=== PATIENT | female | born 1945 | race Caucasian/White ===

== ENCOUNTER 2024-07-01 09:01 | Inpatient (IN) ==
--- NOTE | 2024-07-01 09:25 | Emergency Department Note ---
Impression & Plan Bright red rectal bleeding ED Provider Note Provider: Scout Herring MD DATE OF SERVICE: 07/01/2024 CHIEF COMPLAINT: Rectal bleeding HISTORY OF PRESENT ILLNESS: Patient is a 78-year-old female presenting via ambulance from home for report of maybe a little stomach burning last night and woke up this morning had 4-5 episodes of bloody diarrhea and stools. Denies significant abdominal pain at this time. No chest pain or shortness of breath. No syncope or lightheadedness reported. Denies a history of GI bleeding issues in the past. Is on Protonix at home but no blood thinners or aspirin reported. Is on some NSAID cream. Denies significant lower abdominal pain or cramping otherwise a bit crampy earlier. Given multiple bloody stools with some clots came here for evaluation. Denies suspect food intake or fever. No recent significant travel. PAST MEDICAL HISTORY: As noted above MEDICATIONS: Reviewed, no blood thinners reported SOCIAL HISTORY: Lives at home with PHYSICAL EXAM: GENERAL: alert and oriented in no acute distress on stretcher Head: normocephalic and atraumatic EYES: No injection, discharge or icterus. EOMI. NECK: Trachea midline. ENT: Mucous membranes pink and moist. LUNGS: Airway patent. No retractions. Breath sounds clear with good air entry bilaterally. HEART: Regular rate and rhythm. No chest wall tenderness ABDOMEN: Soft and non-tender, without guarding or rebound. SKIN: Acyanotic, warm, dry, without rashes EXTREMITIES: Without swelling, tenderness or deformity NEUROLOGICAL: No focal deficits. No aphasia. No facial droop or slurred speech. Ambulatory. EK beats per minute. Normal sinus rhythm. No PVC or PAC. No acute ST segment elevation or depression with QTc of 415. CONTINUOUS CARDIAC MONITORING: was ordered and showed a heart rate of 70s to 80s bpm in normal sinus rhythm Patient's laboratory studies and imaging reviewed. Differential includes Diverticulosis, AVM, coagulopathy, colitis, inflammatory bowel disease, malignancy, Sharmaine-Valentino tear, esophagitis, peptic ulcer disease, variceal bleed, gastritis, epistaxis, fissure, hemorrhoids, as well as other pathologies. IMPRESSION/MEDICAL DECISION MAKING: Patient with rectal bleeding starting today. No history of ulcers or GI bleed by her report. Not significantly tender on exam. Not on antiplatelets or anticoagulants. Blood work obtained including type and screen. Will complete a CT abdomen pelvis to look for possible etiology of bleed or other inflammatory changes. Will give a IV dose of Protonix here although unsure that this truly represents an upper GI bleed. Stool here is red with blood and Hemoccult positive. Denies significant symptoms of anemia and not hypotensive or tachycardic here. Blood work without anemia leukocytosis. Normal platelet count. No significant lecture abnormalities or renal dysfunction. BUN normal and lower suspicion for upper GI bleed with this. No transaminitis notable. CT angiogram of the abdomen pelvis to look for any active bleeding was negative. Extensive colonic diverticulosis without diverticulitis noted on imaging report from radiology. Discussed with patient the findings. He that she has had ongoing bloody bowel movements although she is not significantly symptomatic or hypotensive given her age discussed with her options at this time of close outpatient monitoring and management versus observation. She wished to be observed with her believe is reasonable given her age and the multiple bloody stools she has had today. She is at risk for decompensation. Hospitalist was contacted. DIAGNOSIS: Rectal bleeding DISPOSITION: Hospitalist will evaluate Patient was agreeable with this plan. Past Med/Surg History Problem List (Updated 07/01/24 @ 13:03 by Scout Herring M.D.) Bright red rectal bleeding (Acute) Depression GERD (gastroesophageal reflux disease) Vitamin B12 deficiency Lower GI bleed HTN (hypertension) Rosacea Hypothyroidism Allergies Allergies Allergy/AdvReac Type Severity Reaction Status Date / Time atorvastatin Allergy Unknown Unknown - Unverified 07/01/24 10:34 On file w/ [facility] diclofenac Allergy Unknown Unknown - Unverified 07/01/24 10:34 On file w/ [facility] diflunisal Allergy Unknown Unknown - Unverified 07/01/24 10:34 On file w/ [facility] naproxen Allergy Unknown Unknown - Unverified 07/01/24 10:34 On file w/ [facility] Home Meds Home Medications Medication Instructions Recorded Confirmed albuterol sulfate 90 mcg/actuation 2 puff inhalation Q4H PRN Wheezing 07/01/24 07/01/24 aerosol inhaler amlodipine 5 mg tablet 5 mg PO QAM 07/01/24 07/01/24 cholecalciferol (vitamin D3) 25 25 mcg PO QAM 07/01/24 07/01/24 mcg (1,000 unit) tablet (Vitamin D3) cyanocobalamin (vitamin B-12) 1,000 mcg PO QAM 07/01/24 07/01/24 1,000 mcg tablet (Vitamin B-12) doxycycline hyclate 20 mg tablet 20 mg PO BID 07/01/24 07/01/24 duloxetine 30 mg capsule,delayed 30 mg PO QAM 07/01/24 07/01/24 release ezetimibe 10 mg tablet 10 mg PO DAILY 07/01/24 07/01/24 fluticasone furoate 200 1 inh inhalation QAM 07/01/24 07/01/24 mcg-vilanterol 25 mcg/dose inhalation powder (Breo Ellipta) fluticasone propionate 50 2 spray intranasal DAILY 07/01/24 07/01/24 mcg/actuation nasal spray,suspension furosemide 20 mg tablet 20 mg PO DAILY PRN Lower Extremity 07/01/24 07/01/24 Swelling levothyroxine 50 mcg tablet 50 mcg PO DAILYBB 07/01/24 07/01/24 loratadine 10 mg tablet 10 mg PO QAM 07/01/24 07/01/24 meloxicam 15 mg tablet 15 mg PO DAILY PRN Pain 07/01/24 07/01/24 omega-3 fatty acids 500 mg capsule 500 mg PO QAM 07/01/24 07/01/24 omeprazole 40 mg capsule,delayed 40 mg PO QAM 07/01/24 07/01/24 release potassium chloride 20 mEq 20 meq PO DAILY PRN If you take 07/01/24 07/01/24 tablet,extended Lasix/Furosemide release(part/cryst) (Klor-Con M) sulfacetamide sodium 10 % topical 1 applic topical BID 07/01/24 07/01/24 cream zinc 10 mg tablet 20 mg PO DAILY 07/01/24 07/01/24 Results & Data (ED) Vital Signs Vital Signs - 24 hr 07/01/24 09:05 07/01/24 09:08 07/01/24 09:08 Temperature 37.2 C Temperature Source Oral Pulse Rate 87 Pulse Rate [Apical] 87 Pulse Rate from SpO2 Sensor Pulse Rhythm Regular Pulse Rhythm [Apical] Regular Pulse Strength Normal Pulse Strength [Apical] Normal Respiratory Rate 15 15 Respiratory Effort / Characteristics Non-Labored Non-Labored Respiratory Depth Normal Normal Respiratory Pattern Regular Regular Blood Pressure 170/96 H 170/96 H Blood Pressure [Right Arm] 170/96 H Blood Pressure Mean 121 120 Blood Pressure Mean [Right Arm] 120 Blood Pressure Position [Right Arm] Lying Pulse Oximetry 98 98 Oxygen Delivery Method Room Air Room Air Oxygen Flow Rate Sepsis Recent Fever Within 48 Hours No Sepsis New/Unexplained Change in Mental Status No Sepsis Action Taken by Nursing No Action Required 07/01/24 09:09 07/01/24 09:10 07/01/24 09:10 Temperature Temperature Source Pulse Rate 90 91 H 80 Pulse Rate [Apical] Pulse Rate from SpO2 Sensor 88 Pulse Rhythm Regular Pulse Rhythm [Apical] Pulse Strength Pulse Strength [Apical] Respiratory Rate 20 18 Respiratory Effort / Characteristics Respiratory Depth Respiratory Pattern Blood Pressure Blood Pressure [Right Arm] Blood Pressure Mean Blood Pressure Mean [Right Arm] Blood Pressure Position [Right Arm] Pulse Oximetry 98 96 Oxygen Delivery Method Room Air Oxygen Flow Rate Sepsis Recent Fever Within 48 Hours Sepsis New/Unexplained Change in Mental Status Sepsis Action Taken by Nursing 07/01/24 09:35 07/01/24 10:00 07/01/24 10:00 Temperature Temperature Source Pulse Rate 84 Pulse Rate [Apical] 84 Pulse Rate from SpO2 Sensor 83 Pulse Rhythm Pulse Rhythm [Apical] Regular Pulse Strength Pulse Strength [Apical] Normal Respiratory Rate 20 22 Respiratory Effort / Characteristics Non-Labored Spontaneous Respiratory Depth Normal Respiratory Pattern Regular Blood Pressure 162/94 H Blood Pressure [Right Arm] 161/96 H Blood Pressure Mean 116 Blood Pressure Mean [Right Arm] 117 Blood Pressure Position [Right Arm] Sitting Pulse Oximetry 95 99 Oxygen Delivery Method Nasal Cannula Oxygen Flow Rate 2 Sepsis Recent Fever Within 48 Hours Sepsis New/Unexplained Change in Mental Status Sepsis Action Taken by Nursing 07/01/24 10:42 07/01/24 11:00 07/01/24 11:00 Temperature Temperature Source Pulse Rate 76 78 Pulse Rate [Apical] Pulse Rate from SpO2 Sensor 76 77 Pulse Rhythm Pulse Rhythm [Apical] Pulse Strength Pulse Strength [Apical] Respiratory Rate 22 18 Respiratory Effort / Characteristics Respiratory Depth Respiratory Pattern Blood Pressure 164/101 H Blood Pressure [Right Arm] Blood Pressure Mean 149 Blood Pressure Mean [Right Arm] Blood Pressure Position [Right Arm] Pulse Oximetry 99 99 99 Oxygen Delivery Method Nasal Cannula Nasal Cannula Oxygen Flow Rate 2 2 Sepsis Recent Fever Within 48 Hours Sepsis New/Unexplained Change in Mental Status Sepsis Action Taken by Nursing 07/01/24 11:00 Temperature Temperature Source Pulse Rate 84 Pulse Rate [Apical] Pulse Rate from SpO2 Sensor 83 Pulse Rhythm Pulse Rhythm [Apical] Pulse Strength Pulse Strength [Apical] Respiratory Rate 18 Respiratory Effort / Characteristics Respiratory Depth Respiratory Pattern Blood Pressure 164/101 H Blood Pressure [Right Arm] Blood Pressure Mean 149 Blood Pressure Mean [Right Arm] Blood Pressure Position [Right Arm] Pulse Oximetry Oxygen Delivery Method Oxygen Flow Rate Sepsis Recent Fever Within 48 Hours Sepsis New/Unexplained Change in Mental Status Sepsis Action Taken by Nursing Laboratory Data 07/01/24 09:14 07/01/24 09:14 Lab Results 07/01/24 07/01/24 Range/Units 09:10 09:14 WBC 9.09 (4.8-10.8) K/ul RBC 4.03 L (4.20-5.40) M/uL Hgb 12.6 (12.0-16.0) g/dl Hct 37.9 (37.0-47.0) % MCV 94.0 (80.0-100.0) fL MCH 31.3 (25.0-34.0) pg MCHC 33.2 (32.0-36.0) g/dL RDW Std Deviation 49.3 H (36.4-46.3) fL RDW Coeff of Imani 14.1 (11.5-14.5) % Plt Count 330 (130-400) K/uL MPV 9.3 L (9.4-12.4) fL Immature Gran % (Auto) 0.3 % Neut % (Auto) 65.3 % Lymph % (Auto) 20.7 % [place] % (Auto) 7.7 % Eos % (Auto) 5.1 % Baso % (Auto) 0.9 % Neut # (Auto) 5.94 (1.40-6.50) K/uL Lymph # (Auto) 1.88 (1.20-3.40) K/uL [place] # (Auto) 0.70 H (0.11-0.59) K/uL Eos # (Auto) 0.46 (0.00-0.50) K/uL Baso # (Auto) 0.08 (0.00-0.20) K/uL Immature Gran # (Auto) 0.03 (0.01-0.20) K/uL PT 10.0 (9.0-12.0) Seconds INR 0.9 (0.9-1.1) APTT 25 (21-31) Seconds PTT Ratio 0.9 Sodium 139 (136-145) mmol/L Potassium 4.4 (3.5-5.1) mmol/L Chloride 106 (98-107) mmol/L Carbon Dioxide 28 (21-32) mmol/L Anion Gap 5 (3-11) BUN 22 (6-23) mg/dl Creatinine 0.82 (0.6-1.2) mg/dl Est Cr Clr Drug Dosing 47.2 ml/min Est GFR ( Amer) 78.9 ml/min Est GFR (Non-Af Amer) 68.1 ml/min BUN/Creatinine Ratio 26.8 H (10-20) Glucose 94 (70-99(Fasting)) mg/dl Calcium 9.3 (8.6-10.3) mg/dl Total Bilirubin 0.7 (0.2-1.0) mg/dl AST 16 (13-39) U/L ALT 13 (7-52) U/L Alkaline Phosphatase 73 (34-104) U/L Total Protein 6.5 (6.0-8.3) gm/dl Albumin 3.9 (3.4-5.0) gm/dl Globulin 2.6 (2.5-4.0) gm/dl Albumin/Globulin Ratio 1.5 (0.9-2) POC Stool Occult Blood Positive A (Negative) Blood Type AB Positive Antibody Screen NEGATIVE Administered Medications Discontinued Medications Pantoprazole Sodium 80 mg/ (Dextrose) 120 mls @ 480 mls/hr IV ONE STA Stop: 07/01/24 09:22 Last Infusion: 07/01/24 10:12 Dose: Infused Documented By: Admin: 07/01/24 09:37 Dose: 480 mls/hr Documented By: AMANDA Ioversol (Optiray 320 125ml) 119 ml IV ONCE ONE Stop: 07/01/24 10:21 Last Admin: 07/01/24 10:20 Dose: 119 ml Documented By: SEFERINO Imaging Data Radiologist's Impression: Abdomen/Pelvis CTA 07/01/24 09:08 CT ANGIOGRAPHY OF THE ABDOMEN AND PELVIS CLINICAL HISTORY: Bloody stool. COMPARISON STUDY: No previous studies for comparison. TECHNIQUE: Helical axial images of the abdomen and pelvis were obtained during arterial phase following intravenous injection 119 cc of Optiray 320 IV. Sagittal and coronal reconstructions were viewed as well as maximal intensity projections on an independent 3-D workstation. Automated exposure control was utilized for the study. A dose lowering technique was utilized adhering to the principles of ALARA. FINDINGS: There is elevation of the left hemidiaphragm. The heart is moderately enlarged. No pneumatosis, free air or portal venous gas is present. Arterial phase images of the liver are unremarkable with exception of a 2.1 cm lateral segment hepatic cyst. Spleen, adrenal glands are unremarkable. There is pancreatic glandular atrophy. No biliary or pancreatic ductal dilatation is present status post cholecystectomy. There is moderate bilateral renal cortical thinning. Multiple left renal cysts are present. There is no hydronephrosis. Extensive colonic diverticulosis is present. No evidence for acute diverticulitis. No evidence for a bowel obstruction. No intraluminal contrast is identified on this examination to suggest active GI bleed by CT. The caliber of the abdominal aorta is normal. There is moderate aortoiliac atherosclerotic plaque. There is mild dilatation of the right common iliac artery, measuring 1.4 cm. There is no aneurysm or dissection within the abdomen or the pelvis. Branch vessels are patent. There are no fluid collections or enlarged lymph nodes within the abdomen or pelvis. Exam is mildly compromised by motion artifact. IMPRESSION: 1. Extensive colonic diverticulosis. No evidence for acute diverticulitis. No intraluminal contrast within the bowel to suggest active GI bleed by CT. 2. No bowel obstruction. 3. Moderate aortoiliac atherosclerotic plaque. Patent vessels. ACT 112: Negative or not required by law. Electronically signed by: Otilio Griggs M.D. 07/01/2024 10:45 AM Discharge Plan Visit Data Chief Complaint: Rectal Bleed Stated Complaint: RECTAL BLEED ED Provider: Scout Herring Discharge Problem: Bright red rectal bleeding Patient Disposition: Being Evaluated by Hospitalist Forms Stand Alone Forms: My [facility] [employer] Prescriptions Prescriptions: No Action meloxicam 15 mg tablet 15 mg PO DAILY PRN (Reason: Pain) cyanocobalamin (vitamin B-12) [Vitamin B-12] 1,000 mcg Tablet 1,000 mcg PO QAM amlodipine 5 mg tablet 5 mg PO QAM omeprazole 40 mg capsule,delayed release(DR/EC) 40 mg PO QAM potassium chloride [Klor-Con M20] 20 mEq tablet,ER particles/crystals 20 meq PO DAILY PRN (Reason: If you take Lasix/Furosemide) levothyroxine 50 mcg tablet 50 mcg PO DAILYBB furosemide 20 mg tablet 20 mg PO DAILY PRN (Reason: Lower Extremity Swelling) albuterol sulfate 90 mcg/actuation HFA aerosol inhaler 2 puff INHALATION Q4H PRN (Reason: Wheezing) fluticasone propionate 50 mcg/actuation spray,suspension 2 spray INTRANASAL DAILY loratadine 10 mg tablet 10 mg PO QAM zinc 10 mg Tablet 20 mg PO DAILY ezetimibe 10 mg tablet 10 mg PO DAILY sulfacetamide sodium 10 % Cream 1 applic TOPICAL BID duloxetine 30 mg capsule,delayed release(DR/EC) 30 mg PO QAM cholecalciferol (vitamin D3) [Vitamin D3] 25 mcg (1,000 unit) Tablet 25 mcg PO QAM Fish Oil 500 mg Capsule 500 mg PO QAM fluticasone furoate-vilanterol [Breo Ellipta] 200-25 mcg/dose blister with device 1 inh INHALATION QAM doxycycline hyclate 20 mg Tablet 20 mg PO BID Rx Instructions: On patient's med list, pharmacy not showing this on file. Referrals Referrals: PCP,NO [Physician] -
[2024-07-01] MEDS: PANTOprazole 80 MG in DEXTROSE 5% 100 ML IV STA (09:37)
[2024-07-01 09:51] LABS: Basophils # (auto) 0.08 K/uL (0.00-0.20); Basophils % (auto) 0.9 %; Eosinophils # (auto) 0.46 K/uL (0.00-0.50); Eosinophils % (auto) 5.1 %; Hematocrit (blood only) 37.9 % (37.0-47.0); Hemoglobin 12.6 g/dl (12.0-16.0); Immature Granulocytes # (auto) 0.03 K/uL (0.01-0.20); Immature Granulocytes % (auto) 0.3 %; Lymphocytes # (auto) 1.88 K/uL (1.20-3.40); Lymphocytes % (auto) 20.7 %; Mean Corpuscular Hemoglobin 31.3 pg (25.0-34.0); Mean Corpuscular Hgb Conc 33.2 g/dL (32.0-36.0); Mean Platelet Volume 9.3 fL (9.4-12.4); Monocytes % (auto) 7.7 %; Neutrophils # (auto) 5.94 K/uL (1.40-6.50); Neutrophils % (auto) 65.3 %; Platelet Count 330 K/uL (130-400); RDW Coefficient of Variation 14.1 % (11.5-14.5); RDW Standard Deviation 49.3 fL (36.4-46.3); Red Blood Count 4.03 M/uL (4.20-5.40); White Blood Count 9.09 K/ul (4.8-10.8)
[2024-07-01 10:00] LABS: Albumin Globulin Ratio 1.5 (0.9-2); Albumin Level 3.9 gm/dl (3.4-5.0); BUN Creatinine Ratio 26.8 (10-20); Bilirubin,Total 0.7 mg/dl (0.2-1.0); Calcium 9.3 mg/dl (8.6-10.3); Creatinine Clr Calc Pharmacy 47.2 ml/min; Est GFR (African American) 78.9 ml/min; Est GFR (Non-African American) 68.1 ml/min; Globulin 2.6 gm/dl (2.5-4.0); Potassium 4.4 mmol/L (3.5-5.1); Total Protein 6.5 gm/dl (6.0-8.3)
[2024-07-01 10:12] LABS: INR 0.9 (0.9-1.1); Partial Thromboplastin Ratio 0.9; Partial Thromboplastin Time 25 Seconds (21-31)
[2024-07-01] MEDS: OPTIRAY 320 125ml IV ONE (10:20)
--- NOTE | 2024-07-01 10:46 | CT Scan Report ---
CT ANGIOGRAPHY OF THE ABDOMEN AND PELVIS CLINICAL HISTORY: Bloody stool. COMPARISON STUDY: No previous studies for comparison. TECHNIQUE: Helical axial images of the abdomen and pelvis were obtained during arterial phase followi ng intravenous injection 119 cc of Optiray 320 IV. Sagittal and coronal reconstructions were viewed a s well as maximal intensity projections on an independent 3-D workstation. Automated exposure control was utilized for the study. A dose lowering technique was utilized adhering to the principles of [place]. FINDINGS: There is elevation of the left hemidiaphragm. The heart is moderately enlarged. No pneumato sis, free air or portal venous gas is present. Arterial phase images of the liver are unremarkable wi th exception of a 2.1 cm lateral segment hepatic cyst. Spleen, adrenal glands are unremarkable. There is pancreatic glandular atrophy. No biliary or pancreatic ductal dilatation is present status post c holecystectomy. There is moderate bilateral renal cortical thinning. Multiple left renal cysts are pr esent. There is no hydronephrosis. Extensive colonic diverticulosis is present. No evidence for acute diverticulitis. No evidence for a bowel obstruction. No intraluminal contrast is identified on this examination to suggest active GI bleed by CT. The caliber of the abdominal aorta is normal. There is moderate aortoiliac atherosclerotic plaque. There is mild dilatation of the right common iliac artery , measuring 1.4 cm. There is no aneurysm or dissection within the abdomen or the pelvis. Branch vesse ls are patent. There are no fluid collections or enlarged lymph nodes within the abdomen or pelvis. E xam is mildly compromised by motion artifact. IMPRESSION: 1. Extensive colonic diverticulosis. No evidence for acute diverticulitis. No intraluminal contrast w ithin the bowel to suggest active GI bleed by CT. 2. No bowel obstruction. 3. Moderate aortoiliac atherosclerotic plaque. Patent vessels. ACT 112: Negative or not required by law. Electronically signed by: Otilio Grigsg M.D. 07/01/2024 10:45 AM
--- NOTE | 2024-07-01 12:12 | History & Physical Report ---
Date of Service July 01, 2024 Assessment & Plan (1) Depression: (2) GERD (gastroesophageal reflux disease): (3) Vitamin B12 deficiency: (4) Lower GI bleed: (5) HTN (hypertension): (6) Rosacea: (7) Hypothyroidism: Plan Assessment and plan: Lower GI bleed: S/p 5 episodes of hematochezia with blood clots A/P CTA with diverticulosis, no active diverticulitis No signs of active GI bleeding on imaging Continue IV protonix drip, suspect diverticular bleed Recently on meloxicam and steroids, has never taken AC/antiplatelets Serial H/H, gentle hydration, n.p.o., GI consult Hx HTN: Hold Norvasc for now Hx hypothyroidism: Continue levothyroxine Hx COPD: Continue Breo, avoid nebulizers with GI bleed Hx rosacea: Takes Doxy as needed, no active flares recently Hx chronic back pain/depression: Stop meloxicam indefinitely, continue Cymbalta, Tylenol for breakthrough pain A total of 60 minutes was spent reviewing labs/discussing with specialists/reviewing imaging/Medical history Full code DVT prophylaxis: SCDs, contraindicated with GI bleed History of Present Illness Chief Complaint: Bright red blood per rectum x 5 Primary Care Provider: Linda Lopez DO The patient is a 78-year-old female with a past medical history of COPD, HTN, vitamin D deficiency, vitamin B12 deficiency, depression, rosacea, hypothyr oidism, chronic back pain who presents to the ED 110/2/24 with concerns of bright red blood per rectum since this morning. Reports 5 episodes with blood clots. Denies any abdominal pain. Denies any recent sickness denies any fever/chills. Denies any nausea/vomiting. Denies any diarrhea aside from the bloody diarrhea this a.m. Patient had a colonoscopy in 2011 and reports this was negative. Patient does report being on meloxicam for lower back pain for least a year at this point. Reports being prescribed furosemide for lower extremity swelling but not taking this because it does not work. Reports being placed on prednisone for knee pain about a month ago. She was taking meloxicam and prednisone together at this time. She denies any recent travel.. Denies any GI issues in the past. She has only seen GI in the past for routine scopes. She otherwise denies taking NSAIDs aside from meloxicam on a routine basis. She takes Tylenol as needed for breakthrough pain. On exam, patient is awake alert and oriented x 3 pleasant. No apparent distress. She is hemodynamically stable. A/P CTA showed no active bleeding Report below: 1. Extensive colonic diverticulosis. No evidence for acute diverticulitis. No intraluminal contrast within the bowel to suggest active GI bleed by CT. 2. No bowel obstruction. 3. Moderate aortoiliac atherosclerotic plaque. Patent vessels. On arrival to the ED, labs are fairly unremarkable, vital signs are stable. Apparently, patient was hypoxic in the 80s on arrival. She is now on room air with an oxygen saturation of 98% with no shortness of breath on exam. Her hemoglobin is stable at 12.6, her heme stool was positive The patient will be admitted to telemetry for further monitoring Allergies Allergy/AdvReac Type Severity Reaction Status Date / Time atorvastatin Allergy Unknown Unknown - Unverified 07/01/24 10:34 On file w/ [facility] diclofenac Allergy Unknown Unknown - Unverified 07/01/24 10:34 On file w/ [facility] diflunisal Allergy Unknown Unknown - Unverified 07/01/24 10:34 On file w/ [facility] naproxen Allergy Unknown Unknown - Unverified 07/01/24 10:34 On file w/ [facility] Home Medications Medication Instructions Recorded Confirmed Type albuterol sulfate 90 mcg/actuation 2 puff inhalation Q4H PRN Wheezing 07/01/24 07/01/24 History aerosol inhaler amlodipine 5 mg tablet 5 mg PO QAM 07/01/24 07/01/24 History cholecalciferol (vitamin D3) 25 25 mcg PO QAM 07/01/24 07/01/24 History mcg (1,000 unit) tablet (Vitamin D3) cyanocobalamin (vitamin B-12) 1,000 mcg PO QAM 07/01/24 07/01/24 History 1,000 mcg tablet (Vitamin B-12) doxycycline hyclate 20 mg tablet 20 mg PO BID 07/01/24 07/01/24 History duloxetine 30 mg capsule,delayed 30 mg PO QAM 07/01/24 07/01/24 History release ezetimibe 10 mg tablet 10 mg PO DAILY 07/01/24 07/01/24 History fluticasone furoate 200 1 inh inhalation QAM 07/01/24 07/01/24 History mcg-vilanterol 25 mcg/dose inhalation powder (Breo Ellipta) fluticasone propionate 50 2 spray intranasal DAILY 07/01/24 07/01/24 History mcg/actuation nasal spray,suspension furosemide 20 mg tablet 20 mg PO DAILY PRN Lower Extremity 07/01/24 07/01/24 History Swelling levothyroxine 50 mcg tablet 50 mcg PO DAILYBB 07/01/24 07/01/24 History loratadine 10 mg tablet 10 mg PO QAM 07/01/24 07/01/24 History meloxicam 15 mg tablet 15 mg PO DAILY PRN Pain 07/01/24 07/01/24 History omega-3 fatty acids 500 mg capsule 500 mg PO QAM 07/01/24 07/01/24 History omeprazole 40 mg capsule,delayed 40 mg PO QAM 07/01/24 07/01/24 History release potassium chloride 20 mEq 20 meq PO DAILY PRN If you take 07/01/24 07/01/24 History tablet,extended Lasix/Furosemide release(part/cryst) (Klor-Con M) sulfacetamide sodium 10 % topical 1 applic topical BID 07/01/24 07/01/24 History cream zinc 10 mg tablet 20 mg PO DAILY 07/01/24 07/01/24 History Past Med/Surg History Problem List (Updated 07/01/24 @ 13:03 by Scout Herring M.D.) Bright red rectal bleeding (Acute) Depression GERD (gastroesophageal reflux disease) Vitamin B12 deficiency Lower GI bleed HTN (hypertension) Rosacea Hypothyroidism Social History (System 07/01/24 @ 09:11 by Chelsy Beck) Smoking Status: Never smoker Hx Alcohol Use: No Hx Substance Use: No Preferred Language: Malawian Communication Ability: Effective Mattress Stuffer Required: No Beliefs That Will Affect Care: None Current Living Situation: Spouse Feels Safe at Home: Yes Assistive Devices: Glasses Review of Systems Review of Systems: All systems reviewed & are unremarkable except as noted in HPI & below Physical Exam Constitutional: WD/WN, vitals as above Eyes: PERRL, conjunctivae normal, anicteric sclerae ENMT: external ear and nose normal, oropharynx normal Neck: trachea midline, no thyromegaly Respiratory: normal respiratory effort, lungs clear to auscultation Cardiovascular: RRR, no murmur, no edema Extremities: + edema (Trace bilateral lower extremity edema) Chest (Breasts): normal inspection/palpation of breasts Gastrointestinal (Abdomen): normal bowel sounds, soft, nontender, no hepatosplenomegaly Musculoskeletal: no cyanosis or clubbing, extremities motor strength 5/5 Neurologic: patellar DTR's 2+ bilat, sensation intact Psychiatric: A+Ox3, euthymic affect Lymphatic: no cervical or axillary lymphadenopathy Results & Data Results & Data Vital Signs (Past 12 Hours) Vital Signs Temp Pulse Pulse Resp BP BP Pulse Ox 07/01/24 11:00 84 18 164/101 H 07/01/24 11:00 164/101 H 99 07/01/24 11:00 78 18 99 07/01/24 10:42 76 22 99 07/01/24 10:00 84 22 99 07/01/24 10:00 162/94 H 07/01/24 09:35 84 20 161/96 H 95 07/01/24 09:10 80 18 96 07/01/24 09:10 91 H 07/01/24 09:09 90 20 98 07/01/24 09:08 87 15 170/96 H 98 07/01/24 09:08 37.2 C 87 15 170/96 H 98 07/01/24 09:05 170/96 H O2 Del Method O2 Flow Rate 07/01/24 11:00 07/01/24 11:00 Nasal Cannula 2 07/01/24 11:00 Nasal Cannula 2 07/01/24 10:42 07/01/24 10:00 07/01/24 10:00 07/01/24 09:35 Nasal Cannula 2 07/01/24 09:10 Room Air 07/01/24 09:10 07/01/24 09:09 07/01/24 09:08 Room Air 07/01/24 09:08 Room Air 07/01/24 09:05 Laboratory Results Laboratory Results WBC 9.09 K/ul (4.8-10.8) 07/01/24 09:14 RBC 4.03 M/uL (4.20-5.40) L 07/01/24 09:14 Hgb 12.6 g/dl (12.0-16.0) 07/01/24 09:14 Hct 37.9 % (37.0-47.0) 07/01/24 09:14 MCV 94.0 fL (80.0-100.0) 07/01/24 09:14 MCH 31.3 pg (25.0-34.0) 07/01/24 09:14 MCHC 33.2 g/dL (32.0-36.0) 07/01/24 09:14 RDW Std Deviation 49.3 fL (36.4-46.3) H 07/01/24 09:14 RDW Coeff of Imani 14.1 % (11.5-14.5) 07/01/24 09:14 Plt Count 330 K/uL (130-400) 07/01/24 09:14 MPV 9.3 fL (9.4-12.4) L 07/01/24 09:14 Immature Gran % (Auto) 0.3 % 07/01/24 09:14 Neut % (Auto) 65.3 % 07/01/24 09:14 Lymph % (Auto) 20.7 % 07/01/24 09:14 [place] % (Auto) 7.7 % 07/01/24 09:14 Eos % (Auto) 5.1 % 07/01/24 09:14 Baso % (Auto) 0.9 % 07/01/24 09:14 Neut # (Auto) 5.94 K/uL (1.40-6.50) 07/01/24 09:14 Lymph # (Auto) 1.88 K/uL (1.20-3.40) 07/01/24 09:14 [place] # (Auto) 0.70 K/uL (0.11-0.59) H 07/01/24 09:14 Eos # (Auto) 0.46 K/uL (0.00-0.50) 07/01/24 09:14 Baso # (Auto) 0.08 K/uL (0.00-0.20) 07/01/24 09:14 Immature Gran # (Auto) 0.03 K/uL (0.01-0.20) 07/01/24 09:14 PT 10.0 Seconds (9.0-12.0) 07/01/24 09:14 INR 0.9 (0.9-1.1) 07/01/24 09:14 APTT 25 Seconds (21-31) 07/01/24 09:14 PTT Ratio 0.9 07/01/24 09:14 Sodium 139 mmol/L (136-145) 07/01/24 09:14 Potassium 4.4 mmol/L (3.5-5.1) 07/01/24 09:14 Chloride 106 mmol/L (98-107) 07/01/24 09:14 Carbon Dioxide 28 mmol/L (21-32) 07/01/24 09:14 Anion Gap 5 (3-11) 07/01/24 09:14 BUN 22 mg/dl (6-23) 07/01/24 09:14 Creatinine 0.82 mg/dl (0.6-1.2) 07/01/24 09:14 Est Cr Clr Drug Dosing 47.2 ml/min 07/01/24 09:14 Est GFR ( Amer) 78.9 ml/min 07/01/24 09:14 Est GFR (Non-Af Amer) 68.1 ml/min 07/01/24 09:14 BUN/Creatinine Ratio 26.8 (10-20) H 07/01/24 09:14 Glucose 94 mg/dl (70-99(Fasting)) 07/01/24 09:14 Calcium 9.3 mg/dl (8.6-10.3) 07/01/24 09:14 Total Bilirubin 0.7 mg/dl (0.2-1.0) 07/01/24 09:14 AST 16 U/L (13-39) 07/01/24 09:14 ALT 13 U/L (7-52) 07/01/24 09:14 Alkaline Phosphatase 73 U/L (34-104) 07/01/24 09:14 Total Protein 6.5 gm/dl (6.0-8.3) 07/01/24 09:14 Albumin 3.9 gm/dl (3.4-5.0) 07/01/24 09:14 Globulin 2.6 gm/dl (2.5-4.0) 07/01/24 09:14 Albumin/Globulin Ratio 1.5 (0.9-2) 07/01/24 09:14 POC Stool Occult Blood Positive (Negative) A 07/01/24 09:10 Blood Type AB Positive 07/01/24 09:14 Antibody Screen NEGATIVE 07/01/24 09:14 Impressions Abdomen/Pelvis CTA 07/01/24 09:08 CT ANGIOGRAPHY OF THE ABDOMEN AND PELVIS CLINICAL HISTORY: Bloody stool. COMPARISON STUDY: No previous studies for comparison. TECHNIQUE: Helical axial images of the abdomen and pelvis were obtained during arterial phase following intravenous injection 119 cc of Optiray 320 IV. Sagittal and coronal reconstructions were viewed as well as maximal intensity projections on an independent 3-D workstation. Automated exposure control was utilized for the study. A dose lowering technique was utilized adhering to the principles of ALARA. FINDINGS: There is elevation of the left hemidiaphragm. The heart is moderately enlarged. No pneumatosis, free air or portal venous gas is present. Arterial phase images of the liver are unremarkable with exception of a 2.1 cm lateral segment hepatic cyst. Spleen, adrenal glands are unremarkable. There is pancreatic glandular atrophy. No biliary or pancreatic ductal dilatation is present status post cholecystectomy. There is moderate bilateral renal cortical thinning. Multiple left renal cysts are present. There is no hydronephrosis. Extensive colonic diverticulosis is present. No evidence for acute diverticulitis. No evidence for a bowel obstruction. No intraluminal contrast is identified on this examination to suggest active GI bleed by CT. The caliber of the abdominal aorta is normal. There is moderate aortoiliac atherosclerotic plaque. There is mild dilatation of the right common iliac artery, measuring 1.4 cm. There is no aneurysm or dissection within the abdomen or the pelvis. Branch vessels are patent. There are no fluid collections or enlarged lymph nodes within the abdomen or pelvis. Exam is mildly compromised by motion artifact. IMPRESSION: 1. Extensive colonic diverticulosis. No evidence for acute diverticulitis. No intraluminal contrast within the bowel to suggest active GI bleed by CT. 2. No bowel obstruction. 3. Moderate aortoiliac atherosclerotic plaque. Patent vessels. ACT 112: Negative or not required by law. Electronically signed by: Otilio Griggs M.D. 07/01/2024 10:45 AM Code Status & VTE Plan VTE Prophylaxis Plan VTE Prophylaxis will be ordered: Yes Reason for no VTE drug order: Contraindicated Supervising Physician Co-Signing Physician Notes Attending Addendum: Case reviewed with the advanced practitioner. I have personally performed a history and physical examination on the patient. I have reviewed the advanced practitioner's documentation on the date of service referenced in note, and I agree with, and take responsibility for the plan of care. please refer to her notes for full details patient seen and examined, records reviewed by myself as well on exam, patient Seen resting in bed, comfortable, not in distress Had 1 episode of hematochezia while in the ER Denies abdominal pain, nausea vomiting, fevers or chills No shortness of breath, chest pain, dizziness no other symptoms VS noted and reviewed oriented , not in distress, speaks in sentences with no effort nor accessory muscle use normal rate, regular rhythm, no murmurs clear breath sounds bilaterally non distended, soft, Very mild tenderness on the left lower quadrant no bipedal edema, erythema, warmth no neuro deficits all labs, imaging noted and reviewed ASSESSMENT AND PLAN Episodes of hematochezia, possible diverticular bleed rule out PUD, chronic NSAID use Hemoglobin 12, check every 6 hours Protonix drip N.p.o. after midnight GI consulted other diagnoses and plan of care as per advanced practitioner's notes Vince Romero MD
--- NOTE | 2024-07-01 13:23 | Gastrointestinal Consultation ---
Date of Consultation July 01, 2024 Assessment & Plan (1) Bright red rectal bleeding: Plan 78 year old female with history of COPD, HTN, vitamin D deficiency, vitamin B12 deficiency, depression, rosacea, hypothyroidism, chronic back pain admitted through the ED with report of painless rectal bleeding - onset 07/01/24. She endorses about 5-6 episodes of hematochezia since this AM. She has remained hemodynamically stable w/ BP 164/101, HGB 12.6 w/o BUN elevation. She denies p revious episodes of nausea/vomiting/diarrhea or black stools. Suspect a diverticular hemorrhage vs other LGI bleeding. Check stool studies to rule out any infectious etiology Start Golytely prep today May have clear liquids today NPO after midnight Trend H&H Monitor and document GI output Transfuse PRN per primary team May convert to oral PPI therapy Agree w/ holding NSAIDs if using If bleeding persists despite golytely prep and stool studies negative for infectious etiology, she would be agreeable to colonoscopy evaluation at that time. We appreciate assistance in the management of any serological abnormality and corrections to include: hemoglobin >7, INR <2, platelets >50,000, potassium levels >3.5 but <5.3, and sodium levels within 5 points of the reference range prior to endoscopic evaluation. Thank you for allowing us to participate in the care of this patient. Please call with any acute changes, questions or concerns. Please see addendum below with additional recommendation from my supervising physician. I spent a total of 60 minutes on the date of service in review of patient's record, and previously obtained information in person and appropriate medical visit, discussion and education of plan, with patient and/or caregiver, placing orders for tests/referral/procedures as medically necessary and documentation of pertinent clinical information in patient's medical records for their visit today. Supervising Physician Co-Signing Physician Notes I examined the patient and reviewed patient's chart , laboratory data and imaging studies. I agree with with assessment and plan of care as suggested by advanced practice provider. Clinical presentation is very suggestive of diverticular bleeding. The patient will be prepped for colonoscopy for tomorrow. History of Present Illness Reason for Consultation: rectal bleeding History of Present Illness 78 year old female with history of COPD, HTN, vitamin D deficiency, vitamin B12 deficiency, depression, rosacea, hypothyroidism, chronic back pain admitted through the ED with report of painless rectal bleeding - onset 07/01/24. Pt was seen and evaluated, chart reviewed.Notes was in her typical state of health - had urge this AM to kendrick her bowels and found a large amount of BRB w/ clots. Suggests she had 3-4 additional bloody BMs at home before seeking ED evaluation. Since ED admission, she has had one bloody stool. She denies abd pain. No nausea, vomiting. Occasional GERD but denies dysphagia. Good appetite. No weight loss. No fever, chills, CP, SOB. Denies AC use No tobacco No ETOH She denies NSAIDs use to me but H&P noted some meloxicam use recently with prednisone. H&H 12.6/37.9 BUN 22 CTA ABD 2023: Extensive colonic diverticulosis. No evidence for acute diverticulitis. No intraluminal contrast within the bowel to suggest active GI bleed by CT. No bowel obstruction. Moderate aortoiliac atherosclerotic plaque. Patent vessels. Colonoscopy 2012: at [place] and [facility] per patient Family history of GI malignances: none Allergies Allergy/AdvReac Type Severity Reaction Status Date / Time atorvastatin Allergy Unknown Unknown - Unverified 07/01/24 10:34 On file w/ [facility] diclofenac Allergy Unknown Unknown - Unverified 07/01/24 10:34 On file w/ [facility] diflunisal Allergy Unknown Unknown - Unverified 07/01/24 10:34 On file w/ [facility] naproxen Allergy Unknown Unknown - Unverified 07/01/24 10:34 On file w/ [facility] Home Medications Medication Instructions Recorded Confirmed Type albuterol sulfate 90 mcg/actuation 2 puff inhalation Q4H PRN Wheezing 07/01/24 07/01/24 History aerosol inhaler amlodipine 5 mg tablet 5 mg PO QAM 07/01/24 07/01/24 History cholecalciferol (vitamin D3) 25 25 mcg PO QAM 07/01/24 07/01/24 History mcg (1,000 unit) tablet (Vitamin D3) cyanocobalamin (vitamin B-12) 1,000 mcg PO QAM 07/01/24 07/01/24 History 1,000 mcg tablet (Vitamin B-12) doxycycline hyclate 20 mg tablet 20 mg PO BID 07/01/24 07/01/24 History duloxetine 30 mg capsule,delayed 30 mg PO QAM 07/01/24 07/01/24 History release ezetimibe 10 mg tablet 10 mg PO DAILY 07/01/24 07/01/24 History fluticasone furoate 200 1 inh inhalation QAM 07/01/24 07/01/24 History mcg-vilanterol 25 mcg/dose inhalation powder (Breo Ellipta) fluticasone propionate 50 2 spray intranasal DAILY 07/01/24 07/01/24 History mcg/actuation nasal spray,suspension furosemide 20 mg tablet 20 mg PO DAILY PRN Lower Extremity 07/01/24 07/01/24 History Swelling levothyroxine 50 mcg tablet 50 mcg PO DAILYBB 07/01/24 07/01/24 History loratadine 10 mg tablet 10 mg PO QAM 07/01/24 07/01/24 History meloxicam 15 mg tablet 15 mg PO DAILY PRN Pain 07/01/24 07/01/24 History omega-3 fatty acids 500 mg capsule 500 mg PO QAM 07/01/24 07/01/24 History omeprazole 40 mg capsule,delayed 40 mg PO QAM 07/01/24 07/01/24 History release potassium chloride 20 mEq 20 meq PO DAILY PRN If you take 07/01/24 07/01/24 History tablet,extended Lasix/Furosemide release(part/cryst) (Longor-Con M) sulfacetamide sodium 10 % topical 1 applic topical BID 07/01/24 07/01/24 History cream zinc 10 mg tablet 20 mg PO DAILY 07/01/24 07/01/24 History Review of Systems Review of Systems: All other findings negative except as noted in HPI. Physical Exam Constitutional: WD/WN, vitals as above Respiratory: normal respiratory effort; no respiratory distress and no labored breathing Cardiovascular: Rate/Rhythm: regular rate and regular rhythm Gastrointestinal (Abdomen): Inspection/Auscultation: normal bowel sounds Percussion/Palpation: + abdomen tender (mild discomfort w/ palpation of LLQ) and abdomen soft; no guarding and abdomen not rigid Skin: no rashes, warm and dry Results & Data Vital Signs (Past 12 Hours) Vital Signs Temp Pulse Pulse Resp BP BP Pulse Ox 07/01/24 11:00 84 18 164/101 H 07/01/24 11:00 164/101 H 99 07/01/24 11:00 78 18 99 07/01/24 10:42 76 22 99 07/01/24 10:00 84 22 99 07/01/24 10:00 162/94 H 07/01/24 09:35 84 20 161/96 H 95 07/01/24 09:10 80 18 96 07/01/24 09:10 91 H 07/01/24 09:09 90 20 98 07/01/24 09:08 87 15 170/96 H 98 07/01/24 09:08 37.2 C 87 15 170/96 H 98 07/01/24 09:05 170/96 H O2 Del Method O2 Flow Rate 07/01/24 11:00 07/01/24 11:00 Nasal Cannula 2 07/01/24 11:00 Nasal Cannula 2 07/01/24 10:42 07/01/24 10:00 07/01/24 10:00 07/01/24 09:35 Nasal Cannula 2 07/01/24 09:10 Room Air 07/01/24 09:10 07/01/24 09:09 07/01/24 09:08 Room Air 07/01/24 09:08 Room Air 07/01/24 09:05 Laboratory Results 07/01/24 07/01/24 Range/Units 09:14 09:10 WBC 9.09 (4.8-10.8) K/ul RBC 4.03 L (4.20-5.40) M/uL Hgb 12.6 (12.0-16.0) g/dl Hct 37.9 (37.0-47.0) % MCV 94.0 (80.0-100.0) fL MCH 31.3 (25.0-34.0) pg MCHC 33.2 (32.0-36.0) g/dL RDW Std Deviation 49.3 H (36.4-46.3) fL RDW Coeff of Imani 14.1 (11.5-14.5) % Plt Count 330 (130-400) K/uL MPV 9.3 L (9.4-12.4) fL Immature Gran % (Auto) 0.3 % Neut % (Auto) 65.3 % Lymph % (Auto) 20.7 % [place] % (Auto) 7.7 % Eos % (Auto) 5.1 % Baso % (Auto) 0.9 % Neut # (Auto) 5.94 (1.40-6.50) K/uL Lymph # (Auto) 1.88 (1.20-3.40) K/uL [place] # (Auto) 0.70 H (0.11-0.59) K/uL Eos # (Auto) 0.46 (0.00-0.50) K/uL Baso # (Auto) 0.08 (0.00-0.20) K/uL Immature Gran # (Auto) 0.03 (0.01-0.20) K/uL PT 10.0 (9.0-12.0) Seconds INR 0.9 (0.9-1.1) APTT 25 (21-31) Seconds PTT Ratio 0.9 Sodium 139 (136-145) mmol/L Potassium 4.4 (3.5-5.1) mmol/L Chloride 106 (98-107) mmol/L Carbon Dioxide 28 (21-32) mmol/L Anion Gap 5 (3-11) BUN 22 (6-23) mg/dl Creatinine 0.82 (0.6-1.2) mg/dl Est Cr Clr Drug Dosing 47.2 ml/min Est GFR ( Amer) 78.9 ml/min Est GFR (Non-Af Amer) 68.1 ml/min BUN/Creatinine Ratio 26.8 H (10-20) Glucose 94 (70-99(Fasting)) mg/dl Calcium 9.3 (8.6-10.3) mg/dl Total Bilirubin 0.7 (0.2-1.0) mg/dl AST 16 (13-39) U/L ALT 13 (7-52) U/L Alkaline Phosphatase 73 (34-104) U/L Total Protein 6.5 (6.0-8.3) gm/dl Albumin 3.9 (3.4-5.0) gm/dl Globulin 2.6 (2.5-4.0) gm/dl Albumin/Globulin Ratio 1.5 (0.9-2) POC Stool Occult Blood Positive A (Negative) Blood Type AB Positive Antibody Screen NEGATIVE PG Care Time/CCT Total # of Minutes Spent Total Time Spent with Patient: Total time spent is greater than 50% in coordination of care (as documented) at patient's floor/unit and/or counseling patient: Coding Level of Care Code 76639 INT INP/OBS CARE MIN Diagnoses Bright red rectal bleeding K62.5
[2024-07-01] MEDS ORDERED: ACETAMINOPHEN 325 MG TAB PO PRN (13:43)
[2024-07-01] MEDS: PANTOprazole 40 MG in DEXTROSE 5% MINI-B 100 ML IV SCH (14:40)
[2024-07-01] MEDS: LACTATED RINGER'S 1,000 ML IV SCH (14:40)
[2024-07-01 15:01] LABS: Hematocrit (blood only) 36.2 % (37.0-47.0); Hemoglobin 11.7 g/dl (12.0-16.0)
[2024-07-01] MEDS: LAVAGE SOLUTION 4000ML PO ONE (17:12)
[2024-07-01 20:41] LABS: Hematocrit (blood only) 37.6 % (37.0-47.0); Hemoglobin 12.3 g/dl (12.0-16.0)
[2024-07-01] MEDS: amLODIPine BESYLATE 5 MG TAB PO SCH (20:56)
[2024-07-01 22:30] LABS: Adenovirus F 40/41 PCR Not Detected (NotDetected); Astrovirus PCR Not Detected (NotDetected); Campylobacter PCR Not Detected (NotDetected); Cryptosporidium PCR Not Detected (NotDetected); Cyclospora cayetanensis PCR Not Detected (NotDetected); Entamoeba histolytica PCR Not Detected (NotDetected); Enteroaggregative E.coli(EAEC) Not Detected (NotDetected); Enteropathogenic E.coli (EPEC) Not Detected (NotDetected); Enterotoxigenic E.coli (ETEC) Not Detected (NotDetected); Giardia lamblia PCR Not Detected (NotDetected); Plesiomonas shigelloides PCR Not Detected (NotDetected); Rotavirus A PCR Not Detected (NotDetected); Salmonella PCR Not Detected (NotDetected); Sapovirus PCR Not Detected (NotDetected); Shiga-like Toxin E.coli (STEC) Not Detected (NotDetected); Shigella/Enteroinvasive E.coli Not Detected (NotDetected); Vibrio cholerae PCR Not Detected (NotDetected); Vibrio species PCR Not Detected (NotDetected); Yersinia enterocolitica PCR Not Detected (NotDetected)
[2024-07-01 22:40] LABS: Norovirus GI/GII PCR DETECTED (NotDetected)
[2024-07-02 02:20] LABS: Hematocrit (blood only) 36.7 % (37.0-47.0); Hemoglobin 12.2 g/dl (12.0-16.0)
--- OUTSIDE RECORDS SUMMARY | 2024-07-02 04:05 | External Medical Summary | Summary of Care ---
Author Name Unknown Organization [facility] Address [address] [place] [place] [address] Phone [phone] Care Team Providers Care Window And Siding Craftsman Name Role Phone Linda Lopez DO Primary Care Provider [phone] Reason for Visit * Reason Comments Pulmonary Function Test Encounter Details Date Type Department Care Team (Late st Contact Info) Description 06/22/2024 10:00 AM EDT PulmDiagnostic Pulmonary Function Lab, [facility] [address] [place] [address] [facility] Function Tech [address] [facility] [place] [address] ILD (interstitial lung disease) ([facility])*; Dyspnea and respiratory abnormalities Allergies Active Allergy Reactions Criticality Noted Date Comments Alendronate Sodium Other (Please comment) Low 10/30/2014 Abdominal and jaw pain Rosuvastatin Calcium 06/24/2018 myalgias Diclofenac Resin Diflunisal Nausea Atorvastatin Other (Please comment) Low 10/30/2014 myalgias Naproxen Nausea Nsaids Orudis--rash documented as of this encounter (statuses as of 06/22/2024) Medications Medication Sig Dispensed Refills Start Date End Date Status Cholecalciferol (VITAMIN D) 1000 units Tablet Take 1 Tablet by mouth in the morning. Active Cyanocobalamin (VITAMIN B-12) 1000 MCG Tablet Take 1 Tablet by mouth in the morning. Active Doxycycline Hyclate 20 MG TabletIndications:R osacea TAKE 1 TABLET BY MOUTH 2 TIMES DAILY WITH OR WITHOUT FOOD 60 Tab 3 03/28/2020 Active Sulfacetamide Sodium, Acne, (KLARON) 10 % lotionIndications:R osacea Apply to face 2x daily (before sunscreen in morning) 118 g 3 03/28/2020 Active Fish Oil 500 MG Oral Capsule Take 1 Capsule by mouth in the morning. Active valACYclovir HCl 1 GM Oral Tablet (Valtrex)Indication s:Cold sore Take 2 Tablets by mouth in the morning and 2 Tablets before bedtime. for cold sores. 4 Tablet 11 12/25/2022 Active Fluticasone Propionate 50 MCG/ACT Nasal Suspension (Flonase)Indication s:Acute frontal sinusitis, recurrence not specified SPRAY 2 SPRAYS INTO EACH NOSTRIL EVERY DAY 48 mL 3 01/13/2023 Active Ezetimibe 10 MG Oral Tablet (Zetia) TAKE 1 TABLET BY MOUTH EVERY DAY 90 Tablet 3 08/05/2023 Active Omeprazole 40 MG Oral Capsule Delayed Release (PriLOSEC)Indicatio ns:Gastroesophageal reflux disease without esophagitis Take 1 Capsule by mouth in the morning. 90 Capsule 3 08/20/2023 Active Loratadine 10 MG Oral Tablet (Claritin) TAKE 1 TABLET BY MOUTH EVERY DAY IN THE MORNING 90 Tablet 3 10/08/2023 Active Furosemide 20 MG Oral Tablet (Lasix)Indications: Swelling of both lower extremities Take 1 Tablet by mouth daily as needed (lower extremity swelling). 20 Tablet 1 01/08/2024 Active Zinc 20 MG Oral Capsule Take by mouth. Active Albuterol Sulfate HFA 108 (90 Base) MCG/ACT Inhalation Aerosol SolutionIndications :Bronchitis, complicated TAKE 2 PUFFS BY MOUTH EVERY 4 HOURS NEEDED FOR WHEEZING 54 g 1 01/21/2024 Active Levothyroxine Sodium 50 MCG Oral Tablet (Levoxyl)Indication s:Hypothyroidism (acquired) TAKE 1 TABLET BY MOUTH DAILY AT LEAST 30 MIN PRIOR TO BREAKFAST OR OTHER MEDS 90 Tablet 1 02/27/2024 Active Potassium Chloride Pita ER 20 MEQ Oral Tablet Extended ReleaseIndications: Swelling of both lower extremities Take 1 Tablet by mouth in the morning. On days patient takes lasix.. 60 Tablet 11 03/03/2024 Active predniSONE 10 MG Oral Tablet (Deltasone)Indicati ons:Subacute cough,Mild persistent asthma without complication,Exacer bation of asthma, unspecified asthma severity, unspecified whether persistent Take 5 tabs for 2 days, 4 tabs for 2 days, 3 tabs for 2 days, 2 tabs for 2 days 1 tab for 2 days 30 Tablet 05/05/2024 Active guaiFENesin ER 600 MG Oral Tablet Extended Release 12 Hour (Humibid LA)Indications:Suba cute cough Take 1 Tablet by mouth in the morning and 1 Tablet before bedtime. 50 Tablet 05/05/2024 Active Meloxicam 15 MG Oral Tablet (Mobic) TAKE 1 TABLET BY MOUTH DAILY NEEDED FOR PAIN, MODERATE OR PAIN, SEVERE. 30 Tablet 5 05/11/2024 Active amLODIPine Besylate 5 MG Oral Tablet (Norvasc)Indication s:Hypertension goal BP (blood pressure) < 150/90 TAKE 1 TABLET BY MOUTH EVERY DAY IN THE MORNING 90 Tablet 2 05/26/2024 Active DULoxetine HCl 30 MG Oral Capsule Delayed Release Particles (Cymbalta)Indicatio ns:Recurrent major depressive disorder, remission status unspecified (HCC) TAKE 1 CAPSULE BY MOUTH IN THE MORNING. DO NOT CUT, CRUSH OR CHEW. 90 Capsule 2 05/26/2024 Active Azithromycin 250 MG Oral Tablet (Zithromax Z-Nando)Indications:M ild persistent asthma without complication,Subacu te cough Take two tablets by mouth on first day, then 1 tablet daily until gone 6 Tablet 05/29/2024 Active Fluticasone Furoate-Vilanterol 200-25 MCG/ACT Inhalation Aerosol Powder Breath Activated (BREO ellipta)Indications :Mild persistent asthma without complication Inhale 1 Puff by mouth in the morning. 60 Blister Dosing Unit 5 06/02/2024 Active Hospital, Clinic, or Other Facility Administered Medication Ordered Dose Route Frequency Start Date End Date Status Albuterol Sulfate (Proventil) (2.5 MG/3ML) 0.083% inhalation solution 2.5 mgIndications:Dyspnea and respiratory abnormalities,ILD (interstitial lung disease) (HCC) 2.5 mg NEBULIZER PRN 06/04/2024 06/04/2025 Active Albuterol Sulfate (Proventil) (5 MG/ML) 0.5% *conc* inhalation solution 2.5 mgIndications:Dyspnea and respiratory abnormalities,ILD (interstitial lung disease) (HCC) 2.5 mg NEBULIZER PRN 06/04/2024 06/04/2025 Active documented as of this encounter (statuses as of 06/22/2024) Active Problems Problem Noted Date Diagnosed Date Moderate episode of recurrent major depressive d isorder 01/08/2024 Caregiver stress 12/25/2022 Age-related osteoporosis wit hout current pathological fracture 02/20/2022 Fatigue 07/18/2021 Chronic low back pain without sciatica Need for prophylactic vaccin ation and inoculation against influenza 07/18/2021 Urinary frequency 07/18/2021 Mild persistent asthma without complication 08/31 Major depressive disorder, recurrent, unspecifie d 04/29/2020 Hypertension goal BP (blood pressure) < 150/90 0 10/27/2019 Statin intolerance 02/12/2019 Overview: Myalgia w/pravastatin, lipitor and crestor Acquired hypothyroidism 09/19/2017 Slow transit constipation 07/06/2015 Chondrocalcinosis of knee 01/20/2015 Osteoarthritis of wrist 11/16/2014 Overview: both wrists Gastroesophageal reflux disease without esophagi tis 10/30/2014 Hearing loss 10/30/2014 Dyslipidemia, goal LDL below 160 10/30/2014 Osteopenia 10/30/2014 Rosacea documented as of this encounter (statuses as of 06/22/2024) Resolved Problems Problem Noted Date Diagnosed Date Resolved Date BMI 40.0-44.9, adult 09/26/2020 022 Major depressive disorder, s w[place] episode, unspecified 10/27/2019 02/22/2021 Adjustment disorder with anxious mood 09/18/2016 02/22/2021 Hypothyroidism (acquired) 10/30/2014 TMJ arthropathy 10/30/2014 11/11/2014 PURE HYPERCHOLESTEROLEM 11/06/200110/02 Need for prophylactic hormon e replacement therapy (postmenopausal) 04/29/2001 11/11/2014 Esophageal reflux 04/29/2001 10/30/2014 Screening for lipoid disorders 04/29/2001 02/10/2009 Overview: Resolved per Screening Diagnosis Protocol #6 Malaise and fatigue 04/29/2001 11/11/19 15 PLANTAR FIBROMATOSIS 015 Uterine leiomyoma 11/11/2014 documented as of this encounter (statuses as of 06/22/2024) Immunizations Name Administration Dates Next Due COVID-19 mRNA, LNP-s, No Pre serve, 2-Dose Series (NWIX) 08/02/2021,12/20/2020,11/29/2020 Pneumococcal Conjugate Vacc, 13 Valent (Prevnar) 11/11/2014 Pneumococcal Polysaccharide PPV23 (Pneumovax) 02/08/2011 Season Influenza, Quad, PF, Adjuvanted, 65+ Yrs, IM (FLUAD) 07/07/2020 Seasonal Influenza, PF, 6 M & above, IM , (FluLaval or Fluzone) 06/12/2018 Seasonal Influenza, Quadriva lent Hd (Fluzone Hd) 07/09/2023,07/25/2022,07/18/2021 Seasonal Influenza, Quadriva lent, No Preserve, IM 06/07/2017,06/29/2016,07/06/2015 Seasonal Influenza, Trivalen t, (IIV3), PF, (Fluzone) 07/20/2013 Seasonal Influenza, Trivalen t, (IIV3), with Preserv, (Fluzone) 07/20/2014,05/31/2014 Seasonal Influenza, Trivalen t, Adjuvanted, 65+ YRS, PF, (Fluad) 07/24/2019 TDAP (age 10 and older)(Boostrix) 04/19/2021 TDAP, Age 7 and older, IM (Adacel) 02/08/2011 Varicella Zoster Vaccine (Adult) 09/10/2011 Zoster Vaccine Recombinant (Shingrix) 04/30/2019 ,02/12/2019 documented as of this encounter Social History Tobacco Use Types Packs/Day Years Used Date Smoking Tobacco: Never Smokeless Tobacco: Never Alcohol Use Standard Drinks/Week Comments No 0 (1 standard drink = 0.6 oz pur e alcohol) PHQ-2 Answer Date Recorded PHQ Adult Total Score 4 07/25/2022 Hunger Vital Sign Answer Date Recorded Within the past 12 months, y ou worried that your food would run out before you got the money to buy more. Never true 07/25/20 22 Within the past 12 months, t he food you bought just didn't last and you didn't have money to get more. Never true 07/25/2022 Sex and Gender Information Value Date Recorded Sex Assigned at Female 06/13/2021 12:48 PM EDT Gender Identity Female 06/13/2021 12:48 PM EDT Sexual Orientation Straight 06/13/2021 12 :48 PM EDT Job Start Date Occupation Industry Not on file Not on file Not on file documented as of this encounter Progress Notes * Jocelyne Tafoya RRT - 06/22/2024 9:59 AM EDT PATIENT COMPLETED 6 MINUTE WALK ON ROOM AIR WITH NO COMPLICATIONS. documented in this encounter Plan of Treatment Upcoming Encounters Date Type Department Care Team (Late st Contact Info) Description 07/23/2024 12:20 PM EDT Office Visit Interventional Pain Center, [facility] [address] [place] [address] Lewis Hook, DO [address] [place] [phone] 07/30/2024 11:00 AM EDT Nurse Only Ancillary [address] [place] [address] [place], Nurse [address] [place] [address] 08/04/2024 4:20 PM EST Office Visit Family Practice [facility] [address] [place] [address] Linda Lopez, DO [address] [place] [address] 08/19/2024 3:20 PM EST Office Visit Pulmonary Medicine, [facility] [address] [place] [address] Meño Mann MD [address] [facility] [place] [address] 04/19/2025 11:00 AM EDT Office Visit Dermatology [address] [place] [address] Maris Zeng PA-C [address] [place] [address] [place] [address] 05/17/2025 1:30 PM EDT Imaging Radiology [address] [place] [address] Pending Results Name Type Priority Associated Diagnoses Date /Time DIFFUSION CAPACITY (DLCO) Procedures Routine Dyspnea and respiratory abnormalities ILD (interstitial lung disease) ([facility]) 06/22/2024 9:45 AM EDT LUNG VOLUMES (PLETHYSMOGRAPHY) Procedures Routine Dyspnea and respiratory abnormalities ILD (interstitial lung disease) ([facility]) 06/22/2024 9:45 AM EDT SPIROMETRY B/A BRONCHODILATOR Procedures Routine Dyspnea and respiratory abnormalities ILD (interstitial lung disease) ([facility]) 06/22/2024 9:45 AM EDT Health Maintenance Due Date Last Done Comments *BISPHONATE OR OTHER ACCEPTABLE MEDICATION NEEDED FOR OSTEOPOROSIS (REFER TO SMARTSET #1146) 01/12/2024 COVID-19 Vaccine ( season) 2024 08/02/2021, 12/20/2020, 11/29/2020 Influenza Vaccine (FLU shot) (#1) 2024 07/09/2023, 07/25/2022, 07/18/2021, Additional history exists TSH 07/09/2024 07/09/2023, 04/30, 07/18/2021, Additional history exists Adult Wellness Visit 07/29/2024 07/29/2023, 07/25/2022, 06/13/2021 Depression Monitoring 07/29/2024 07/29/2023 GFR 01/20/2025 01/21/2024, 06/30, 12/26/2022, Additional history exists Albumin/Creatinine Ratio 07/09/2026 07/09/2023, 07/01 DTap/Tdap Vaccines (3 - Td or Tdap) 04/19/2031 04/19/2021, 02/08/2011 Pneumococcal Vaccine: 65+ Years Completed 11/11/2014, 02/08/2011 Zoster Vaccines Completed 04/30/2019, 01/28, 09/10/2011 HPV (Gardasil) Vaccine Aged Out No lo nger eligible based on patient's age to complete this topic Hepatitis B Vaccine Aged Out No longe r eligible based on patient's age to complete this topic MENINGOCOCCAL (MENACTRA/MENVEO) Aged Out No longer eligible based on patient's age to complete this topic documented as of this encounter Medical Devices Not on filedocumented as of this encounter Procedures Procedure Name Priority Date/Time Associated Diagnosis Comments DIFFUSION CAPACITY (DLCO) Routine 2023 9:45 AM EDT Dyspnea and respiratory abnormalities ILD (interstitial lung disease) (HCC) LUNG VOLUMES (PLETHYSMOGRAPHY) Routine 06/22/2024 9:45 AM EDT Dyspnea and respiratory abnormalities ILD (interstitial lung disease) (HCC) SPIROMETRY B/A BRONCHODILATOR Routine 06/22/2024 9:45 AM EDT Dyspnea and respiratory abnormalities ILD (interstitial lung disease) (HCC) documented in this encounter Visit Diagnoses Diagnosis ILD (interstitial lung disease) (HCC)- Primary Postinflammatory pulmonary fibrosis Dyspnea and respiratory abnormalities Other dyspnea and respiratory abnormality Screening mammogram for breast cancer documented in this encounter Administered Medications Active Administered Medications - up to 3 most recent administrations Medication Order MAR Action Action Date Dose Rate Site Albuterol Sulfate (Proventil) (5 MG/ML) 0.5% *conc* inhalation solution 2.5 mg 2.5 mg, Nebulizer, PRN Other, for Pulmonary Function Testing, Starting on Sat06/04/24 at 1506, Until Sat06/04/25 at 1505, For 365 days, *Dilute with 0.9% saline IF needed Given 06/22/2024 9:59 AM EDT 2.5 mg documented in this encounter Care Teams Window And Siding Craftsman Relationship Specialty Start Date End Date Linda Lopez DO [address] [place] [address] PCP - General Family Medicine 12/27/15 documented as of this encounter
--- OUTSIDE RECORDS SUMMARY | 2024-07-02 04:05 | External Medical Summary | Summary of Care ---
Author Name Unknown Organization [facility] Address [address] [facility] [place] [address] Phone [phone] Care Team Providers Care Global Clinical Leader Name Role Phone Linda Lopez DO Primary Care Provider [phone] Encounter Details Date Type Department Care Team (Late st Contact Info) Description 06/24/2024 Telephone Orthopaedics [facility] [address] [place] [address] SharerSabiha PA-C [address] [place] [address] Allergies Active Allergy Reactions Criticality Noted Date Comments Alendronate Sodium Other (Please comment) Low 10/30/2014 Abdominal and jaw pain Rosuvastatin Calcium 06/24/2018 myalgias Diclofenac Resin Diflunisal Nausea Atorvastatin Other (Please comment) Low 10/30/2014 myalgias Naproxen Nausea Nsaids Orudis--rash documented as of this encounter (statuses as of 06/24/2024) Medications Medication Sig Dispensed Refills Start Date [...] ns:Recurrent major depressive disorder, remission status unspecified ([facility]) TAKE 1 CAPSULE BY MOUTH IN THE [...] mgIndications:Dyspnea and respiratory abnormalities,ILD (interstitial lung disease) ([facility]) 2.5 mg NEBULIZER PRN 06/04/2024 06/04/2025 Active Albuterol Sulfate (Proventil) (5 MG/ML) 0.5% *conc* inhalation solution 2.5 mgIndications:Dyspnea and respiratory abnormalities,ILD (interstitial lung disease) ([facility]) 2.5 mg NEBULIZER PRN 06/04/2024 06/04/2025 Active documented as of this encounter (statuses as of 06/24/2024) Active Problems Problem Noted Date Diagnosed Date [...] as of this encounter (statuses as of 06/24/2024) Resolved Problems Problem Noted Date Diagnosed Date [...] as of this encounter (statuses as of 06/24/2024) Immunizations Name Administration Dates Next Due COVID-19 mRNA, LNP-s, No Pre serve, 2-Dose Series (Pfizer) 08/02/2021,12/20/2020,11/29/2020 Pneumococcal Conjugate Vacc, 13 Valent (Prevnar) [...] on file documented as of this encounter Miscellaneous Notes * Telephone Encounter - Carolyne Silver MED ASSIST - 06/24/2024 4:00 PM EDT Called and spoke with patient, advised her that brace may be to tight and to discontinue wearing that for now. Advised her she may present to office for a bigger size. She is agreeable * Telephone Encounter - Yelena Eastman OSA - 06/24/2024 3:46 PM EDT Pt Pt got the brace and was walking arounf today and not toes are purple and has a;lot of pain not sure what to do documented in this encounter Plan of Treatment Upcoming Encounters Date Type Department Care Team (Late st Contact Info) Description 07/23/2024 12:20 PM EDT Office Visit Interventional Pain Center, [facility] [address] [place] [address] Lewis Hook, DO [address] [place] [phone] 07/30/2024 11:00 AM EDT Nurse Only Ancillary [address] [place] [address] [place], Nurse [address] [place] [address] 08/04/2024 4:20 PM EST Office Visit Family Practice [facility] [address] [place] [address] Linda Lopez, DO [address] [place] [address] 08/19/2024 3:20 PM EST Office Visit Pulmonary Medicine, [facility] [address] [place] [address] Meño Mann MD [address] [place] [address] 04/19/2025 11:00 AM EDT Office Visit Dermatology [address] [place] [address] Maris Zeng PA-C [address] [place] [address] [place] [address] 05/17/2025 1:30 PM EDT Imaging Radiology [address] [place] [address] Health Maintenance Due Date Last Done Comments [...] Not on filedocumented as of this encounter Care Teams Global Clinical Leader Relationship Specialty Start Date End Date Linda Lopez DO [address] [place] [address] PCP - General Family Medicine 12/27/15 documented as of this encounter
--- OUTSIDE RECORDS SUMMARY | 2024-07-02 04:05 | External Medical Summary | Summary of Care ---
Author Name Unknown Organization [facility] Address [address] [place] [address] Phone [phone] Care Team Providers Care Sanding Machine Tender Automatic Name Role Phone Linda Lopez DO Primary Care Provider [phone] Reason for Visit * Reason Onset Date Comments Test Results 06/26/2024 Noc ox Encounter Details Date Type Department Care Team (Late st Contact Info) Description 06/26/2024 Telephone Pulmonary Medicine, [facility] [address] [facility] [place] [address] Meño Mann MD [address] [facility] [place] [address] Test Results (Noc ox) Allergies Active Allergy Reactions Criticality Noted Date Comments Alendronate Sodium Other (Please comment) Low 10/30/2014 Abdominal and jaw pain Rosuvastatin Calcium 06/24/2018 [place] Diclofenac Resin Diflunisal Nausea Atorvastatin Other (Please comment) Low 10/30/2014 myalgias Naproxen Nausea Nsaids Orudis--rash documented as of this encounter (statuses as of 06/26/2024) Medications Medication Sig Dispensed Refills Start Date [...] as of this encounter (statuses as of 06/26/2024) Active Problems Problem Noted Date Diagnosed Date [...] as of this encounter (statuses as of 06/26/2024) Resolved Problems Problem Noted Date Diagnosed Date [...] as of this encounter (statuses as of 06/26/2024) Immunizations Name Administration Dates Next Due COVID-19 [...] encounter Miscellaneous Notes * Telephone Encounter - Gely Fang LPN - 06/26/2024 9:02 AM EDT Pt aware. * Telephone Encounter - Gely Fang LPN - 06/26/2024 9:01 AM EDT ----- Message from Meño Mann MD sent at 06/26/2024 8:20 AM EDT ----- Negative nocturnal oximetry study on 06/18/2024. No evidence of significant hypoxia noted. documented in this encounter Plan of Treatment Upcoming Encounters Date Type Department Care Team (Late st Contact Info) Description 07/23/2024 12:20 PM EDT Office Visit Interventional Pain Center, [facility] [address] [place] [address] Lewis Hook, DO [address] [phone] 07/30/2024 11:00 AM EDT Nurse Only Ancillary Alison Raza [address] [place] [address] [place], Nurse [address] [place] [address] 08/04/2024 4:20 PM EST Office Visit Family Practice [facility] [address] [place] [address] Linda Lopez, DO [address] [place] [address] 08/19/2024 3:20 PM EST Office Visit Pulmonary Medicine, [facility] [address] [place] [address] Meño Mann MD [address] [facility] [place] [address] 04/19/2025 11:00 AM EDT Office Visit Dermatology [address] [place] [address] Maris Zeng PA-C [address] [place] [address] [place] [address] 05/17/2025 1:30 PM EDT Imaging Radiology [address] [place] [address] Health Maintenance Due Date Last Done Comments [...] filedocumented as of this encounter Care Teams Sanding Machine Tender Automatic Relationship Specialty Start Date End Date Linda Lopez DO [address] [place] [address] PCP - General Family Medicine 12/27/15 documented as of this encounter
--- OUTSIDE RECORDS SUMMARY | 2024-07-02 04:05 | External Medical Summary | Summary of Care ---
Author Name Unknown Organization [facility] Address [address] [place] [address] Phone [phone] Care Team Providers Care Cinder Pitman Name Role Phone López Barnes DO Primary Care Provider [phone] Reason for Visit * Reason Comments eRx-Medication Refill Encounter Details Date Type Department Care Team (Late st Contact Info) Description 06/26/[address] [facility] [address] [place] [address] López Barnes DO [address] [place] [address] Dyslipidemia, goal LDL below 160*; Hypothyroidism (acquired) Allergies Active Allergy Reactions Criticality Noted Date Comments Alendronate Sodium Other (Please comment) Low 10/30/2014 Abdominal and jaw pain Rosuvastatin Calcium 06/24/2018 myalgias Diclofenac Resin Diflunisal Nausea Atorvastatin Other (Please comment) Low 10/30/2014 myalgias Naproxen Nausea Nsaids Orudis--rash documented as of this encounter (statuses as of 06/29/2024) Medications Medication Sig Dispensed Refills Start Date End Date Status Cholecalciferol (VITAMIN D) 1000 units Tablet Take 1 Tablet by mouth in the morning. Active Cyanocobalamin (VITAMIN B-12) 1000 MCG Tablet Take 1 Tablet by mouth in the morning. Active Doxycycline Hyclate 20 MG TabletIndications :Rosacea TAKE 1 TABLET BY MOUTH 2 TIMES DAILY WITH OR WITHOUT FOOD 60 Tab 3 03/28/2020 Active Sulfacetamide Sodium, Acne, (KLARON) 10 % lotionIndications :Rosacea Apply to face 2x daily (before sunscreen in morning) 118 g 3 03/28/2020 Active Fish Oil 500 MG Oral Capsule Take 1 Capsule by mouth in the morning. Active valACYclovir HCl 1 GM Oral Tablet (Valtrex)Indicati ons:Cold sore Take 2 Tablets by mouth in the morning and 2 Tablets before bedtime. for cold sores. 4 Tablet 11 12/25/2022 Active Fluticasone Propionate 50 MCG/ACT Nasal Suspension (Flonase)Indicati ons:Acute frontal sinusitis, recurrence not specified SPRAY 2 SPRAYS INTO EACH NOSTRIL EVERY DAY 48 mL 3 01/13/2023 Active Omeprazole 40 MG Oral Capsule Delayed Release (PriLOSEC)Indicat ions:Gastroesopha geal reflux disease without esophagitis Take 1 Capsule by mouth in the morning. 90 Capsule 3 08/20/2023 Active Loratadine 10 MG Oral Tablet (Claritin) TAKE 1 TABLET BY MOUTH EVERY DAY IN THE MORNING 90 Tablet 3 10/08/2023 Active Furosemide 20 MG Oral Tablet (Lasix)Indication s:Swelling of both lower extremities Take 1 Tablet by mouth daily as needed (lower extremity swelling). 20 Tablet 1 01/08/2024 Active Zinc 20 MG Oral Capsule Take by mouth. Active Albuterol Sulfate HFA 108 (90 Base) MCG/ACT Inhalation Aerosol SolutionIndicatio ns:Bronchitis, complicated TAKE 2 PUFFS BY MOUTH EVERY 4 HOURS NEEDED FOR WHEEZING 54 g 1 01/21/2024 Active Potassium Chloride Pita ER 20 MEQ Oral Tablet Extended ReleaseIndication s:Swelling of both lower extremities Take 1 Tablet by mouth in the morning. On days patient takes lasix.. 60 Tablet 11 03/03/2024 Active predniSONE 10 MG Oral Tablet (Deltasone)Indica tions:Subacute cough,Mild persistent asthma without complication,Exac erbation of asthma, unspecified asthma severity, unspecified whether persistent Take 5 tabs for 2 days, 4 tabs for 2 days, 3 tabs for 2 days, 2 tabs for 2 days 1 tab for 2 days 30 Tablet 05/05/2024 Active guaiFENesin ER 600 MG Oral Tablet Extended Release 12 Hour (Humibid LA)Indications:Barker bacute cough Take 1 Tablet by mouth in the morning and 1 Tablet before bedtime. 50 Tablet 05/05/2024 Active Meloxicam 15 MG Oral Tablet (Mobic) TAKE 1 TABLET BY MOUTH DAILY NEEDED FOR PAIN, MODERATE OR PAIN, SEVERE. 30 Tablet 5 05/11/2024 Active amLODIPine Besylate 5 MG Oral Tablet (Norvasc)Indicati ons:Hypertension goal BP (blood pressure) < 150/90 TAKE 1 TABLET BY MOUTH EVERY DAY IN THE MORNING 90 Tablet 2 05/26/2024 Active DULoxetine HCl 30 MG Oral Capsule Delayed Release Particles (Cymbalta)Indicat ions:Recurrent major depressive disorder, remission status unspecified (HCC) TAKE 1 CAPSULE BY MOUTH IN THE MORNING. DO NOT CUT, CRUSH OR CHEW. 90 Capsule 2 05/26/2024 Active Azithromycin 250 MG Oral Tablet (Zithromax Z-Nando)Indications :Mild persistent asthma without complication,Suba cute cough Take two tablets by mouth on first day, then 1 tablet daily until gone 6 Tablet 05/29/2024 Active Fluticasone Furoate-Vilantero l 200-25 MCG/ACT Inhalation Aerosol Powder Breath Activated (BREO ellipta)Indicatio ns:Mild persistent asthma without complication Inhale 1 Puff by mouth in the morning. 60 Blister Dosing Unit 5 06/02/2024 Active Ezetimibe 10 MG Oral Tablet (Zetia) TAKE 1 TABLET BY MOUTH EVERY DAY 90 Tablet 06/29/2024 Active Levothyroxine Sodium 50 MCG Oral Tablet (Levoxyl)Indicati ons:Hypothyroidis m (acquired) TAKE 1 TABLET BY MOUTH DAILY AT LEAST 30 MIN PRIOR TO BREAKFAST OR OTHER MEDS 90 Tablet 06/29/2024 Active Ezetimibe 10 MG Oral Tablet (Zetia) TAKE 1 TABLET BY MOUTH EVERY DAY 90 Tablet 3 08/05/2023 4 Discontinued Levothyroxine Sodium 50 MCG Oral Tablet (Levoxyl)Indicati ons:Hypothyroidis m (acquired) TAKE 1 TABLET BY MOUTH DAILY AT LEAST 30 MIN PRIOR TO BREAKFAST OR OTHER MEDS 90 Tablet 1 02/27/2024 4 Discontinued Hospital, Clinic, or Other Facility Administered Medication [...] as of this encounter (statuses as of 06/29/2024) Active Problems Problem Noted Date Diagnosed Date [...] as of this encounter (statuses as of 06/29/2024) Resolved Problems Problem Noted Date Diagnosed Date Resolved Date BMI 40.0-44.9, adult 09/26/2020 06/03/2 022 Major depressive disorder, s wilton episode, [...] as of this encounter (statuses as of 06/29/2024) Immunizations Name Administration Dates Next Due COVID-19 [...] encounter Miscellaneous Notes * Telephone Encounter - Emy Connors RPh - 06/29/2024 5:54 AM EDTSigned Prescriptions: Disp Refills Ezetimibe 10 MG Oral Tablet (Zetia) 90 Tab*0 Sig: TAKE 1 TABLET BY MOUTH EVERY DAYAuthorizing Provider: LÓPEZ BARNES User: EMY CONNORS Levothyroxine Sodium 50 MCG Oral Tablet (L*90 Tab*0 Sig: TAKE 1 TABLET BY MOUTH DAILY AT LEAST 30 MIN PRIOR TO BREAKFAST OR OTHER MEDSAuthorizing Provider: LÓPEZ BARNES User: EMY CONNORS documented in this encounter Plan of Treatment Upcoming Encounters Date Type Department Care Team (Late st Contact Info) Description 07/23/2024 12:20 PM EDT Office Visit Interventional Pain Center, [facility] [address] [place] [address] Lewis Hook DO [address] [place] [phone] 07/30/2024 11:00 AM EDT Nurse Only Ancillary [address] [place] [address] [place], Nurse Annual [address] [place] [address] 08/04/2024 4:20 PM EST Office Visit Family Practice [facility] [address] [place] [address] López Barnes, [address] [place] [address] 08/19/2024 3:20 PM EST Office Visit Pulmonary Medicine, [facility] [address] [facility] [place] [address] [facility] [address] [facility] [address] 04/19/2025 11:00 AM EDT Office Visit Dermatology [address] [place] [address] Maris Zeng PA-C [address] [place] [address] [place] [address] 05/17/2025 1:30 PM EDT Imaging Radiology [address] [place] [address] Scheduled Orders Name Type Priority Associated Diagnoses Orde r Schedule TSH WITH FREE T4 IF INDICATED Lab Routine Hypothyroidism (acquired) Expected: 09/02/2024 (Approximate), Expires: 06/29/2025 LIPID PANEL WITH DIRECT LDL IF TG IS HIGH Lab Routine Dyslipidemia, goal LDL below 160 Expected: 09/02/2024 (Approximate), Expires: 06/29/2025 Health Maintenance Due Date Last Done Comments [...] Not on filedocumented as of this encounter Visit Diagnoses Diagnosis Dyslipidemia, goal LDL below 160- Primary Other and unspecified hyperlipidemia Hypothyroidism (acquired) Unspecified hypothyroidism Screening mammogram for breast cancer documented in this encounter Care Teams Cinder Pitman Relationship Specialty Start Date End Date López Barnes DO [address] [place] [address] PCP - General Family Medicine 12/27/15 documented as of this encounter
--- OUTSIDE RECORDS SUMMARY | 2024-07-02 04:05 | External Medical Summary | Summary of Care ---
Author Name Unknown Organization [facility] Address [address] [place] [address] Phone [phone] Care Team Providers Care Transfer Station Attendant Name Role Phone Linda Lopez DO Primary Care Provider [phone] Reason for Visit * Reason Comments NEW PATIENT Left knee Encounter Details Date Type Department Care Team (Latest Contact Info) Description 06/24/2024 12:30 PM EDT Office Visit Orthopaedics [facility] [address] [place] [address] SharerSabiha PA-C [address] [place] [address] Primary osteoarthritis of left knee* Allergies Active Allergy Reactions Criticality Noted Date [...] as of this encounter Progress Notes * Sharer, Sabiha Mauro PA-C - 06/24/2024 12:48 PM EDT Images from the original note were not included. Ivelisse Bonner is a 78 year old female who presents for consultation to [facility] for left knee injury/pain. Consult requested by Self . Ivelisse Bonner is here unaccompanied History: Ivelisse Bonner reports that left knee pain flared a few days ago. Patient states she was walking inher kitchen in the knee suddenly locked. [place] like her knee was going to give out. She complains ofpersistent lateral knee pain. She has a history of osteoarthritis. Most recently she will underwenta cortisone injection at the end of February with Dr Kuo. Review of systems: All others negative except those noted above in HPI. Review of patient's allergies indicates: Allergen Reactions Crestor [Rosuvastatin Calcium] myalgias Diclofenac Resin Diflunisal Nausea Naproxen Nausea Nsaids Orudis--rash Alendronate Sodium Other (Please comment) Abdominal and jaw pain Lipitor [Atorvastatin] Other (Please comment) myalgias Current Outpatient Medications Medication Sig Dispense Refill Cholecalciferol (VITAMIN D) 1000 units Tablet Take 1 Tablet by mouth in the morning. Cyanocobalamin (VITAMIN B-12) 1000 MCG Tablet Take 1 Tablet by mouth in the morning. Doxycycline Hyclate 20 MG Tablet TAKE 1 TABLET BY MOUTH 2 TIMES DAILY WITH OR WITHOUT FOOD 60 Tab 3 Sulfacetamide Sodium, Acne, (KLARON) 10 % lotion Apply to face 2x daily (before sunscreen in morning) 118 g 3 Fish Oil 500 MG Oral Capsule Take 1 Capsule by mouth in the morning. valACYclovir HCl 1 GM Oral Tablet (Valtrex) Take 2 Tablets by mouth in the morning and 2 Tablets before bedtime. for cold sores. 4 Tablet 11 Fluticasone Propionate 50 MCG/ACT Nasal Suspension (Flonase) SPRAY 2 SPRAYS INTO EACH NOSTRIL EVERYDAY 48 mL 3 Ezetimibe 10 MG Oral Tablet (Zetia) TAKE 1 TABLET BY MOUTH EVERY DAY 90 Tablet 3 Omeprazole 40 MG Oral Capsule Delayed Release (PriLOSEC) Take 1 Capsule by mouth in the morning. 90Capsule 3 Loratadine 10 MG Oral Tablet (Claritin) TAKE 1 TABLET BY MOUTH EVERY DAY IN THE MORNING 90 Tablet 3 Furosemide 20 MG Oral Tablet (Lasix) Take 1 Tablet by mouth daily as needed (lower extremity swelling). 20 Tablet 1 Zinc 20 MG Oral Capsule Take by mouth. Albuterol Sulfate HFA 108 (90 Base) MCG/ACT Inhalation Aerosol Solution TAKE 2 PUFFS BY MOUTH EVERY4 HOURS NEEDED FOR WHEEZING 54 g 1 Levothyroxine Sodium 50 MCG Oral Tablet (Levoxyl) TAKE 1 TABLET BY MOUTH DAILY AT LEAST 30 MIN PRIOR TO BREAKFAST OR OTHER MEDS 90 Tablet 1 Potassium Chloride Pita ER 20 MEQ Oral Tablet Extended Release Take 1 Tablet by mouth in the morning. On days patient takes lasix.. 60 Tablet 11 predniSONE 10 MG Oral Tablet (Deltasone) Take 5 tabs for 2 days, 4 tabs for 2 days, 3 tabs for 2 days, 2 tabs for 2 days 1 tab for 2 days 30 Tablet 0 guaiFENesin ER 600 MG Oral Tablet Extended Release 12 Hour (Humibid LA) Take 1 Tablet by mouth in the morning and 1 Tablet before bedtime. 50 Tablet 0 Meloxicam 15 MG Oral Tablet (Mobic) TAKE 1 TABLET BY MOUTH DAILY NEEDED FOR PAIN, MODERATE OR PAIN, SEVERE. 30 Tablet 5 amLODIPine Besylate 5 MG Oral Tablet (Norvasc) TAKE 1 TABLET BY MOUTH EVERY DAY IN THE MORNING 90 Tablet 2 DULoxetine HCl 30 MG Oral Capsule Delayed Release Particles (Cymbalta) TAKE 1 CAPSULE BY MOUTH IN THE MORNING. DO NOT CUT, CRUSH OR CHEW. 90 Capsule 2 Azithromycin 250 MG Oral Tablet (Zithromax Z-Nando) Take two tablets by mouth on first day, then 1 tablet daily until gone 6 Tablet 0 Fluticasone Furoate-Vilanterol 200-25 MCG/ACT Inhalation Aerosol Powder Breath Activated (BREO ellipta) Inhale 1 Puff by mouth in the morning. 60 Blister Dosing Unit 5 Current Facility-Administered Medications Medication Dose Route Frequency Provider Last Rate Last Admin Albuterol Sulfate (Proventil) (2.5 MG/3ML) 0.083% inhalation solution 2.5 mg 2.5 mg Nebulizer PRN Albuterol Sulfate (Proventil) (5 MG/ML) 0.5% *conc* inhalation solution 2.5 mg 2.5 mg Nebulizer PRN2.5 mg at 06/22/24 0959 Past Medical History: Diagnosis Date Asthma, severity to be determined 01/04/2004 bronchitis Chondrocalcinosis of knee 01/20/2015 Esophageal reflux 09/30 Hearing loss 10/30/2014 Hypothyroidism (acquired) 10/30/2014 MALAISE AND FATIGUE NOS 04/29/2001 Need for prophylactic hormone replacement therapy (postmenopausal) 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 Osteopenia 10/30/2014 jaw pain w/fosamax Plantar fibromatosis right foot PURE HYPERCHOLESTEROLEM 11/06/2001 Renal cyst, acquired Rosacea Slow transit constipation 07/06/2015 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 Uterine leiomyoma Patient Active Problem List Diagnosis Rosacea Gastroesophageal reflux disease without esophagitis Hearing loss Dyslipidemia, goal LDL below 160 Osteopenia Osteoarthritis of wrist Chondrocalcinosis of knee Slow transit constipation Acquired hypothyroidism Statin intolerance Hypertension goal BP (blood pressure) < 150/90 Major depressive disorder, recurrent, unspecified (HCC) Mild persistent asthma without complication Fatigue Chronic low back pain without sciatica Need for prophylactic vaccination and inoculation against influenza Urinary frequency Age-related osteoporosis without current pathological fracture Caregiver stress Moderate episode of recurrent major depressive disorder (HCC) Past Surgical History: Procedure Laterality Date APPENDECTOMY W/OTHER PROCEDURE 1981 BREAST LESION,OTHER,EXCISION Left 2013 Benign COLONOSCOPY 05/05/12 normal- Dr. Shahid DIGITAL RECTAL EXAM,ANNUAL EGD, FLEXIBLE, DIAGNOSTIC 02/19/2019 normal bx/ESOPHAGOGASTRODUODENOSCOPY (EGD), FLEXIBLE, TRANSORAL, DIAGNOSTIC performed by Nickolas Tucker MD at ENDOSCOPY [facility] INJECT DX/THER SUBSTANCE INTERLAMINAR LUMBAR/SACRAL W IMAGE GUIDE 10/18/2023 INJECTION SPINE LUMBAR OR SACRAL performed by Lewis Hook DO at OR [facility] INJECT DX/THER SUBSTANCE INTERLAMINAR LUMBAR/SACRAL W IMAGE GUIDE 01/27/2024 INJECTION SPINE LUMBAR OR SACRAL performed by Lewis Hook DO at OR [facility] LAPAROSCOPY; CHOLECYSTECTOMY 10/02/10 Dr. Shahid MAMMOGRAM BREAST NEEDLE BIOPSY CORE BILATERAL 2012 normal - Dr. 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 Employer: [employer] Comment: [place] - retired Tobacco Use Smoking status: Never Smokeless tobacco: Never Vaping Use Vaping status: Never Used Substance and Sexual Activity Alcohol use: No Drug use: No Sexual activity: Yes Partners: Male Other Topics Concern Service No Blood Transfusions No Caffeine Concern No Occupational Exposure No Hobby Hazards No Sleep Concern No Stress Concern No Weight Concern No Special Diet No Back Care Not Asked Exercise Not Asked Bike Helmet Not Asked Seat Belt Yes Self-Exams Not Asked Social History Narrative Not on file Social Determinants of Health Financial Resource Strain: Low Risk (07/29/2023) Financial Resource Strain Do you have any trouble paying for your medications, or do you think you might in the future? (Adult - for ages 18 years and over): No Does your family have trouble paying for medicine? (Household - for ages 0-17 years): Not on file Food Insecurity: No Food Insecurity (07/29/2023) Food Insecurity Do you need food for this week? (Adult - for ages 18 years and over): No Are you able to get enough food for your family? (Household - for ages 0-17 years): Not on file Does your family need food this week? (Household - for ages 0-17 years): Not on file Do you always have enough food for your family? (Household - for ages 0-17 years): Not on file Transportation Needs: No Transportation Needs (07/29/2023) Transportation Needs Do you have trouble getting a ride to medical visits or work? (Adult - for ages 18 years and over):Never True Does your family have a hard time getting a ride to doctors visits? (Household - for ages 0-17 years): Not on file Has lack of transportation kept you from medical appointments, meetings, work, or from getting things needed for daily living? Check all that apply. (Adult - for ages 18 years and over): Not on file Do you (or your family) have trouble finding or paying for a ride (transportation)? (Household - for ages 0-17 years): Not on file Social Connections: Socially Integrated (07/29/2023) Social Connections How often do you feel lonely or isolated from those around you? (Adult - for ages 18 years and over): Sometimes Housing Stability: Low Risk (07/29/2023) Housing Stability Do you currently live in a long-term or have no steady place to sleep at night? (Adult - for ages 18 years and over): No Do you think you are at risk of becoming homeless? (Adult - for ages 18 years and over): No Does your family worry about paying for your home or becoming homeless? (Household - for ages 0-17 years): Not on file Are you homeless or worried that you might be in the future? (Adult - for ages 18 years and over): Not on file Are you (or your family) homeless or worried that you might be in the future? (Household - for ages0-17 years): Not on file Family History Problem Relation Name Age of Onset Other (lupus) Mother No Past Hx Father Cancer Brother throat, stomach, tobacco use Heart Disorder Brother Breast Cancer No significant family history Family History; none relevant to today's HPI Objective: Physical Exam There were no vitals filed for this visit. Estimated body mass index is 34.76 kg/m as calculated from the following: Height as of 06/04/24: 1.524 m (5'). Weight as of 06/04/24: 80.7 kg (178 lb). General: generally well-nourished and in no acute distress HEENT: normocephalic, atraumatic, sclera anicteric. Psych: mood and affect normal , cooperative Card: Peripheral pulses: normal in affected extremity (s) Resp: equal chest rise, non-tachypneic, non-labored breathing Skin: no rash, normal Neuro: Sensation: normal on affected extremity (s) MSK: Gait/station/stance: normal reciprocal gait, non antalgic without an assistive device on smooth flat indoor surface. Knee Exam, Bilateral Inspection: Small efusion. No obvious deformity, no redness, warmth, bruising, abrasion. Palpation: tenderness to palpation LJL on the left ROM: Flexion/Neutral/Extension: L - 100/0/0, R - 120/0/0 Strength: R- Strength: Extension - 5/5 Flexion - 5/5 L - Strength: Extension - 5/5 Flexion - 5/5 Special Tests: ACL: Peggy - negative Bilateral Ant Drawer - negative Bilateral PCL: Sag - negative Bilateral Post Drawer - negative Bilateral MCL: Medial Opening @ 30: negative Bilateral LCL: Lateral Opening @ 30: negative Bilateral Radiology (I have personally reviewed the following films): Wayne Sheffield MD [phone] 04/03/2024 Narrative & Impression EXAM XR KNEE 4 OR MORE VIEWS-03/26/2024 10:02 am HISTORY progressing chronic L knee pain COMPARISON Radiograph 12/26/2022 TECHNIQUE Four radiographs left knee. FINDINGS Knee joint effusion. Advanced tricompartment osteoarthritis. No fracture or dislocation. IMPRESSION IMPRESSION Advanced osteoarthritis. Assessment and Plan: Primary osteoarthritis of left knee (Primary) Recommend hinged knee brace and assistance with cane or walker. Encouraged ice and voltaren gel. She will follow up with Dr. Kuo if symptoms persist. Sabiha Holland PA-C [facility] [address] [place] [address] documented in this encounter Nursing Notes * Carolyne Silver MED ASSIST - 06/24/2024 12:18 PM EDT Here for UC regarding ongoing left knee pain, states her knee "locked" a few days ago and has had an increase in pain since then. documented in this encounter Plan of Treatment Upcoming Encounters Date Type Department Care Team (Late st Contact Info) Description 07/23/2024 12:20 PM EDT Office Visit Interventional Pain Center, [facility] [address] [place] [address] Lewis Hook DO [address] [place] [phone] 07/30/2024 11:00 AM EDT Nurse Only Ancillary [address] [place] [address] [place], Nurse [address] [place] [address] 08/04/2024 4:20 PM EST Office Visit Family Practice [facility] 132 [facility] [place] [address] Linda Lopez DO [address] [place] [address] 08/19/2024 3:20 PM EST Office Visit Pulmonary Medicine, [facility] 132 [facility] [place] [address] Me[facility] [address] [facility] [address] 04/19/2025 11:00 AM EDT Office Visit Dermatology [address] [place] [address] Maris Zeng PA-C [address] [place] [address] [place] [address] 05/17/2025 1:30 PM EDT Imaging Radiology [address] [place] [address] Health Maintenance Due Date Last Done Comments [...] as of this encounter Visit Diagnoses Diagnosis Primary osteoarthritis of left knee- Primary Primary localized osteoarthrosis, lower leg Screening mammogram for breast cancer documented in this encounter Care Teams Transfer Station Attendant Relationship Specialty Start Date End Date Linda Lopez DO [address] [facility] [place] [address] PCP - General Family Medicine 12/27/15 documented as of this encounter
--- OUTSIDE RECORDS SUMMARY | 2024-07-02 04:06 | External Medical Summary | Summary of Care ---
Author Name Unknown Organization [facility] Address [address] [place] [address] Phone [phone] Care Team Providers Care Food Service Substitute Name Role Phone Linda Lopez DO Primary Care Provider [phone] Reason for Visit * Reason Onset Date Comments Medication Refill 05/29/2024 Encounter Details Date Type Department Care Team (Late st Contact Info) Description 05/29/2024 Refill Family Practice [facility] [address] [place] [address] Linda Lopez DO [address] [place] [address] Mild persistent asthma without complication Allergies Active Allergy Reactions Criticality Noted Date Comments Alendronate Sodium Other (Please comment) Low 10/30/2014 Abdominal and jaw pain Rosuvastatin Calcium 06/24/2018 myalgias Diclofenac Resin Diflunisal Nausea Atorvastatin Other (Please comment) Low 10/30/2014 myalgias Naproxen Nausea Nsaids Orudis--rash documented as of this encounter (statuses as of 05/31/2024) Medications Medication Sig Dispensed Refills Start Date [...] FOR WHEEZING 54 g 1 01/21/2024 Active Fluticasone Furoate-Vilanterol 200-25 MCG/ACT Inhalation Aerosol Powder Breath Activated (BREO ellipta)Indications :Mild persistent asthma without complication Inhale 1 Puff by mouth in the morning. 60 Blister Dosing Unit 5 01/23/2024 Active Levothyroxine Sodium 50 MCG Oral Tablet [...] OR CHEW. 90 Capsule 2 05/26/2024 Active Fluticasone Propionate HFA 220 MCG/ACT Inhalation AerosolIndications: Mild persistent asthma without complication Inhale 2 Puffs by mouth in the morning and 2 Puffs before bedtime. 12 g 5 05/29/2024 Active documented as of this encounter (statuses as of 05/31/2024) Active Problems Problem Noted Date Diagnosed Date [...] as of this encounter (statuses as of 05/31/2024) Resolved Problems Problem Noted Date Diagnosed Date [...] as of this encounter (statuses as of 05/31/2024) Immunizations Name Administration Dates Next Due COVID-19 mRNA, LNP-s, No Pre serve, 2-Dose Series ([employer]) 08/02/2021,12/20/2020,11/29/2020 Pneumococcal Conjugate Vacc, 13 Valent (Prevnar) [...] encounter Miscellaneous Notes * Telephone Encounter - Gunnar Carrillo RPh - 05/31/2024 8:38 AM EDT Duplicate request cancelled, Request for Breo forwarded to Provider in 05/29/24 encounter. Will await provider response in ongoing conversation regarding lung findings/ acute illness. Thanks, Gunnar Carrillo Rph, Pharm D. Clinical Pharmacist [facility] [phone] 05/31/2024,8:40 AM * Telephone Encounter - Suzy Santiago PHARM Tech - 05/29/2024 9:29 AM EDT Did you pend patient's preferred pharmacy and medication before forwarding?yes Pharmacy: [id number] [id number] [facility] Pending Prescriptions: Disp Refills Fluticasone Furoate-Vilanterol 200-25 MCG*60 Bli*5 Sig: Inhale 1 Puff by mouth in the morning. Last Visit: 01/21/2024 (in office), Visit date not found (telemedicine) Next Visit: 08/04/2024 If no future appointments scheduled, and last appointment is greater than a year ago, please schedule patient for a follow-up appointment Last date the medication was ordered: 01-23-24 Is this request for a controlled substance?No Urine Drug Screen:No results found for this or any previous visit. Patient Phone Numbers Labs: Lab Results Component Value Date/Time CREAT 0.8 01/21/2024 11:48 AM CREAT 0.9 12/01/2019 08:52 AM POTASSIUM 4.5 01/21/2024 11:48 AM POTASSIUM 4.9 12/01/2019 08:52 AM TSH 2.85 07/09/2023 02:34 PM TSH 2.31 05/02/2020 10:32 AM LDL 121 07/09/2023 02:34 PM LDL 154 (H) 03/20/2019 08:48 AM LDL NOT APPLICABLE 03/20/2019 08:48 AM ALT 19 07/09/2023 02:34 PM ALT 18 03/20/2019 08:48 AM HGBA1C 5.0 02/28/2021 09:00 AM documented in this encounter Plan of Treatment Upcoming Encounters Date Type Department Care Team (Late st Contact Info) Description 06/04/2024 1:45 PM EDT Office Visit Orthopaedics [facility] [address] [place] [address] Bret Mckenzie PA-C [address] [place] [address] 06/04/2024 2:20 PM EDT Office Visit Pulmonary Medicine, [facility] [address] [place] [address] Meño Mann MD [address] [place] [address] 07/23/2024 12:20 PM EDT Office Visit Interventional Pain Center, [facility] [address] [place] [address] Lewis Hook, DO [address] [place] [phone] 07/30/2024 11:00 AM EDT Nurse Only Ancillary [address] [place] [address] [place], Nurse Annual [address] [place] [address] 08/04/2024 4:20 PM EST Office Visit Family Practice [facility] [address] [place] [address] Linda Lopez DO [address] [place] [address] 04/19/2025 11:00 AM EDT Office Visit Dermatology [address] [place] [address] Maris Zeng PA-C [address] [place] [address] [place] [address] 05/17/2025 1:30 PM EDT Imaging Radiology [address] [place] [address] Health Maintenance Due Date Last Done Comments *BISPHONATE OR OTHER ACCEPTABLE MEDICATION NEEDED FOR OSTEOPOROSIS (REFER TO SMARTSET #8836) 01/12/2024 COVID-19 Vaccine ( season) 2024 08/02/2021, [...] as of this encounter Visit Diagnoses Diagnosis Mild persistent asthma without complication Unspecified asthma Screening mammogram for breast cancer documented in this encounter Care Teams Food Service Substitute Relationship Specialty Start Date End Date Linda Lopez DO [address] [place] [address] PCP - General Family Medicine 12/27/15 documented as of this encounter
--- OUTSIDE RECORDS SUMMARY | 2024-07-02 04:06 | External Medical Summary | Summary of Care ---
Author Name Unknown Organization [facility] Address [address] [place] [address] Phone [phone] Care Team Providers Care Jigger Artisan Name Role Phone Linda Lopez DO Primary Care Provider [phone] Reason for Referral * Evaluate & Treat - Unlimited Visits (Within 30 days (routine)) - Authorized Specialty Diagnoses / Procedures Referred By Contac t Referred To Contact Pulmonary Diseases / Pulmonary Diagnoses Mild persistent asthma without complication Interstitial lung disease (HCC) Tia Chung MD [address] [place] [address] [place] [address] Referral ID Status Reason Start Date Expiration Date Visits Requested Visits Authorized [id number] Authorized Specialty Services Required 05/29/[phone] Question Answer Referral Priority Within 30 days (routine) Where should this appointment be scheduled? [facility] Reason for Referral? Asthma/COPD Reason for Visit * Reason Onset Date Comments Test Results 05/29/2024 Encounter Details Date Type Department Care Team (Late st Contact Info) Description 05/29/2024 Telephone Family Medicine [facility] [place] [phone] Tia Chung MD [address] [place] [address] [place] [address] Test Results Allergies Active Allergy Reactions Criticality Noted Date [...] before bedtime. 12 g 5 05/29/2024 Active Amoxicillin-Pot Clavulanate 875-125 MG Oral Tablet (Augmentin)Indicati ons:Mild persistent asthma without complication,Subacu te cough Take 1 Tablet by mouth in the morning and 1 Tablet before bedtime. Do all this for 7 days. 14 Tablet 05/29/2024 06/05/2024 Active Azithromycin 250 MG Oral Tablet (Zithromax Z-Nando)Indications:M ild persistent asthma without complication,Subacu te cough Take two tablets by mouth on first day, then 1 tablet daily until gone 6 Tablet 05/29/2024 Active documented as of this encounter [...] mRNA, LNP-s, No Pre serve, 2-Dose Series ([employer]) 08/02/2021,12/20/2020,11/29/2020 Pneumococcal Conjugate Vacc, 13 Valent (Prevnar) [...] Influenza, Trivalen t, (IIV3), with Preserv, (Fluzone) 07/20/2014,05/31/2014,08/17/2003,12/200109/02/2003 Seasonal Influenza, Trivalen t, Adjuvanted, 65+ YRS, [...] as of this encounter Miscellaneous Notes * Addendum Note - Gunnar Meaed RPh - 05/31/2024 8:40 AM EDTAddended by: GUNNAR MEADE on: 05/31/2024 08:40 AM Modules accepted: Orders * Telephone Encounter - Chelsy Robins LPN - 05/29/2024 3:02 PM EDT Patient calling in stating that her pharmacy is out of the flovent inhaler and will not be back in stock until next week. She is asking if Dr. Urrutia would send a script in for the Breo. Also patient is asking if she can have her PCP to Dr. Chung? Please advise * Telephone Encounter - Tia Chung MD - 05/29/2024 12:13 PM EDT Spoke to the pt - pt was out of breo for awhile - she also taking flovent Due to lung finding will do pulm referral No symptoms improvement with prednisone --- will do augmentin and zpak documented in this encounter Plan of Treatment Upcoming Encounters Date Type Department Care Team (Late st Contact Info) Description 06/04/2024 1:45 PM EDT Office Visit Orthopaedics [facility] [address] [place] [address] Bret Mckenzie PA-C [address] [place] [address] 06/04/2024 2:20 PM EDT Office Visit Pulmonary Medicine, [facility] [address] [place] [address] [facility]ño [facility]Mnn [facility] [address] [facility] [address] 07/23/2024 12:20 PM EDT Office Visit Interventional Pain Center, [facility] [address] [place] [address] [place], DO [address] [place] [phone] 07/30/2024 11:00 AM EDT Nurse Only Ancillary [address] [place] [address] [place], Nurse [address] [place] [address] 08/04/2024 4:20 PM EST Office Visit Family Practice [facility] [address] [place] [address] Linda Lopez, DO [address] [place] [address] 04/19/2025 11:00 AM EDT Office Visit Dermatology [address] [place] [address] Maris Zeng PA-C [address] [place] [address] [place] [address] 05/17/2025 1:30 PM EDT Imaging Radiology [address] [place] [address] Scheduled Referrals Name Type Priority Associated Diagnoses Orde r Schedule PULMONARY REFERRAL OP Referral Within 30 days (routine) Mild persistent asthma without complication Interstitial lung disease (HCC) Ordered: 05/29/2024 Health Maintenance Due Date Last Done Comments [...] Visit Diagnoses Diagnosis Mild persistent asthma without complication- Primary Unspecified asthma Interstitial lung disease (HCC) Postinflammatory pulmonary fibrosis Subacute cough Cough Screening mammogram for breast cancer documented in this encounter Care Teams Jigger Artisan Relationship Specialty Start Date End Date Linda Lopez DO [address] [place] [address] PCP - General Family Medicine 12/27/15 documented as of this encounter
--- OUTSIDE RECORDS SUMMARY | 2024-07-02 04:06 | External Medical Summary | Summary of Care ---
Author Name Unknown Organization [facility] Address [address] [place] [address] Phone [phone] Care Team Providers Care Vfx Artist Name Role Phone Linda Lopez DO Primary Care Provider [phone] Reason for Visit * Reason Comments Follow Up Pt is here for a fol low up for L wrist. Pt states off and on pain Encounter Details Date Type Department Care Team (Latest Contact Info) Description 06/04/2024 1:45 PM EDT Office Visit Orthopaedics [facility] [address] [place] [address] Bret Mckenzie PA-C [address] [place] [address] Localized primary osteoarthritis of first carpometacarpal joint of left wrist*; Tendon rupture of wrist, left, subsequent encounter Allergies Active Allergy Reactions Criticality Noted Date Comments Alendronate Sodium Other (Please comment) Low 10/30/2014 Abdominal and jaw pain Rosuvastatin Calcium 06/24/2018 myalgias Diclofenac Resin Diflunisal Nausea Atorvastatin Other (Please comment) Low 10/30/2014 myalgias Naproxen Nausea Nsaids Orudis--rash documented as of this encounter (statuses as of 06/04/2024) Medications Medication Sig Dispensed Refills Start Date End Date Status Cholecalciferol (VITAMIN D) 1000 units Tablet Take 1 Tablet by mouth in the morning. Active Cyanocobalamin (VITAMIN B-12) 1000 MCG Tablet Take 1 Tablet by mouth in the morning. Active Doxycycline Hyclate 20 MG TabletIndications: Rosacea TAKE 1 TABLET BY MOUTH 2 TIMES DAILY WITH OR WITHOUT FOOD 60 Tab 3 03/28/2020 Active Sulfacetamide Sodium, Acne, (KLARON) 10 % lotionIndications: Rosacea Apply to face 2x daily (before sunscreen in morning) 118 g 3 03/28/2020 Active Fish Oil 500 MG Oral Capsule Take 1 Capsule by mouth in the morning. Active valACYclovir HCl 1 GM Oral Tablet (Valtrex)Indicatio ns:Cold sore Take 2 Tablets by mouth in the morning and 2 Tablets before bedtime. for cold sores. 4 Tablet 11 12/25/2022 Active Fluticasone Propionate 50 MCG/ACT Nasal Suspension (Flonase)Indicatio ns:Acute frontal sinusitis, recurrence not specified SPRAY 2 SPRAYS INTO EACH NOSTRIL EVERY DAY 48 mL 3 01/13/2023 Active Ezetimibe 10 MG Oral Tablet (Zetia) TAKE 1 TABLET BY MOUTH EVERY DAY 90 Tablet 3 08/05/2023 Active Omeprazole 40 MG Oral Capsule Delayed Release (PriLOSEC)Indicati ons:Gastroesophage al reflux disease without esophagitis Take 1 Capsule by mouth in the morning. 90 Capsule 3 08/20/2023 Active Loratadine 10 MG Oral Tablet (Claritin) TAKE 1 TABLET BY MOUTH EVERY DAY IN THE MORNING 90 Tablet 3 10/08/2023 Active Furosemide 20 MG Oral Tablet (Lasix)Indications :Swelling of both lower extremities Take 1 Tablet by mouth daily as needed (lower extremity swelling). 20 Tablet 1 01/08/2024 Active Zinc 20 MG Oral Capsule Take by mouth. Active Albuterol Sulfate HFA 108 (90 Base) MCG/ACT Inhalation Aerosol SolutionIndication s:Bronchitis, complicated TAKE 2 PUFFS BY MOUTH EVERY 4 HOURS NEEDED FOR WHEEZING 54 g 1 01/21/2024 Active Levothyroxine Sodium 50 MCG Oral Tablet (Levoxyl)Indicatio ns:Hypothyroidism (acquired) TAKE 1 TABLET BY MOUTH DAILY AT LEAST 30 MIN PRIOR TO BREAKFAST OR OTHER MEDS 90 Tablet 1 02/27/2024 Active Potassium Chloride Pita ER 20 MEQ Oral Tablet Extended ReleaseIndications :Swelling of both lower extremities Take 1 Tablet by mouth in the morning. On days patient takes lasix.. 60 Tablet 11 03/03/2024 Active predniSONE 10 MG Oral Tablet (Deltasone)Indicat ions:Subacute cough,Mild persistent asthma without complication,Exace rbation of asthma, unspecified asthma severity, unspecified whether persistent Take 5 tabs for 2 days, 4 tabs for 2 days, 3 tabs for 2 days, 2 tabs for 2 days 1 tab for 2 days 30 Tablet 05/05/2024 Active guaiFENesin ER 600 MG Oral Tablet Extended Release 12 Hour (Humibid LA)Indications:Sub acute cough Take 1 Tablet by mouth in the morning and 1 Tablet before bedtime. 50 Tablet 05/05/2024 Active Meloxicam 15 MG Oral Tablet (Mobic) TAKE 1 TABLET BY MOUTH DAILY NEEDED FOR PAIN, MODERATE OR PAIN, SEVERE. 30 Tablet 5 05/11/2024 Active amLODIPine Besylate 5 MG Oral Tablet (Norvasc)Indicatio ns:Hypertension goal BP (blood pressure) < 150/90 TAKE 1 TABLET BY MOUTH EVERY DAY IN THE MORNING 90 Tablet 2 05/26/2024 Active DULoxetine HCl 30 MG Oral Capsule Delayed Release Particles (Cymbalta)Indicati ons:Recurrent major depressive disorder, remission status unspecified (HCC) TAKE 1 CAPSULE BY MOUTH IN THE MORNING. DO NOT CUT, CRUSH OR CHEW. 90 Capsule 2 05/26/2024 Active Amoxicillin-Pot Clavulanate 875-125 MG Oral Tablet (Augmentin)Indicat ions:Mild persistent asthma without complication,Subac teller cough Take 1 Tablet by mouth in the morning and 1 Tablet before bedtime. Do all this for 7 days. 14 Tablet 05/29/2024 Active Additional Information Patient not taking.Reported on 06/04/2024 Azithromycin 250 MG Oral Tablet (Zithromax Z-Nando)Indications: Mild persistent asthma without complication,Subac teller cough Take two tablets by mouth on first day, then 1 tablet daily until gone 6 Tablet 05/29/2024 Active Fluticasone Furoate-Vilanterol 200-25 MCG/ACT Inhalation Aerosol Powder Breath Activated (BREO ellipta)Indication s:Mild persistent asthma without complication Inhale 1 Puff by mouth in the morning. 60 Blister Dosing Unit 5 06/02/2024 Active Hospital, Clinic, or Other Facility Administered Medication Ordered Dose Route Frequency Start Date End Date Status lidocaine 1% 1 mL - triamcinolone acetonide 40 mg/mL 1 mL inj 2 mLIndications:Localized primary osteoarthritis of first carpometacarpal joint of left wrist 2 mL IJ ONCE 06/04/2024 06/04/2024 Ended documented as of this encounter (statuses as of 06/04/2024) Active Problems Problem Noted Date Diagnosed Date [...] as of this encounter (statuses as of 06/04/2024) Resolved Problems Problem Noted Date Diagnosed Date [...] as of this encounter (statuses as of 06/04/2024) Immunizations Name Administration Dates Next Due COVID-19 mRNA, LNP-s, No Pre serve, 2-Dose Series ([employer]) 08/02/2021,12/20/2020,11/29/2020 Pneumococcal Conjugate Vacc, 13 Valent (Prevnar) [...] as of this encounter Progress Notes * Bret Mckenzie PA-C - 06/04/2024 1:39 PM EDTAssociated Order(s): Hand/Upper Extremity Injection/Arthrocentesis: L thumb CMC Post-Procedure Diagnose(s): Localized primary osteoarthritis of first carpometacarpal joint of leftwrist One-month follow-up regarding a left wrist injury that resulted in a rupture of the flexor carpi radialis identified on MRI. Reviewed with our surgical hand team in [place] and they recommended 2-3 weeks of casting or bracing. 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 Since the injury, the patient reports her symptoms have significantlyimproved. She was able to complete all of her ADLs elective activity. Denies any loss of motion or strength at this point. States her swelling and bruising have resolved. Does feel a small reported nodularity like change pointing towards the volar wrist and I presume this is location of rupture of the FCR and scarring status post injury. As stated her symptoms are much improved. At this point, she complains of her osteoarthritis at her 1st CMC joint of the left hand more than her tendon injury.Images show advanced 1st CMC joint osteoarthritis. Pain with weight-bearing activity ADLs and at rest. Has brace and use thermal modalities and topical agents with little relief for her arthritis. complete review of systems negative General: alert and oriented x3 female, no acute distress, appears currently stated age, pleasant, well nourished Skin: Left upper extremity including wrist, hand, fingers and thumb does not reveal any erythema, ecchymosis, abrasion, laceration, skin breakdown otherwise Neurovascular: Left upper extremity reveals distal pulses +2, capillary refill is under 2 seconds, good sensation light touch, +5 senior java architect strength, axillary median ulnar radial nerve assess fully intact, negative Tinel's, Phalen's, Durkan's Musculoskeletal: Exam of the left wrist no longer reveals tenderness palpating the flexor carpi radialis 2 cm proximal to the flexor crease but I can palpate what I believe is likely scarring of the FCR tendon at its resting areas status post rupture. Again nontender. Left wrist has full range of motion 5/5 strength. The patient is exam is most consistent and positive with palpation of the 1st CMC joint and palpable nodularity from her osteophytes. Pain with gripping motions. The thumb does have somewhat of a deformity consistent with advanced 10 CMC joint off the radius. MRI left wrist: 05/21/2024 IMPRESSION 1. Full-thickness tear of the flexor carpi radialis tendon, as above. 2. Dorsiflexion of the lunate. Degenerative signal of the scapholunate ligament. 3. Attenuation of the articular disc of the triangular fibrocartilage complex. 4. Severe osteoarthritis of the first carpometacarpal joint and triscaphe joint. Impression: One-month status post left FCR rupture, notable improvement Left 1st CMC joint osteoarthritis Plan: Today 's findings were discussed with the patient. They were educated regarding their diagnosis. Multiple treatment options discussed and agreed upon, including weaning out of her wrist brace per our hand service request and recommendation. I did offer physical therapy the patient has declined but reports she is doing quite well and would certainly capitalize on using PT if she was having struggles or other issues. She is agreeable to proceed with a corticosteroid injection of her left 1st CMC joint and time-out and consent obtained. She would like to call for follow up and I feel that is appropriate. She is not interested in a surgical discussion with 1st CMC joint sling arthroplasty. The patient has no other questions or concerns. Pleased with today 's care. Call sooner if needed.She has had corticosteroid injections in the past and no adverse reactions reported. Patient instructed to call or return to clinic for fever or warmth and redness at injection site for potential infection. Patient also advised as to potential for steroid flare reaction including increased pain and redness at injection site which should be treated with ice and resolve within 24 hours. Hand/Upper Extremity Injection/Arthrocentesis: L thumb CMC for osteoarthritis on 06/04/2024 1:58 PM Indications: diagnostic, pain and therapeutic Details: 25 G needle, radial approach Medications: (Triamcinolone lidocaine) Outcome: tolerated well, no immediate complications Procedure, treatment alternatives, risks and benefits explained, specific risks discussed. Consent was given by the patient. Immediately prior to procedure a time out was called to verify the correctpatient, procedure, equipment, application support developer and site/side marked as required. Patient was prepped and draped in the usual sterile fashion. This chart was completed in part utilizing [employer] Speech Voice Recognition Software. Grammatical errors, random word insertions, prounoun errors, and incomplete sentences are an occasional consequence of this system due to software limitations, ambient noise, and hardware issues. Any formal questions or concerns about the content, text, or information contained within the body of this dictation should be directly addressed to the provider for clarification. documented in this encounter Nursing Notes * Ravi Castañdea CMA - 06/04/2024 1:39 PM EDT Pt is here for a follow up for L wrist. Pt states off and on pain documented in this encounter Plan of Treatment Upcoming Encounters Date Type Department Care Team (Late st Contact Info) Description 06/22/2024 10:30 AM EDT PulmDiagnostic Pulmonary Function Lab, [facility] [address] [place] [address] [place], Pulm Function Tech [facility] [place] [address] 07/23/2024 12:20 PM EDT Office Visit Interventional Pain Center, [facility] [address] [place] [address] [place], [address] [facility] [place] [phone] 07/30/2024 11:00 AM EDT Nurse Only Ancillary [address] [place] [address] [place], Nurse [address] [place] [address] 08/04/2024 4:20 PM EST Office Visit Family Practice [facility] [place] [address] Linda Lopez DO [address] [place] [address] 08/19/2024 3:20 PM EST Office Visit Pulmonary Medicine, [facility] [address] [facility] [place] [address] Meño Mann MD [address] [facility] [place] [address] 04/19/2025 11:00 AM EDT Office Visit Dermatology [address] [place] [address] Maris eZng PA-C [address] [place] [address] [place] [address] 05/17/2025 1:30 PM EDT Imaging Radiology [address] [place] [address] Health Maintenance Due Date Last Done Comments [...] Procedure Name Priority Date/Time Associated Diagnosis Comments VA ARTHROCENTESIS ASPIR&/INJ SMALL JT/BURSA W/O US Routine 06/04/2024 1:58 PM EDT Localized primary osteoarthritis of first carpometacarpal joint of left wrist documented in this encounter Results * VA ARTHROCENTESIS ASPIR&/INJ SMALL JT/BURSA W/O US (06/04/2024 1:58 PM EDT) Narrative Bret Mckenzie PA-C - 06/04/2024 1:58 PM EDT Bret Mckenzie PA-C 06/04/2024 1:59 PM Hand/Upper Extremity Injection/Arthrocentesis: L thumb CMC for osteoarthritis on 06/04/2024 1:58 PM Indications: diagnostic, pain and therapeutic Details: 25 G needle, radial approach Medications: (Triamcinolone lidocaine) Outcome: tolerated well, no immediate complications Procedure, treatment alternatives, risks and benefits explained, specific risks discussed. Consent was given by the patient. Immediately prior to procedure a time out was called to verify the correct patient, procedure, equipment, application support developer and site/side marked as required. Patient was prepped and draped in the usual sterile fashion. Bret Mckenzie PA-C PROCDOC FORM documented in this encounter Visit Diagnoses Diagnosis Localized primary osteoarthritis of first carpometacarpal joint of left wrist- Primary Tendon rupture of wrist, left, subsequent encounter Screening mammogram for breast cancer documented in this encounter Administered Medications Inactive Administered Medications - up to 3 most recent administrations Medication Order MAR Action Action Date Dose Rate Site lidocaine 1% 1 mL - triamcinolone acetonide 40 mg/mL 1 mL inj 2 mL 2 mL, Injection, ONCE, On Marilee 06/04/24 at 1430, For 1 dose, Lidocaine 1% 1mL Triamcinolone Acetonide 40 mg/mL 1 mL (Final concentration = 20 mg/mL) REFRIGERATE and SHAKE WELL Given 06/04/2024 1:55 PM EDT 2 mL Wrist Left documented in this encounter Care Teams Vfx Artist Relationship Specialty Start Date End Date Linda Lopez DO [address] [facility] [place] [address] PCP - General Family Medicine 12/27/15 documented as of this encounter
--- OUTSIDE RECORDS SUMMARY | 2024-07-02 04:06 | External Medical Summary | Summary of Care ---
Author Name Unknown Organization [facility] Address [address] [place] [address] Phone [phone] Care Team Providers Care Puppet Maker Name Role Phone Linda Lopez DO Primary Care Provider [phone] Reason for Visit * Reason Comments NEW PATIENT Asthma * Evaluate & Treat - Unlimited Visits (Within 30 days (routine)) - Authorized Specialty Diagnoses / Procedures Referred By Contac t Referred To Contact Pulmonary Diseases / Pulmonary Diagnoses Mild persistent asthma without complication Interstitial lung disease (HCC) Tia Chung MD [address] [place] [address] [place] [address] Referral ID Status Reason Start Date Expiration Date Visits Requested Visits Authorized [id number] Authorized Specialty Services Required 05/29/[phone] Encounter Details Date Type Department Care Team (Late st Contact Info) Description 06/04/2024 2:20 PM EDT Office Visit Pulmonary Medicine, [address] [place] [address] Meño Mann MD [address] [place] [address] Dyspnea and respiratory abnormalities*; ILD (interstitial lung disease) (HCC) Allergies Active Allergy Reactions Criticality Noted Date [...] Active Amoxicillin-Pot Clavulanate 875-125 MG Oral Tablet (Augmentin)Indica tions:Mild persistent asthma without complication,Suba cute cough Take 1 Tablet by mouth in the morning and 1 Tablet before bedtime. Do all this for 7 days. 14 Tablet 05/29/2024 Active Additional Information Patient not taking.Reported on 06/04/2024 Azithromycin 250 MG Oral Tablet (Zithromax Z-Nando)Indications [...] 60 Blister Dosing Unit 5 06/02/2024 Active Fluticasone Propionate HFA 220 MCG/ACT Inhalation AerosolIndication s:Mild persistent asthma without complication Inhale 2 Puffs by mouth in the morning and 2 Puffs before bedtime. 12 g 5 05/29/2024 Discontinue d(Medicatio n List Clean Up) Hospital, Clinic, or Other Facility Administered Medication [...] mRNA, LNP-s, No Pre serve, 2-Dose Series (MaxMilhas) 08/02/2021,12/20/2020,11/29/2020 Pneumococcal Conjugate Vacc, 13 Valent (Prevnar) [...] Date Smoking Tobacco: Never Smokeless Tobacco: Never Tobacco Cessation:Counseling Given: Not Answered Alcohol Use Standard Drinks/Week Comments No 0 [...] on file documented as of this encounter Last Filed Vital Signs Vital Sign Reading Time Taken Comments Blood Pressure 124/80 06/04/2024 2:01 PM EDT Pulse 82 06/04/2024 2:01 PM EDT Temperature 35.9 C (96.7 F) 06/04/2024 2:01 PM ED T Respiratory Rate 16 06/04/2024 2:01 PM EDT Oxygen Saturation 99% 06/04/2024 2:01 PM EDT Inhaled Oxygen Concentration - - Weight 80.7 kg (178 lb) 06/04/2024 2:01 PM EDT Height 152.4 cm (5') 06/04/2024 2:01 PM EDT Body Mass Index 34.76 06/04/2024 2:01 PM EDT documented in this encounter Progress Notes * Meño Mann MD - 06/04/2024 2:51 PM EDT 06/04/2024 Pulmonary Medicine, [address] [place] [id number] Ivelisse Sin Ha 1945 female 78 year 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 Documentation: 78 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 Assessment Interstitial lung disease Bronchiectasis History of recurrent bronchitis Stable respiratory functional status, on Breo bronchodilator therapy Follow Up: Return in about 6 weeks (around 07/16/2024) for Clinic Visit. 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 TECHNIQUE PA and lateral views of the chest are examined. FINDINGS Slightly prominent reticular opacities are noted bilaterally, new from prior examination. There is no pleural effusion. The pulmonary vasculature and cardiomediastinal silhouette are within normal limits. No acute osseous finding. IMPRESSION IMPRESSION Diffuse bilateral reticular airspace opacities. This is nonspecific but suggestive of an infectiousetiology. No discrete fissural thickening or pleural effusion to suggest edema. CT Chest With Contrast; Diagnostic Exam date and time: 05/26/2024 4:39 PM Age: 78 years old Clinical indication: Abnormal findings on diagnostic imaging of other specified body structures; Subacute cough; Additional info: Abnormal cxr and cough TECHNIQUE: Imaging protocol: Diagnostic computed tomography of the chest with contrast. Radiation optimization: All CT scans at this facility use at least one of these dose optimization techniques: automated exposure control; mA and/or kV adjustment per patient size (includes targeted exams where dose is matched to clinical indication); or iterative reconstruction. Contrast material: ISOVUE 370; Contrast volume: 70 ml; Contrast route: INTRAVENOUS (IV); COMPARISON: CR (CHEST, ) 05/19/2024 9:50 AM FINDINGS: Lungs: There is diffuse subpleural prominence of the interstitial pattern throughout. There is increased reticulation. There is bronchiectasis in both lung bases. There is probable early honeycombing in the lung bases.. There are no micro nodules. No acute infiltrates are evident. Findings suggest a chronic process and probable UIP. Pleural spaces: No effusions or pneumothoraces. Heart: The heart is not enlarged. There is mild coronary artery calcification. Lymph nodes: There is an overall increase in mediastinal nodes and mild right hilar adenopathy. The largest precarinal node measures 7 x 13 mm. These may represent reactive nodes. Vasculature: The ascending thoracic aorta measures 3.1 cm. The descending thoracic aorta measures 2.4 cm. The main pulmonary artery measures 2.7 cm. Bones/joints: There are mild degenerative changes of the thoracic spine without acute bony change. Soft tissues: No abnormal soft tissue densities are identified to suggest mass or hematoma. There are small areas of bilateral breast parenchyma most likely representing areas of fibrocystic change. IMPRESSION IMPRESSION: 1. Diffuse chronic interstitial prominence of the lungs with bronchiectasis in the lung bases and probable early honeycombing in the lung bases as may be seen with UIP. No acute infiltrate is evident. 2. Mild mediastinal adenopathy which may represent reactive nodes. 3. No acute pulmonary infiltrate or effusion. Subjective CC: Chief Complaint Patient presents with NEW PATIENT Asthma HPI: Nursing Notes: Merlyn Hunt LPN 06/04/24 1459 Signed Chief Complaint Patient presents with NEW PATIENT Asthma MMRC Dyspnea Scale = 1 (I get short of breath when hurrying on level ground or walking up a slight hill) Interm History/Respiratory Symptoms Cough: dry Hemoptysis: no Sinus Symptoms: PND Hospitalizations: no ED Trips: no Triggers: stairs,pollens,humidity Nocturnal: no CPAP/BiPAP/O2: no No questionnaires available. Asthma Control Test Question 06/04/2024 2:36 PM EDT - Filed by Merlyn Hunt LPN Please select the best response to the five questions below, by clicking the appropriate option button. In the past 4 weeks, how much of the time did your asthma keep you from getting as much done at work, school or at home? (1) All of the time During the past 4 weeks, how often have you had shortness of breath? (1) More than once a day During the past 4 weeks, how often did your asthma symptoms (wheezing, coughing, shortness of breath, chest tightness or pain) wake you up at night or earlier than usual in the morning? (5) Not at all During the past 4 weeks, how often have you used your rescue inhaler or nebulizer medication (such as albuterol)? (1) 3 or more times per day How would you rate your asthma control during the past 4 weeks? (3) Somewhat controlled Total ACT Adult Score (range: 5 - 25) 11 (Poorly Controlled) Total ACT Child Score (range: 0 - 27) Incomplete Objective Filed Vitals: 06/04/24 1401 BP: 124/80 Pulse: 82 Resp: 16 Temp: 35.9 C (96.7 F) TempSrc: Tympanic SpO2: 99% Weight: 80.7 kg (178 lb) Height: 1.524 m (5') Exam: Const: No signs of acute distress present. Head/Face: Normal on inspection. Eyes: Conjunctivae clear. Pupils equal round and reactive to light. ENMT: Oropharynx: No erythema, exudate or masses. Posterior pharynx is normal. Neck: Supple and symmetric. Resp: Respiratory examination as outlined above CV: Rate is regular. Rhythm is regular. No heart murmur appreciated. Extremities: No edema of the lower limbs bilaterally. Skin: Skin is warm and dry. Neuro: Coordination normal. No involuntary movement. Psych: Patient's attitude is cooperative. Mood is normal. Affect is normal. Tests reviewed with the patient: CT CHEST W CONTRAST Result Date: 05/29/2024 IMPRESSION: 1. Diffuse chronic interstitial prominence of the lungs with bronchiectasis in the lungbases and probable early honeycombing in the lung bases as may be seen with UIP. No acute infiltrate is evident. 2. Mild mediastinal adenopathy which may represent reactive nodes. 3. No acute pulmonary infiltrate or effusion. THIS DOCUMENT HAS BEEN ELECTRONICALLY SIGNED BY JOHNATHAN KINGSTON MD MRI WRIST LEFT WO CONTRAST Result Date: 05/21/2024 IMPRESSION 1. Full-thickness tear of the flexor carpi radialis tendon, as above. 2. Dorsiflexion ofthe lunate. Degenerative signal of the scapholunate ligament. 3. Attenuation of the articular disc of the triangular fibrocartilage complex. 4. Severe osteoarthritis of the first carpometacarpal joint and triscaphe joint. XR CHEST 2 VIEWS Result Date: 05/19/2024 IMPRESSION Nonspecific mild interstitial opacities. CT may be performed for better evaluation. XR WRIST 3 OR MORE VIEWS Result Date: 05/13/2024 IMPRESSION Borderline widening of the scapholunate interval. XR KNEE 4 OR MORE VIEWS Result Date: 04/03/2024 IMPRESSION Advanced osteoarthritis. XR CHEST 2 VIEWS Result Date: 01/10/2024 IMPRESSION Diffuse bilateral reticular airspace opacities. This is nonspecific but suggestive of aninfectious etiology. No discrete fissural thickening or pleural effusion to suggest edema. Available Radiologic data was reviewed by me in PACS. The images were shown to the patient and findings were discussed with the patient. HOME MEDICATIONS: Fluticasone Furoate-Vilanterol 200-25 MCG/ACT Inhalation Aerosol Powder Breath Activated (BREO ellipta) Amoxicillin-Pot Clavulanate 875-125 MG Oral Tablet (Augmentin) Azithromycin 250 MG Oral Tablet (Zithromax Z-Nando) amLODIPine Besylate 5 MG Oral Tablet (Norvasc) DULoxetine HCl 30 MG Oral Capsule Delayed Release Particles (Cymbalta) Meloxicam 15 MG Oral Tablet (Mobic) guaiFENesin ER 600 MG Oral Tablet Extended Release 12 Hour (Humibid LA) predniSONE 10 MG Oral Tablet (Deltasone) Potassium Chloride Pita ER 20 MEQ Oral Tablet Extended Release Levothyroxine Sodium 50 MCG Oral Tablet (Levoxyl) Albuterol Sulfate HFA 108 (90 Base) MCG/ACT Inhalation Aerosol Solution Zinc 20 MG Oral Capsule Furosemide 20 MG Oral Tablet (Lasix) Loratadine 10 MG Oral Tablet (Claritin) Omeprazole 40 MG Oral Capsule Delayed Release (PriLOSEC) Ezetimibe 10 MG Oral Tablet (Zetia) Fluticasone Propionate 50 MCG/ACT Nasal Suspension (Flonase) valACYclovir HCl 1 GM Oral Tablet (Valtrex) Fish Oil 500 MG Oral Capsule Doxycycline Hyclate 20 MG Tablet Sulfacetamide Sodium, Acne, (KLARON) 10 % lotion Cholecalciferol (VITAMIN D) 1000 units Tablet Cyanocobalamin (VITAMIN B-12) 1000 MCG Tablet Albuterol Sulfate (Proventil) (2.5 MG/3ML) 0.083% inhalation solution 2.5 mg Albuterol Sulfate (Proventil) (5 MG/ML) 0.5% *conc* inhalation solution 2.5 mg ROS: No reported history of Hemoptysis, Hematemesis, Melena No reported history of Dysuria, Hematuria, Flank Pain No reported history of chronic headache, seizures No reported history of Fall or trauma . No reported history of recent change in weight or appetite. 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 Shahid DIGITAL RECTAL EXAM,ANNUAL EGD, FLEXIBLE, DIAGNOSTIC 02/19/2019 normal bx/ESOPHAGOGASTRODUODENOSCOPY (EGD), FLEXIBLE, TRANSORAL, DIAGNOSTIC performed by Nickolas Tucker MD at ENDOSCOPY [facility] INJECT DX/THER SUBSTANCE INTERLAMINAR LUMBAR/SACRAL W IMAGE GUIDE 10/18/2023 INJECTION SPINE LUMBAR OR SACRAL performed by Lewis Hook, DO at OR [facility] INJECT DX/THER SUBSTANCE INTERLAMINAR LUMBAR/SACRAL W IMAGE GUIDE 01/27/2024 INJECTION SPINE LUMBAR OR SACRAL performed by Lewis Hook DO at OR [facility] LAPAROSCOPY; CHOLECYSTECTOMY 10/02/10 Dr. Shahid MAMMOGRAM BREAST NEEDLE BIOPSY CORE BILATERAL 2012 normal - Dr. 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 Employer: [employer] Comment: [employer] - retired Tobacco Use Smoking status: Never Smokeless tobacco: Never Vaping Use Vaping status: Never Used Substance and Sexual Activity Alcohol use: No Drug use: No Sexual activity: Yes Partners: Male Other Topics Concern Service No Blood Transfusions No Caffeine Concern No Occupational Exposure No Hobby Hazards No Sleep Concern No Stress Concern No Weight Concern No Special Diet No Seat Belt Yes Social Determinants of Health Financial Resource Strain: Low Risk (07/29/2023) Financial Resource Strain Do you have any trouble paying for your medications, or do you think you might in the future? (Adult - for ages 18 years and over): No Food Insecurity: No Food Insecurity (07/29/2023) Food Insecurity Do you need food for this week? (Adult - for ages 18 years and over): No Transportation Needs: No Transportation Needs (07/29/2023) Transportation Needs Do you have trouble getting a ride to medical visits or work? (Adult - for ages 18 years and over):Never True Social Connections: Socially Integrated (07/29/2023) Social Connections How often do you feel lonely or isolated from those around you? (Adult - for ages 18 years and over): Sometimes Housing Stability: Low Risk (07/29/2023) Housing Stability Do you currently live in a [place] or have no steady place to sleep at night? (Adult - for ages 18 years and over): No Do you think you are at risk of becoming homeless? (Adult - for ages 18 years and over): No Family History Problem Relation Name Age of Onset Other (lupus) Mother No Past Hx Father Cancer Brother throat, stomach, tobacco use Heart Disorder Brother Breast Cancer No significant family history Review of patient's allergies indicates: Allergen Reactions Crestor [Rosuvastatin Calcium] myalgias Diclofenac Resin Diflunisal Nausea Naproxen Nausea Nsaids Orudis--rash Alendronate Sodium Other (Please comment) Abdominal and jaw pain Lipitor [Atorvastatin] Other (Please comment) myalgias documented in this encounter Nursing Notes * Merlyn Hunt LPN - 06/04/2024 2:33 PM EDT Chief Complaint Patient presents with NEW PATIENT Asthma MMRC Dyspnea Scale = 1 (I get short of breath when hurrying on level ground or walking up a slight hill) Interm History/Respiratory Symptoms Cough: dry Hemoptysis: no Sinus Symptoms: PND Hospitalizations: no ED Trips: no Triggers: stairs,pollens,humidity Nocturnal: no CPAP/BiPAP/O2: no No questionnaires available. Asthma Control Test Question 06/04/2024 2:36 PM EDT - Filed by Merlyn Hunt LPN Please select the best response to the five questions below, by clicking the appropriate option button. In the past 4 weeks, how much of the time did your asthma keep you from getting as much done at work, school or at home? (1) All of the time During the past 4 weeks, how often have you had shortness of breath? (1) More than once a day During the past 4 weeks, how often did your asthma symptoms (wheezing, coughing, shortness of breath, chest tightness or pain) wake you up at night or earlier than usual in the morning? (5) Not at all During the past 4 weeks, how often have you used your rescue inhaler or nebulizer medication (such as albuterol)? (1) 3 or more times per day How would you rate your asthma control during the past 4 weeks? (3) Somewhat controlled Total ACT Adult Score (range: 5 - 25) 11 (Poorly Controlled) Total ACT Child Score (range: 0 - 27) Incomplete documented in this encounter Plan of Treatment Upcoming Encounters Date Type Department Care Team (Late st Contact Info) Description 06/22/2024 10:30 AM EDT PulmDiagnostic Pulmonary Function Lab, [facility] [address] [place] [address] [place] Pulm Function Tech [address] [place] [address] 07/23/2024 12:20 PM EDT Office Visit Interventional Pain Center, [facility] [address] [facility] [place] [address] Lewis Hook, DO [address] [place] [phone] 07/30/2024 11:00 AM EDT Nurse Only Ancillary [address] [place] [address] [place], Nurse [address] [place] [address] 08/04/2024 4:20 PM EST Office Visit Family Practice [facility] [address] [facility] [place] [address] Linda Lopez, DO [address] [facility] [place] [address] 08/19/2024 3:20 PM EST Office Visit Pulmonary Medicine, [facility] [address] [facility] [place] [address] Meño Mann MD [address] [place] [address] 04/19/2025 11:00 AM EDT Office Visit Dermatology [address] [place] [address] Maris Zeng PA-C [address] [place] [address] [place] [address] 05/17/2025 1:30 PM EDT Imaging Radiology [address] [place] [address] Scheduled Orders Name Type Priority Associated Diagnoses Orde r Schedule NOCTURNAL HOME OXIMETRY (OP) Procedures Routine Dyspnea and respiratory abnormalities ILD (interstitial lung disease) ([facility]) Ordered: 06/04/2024 PULMONARY STRESS TESTING Procedures Routine Dyspnea and respiratory abnormalities ILD (interstitial lung disease) ([facility]) Expected: 06/05/2024, Expires: 07/04/2025 DIFFUSION CAPACITY (DLCO) Procedures Routine Dyspnea and respiratory abnormalities ILD (interstitial lung disease) ([facility]) Expected: 06/11/2024, Expires: 07/04/2025 LUNG VOLUMES (PLETHYSMOGRAPHY) Procedures Routine Dyspnea and respiratory abnormalities ILD (interstitial lung disease) ([facility]) Expected: 06/11/2024, Expires: 07/04/2025 SPIROMETRY B/A BRONCHODILATOR Procedures Routine Dyspnea and respiratory abnormalities ILD (interstitial lung disease) ([facility]) Expected: 06/11/2024, Expires: 07/04/2025 Health Maintenance Due Date Last Done Comments [...] as of this encounter Visit Diagnoses Diagnosis Dyspnea and respiratory abnormalities- Primary Other dyspnea and respiratory abnormality ILD (interstitial lung disease) (HCC) Postinflammatory pulmonary fibrosis Screening mammogram for breast cancer documented in this encounter Care Teams Puppet Maker Relationship Specialty Start Date End Date Linda Lopez DO [address] [place] [address] PCP - General Family Medicine 12/27/15 documented as of this encounter"
--- OUTSIDE RECORDS SUMMARY | 2024-07-02 04:06 | External Medical Summary | Summary of Care ---
Author Name Unknown Organization [facility] Address [address] [place] [address] Phone [phone] Care Team Providers Care Director Of Digital Platforms Name Role Phone Linda Lopez DO Primary Care Provider [phone] Reason for Visit * Reason Onset Date Comments Health Maintenance 06/18/2024 Encounter Details Date Type Department Care Team (Late st Contact Info) Description 06/18/2024 Telephone Family Practice [facility] [address] [place] [address] Linda Lopez DO [address] [place] [address] Health Maintenance Allergies Active Allergy Reactions Criticality Noted Date Comments Alendronate Sodium Other (Please comment) Low 10/30/2014 Abdominal and jaw pain Rosuvastatin Calcium 06/24/2018 myalgias Diclofenac Resin Diflunisal Nausea Atorvastatin Other (Please comment) Low 10/30/2014 myalgias Naproxen Nausea Nsaids Orudis--rash documented as of this encounter (statuses as of 06/18/2024) Medications Medication Sig Dispensed Refills Start Date [...] mgIndications:Dyspnea and respiratory abnormalities,ILD (interstitial lung disease) ([facility]) 2.5 mg NEBULIZER PRN 06/04/2024 06/04/2025 Active Albuterol Sulfate (Proventil) (5 MG/ML) 0.5% *conc* inhalation solution 2.5 mgIndications:Dyspnea and respiratory abnormalities,ILD (interstitial lung disease) ([facility]) 2.5 mg NEBULIZER PRN 06/04/2024 06/04/2025 Active documented as of this encounter (statuses as of 06/18/2024) Active Problems Problem Noted Date Diagnosed Date [...] as of this encounter (statuses as of 06/18/2024) Resolved Problems Problem Noted Date Diagnosed Date [...] as of this encounter (statuses as of 06/18/2024) Immunizations Name Administration Dates Next Due COVID-19 [...] encounter Miscellaneous Notes * Telephone Encounter - Barb Haley LPN - 06/18/2024 9:00 AM EDT Care Gaps Comprehensive Care Outreach Last Office/Telemedicine Visit: 01/21/2024 (in office), Visit date not found (telemedicine) Next Office Visit: 08/04/2024 Hemoglobin AIC Results: Lab Results Component Value Date/Time HEMOGLOBIN A1C - [facility] 5.0 02/28/2021 09:00 AM BP Readings from Last 1 Encounters: 06/04/24 124/80 Reviewed Health Maintenance below: Health Maintenance Topic Date Due *BISPHONATE OR OTHER ACCEPTABLE MEDICATION NEEDED FOR OSTEOPOROSIS (REFER TO SMARTSET #1146) Never done Influenza Vaccine (FLU shot) (1) 05/31/2024 COVID-19 Vaccine ( season) 2024 TSH 07/09/2024 Adult Wellness Visit 07/29/2024 Depression Monitoring 07/29/2024 Lab Awv already scheduled Care Gap Outreach Action Taken: Unable to reach busy signal documented in this encounter Plan of Treatment Upcoming Encounters Date Type Department Care Team (Late st Contact Info) Description 06/22/2024 10:00 AM EDT PulmDiagnostic Pulmonary Function Lab, [facility] [address] [place] [address] [place], Pulm Function Tech [address] [place] [address] 07/23/2024 12:20 PM EDT Office Visit Interventional Pain Center, [facility] [address] [place] [address] Lewis Hook, [address] [place] [phone] 07/30/2024 11:00 AM EDT Nurse Only Ancillary [address] [place] [address] [place], Nurse [address] [place] [address] 08/04/2024 4:20 PM EST Office Visit Family Practice [facility] [address] [facility] [place] [address] Linda Lopez DO 132 [facility] [place] [address] 08/19/2024 3:20 PM EST Office Visit Pulmonary Medicine, [facility] [address] [facility] [place] [address] Meño Mann MD [address] [facility] [place] [address] 04/19/2025 11:00 AM EDT Office Visit Dermatology [address] [place] [address] Maris Zeng PA-C [address] [place] [address] [place] [address] 05/17/2025 1:30 PM EDT Imaging Radiology [address] [place] [address] Health Maintenance Due Date Last Done Comments [...] filedocumented as of this encounter Care Teams Director Of Digital Platforms Relationship Specialty Start Date End Date Linda Lopez DO [address] [place] [address] PCP - General Family Medicine 12/27/15 documented as of this encounter
--- OUTSIDE RECORDS SUMMARY | 2024-07-02 04:06 | External Medical Summary | Summary of Care ---
Author Name Unknown Organization [facility] Address [address] [place] [address] Phone [phone] Care Team Providers Care Staff Mechanical Engineer Name Role Phone Linda Lopez DO Primary Care Provider [phone] Reason for Referral * Evaluate & Treat - Unlimited Visits (Within 30 days (routine)) - Authorized Specialty Diagnoses / Procedures Referred By Contac t Referred To Contact Pulmonary Diseases / Pulmonary Diagnoses Mild persistent asthma without complication Interstitial lung disease (HCC) Tia Chung MD [address] [place] [address] [place] [address] Referral ID Status Reason Start Date Expiration Date Visits Requested Visits Authorized [id number] Authorized Specialty Services Required 05/29/[phone] Question Answer Referral Priority Within 30 days (routine) Where should this appointment be scheduled? [facility] Primary Reason for Referral? Asthma/COPD Reason for Visit * Reason Onset Date Comments Test Results 05/29/2024 Encounter Details Date Type Department Care Team (Late st Contact Info) Description 05/29/2024 Telephone Family Medicine [facility] [place] [place] [phone] Tia Chung MD [address] [place] [address] [place] [address] Test Results Allergies Active Allergy Reactions Criticality [...] mRNA, LNP-s, No Pre serve, 2-Dose Series (vWise) 08/02/2021,12/20/2020,11/29/2020 Pneumococcal Conjugate Vacc, 13 Valent (Prevnar) [...] Miscellaneous Notes * Addendum Note - Gunnar Meade RPh - 05/31/2024 8:40 AM EDTAddended by: [...] 06/04/2024 1:45 PM EDT Office Visit Orthopaedics [facility] [address] [place] [address] Bret Mckenzie PA-C [address] [place] [address] 06/04/2024 2:20 PM EDT Office Visit Pulmonary Medicine, [facility] [address] [place] [address] Meño Mann [facility] [address] [facility] [address] 07/23/2024 12:20 PM EDT Office Visit Interventional Pain Center, [facility] [address] [place] [address] [place], DO [address] [place] [phone] 07/30/2024 11:00 AM EDT Nurse Only Ancillary [address] [place] [address] [place], Nurse [address] [place] [address] 08/04/2024 4:20 PM EST Office Visit Family Practice [facility] [address] [place] [address] Linda Lopez, DO [address] [place] [address] 04/19/2025 11:00 AM EDT Office Visit Dermatology [address] [place] [address] Maris Zeng PA-C [address] [place] [address] [place] [address] 05/17/2025 1:30 PM EDT Imaging Radiology [address] [place] [address] Scheduled Referrals Name Type Priority Associated Diagnoses [...] cancer documented in this encounter Care Teams Staff Mechanical Engineer Relationship Specialty Start Date End Date Linda Lopez DO [address] [place] [address] PCP - General Family Medicine 12/27/15 documented as of this encounter
--- OUTSIDE RECORDS SUMMARY | 2024-07-02 04:06 | External Medical Summary | Summary of Care ---
Author Name Unknown Organization [facility] Address [address] [place] [address] Phone [phone] Care Team Providers Care Helper Maintenance Cleaning Name Role Phone Linda Lopez DO Primary Care Provider [phone] Reason for Referral * Evaluate & Treat - Unlimited Visits (Within 30 days (routine)) - Authorized Specialty Diagnoses / Procedures Referred By Contac t Referred To Contact Pulmonary Diseases / Pulmonary Diagnoses Mild persistent asthma without complication Interstitial lung disease (HCC) Nish Mobley MD [address] [place] [address] [place] [address] Referral ID Status Reason Start Date Expiration Date Visits Requested Visits Authorized [id number] Authorized Specialty Services Required 05/29/[phone] Question Answer Referral Priority Within 30 days (routine) Where should this appointment be scheduled? [facility] Primary Reason for Referral? Asthma/COPD Reason for Visit * Reason Onset Date Comments Test Results 05/29/2024 Encounter Details Date Type Department Care Team (Late st Contact Info) Description 05/29/2024 Telephone Family Medicine [facility] [place] [place] [phone] Nish Mobley MD [address] [place] [address] [place] [address] Test Results Allergies Active Allergy Reactions Criticality Noted Date Comments Alendronate Sodium Other (Please comment) Low 10/30/2014 Abdominal and jaw pain Rosuvastatin Calcium 06/24/2018 myalgias Diclofenac Resin Diflunisal Nausea Atorvastatin Other (Please comment) Low 10/30/2014 myalgias Naproxen Nausea Nsaids Orudis--rash documented as of this encounter (statuses as of 06/02/2024) Medications Medication Sig Dispensed Refills Start Date [...] Tablet (Augmentin)Indicat ions:Mild persistent asthma without complication,Subac cherokee cough Take 1 Tablet by mouth in the morning and 1 Tablet before bedtime. Do all this for 7 days. 14 Tablet 05/29/2024 Active Azithromycin 250 MG Oral Tablet (Zithromax Z-Nando)Indications: Mild persistent asthma without complication,Subac cherokee cough Take two tablets by mouth on first day, then 1 tablet daily until gone 6 Tablet 05/29/2024 Active Fluticasone Furoate-Vilanterol 200-25 MCG/ACT Inhalation Aerosol Powder Breath Activated (BREO ellipta)Indication s:Mild persistent asthma without complication Inhale 1 Puff by mouth in the morning. 60 Blister Dosing Unit 5 06/02/2024 Active Fluticasone Furoate-Vilanterol 200-25 MCG/ACT Inhalation Aerosol Powder Breath Activated (BREO ellipta)Indication s:Mild persistent asthma without complication Inhale 1 Puff by mouth in the morning. 60 Blister Dosing Unit 5 01/23/2024 4 Discontinue d(Refill) Fluticasone Propionate HFA 220 MCG/ACT Inhalation AerosolIndications :Mild persistent asthma without complication Inhale 2 Puffs by mouth in the morning and 2 Puffs before bedtime. 12 g 5 05/29/2024 4 Discontinue d(Medicatio n List Clean Up) documented as of this encounter (statuses as of 06/02/2024) Active Problems Problem Noted Date Diagnosed Date [...] as of this encounter (statuses as of 06/02/2024) Resolved Problems Problem Noted Date Diagnosed Date [...] as of this encounter (statuses as of 06/02/2024) Immunizations Name Administration Dates Next Due COVID-19 mRNA, LNP-s, No Pre serve, 2-Dose Series (Novapost) 08/02/2021,12/20/2020,11/29/2020 Pneumococcal Conjugate Vacc, 13 Valent (Prevnar) [...] Influenza, Trivalen t, (IIV3), with Preserv, (Fluzone) 07/20/2014,05/31/2014,08/17/2003,1212/200109/02/2003 Seasonal Influenza, Trivalen t, Adjuvanted, 65+ YRS, [...] encounter Miscellaneous Notes * Addendum Note - Nish Mobley MD - 06/02/2024 7:55 AM EDTAddended by: NISH MOBLEY on: 06/02/2024 07:55 AM Modules accepted: Orders * Telephone Encounter - Nish Mobley MD - 06/02/2024 7:55 AM EDT Breo sent * Addendum Note - [facility] - 05/31/2024 8:40 AM EDTAddended by: JANUARY CARRILLO on: 05/31/2024 08:40 AM Modules accepted: Orders Electronically signed by [facility] at 05/31/2024 8:40 AM EDT * Telephone Encounter - Chelsy Robins LPN - 05/29/2024 3:02 PM EDT Patient calling in stating that her pharmacy is out of the flovent inhaler and will not be back in stock until next week. She is asking if Dr. Urrutia would send a script in for the Breo. Also patient is asking if she can have her PCP to Dr. Mobley? Please advise * Telephone Encounter - Nish Mobley MD - 05/29/2024 12:13 PM EDT Spoke [...] 06/04/2024 1:45 PM EDT Office Visit Orthopaedics [facility] [address] [place] [address] Bret Mckenzie PA-C [address] [place] [address] 06/04/2024 2:20 PM EDT Office Visit Pulmonary Medicine, [facility] [address] [place] [address] Meño Mann MD [address] [place] [address] 07/23/2024 12:20 PM EDT Office Visit Interventional Pain Center, [facility] [address] [place] [address] [place], DO [address] [place] [phone] 07/30/2024 11:00 AM EDT Nurse Only Ancillary [address] [place] [address] [place], Nurse [facility] [address] [place] [address] [place] [address] 08/04/2024 4:20 PM EST Office Visit Family Practice [facility] [address] [place] [address] Linda Lopez DO [address] [place] [address] 04/19/2025 11:00 AM EDT Office Visit Dermatology [address] [place] [address] Maris Zeng PA-C [address] [place] [address] [place] [address] 05/17/2025 1:30 PM EDT Imaging Radiology [address] [place] [address] Scheduled Referrals Name Type Priority Associated Diagnoses [...] cancer documented in this encounter Care Teams Helper Maintenance Cleaning Relationship Specialty Start Date End Date Linda Lopez DO [address] [facility] [place] [address] PCP - General Family Medicine 12/27/15 documented as of this encounter
--- OUTSIDE RECORDS SUMMARY | 2024-07-02 04:06 | External Medical Summary | Summary of Care ---
Author Name Unknown Organization [facility] Address [address] [place] [address] Phone [phone] Care Team Providers Care Railroad Car Repair Supervisor Name Role Phone Linda Lopez DO Primary Care Provider [phone] Reason for Visit * Reason Comments eRx-Medication Refill Encounter Details Date Type Department Care Team (Late st Contact Info) Description 06/08/2024 Refill Family Practice [facility] [address] [place] [address] Linda Lopez DO [address] [place] [address] Hypothyroidism (acquired) Allergies Active Allergy Reactions Criticality Noted Date Comments Alendronate Sodium Other (Please comment) Low 10/30/2014 Abdominal and jaw pain Rosuvastatin Calcium 06/24/2018 myalgias Diclofenac Resin Diflunisal Nausea Atorvastatin Other (Please comment) Low 10/30/2014 myalgias Naproxen Nausea Nsaids Orudis--rash documented as of this encounter (statuses as of 06/10/2024) Medications Medication Sig Dispensed Refills Start Date [...] as of this encounter (statuses as of 06/10/2024) Active Problems Problem Noted Date Diagnosed Date [...] as of this encounter (statuses as of 06/10/2024) Resolved Problems Problem Noted Date Diagnosed Date [...] as of this encounter (statuses as of 06/10/2024) Immunizations Name Administration Dates Next Due COVID-19 [...] Notes * Telephone Encounter - Emy Connors [facility] - 06/10/2024 8:54 AM EDT Refused Prescriptions: Disp Refills Levothyroxine Sodium 50 MCG Oral Tablet (L*90 Tab*1 Sig: TAKE 1TABLET BY MOUTH DAILY AT LEAST 30 MIN PRIOR TO BREAKFAST OR OTHER MEDSRefused By: EMY CONNORS for Refusal: Too soon documented in this encounter Plan of Treatment Upcoming Encounters Date Type Department Care Team (Late st Contact Info) Description 06/22/2024 10:00 AM EDT PulmDiagnostic Pulmonary Function Lab, [facility] [address] [place] [address] [place], Pulm Function Tech [address] [place] [address] 07/23/2024 12:20 PM EDT Office Visit Interventional Pain Center, [facility] [address] [place] [address] [place], 132 [place] [phone] 07/30/2024 11:00 AM EDT Nurse Only Ancillary [address] [place] [address] [place], Nurse [address] [place] [address] 08/04/2024 4:20 PM EST Office Visit Family Practice [facility] [address] [facility] [place] [address] Linda Lopez DO [address] [place] [address] 08/19/2024 3:20 PM EST Office Visit Pulmonary Medicine, [facility] [address] [facility] [place] [address] Meño Mann MD [address] [facility] [place] [address] 04/19/2025 11:00 AM EDT Office Visit Dermatology [address] [place] [address] Maris Zeng PA-C [address] [place] [address] [place] [address] 05/17/2025 1:30 PM EDT Imaging Radiology [address] [place] [address] Health Maintenance Due Date Last Done Comments [...] as of this encounter Visit Diagnoses Diagnosis Hypothyroidism (acquired) Unspecified hypothyroidism Screening mammogram for breast cancer documented in this encounter Care Teams Railroad Car Repair Supervisor Relationship Specialty Start Date End Date Linda Lopez DO [address] [place] [address] PCP - General Family Medicine 12/27/15 documented as of this encounter
--- OUTSIDE RECORDS SUMMARY | 2024-07-02 04:06 | External Medical Summary | Summary of Care ---
Author Name Unknown Organization [facility] Address [address] [place] [address] Phone [phone] Care Team Providers Care Fulfillment Specialist Name Role Phone Linda Lopez DO Primary Care Provider [phone] Reason for Visit * Reason Comments Follow Up Pt is here for a fol low up for L wrist. Pt states off and on pain Encounter Details Date Type Department Care Team (Latest Contact Info) Description 06/04/2024 1:45 PM EDT Office Visit Orthopaedics [facility] [address] [place] [address] Bret cMkenzie PA-C [address] [place] [address] Localized primary osteoarthritis of first carpometacarpal joint [...] Tablet (Augmentin)Indicat ions:Mild persistent asthma without complication,Subac ely shoshone cough Take 1 Tablet by mouth in the morning and 1 Tablet before bedtime. Do all this for 7 days. 14 Tablet 05/29/2024 Active Additional Information Patient not taking.Reported on 06/04/2024 Azithromycin 250 MG Oral Tablet (Zithromax Z-Nando)Indications: Mild persistent asthma without complication,Subac ely shoshone cough Take two tablets by mouth on [...] mRNA, LNP-s, No Pre serve, 2-Dose Series ([employer]) 08/02/2021,12/20/2020,11/29/2020 Pneumococcal Conjugate Vacc, 13 Valent (Prevnar) [...] Reviewed with our surgical hand team in [place] and they recommended 2-3 weeks of casting [...] 2 seconds, good sensation light touch, +5 timber feller strength, axillary median ulnar radial nerve assess [...] verify the correctpatient, procedure, equipment, application support and site/side marked as required. Patient was prepped and draped in the usual sterile fashion. This chart was completed in part utilizing [employer] Speech Voice Recognition Software. Grammatical errors, random [...] in this encounter Nursing Notes * Ravi Castañeda CMA - 06/04/2024 1:39 PM EDT Pt is here for a follow up for L wrist. Pt states off and on pain documented in this encounter Plan of Treatment Upcoming Encounters Date Type Department Care Team (Late st Contact Info) Description 06/04/2024 2:20 PM EDT Office Visit Pulmonary Medicine, [facility] [address] [facility] [place] [address] Meño Mann MD [address] [place] [address] Arrived 07/23/2024 12:20 PM EDT Office [facility] [place] [address] Lewis [place] DO [address] [facility] [place] [phone] 07/30/2024 11:00 AM EDT Nurse Only Ancillary [address] [place] [address] [place], Nurse [facility] [address] [place] [address] [place] [address] 08/04/2024 4:20 PM EST Office Visit [facility] [address] [place] [address] Linda Lopez DO [address] [place] [address] 04/19/2025 11:00 AM EDT Office Visit Dermatology [address] [place] [address] Maris Zeng PA-C [address] [place] [address] [place] [address] 05/17/2025 1:30 PM EDT Imaging Radiology [address] [place] [address] Health Maintenance Due Date Last Done Comments [...] Procedure Name Priority Date/Time Associated Diagnosis Comments MT ARTHROCENTESIS ASPIR&/INJ SMALL JT/BURSA W/O US Routine 06/04/2024 1:58 PM EDT Localized primary osteoarthritis of first carpometacarpal joint of left wrist documented in this encounter Results * MT ARTHROCENTESIS ASPIR&/INJ SMALL JT/BURSA W/O US (06/04/2024 [...] the correct patient, procedure, equipment, application support and site/side marked as required. Patient was [...] Left documented in this encounter Care Teams Fulfillment Specialist Relationship Specialty Start Date End Date Linda Lopez DO [address] [place] [address] PCP - General Family Medicine 12/27/15 documented as of this encounter
--- OUTSIDE RECORDS SUMMARY | 2024-07-02 04:07 | External Medical Summary | Summary of Care ---
Author Name Unknown Organization [facility] Address [address] [place] [address] Phone [phone] Care Team Providers Care Aircraft Cabin Cleaner Name Role Phone Linda Lopez DO Primary Care Provider [phone] Reason for Referral * Evaluate & Treat - Unlimited Visits (Within 30 days (routine)) - Authorized Specialty Diagnoses / Procedures Referred By Contac t Referred To Contact Pulmonary Diseases / Pulmonary Diagnoses Mild persistent asthma without complication Interstitial lung disease (HCC) Tia Chung MD [address] [place] [address] [place] [address] Referral ID Status Reason Start Date Expiration Date Visits Requested Visits Authorized [id number] Authorized Specialty Services Required 05/29/[phone] Question Answer Referral Priority Within 30 days (routine) Where should this appointment be scheduled? [facility] Primary Reason for Referral? Asthma/COPD Reason for Visit * Reason Onset Date Comments Test Results 05/29/2024 Encounter Details Date Type Department Care Team (Late st Contact Info) Description 05/29/2024 Telephone Family Medicine [facility] [address] [place] [phone] Tia Chung MD [address] [place] [address] [place] [address] Test Results Allergies Active Allergy Reactions Criticality Noted Date Comments Alendronate Sodium Other (Please comment) Low 10/30/2014 Abdominal and jaw pain Rosuvastatin Calcium 06/24/2018 myalgias Diclofenac Resin Diflunisal Nausea Atorvastatin Other (Please comment) Low 10/30/2014 myalgias Naproxen Nausea Nsaids Orudis--rash documented as of this encounter (statuses as of 05/29/2024) Medications Medication Sig Dispensed Refills Start Date [...] as of this encounter (statuses as of 05/29/2024) Active Problems Problem Noted Date Diagnosed Date [...] as of this encounter (statuses as of 05/29/2024) Resolved Problems Problem Noted Date Diagnosed Date [...] as of this encounter (statuses as of 05/29/2024) Immunizations Name Administration Dates Next Due COVID-19 mRNA, LNP-s, No Pre serve, 2-Dose Series (Vaultive) 08/02/2021,12/20/2020,11/29/2020 Pneumococcal Conjugate Vacc, 13 Valent (Prevnar) [...] encounter Miscellaneous Notes * Telephone Encounter - Tia Chung MD [...] 06/04/2024 1:45 PM EDT Office Visit Orthopaedics [facility] [address] [place] [address] Bret Mckenzie PA-C [address] [place] [address] 07/23/2024 12:20 PM EDT Office Visit Interventional Pain Center, [facility] [address] [place] [address] [place], DO [address] [place] [phone] 07/30/2024 11:00 AM EDT Nurse Only Ancillary [address] [place] [address] [place], Nurse [address] [place] [address] 08/04/2024 4:20 PM EST Office Visit [facility] [address] [place] [address] Linda Lopez DO [address] [place] [address] 04/19/2025 11:00 AM EDT Office Visit Dermatology [address] [place] [address] Maris Zeng PA-C [address] [place] [address] [place] [address] 05/17/2025 1:30 PM EDT Imaging Radiology [address] [place] [address] Scheduled Referrals Name Type Priority Associated Diagnoses Orde r Schedule PULMONARY REFERRAL OP Referral Within 30 days (routine) Mild persistent asthma without complication Interstitial lung disease (HCC) Ordered: 05/29/2024 Health Maintenance Due Date Last Done Comments COVID-19 Vaccine ( season) 2023 08/02/2021, 12/20/2020, 11/29/2020 *BISPHONATE OR OTHER ACCEPTABLE MEDICATION NEEDED FOR OSTEOPOROSIS (REFER TO SMARTSET #1146) 01/12/2024 Influenza Vaccine (FLU shot) (#1) 2024 07/09/2023, [...] cancer documented in this encounter Care Teams Aircraft Cabin Cleaner Relationship Specialty Start Date End Date Linda Lopez DO [address] [place] [address] PCP - General Family Medicine 12/27/15 documented as of this encounter
--- OUTSIDE RECORDS SUMMARY | 2024-07-02 04:07 | External Medical Summary | Summary of Care ---
Author Name Unknown Organization [facility] Address [address] [place] [address] Phone [phone] Care Team Providers Care Lens Coater Name Role Phone Linda Lopez DO Primary Care Provider [phone] Reason for Visit * Reason Onset Date Comments Med Request 05/29/2024 Encounter Details Date Type Department Care Team (Late st Contact Info) Description 05/29/2024 Telephone Family Practice [facility] [address] [place] [address] Linda Lopez DO [address] [place] [address] Med Request Allergies Active Allergy Reactions Criticality Noted Date [...] mRNA, LNP-s, No Pre serve, 2-Dose Series (Me[employer]u) 08/02/2021,12/20/2020,11/29/2020 Pneumococcal Conjugate Vacc, 13 Valent (Prevnar) [...] encounter Miscellaneous Notes * Telephone Encounter - Saadia Mckeon MED ASSIST - 05/29/2024 9:48 AM EDT Medication pended, if agreeable. * Telephone Encounter - Suzy Santiago PHARM Tech - 05/29/2024 9:30 AM EDT Patient requesting refills for Flovent HFA 220 MCG/ACT Inhalation Aerosol (fluticasone) . Upon chart review, medication is listed as discontinued, with discontinuation reason as "refill". Please advise if you wish to continue this therapy for the patient. Thank you, [facility] 05/29/2024, 9:31 AM documented in this encounter Plan of Treatment Upcoming Encounters Date Type Department Care Team (Late st Contact Info) Description 06/04/2024 1:45 PM EDT Office Visit Orthopaedics [facility] [address] [place] [address] Bret Mckenzie PA-C [address] [place] [address] 07/23/2024 12:20 PM EDT Office Visit Interventional Pain Center, [facility] [address] [place] [address] [place], [address] [place] [phone] 07/30/2024 11:00 AM EDT Nurse Only Ancillary Alison Raza[address] [place] [address] [place], Nurse [address] [place] [address] 08/04/2024 4:20 PM EST Office Visit Family Practice [facility] [address] [place] [address] Linda Lopez, DO [address] [place] [address] 04/19/2025 11:00 AM EDT Office Visit Dermatology [address] [place] [address] Maris Zeng PA-C [address] [place] [address] [place] [address] 05/17/2025 1:30 PM EDT Imaging Radiology [address] [place] [address] Health Maintenance Due Date Last Done Comments COVID-19 Vaccine (2022- season) 2023 08/02/2021, 12/20/2020, 11/29/2020 *BISPHONATE OR [...] persistent asthma without complication- Primary Unspecified asthma Screening mammogram for breast cancer documented in this encounter Care Teams Lens Coater Relationship Specialty Start Date End Date Linda Lopez DO [address] [place] [address] PCP - General Family Medicine 12/27/15 documented as of this encounter
--- OUTSIDE RECORDS SUMMARY | 2024-07-02 04:07 | External Medical Summary | Summary of Care ---
Author Name Unknown Organization [facility] Address [address] [place] [address] Phone [phone] Care Team Providers Care Hook Tender Name Role Phone Linda Lopez DO Primary Care Provider [phone] Reason for Referral * Evaluate & Treat - Unlimited Visits (Within 30 days (routine)) - Authorized Specialty Diagnoses / Procedures Referred By Contac t Referred To Contact Pulmonary Diseases / Pulmonary Diagnoses Mild persistent asthma without complication Interstitial lung disease (HCC) Tia Chung MD [address] [place] [address] [place] [address] Referral ID Status Reason Start Date Expiration Date Visits Requested Visits Authorized [id number] Authorized Specialty Services Required 05/29/[phone] Question Answer Referral Priority Within 30 days (routine) Where should this appointment be scheduled? [facility] Reason for Referral? Asthma/COPD Reason for Visit * Reason Onset Date Comments Test Results 05/29/2024 Encounter Details Date Type Department Care Team (Late st Contact Info) Description 05/29/2024 Telephone Family Medicine [facility] [place] [phone] Tia Chung MD [address] [place] [address] [place] [address] Test Results Allergies Active Allergy Reactions Criticality [...] mRNA, LNP-s, No Pre serve, 2-Dose Series ([employer]) 08/02/2021,12/20/2020,11/29/2020 Pneumococcal Conjugate Vacc, 13 Valent (Prevnar) [...] encounter Miscellaneous Notes * Telephone Encounter - Chelsy Robins LPN [...] 06/04/2024 1:45 PM EDT Office Visit Orthopaedics [facility] [address] [place] [address] Bret Mckenzie PA-C [address] [place] [address] 06/04/2024 2:20 PM EDT Office Visit Pulmonary Medicine, [facility] [address] [facility] [place] [address] Meño Mann MD [address] [place] [address] 07/23/2024 12:20 PM EDT Office Visit Interventional Pain Center, [facility] [place] [address] Lewis Hook, DO [address] [place] [phone] 07/30/2024 11:00 AM EDT Nurse Only Ancillary [address] [place] [address] [place], Nurse [address] [place] [address] 08/04/2024 4:20 PM EST Office Visit Family Practice [facility] [place] [address] Linda Lopez DO [address] [place] [address] 04/19/2025 11:00 AM EDT Office Visit Dermatology [address] [place] [address] Maris Zeng PA-C [address] [place] [address] [place] [address] 05/17/2025 1:30 PM EDT Imaging Radiology [address] [place] [address] Scheduled Referrals Name Type Priority Associated Diagnoses [...] cancer documented in this encounter Care Teams Hook Tender Relationship Specialty Start Date End Date Linda Lopez DO 132 [place] [address] PCP - General Family Medicine 12/27/15 documented as of this encounter
--- OUTSIDE RECORDS SUMMARY | 2024-07-02 04:07 | External Medical Summary | Summary of Care ---
Author Name Unknown Organization [facility] Address [address] [place] [address] Phone [phone] Care Team Providers Care Paint Trimmer Pipe Bowls Name Role Phone Linda Lopez DO Primary Care Provider [phone] Encounter Details Date Type Department Care Team (Late st Contact Info) Description 05/22/2024 Orders Only PATIENT PORTAL DO NOT DELETE THIS DEPT USED BY [place] [id number] Allergies Active Allergy Reactions Criticality Noted Date Comments Alendronate Sodium Other (Please comment) Low 10/30/2014 Abdominal and jaw pain Rosuvastatin Calcium 06/24/2018 myalgias Diclofenac Resin Diflunisal Nausea Atorvastatin Other (Please comment) Low 10/30/2014 myalgias Naproxen Nausea Nsaids Orudis--rash documented as of this encounter (statuses as of 05/22/2024) Medications Medication Sig Dispensed Refills Start Date [...] EVERY DAY 48 mL 3 01/13/2023 Active amLODIPine Besylate 5 MG Oral Tablet (Norvasc)Indication s:Hypertension goal BP (blood pressure) < 150/90 TAKE 1 TABLET BY MOUTH EVERY DAY IN THE MORNING 90 Tablet 3 07/18/2023 Active DULoxetine HCl 30 MG Oral Capsule Delayed Release Particles (Cymbalta)Indicatio ns:Recurrent major depressive disorder, remission status unspecified (HCC) Take 1 Capsule by mouth in the morning. Do not cut, crush or chew. 90 Capsule 3 07/29/2023 Active Ezetimibe 10 MG Oral Tablet (Zetia) [...] PAIN, SEVERE. 30 Tablet 5 05/11/2024 Active documented as of this encounter (statuses as of 05/22/2024) Active Problems Problem Noted Date Diagnosed Date [...] as of this encounter (statuses as of 05/22/2024) Resolved Problems Problem Noted Date Diagnosed Date [...] as of this encounter (statuses as of 05/22/2024) Immunizations Name Administration Dates Next Due COVID-19 mRNA, LNP-s, No Pre serve, 2-Dose Series ([employer]) 08/02/2021,12/20/2020,11/29/2020 Pneumococcal Conjugate Vacc, 13 Valent (Prevnar) 11/11/2014 Pneumococcal Polysaccharide PPV23 (Pneumovax) 02/08/2011 Season Influenza, Quad, PF, Adjuvanted, 65+ Yrs, IM (FLUAD) 07/07/2020 Seasonal Influenza, PF, 6 M & above, IM , (FluLaval or Fluzone) 06/12/2018 Seasonal Influenza, Quadriva lent Hd (Fluzone Hd) 07/09/2023,07/25/2022,07/18/2021 Seasonal Influenza, Quadriva lent, No Preserve, IM 06/07/2017,06/29/2016,07/06/2015 Seasonal Influenza, Split, I IV3, No Preserve, Inj 07/20/2013 Seasonal Influenza, Split, I IV3, With Preserve, Inj 07/20/2014,05/31/2014 Seasonal Influenza, Trivalen t, Adjuvanted, 65+ yrs 07/24/2019 TDAP (age 10 and older)([employer]) 04/19/2021 [...] on file documented as of this encounter Plan of Treatment Upcoming Encounters Date Type Department Care Team (Late st Contact Info) Description 05/26/2024 5:15 PM EDT Imaging Radiology [facility] 132 [place] [address] 05/27/2024 9:00 AM EDT Telemedicine Orthopaedics [facility] 132 [place] [address] Bret Mckenzie PA-C 132 [place] [address] 07/23/2024 12:20 PM EDT Office Visit Interventional Pain Center, [facility] 132 [place] [address] Lewis Hook DO 132 [place] [phone] 07/30/2024 11:00 AM EDT Nurse Only Ancillary [address] [place] [address] [place], Nurse [facility] [address] [place] [address] [place] [address] 08/04/2024 4:20 PM EST Office Visit [facility] [address] [place] [address] Linda Lopez DO [address] [place] [address] 04/19/2025 11:00 AM EDT Office Visit Dermatology [address] [place] [address] Maris Zeng PA-C [address] [place] [address] [place] [address] 05/17/2025 1:30 PM EDT Imaging Radiology [address] [place] [address] Health Maintenance Due Date Last Done Comments [...] history exists Albumin/Creatinine Ratio 07/09/2026 07/09/2023, 07/01 DTaP,Tdap,and Td Vaccines (3 - Td or Tdap) 04/19/2031 [...] filedocumented as of this encounter Care Teams Paint Trimmer Pipe Bowls Relationship Specialty Start Date End Date Linda Lopez DO [facility] [place] [address] PCP - General Family Medicine 12/27/15 documented as of this encounter
--- OUTSIDE RECORDS SUMMARY | 2024-07-02 04:07 | External Medical Summary | Summary of Care ---
Author Name Unknown Organization [facility] Address [address] [place] [address] Phone [phone] Care Team Providers Care Horticultural Specialty Grower Inside Name Role Phone López Barnes DO Primary Care Provider [phone] Reason for Visit * Reason Comments eRx-Medication Refill Encounter Details Date Type Department Care Team (Late st Contact Info) Description 05/24/2024 Refill Family Practice [facility] [address] [place] [address] López Barnes DO [address] [place] [address] Hypertension goal BP (blood pressure) < 150/90; Recurrent major depressive disorder, remission status unspecified ([facility]) Allergies Active Allergy Reactions Criticality Noted Date Comments Alendronate Sodium Other (Please comment) Low 10/30/2014 Abdominal and jaw pain Rosuvastatin Calcium 06/24/2018 myalgias Diclofenac Resin Diflunisal Nausea Atorvastatin Other (Please comment) Low 10/30/2014 myalgias Naproxen Nausea Nsaids Orudis--rash documented as of this encounter (statuses as of 05/26/2024) Medications Medication Sig Dispensed Refills Start Date [...] WHEEZING 54 g 1 01/21/2024 Active Fluticasone Furoate-Vilantero l 200-25 MCG/ACT Inhalation [...] OR CHEW. 90 Capsule 2 05/26/2024 Active amLODIPine Besylate 5 MG Oral Tablet (Norvasc)Indicati ons:Hypertension goal BP (blood pressure) < 150/90 TAKE 1 TABLET BY MOUTH EVERY DAY IN THE MORNING 90 Tablet 3 07/18/2023 4 Discontinued DULoxetine HCl 30 MG Oral Capsule Delayed Release Particles (Cymbalta)Indicat ions:Recurrent major depressive disorder, remission status unspecified (HCC) Take 1 Capsule by mouth in the morning. Do not cut, crush or chew. 90 Capsule 3 07/29/2023 4 Discontinued documented as of this encounter (statuses as of 05/26/2024) Active Problems Problem Noted Date Diagnosed Date [...] as of this encounter (statuses as of 05/26/2024) Resolved Problems Problem Noted Date Diagnosed Date [...] as of this encounter (statuses as of 05/26/2024) Immunizations Name Administration Dates Next Due COVID-19 mRNA, LNP-s, No Pre serve, 2-Dose Series ([employer]) 08/02/2021,12/20/2020,11/29/2020 Pneumococcal Conjugate Vacc, 13 Valent (Prevnar) [...] encounter Miscellaneous Notes * Telephone Encounter - Paulette Holt RPh - 05/26/2024 9:35 AM EDTSigned Prescriptions: Disp Refills amLODIPine Besylate 5 MG Oral Tablet (Norv*90 Tab*2 Sig: TAKE 1 TABLET BY MOUTH EVERY DAY IN THE MORNINGAuthorizing Provider: LÓPEZ BARNES User: PAULETTE HOLT DULoxetine HCl 30 MG Oral Capsule Delayed *90 Cap*2 Sig: TAKE 1 CAPSULE BY MOUTH IN THE MORNING. DO NOT CUT, CRUSH OR CHEW.Authorizing Provider: LÓPEZ BARNES User: JONATHON ALEJANDRINA LEES documented in this encounter Plan of Treatment Upcoming Encounters Date Type Department Care Team (Late st Contact Info) Description 05/26/2024 5:15 PM EDT Imaging Radiology [address] [place] [address] 05/27/2024 9:00 AM EDT Telemedicine Orthopaedics [facility] 132 [place] [address] Bret Mckenzie PA-C 132 [place] [address] 07/23/2024 12:20 PM EDT Office Visit Interventional Pain Center, [facility] 132 [place] [address] Lewis Hook DO 132 [place] [phone] 07/30/2024 11:00 AM EDT Nurse Only Ancillary Alison [address] [place] [address] [place], Nurse [facility] [address] [place] [address] [place] [address] 08/04/2024 4:20 PM EST Office Visit [facility] [address] [place] [address] López Barnes DO [address] [place] [address] 04/19/2025 11:00 AM EDT Office Visit Dermatology [address] [place] [address] Maris Zeng PA-C [address] [place] [address] [place] [address] 05/17/2025 1:30 PM EDT Imaging Radiology [address] [place] [address] Health Maintenance Due Date Last Done Comments [...] as of this encounter Visit Diagnoses Diagnosis Hypertension goal BP (blood pressure) < 150/90 Recurrent major depressive disorder, remission status unspecified (HCC) Screening mammogram for breast cancer documented in this encounter Care Teams Horticultural Specialty Grower Inside Relationship Specialty Start Date End Date López Barnes DO 132 [facility] [place] [address] PCP - General Family Medicine 12/27/15 documented as of this encounter
--- OUTSIDE RECORDS SUMMARY | 2024-07-02 04:07 | External Medical Summary | Summary of Care ---
Author Name Unknown Organization [facility] Address [address] [place] [place] [address] Phone [phone] Care Team Providers Care Windows Laptop Technician Name Role Phone Linda Lopez DO Primary Care Provider [phone] Encounter Details Date Type Department Care Team (Late st Contact Info) Description 05/27/2024 9:00 AM EDT Telemedicine Orthopaedics [facility] [address] [place] [address] Bret Mckenzie PA-C [address] [place] [address] FCR (flexor carpi radialis) tenosynovitis*; Left wrist injury, initial encounter Allergies Active Allergy Reactions Criticality Noted Date Comments Alendronate Sodium Other (Please comment) Low 10/30/2014 Abdominal and jaw pain Rosuvastatin Calcium 06/24/2018 myalgias Diclofenac Resin Diflunisal Nausea Atorvastatin Other (Please comment) Low 10/30/2014 myalgias Naproxen Nausea Nsaids Orudis--rash documented as of this encounter (statuses as of 05/27/2024) Medications Medication Sig Dispensed Refills Start Date [...] OR CHEW. 90 Capsule 2 05/26/2024 Active documented as of this encounter (statuses as of 05/27/2024) Active Problems Problem Noted Date Diagnosed Date [...] as of this encounter (statuses as of 05/27/2024) Resolved Problems Problem Noted Date Diagnosed Date [...] as of this encounter (statuses as of 05/27/2024) Immunizations Name Administration Dates Next Due COVID-19 mRNA, LNP-s, No Pre serve, 2-Dose Series ([employer]) 08/02/2021,12/20/2020,11/29/2020 Pneumococcal Conjugate Vacc, 13 Valent (Prevnar) [...] Progress Notes * Bret Mckenzie PA-C - 05/27/2024 8:59 AM EDT After connecting to the patient via telephone, the patient was identified by name and date of . Patient was then informed that this was a telephone call only visit. The patient agreed to participate. Visit Disposition: Routine follow-up Total call duration was 3 minutes. Telephonic visit to discuss MRI results for a left wrist injury that occurred 21 days ago. Patient examined consistent with an injury to the flexor carpi radialis. MRI did confirm a rupture of this tendon. I discussed with our hand team in [place] and specific response and instructions were to immobilized with a brace or cast for 2-3 weeks. Also discuss if needed to treat the STT arthritis with injections or surgery thereafter if continues to be symptomatic for that is specific diagnosis. The patient states she is doing quite well since her initial injury. States her bruising and symptoms have significantly resolved. The patient is requesting to continue with bracing verses a cast as this is much more convenient helping with her disabled in terms of bathing and showering, certainly understandable. As we are currently at 3 weeks I will bring the patient back with my next available hopefully within the next week to clinically reassess and determine if any type of hand therapy is warranted. Overall the patient is pleased with her care results thus far will call sooner if needed. No other questions or concerns. Satisfied with today's phone call. This chart was completed in part utilizing [employer] Voice Recognition Software. Grammatical errors, random word insertions, prounoun errors, and incomplete sentences are an occasional consequence of this system due to software limitations, ambient noise, and hardware issues. Any formal questions or concerns about the content, text, or information contained within the body of this dictation should be directly addressed to the provider for clarification. documented in this encounter Plan of Treatment Upcoming Encounters Date Type Department Care Team (Late st Contact Info) Description 07/23/2024 12:20 PM EDT Office Visit Interventional Pain Center, [facility] [address] [place] [address] Lewis Hook, [address] [place] [phone] 07/30/2024 11:00 AM EDT Nurse Only Ancillary Angie Jin [address] [place] [address] [place] [address] [place] Nurse [address] [place] [address] 08/04/2024 4:20 PM EST Office Visit Family Practice [facility] [address] [place] [address] Linda Lopez, DO [address] [place] [address] 04/19/2025 11:00 AM EDT Office Visit Dermatology [address] [place] [address] Maris Zeng PA-C [address] [place] [address] [place] [address] 05/17/2025 1:30 PM EDT Imaging Radiology [address] [place] [address] Health Maintenance Due Date Last Done Comments [...] as of this encounter Visit Diagnoses Diagnosis FCR (flexor carpi radialis) tenosynovitis- Primary Other tenosynovitis of hand and wrist Left wrist injury, initial encounter Screening mammogram for breast cancer documented in this encounter Care Teams Windows Laptop Technician Relationship Specialty Start Date End Date Linda Lopez DO 132 [facility] [place] [address] PCP - General Family Medicine 12/27/15 documented as of this encounter
--- OUTSIDE RECORDS SUMMARY | 2024-07-02 04:08 | External Medical Summary | Summary of Care ---
Author Name Unknown Organization [facility] Address [address] [place] [address] Phone [phone] Care Team Providers Care Timber Killer Name Role Phone Linda Lopez DO Primary Care Provider [phone] Reason for Visit * Reason Onset Date Comments Advice 05/18/2024 Encounter Details Date Type Department Care Team (Late st Contact Info) Description 05/18/2024 Telephone Family Medicine [address] [phone] Tia Chung MD [address] [place] [address] [place] [address] Advice Allergies Active Allergy Reactions Criticality Noted Date Comments Alendronate Sodium Other (Please comment) Low 10/30/2014 Abdominal and jaw pain Rosuvastatin Calcium 06/24/2018 myalgias Diclofenac Resin Diflunisal Nausea Atorvastatin Other (Please comment) Low 10/30/2014 myalgias Naproxen Nausea Nsaids Orudis--rash documented as of this encounter (statuses as of 05/19/2024) Medications Medication Sig Dispensed Refills Start Date [...] as of this encounter (statuses as of 05/19/2024) Active Problems Problem Noted Date Diagnosed Date [...] as of this encounter (statuses as of 05/19/2024) Resolved Problems Problem Noted Date Diagnosed Date [...] as of this encounter (statuses as of 05/19/2024) Immunizations Name Administration Dates Next Due COVID-19 mRNA, LNP-s, No Pre serve, 2-Dose Series ([employer]) 08/02/2021,12/20/2020,11/29/2020 Pneumococcal Conjugate Vacc, 13 Valent (Prevnar) [...] Influenza, Split, I IV3, With Preserve, Inj 07/20/2014,05/31/2014,08/17/2003,12/200109/02/2003 Seasonal Influenza, Trivalen t, Adjuvanted, 65+ yrs [...] encounter Miscellaneous Notes * Telephone Encounter - Cele Walsh LPN - 05/19/2024 8:59 AM EDT Patient aware and verbalized understanding, will comply * Telephone Encounter - Tia Chung MD - 05/18/2024 9:32 AM EDT CXR ordered Pt has been having cough over 2 weeks * Telephone Encounter - Chelsy Robins LPN - 05/18/2024 9:14 AM EDT Patient calling in stating that she had an appointment on 05/[address] Chung for cough, chestcongestion and SOB. She was prescribed prednisone for 10 days. She continues to have the SOB and was told by Dr. Chung if this continues that he would placean x-ray order. No appointments appts today or tomorrow in clinic. Please advise documented in this encounter Plan of Treatment Upcoming Encounters Date Type Department Care Team (Late st Contact Info) Description 05/21/2024 1:00 PM EDT Imaging Radiology [address] [place] [address] 05/27/2024 9:00 AM EDT Telemedicine Orthopaedics [facility] [address] [place] [address] Bret Mckenzie PA-C [address] [place] [address] 07/23/2024 12:20 PM EDT Office Visit Interventional Pain Center, [facility] 132 [place] [address] Lewis Hook DO [address] [place] [phone] 07/30/2024 11:00 AM EDT Nurse Only Ancillary [address] [place] [address] [place], Nurse [address] [place] [address] 08/04/2024 4:20 PM EST Office Visit Family Practice [facility] [address] [place] [address] Linda Lopez, DO 132 [place] [address] 04/19/2025 11:00 AM EDT Office Visit Dermatology [address] [place] [address] Maris Zeng PA-C [address] [place] [address] [place] [address] 05/17/2025 1:30 PM EDT Imaging Radiology [address] [place] [address] Scheduled Orders Name Type Priority Associated Diagnoses Orde r Schedule XR CHEST 2 VIEWS Medical Imaging Routine Subacute cough Expected: 05/18/2024, Expires: 06/18/2025 Health Maintenance Due Date Last Done Comments [...] as of this encounter Visit Diagnoses Diagnosis Subacute cough- Primary Cough Screening mammogram for breast cancer documented in this encounter Care Teams Timber Killer Relationship Specialty Start Date End Date Linda Lopez DO 132 [place] [address] PCP - General Family Medicine 12/27/15 documented as of this encounter
--- OUTSIDE RECORDS SUMMARY | 2024-07-02 04:08 | External Medical Summary | Summary of Care ---
Author Name Unknown Organization [facility] Address [address] [place] [address] Phone [phone] Care Team Providers Care Train Control Technician Name Role Phone Linda Lopez DO Primary Care Provider [phone] Reason for Visit * Reason Onset Date Comments Advice 05/18/2024 Encounter Details Date Type Department Care Team (Late st Contact Info) Description 05/18/2024 Telephone Family Medicine [address] [phone] Tia Chung MD [address] [place] [address] [place] [address] Advice Allergies Active Allergy Reactions Criticality Noted Date Comments Alendronate Sodium Other (Please comment) Low 10/30/2014 Abdominal and jaw pain Rosuvastatin Calcium 06/24/2018 myalgias Diclofenac Resin Diflunisal Nausea Atorvastatin Other (Please comment) Low 10/30/2014 myalgias Naproxen Nausea Nsaids Orudis--rash documented as of this encounter (statuses as of 05/18/2024) Medications Medication Sig Dispensed Refills Start Date [...] as of this encounter (statuses as of 05/18/2024) Active Problems Problem Noted Date Diagnosed Date [...] as of this encounter (statuses as of 05/18/2024) Resolved Problems Problem Noted Date Diagnosed Date [...] as of this encounter (statuses as of 05/18/2024) Immunizations Name Administration Dates Next Due COVID-19 mRNA, LNP-s, No Pre serve, 2-Dose Series ([employer]) 08/02/2021,12/20/2020,11/29/2020 Pneumococcal Conjugate Vacc, 13 Valent (Prevnar) [...] Description 05/21/2024 1:00 PM EDT Imaging Radiology [address] [place] [address] 05/27/2024 9:00 AM EDT Telemedicine Orthopaedics [facility] [address] [place] [address] Bret Mckenzie PA-C [address] [place] [address] 07/23/2024 12:20 PM EDT Office Visit Interventional Pain Center, [facility] [address] [place] [address] Lewis Hook, DO [address] [place] [phone] 07/30/2024 11:00 AM EDT Nurse Only Ancillary [address] [place] [address] [place], Nurse [address] [place] [address] 08/04/2024 4:20 PM EST Office Visit Family Practice [facility] [address] [place] [address] Linda Lopez, DO [address] [place] [address] 04/19/2025 11:00 AM EDT Office Visit Dermatology [address] [place] [address] Maris Zeng PA-C [address] [place] [address] [place] [address] 05/17/2025 1:30 PM EDT Imaging Radiology [address] [place] [address] Scheduled Orders Name Type Priority Associated Diagnoses [...] cancer documented in this encounter Care Teams Train Control Technician Relationship Specialty Start Date End Date Linda Lopez DO [address] [place] [address] PCP - General Family Medicine 12/27/15 documented as of this encounter
--- OUTSIDE RECORDS SUMMARY | 2024-07-02 04:08 | External Medical Summary | Summary of Care ---
Author Name Unknown Organization [facility] Address [address] [place] [address] Phone [phone] Care Team Providers Care Road Production General Manager Name Role Phone Linda Lopez DO Primary Care Provider [phone] Reason for Referral * Precert (Within 10 days (routine)) - Pending Review Specialty Diagnoses / Procedures Referred By Contac t Referred To Contact Radiology Diagnoses Subacute cough Abnormal chest x-ray Procedures CT CHEST W WO CONTRAST Tia Chung MD [address] [place] [address] [place] [address] Referral ID Status Reason Start Date Expiration Date V isits Requested Visits Authorized [id number] Pending Review 05/20/2024 999 [id number] Reason for Visit * Reason Onset Date Comments Test Results 05/20/2024 Encounter Details Date Type Department Care Team (Late st Contact Info) Description 05/20/2024 Telephone Family Medicine [address] [place] [address] Tia Chung MD [address] [place] [address] [place] [address] Test Results Allergies Active Allergy Reactions Criticality Noted Date Comments Alendronate Sodium Other (Please comment) Low 10/30/2014 Abdominal and jaw pain Rosuvastatin Calcium 06/24/2018 myalgias Diclofenac Resin Diflunisal Nausea Atorvastatin Other (Please comment) Low 10/30/2014 myalgias Naproxen Nausea Nsaids Orudis--rash documented as of this encounter (statuses as of 05/20/2024) Medications Medication Sig Dispensed Refills Start Date [...] as of this encounter (statuses as of 05/20/2024) Active Problems Problem Noted Date Diagnosed Date [...] as of this encounter (statuses as of 05/20/2024) Resolved Problems Problem Noted Date Diagnosed Date [...] as of this encounter (statuses as of 05/20/2024) Immunizations Name Administration Dates Next Due COVID-19 mRNA, LNP-s, No Pre serve, 2-Dose Series ([employer]) 08/02/2021,12/20/2020,11/29/2020 Pneumococcal Conjugate Vacc, 13 Valent (Prevnar) [...] Telephone Encounter - Tia Chung MD - 05/20/2024 11:20 AM EDT Spoke to the pt Since pt continue to have cough with persistent opacities will get CT chest documented in this encounter Plan of Treatment Upcoming Encounters Date Type Department Care Team (Late st Contact Info) Description 05/21/2024 1:00 PM EDT Imaging Radiology [address] [place] [address] 05/27/2024 9:00 AM EDT Telemedicine Orthopaedics [facility] [address] [place] [address] Bret Mckenzie PA-C [address] [place] [address] 07/23/2024 12:20 PM EDT Office Visit Interventional Pain Center, [facility] [address] [place] [address] Lewis Hook, DO [address] [place] [phone] 07/30/2024 11:00 AM EDT Nurse Only Ancillary [address] [place] [address] [place], Nurse [address] [place] [address] 08/04/2024 4:20 PM EST Office Visit Family Practice [facility] [address] [place] [address] Linda Lopez, DO [address] [place] [address] 04/19/2025 11:00 AM EDT Office Visit Dermatology [address] [place] [address] Maris Zeng PA-C [address] [place] [address] [place] [address] 05/17/2025 1:30 PM EDT Imaging Radiology [address] [place] [address] Scheduled Orders Name Type Priority Associated Diagnoses Orde r Schedule CT CHEST W WO CONTRAST Medical Imaging Routine Subacute cough Abnormal chest x-ray Ordered: 05/20/2024 CREATININE Lab Routine Subacute cough Abnormal chest x-ray Expected: 05/20/2024, Expires: 05/20/2025 Health Maintenance Due Date Last Done Comments [...] Visit Diagnoses Diagnosis Subacute cough- Primary Cough Abnormal chest x-ray Other nonspecific abnormal finding of lung field Screening mammogram for breast cancer documented in this encounter Care Teams Road Production General Manager Relationship Specialty Start Date End Date Linda Lopez DO [address] [place] [address] PCP - General Family Medicine 12/27/15 documented as of this encounter
--- OUTSIDE RECORDS SUMMARY | 2024-07-02 04:08 | External Medical Summary | Summary of Care ---
Author Name Unknown Organization [facility] Address [address] [place] [address] Phone [phone] Care Team Providers Care Business Continuity Management Director Name Role Phone Linda Lopez DO Primary Care Provider [phone] Reason for Visit * Reason Onset Date Comments Advice 05/18/2024 Encounter Details Date Type Department Care Team (Late st Contact Info) Description 05/18/2024 Telephone Family Medicine [address] [phone] Tia Chung MD [address] [place] [address] [place] [address] Advice Allergies Active Allergy [...] mRNA, LNP-s, No Pre serve, 2-Dose Series ([employer]) 08/02/2021,12/20/2020,11/29/2020 Pneumococcal Conjugate Vacc, 13 Valent (Prevnar) [...] Miscellaneous Notes * Telephone Encounter - Carolyne Dawson LPN - 05/20/2024 8:59 AM EDT Pt calling to check on x-ray results. Result are finalized, please advise. * Telephone Encounter - Cele Walsh LPN [...] Description 05/21/2024 1:00 PM EDT Imaging Radiology [address] [place] [address] 05/27/2024 9:00 AM EDT Telemedicine Orthopaedics [facility] [address] [place] [address] Bret Mckenzie PA-C [address] [place] [address] 07/23/2024 12:20 PM EDT Office Visit Interventional Pain Center, [facility] [address] [place] [address] Lewis Hook DO [address] [place] [phone] 07/30/2024 11:00 AM EDT Nurse Only Ancillary [address] [place] [address] [place], Nurse [facility] [address] [place] [address] [place] [address] 08/04/2024 4:20 PM EST Office Visit [facility] [address] [place] [address] Linda Lopez DO [address] [place] [address] 04/19/2025 11:00 AM EDT Office Visit Dermatology [address] [place] [address] Maris Zeng PA-C [address] [place] [address] [place] [address] 05/17/2025 1:30 PM EDT Imaging Radiology [address] [place] [address] Health Maintenance Due Date Last Done Comments [...] Not on filedocumented as of this encounter Results * XR CHEST 2 VIEWS (05/19/2024 9:59 AM EDT) Anatomical Region Laterality Modality Chest Computed Radiogr aphy 05/19/2024 8:34 PM EDT Impressions 05/19/2024 8:31 PM EDT IMPRESSION Nonspecific mild interstitial opacities. CT may be performed for better evaluation. Narrative 05/19/2024 8:31 PM EDT EXAM XR CHEST 2 VIEWS - 05/19/2024 9:59 am HISTORY "cough" TECHNIQUE Frontal and lateral views of the chest were obtained. COMPARISON 01/08/2024 FINDINGS Mildly elevated left hemidiaphragm. Nonspecific mild interstitial opacities again demonstrated. There is no pleural effusion or pneumothorax. The cardiomediastinal silhouette is within normal limits. Procedure Note Jw Pritchett MD - 05/19/2024 EXAM XR CHEST 2 VIEWS - 05/19/2024 9:59 am HISTORY "cough" TECHNIQUE Frontal and lateral views of the chest were obtained. COMPARISON 01/08/2024 FINDINGS Mildly elevated left hemidiaphragm. Nonspecific mild interstitialopacities again demonstrated. There is no pleural effusion orpneumothorax. The cardiomediastinal silhouette is within normal limits. IMPRESSION IMPRESSION Nonspecific mild interstitial opacities. CT may be performed for betterevaluation. Tia Chung MD RADIOLOGY ([facility]) documented in this encounter Visit Diagnoses Diagnosis Subacute cough- Primary Cough Subacute cough Cough Screening mammogram for breast cancer documented in this encounter Care Teams Business Continuity Management Director Relationship Specialty Start Date End Date Linda Lopez DO [address] [place] [address] PCP - General Family Medicine 12/27/15 documented as of this encounter
--- OUTSIDE RECORDS SUMMARY | 2024-07-02 04:08 | External Medical Summary | Summary of Care ---
Author Name Unknown Organization [facility] Address [address] [place] [address] Phone [phone] Care Team Providers Care Forensic Analyst Name Role Phone Linda Lopez DO Primary Care Provider [phone] Reason for Visit * Reason Onset Date Comments Advice 05/18/2024 Encounter Details Date Type Department Care Team (Late st Contact Info) Description 05/18/2024 Telephone Family Medicine [address] [phone] Tia Chung MD [address] [place] [address] [place] [address] Advice Allergies Active Allergy [...] mRNA, LNP-s, No Pre serve, 2-Dose Series ([employer]) 08/02/2021,12/20/2020,11/29/2020 Pneumococcal Conjugate Vacc, 13 Valent (Prevnar) [...] Encounter - Tia Chung MD - 05/20/2024 2:39 PM EDT Duplicate encounter - spoke to pt ---getting a CT chest * Telephone Encounter - Carolyne Dawson LPN [...] Description 05/21/2024 1:00 PM EDT Imaging Radiology [address] [place] [address] 05/27/2024 9:00 AM EDT Telemedicine Orthopaedics [facility] [address] [place] [address] Bret Mckenzie PA-C [address] [place] [address] 07/23/2024 12:20 PM EDT Office Visit Interventional Pain Center, [facility] [address] [place] [address] Lewis Hook, DO [address] [place] [phone] 07/30/2024 11:00 AM EDT Nurse Only Ancillary [address] [place] [address] [place], Nurse [address] [place] [address] 08/04/2024 4:20 PM EST Office Visit [facility] [address] [place] [address] Linda Lopez, DO [address] [place] [address] 04/19/2025 11:00 AM EDT Office Visit Dermatology [address] [place] [address] Maris Zeng PA-C [address] [place] [address] [place] [address] 05/17/2025 1:30 PM EDT Imaging Radiology [address] [place] [address] Health Maintenance Due Date Last Done Comments [...] for betterevaluation. Tia Chung MD RADIOLOGY ([facility]) documented in this encounter Visit Diagnoses Diagnosis Subacute cough- Primary Cough Subacute cough Cough Screening mammogram for breast cancer documented in this encounter Care Teams Forensic Analyst Relationship Specialty Start Date End Date Linda Lopez DO [address] [facility] [place] [address] PCP - General Family Medicine 12/27/15 documented as of this encounter
--- OUTSIDE RECORDS SUMMARY | 2024-07-02 04:08 | External Medical Summary | Summary of Care ---
Author Name Unknown Organization [facility] Address [address] [place] [address] Phone [phone] Care Team Providers Care Napper Runner Name Role Phone López Barnes DO Primary Care Provider [phone] Reason for Visit * Reason Comments eRx-Medication Refill Encounter Details Date Type Department Care Team (Late st Contact Info) Description 05/09/2024 Refill Family Practice [facility] [address] [place] [address] López Barnes DO [address] [place] [address] Allergies Active Allergy Reactions Criticality Noted Date Comments Alendronate Sodium Other (Please comment) Low 10/30/2014 Abdominal and jaw pain Rosuvastatin Calcium 06/24/2018 myalgias Diclofenac Resin Diflunisal Nausea Atorvastatin Other (Please comment) Low 10/30/2014 myalgias Naproxen Nausea Nsaids Orudis--rash documented as of this encounter (statuses as of 05/11/2024) Medications Medication Sig Dispensed Refills Start Date [...] PAIN, SEVERE. 30 Tablet 5 05/11/2024 Active Meloxicam 15 MG Oral Tablet (Mobic) Take 1 Tablet by mouth daily as needed for Pain, Moderate or Pain, Severe. 30 Tablet 5 09/11/2023 4 Discontinued documented as of this encounter (statuses as of 05/11/2024) Active Problems Problem Noted Date Diagnosed Date [...] as of this encounter (statuses as of 05/11/2024) Resolved Problems Problem Noted Date Diagnosed Date [...] as of this encounter (statuses as of 05/11/2024) Immunizations Name Administration Dates Next Due COVID-19 mRNA, LNP-s, No Pre serve, 2-Dose Series ([employer]) 08/02/2021,12/20/2020,11/29/2020 Pneumococcal Conjugate Vacc, 13 Valent (Prevnar) [...] encounter Miscellaneous Notes * Telephone Encounter - Saurabh Wynn, [facility] - 05/11/2024 1:24 PM EDTSigned Prescriptions: Disp Refills Meloxicam 15 MG Oral Tablet (Mobic) 30 Tab*5 Sig: TAKE 1 TABLET BY MOUTH DAILY NEEDED FOR PAIN, MODERATE OR PAIN, SEVERE.Authorizing Provider: LÓPEZ BARNES User: SAURABH WYNN documented in this encounter Plan of Treatment Upcoming Encounters Date Type Department Care Team (Late st Contact Info) Description 05/12/2024 3:30 PM EDT Imaging Radiology [address] [place] [address] 05/21/2024 1:00 PM EDT Imaging Radiology [address] [place] [address] 05/21/2024 3:25 PM EDT Office Visit Interventional Pain Center, [facility] [address] [place] [address] [place], [address] [place] [phone] 05/27/2024 9:00 AM EDT Telemedicine Orthopaedics [facility] [address] [place] [address] Bret Mckenzie PA-C [address] [place] [address] 07/30/2024 11:00 AM EDT Nurse Only Ancillary [address] [place] [address] [place], Nurse [address] [place] [address] 08/04/2024 4:20 PM EST Office Visit Family Practice [facility] [address] [place] [address] López Barnes, [address] [place] [address] 04/19/2025 11:00 AM EDT Office Visit Dermatology [address] [place] [address] Maris Zeng PA-C [address] [place] [address] [place] [address] Health Maintenance Due Date Last Done Comments [...] filedocumented as of this encounter Care Teams Napper Runner Relationship Specialty Start Date End Date López Barnes DO [address] [place] [address] PCP - General Family Medicine 12/27/15 documented as of this encounter
--- OUTSIDE RECORDS SUMMARY | 2024-07-02 04:09 | External Medical Summary | Summary of Care ---
Author Name Unknown Organization [facility] Address [address] [place] [address] Phone [phone] Care Team Providers Care Improvement Coordinator Name Role Phone Linda Lopez DO Primary Care Provider [phone] Reason for Referral * Precert (Within 10 days (routine)) - Pending Review Specialty Diagnoses / Procedures Referred By Contac t Referred To Contact Radiology Diagnoses FCR (flexor carpi radialis) tenosynovitis Left wrist injury, initial encounter Procedures MRI WRIST LEFT WO CONTRAST Bret Mckenzie PA-C [address] [place] [address] Referral ID Status Reason Start Date Expiration Date V isits Requested Visits Authorized [id number] Pending Review 05/07/2024 999 999 Reason for Visit * Reason Comments Follow Up Pot is here due to L writst pain. 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 Pt states the when she turns her hand over her wrist has the most pain in that position. Pt came In with an old brace for her R on her L to help assist. Encounter Details Date Type Department Care Team (Late st Contact Info) Description 05/06/2024 10:30 AM EDT Office Visit Orthopaedics [facility] [address] [place] [address] Bret Mckenzie PA-C [address] [place] [address] FCR (flexor carpi radialis) tenosynovitis*; Left wrist injury, initial encounter Allergies Active Allergy Reactions Criticality Noted Date Comments Alendronate Sodium Other (Please comment) Low 10/30/2014 Abdominal and jaw pain Rosuvastatin Calcium 06/24/2018 myalgias Diclofenac Resin Diflunisal Nausea Atorvastatin Other (Please comment) Low 10/30/2014 myalgias Naproxen Nausea Nsaids Orudis--rash documented as of this encounter (statuses as of 05/06/2024) Medications Medication Sig Dispensed Refills Start Date [...] the morning. 90 Capsule 3 08/20/2023 Active Meloxicam 15 MG Oral Tablet (Mobic) Take 1 Tablet by mouth daily as needed for Pain, Moderate or Pain, Severe. 30 Tablet 5 09/11/2023 Active Loratadine 10 MG Oral Tablet (Claritin) [...] Tablet before bedtime. 50 Tablet 05/05/2024 Active documented as of this encounter (statuses as of 05/06/2024) Active Problems Problem Noted Date Diagnosed Date [...] as of this encounter (statuses as of 05/06/2024) Resolved Problems Problem Noted Date Diagnosed Date [...] as of this encounter (statuses as of 05/06/2024) Immunizations Name Administration Dates Next Due COVID-19 mRNA, LNP-s, No Pre serve, 2-Dose Series ([employer]) 08/02/2021,12/20/2020,11/29/2020 Pneumococcal Conjugate Vacc, 13 Valent (Prevnar) [...] on file documented as of this encounter Nursing Notes * Ravi Castañeda CMA - 05/06/2024 10:08 AM EDT Pot is here due to L writst pain. 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 Pt states the when she turns her hand over her wrist has the most pain in that position. Pt came In with an old brace for her R on her L to help assist. documented in this encounter Plan of Treatment Upcoming Encounters Date Type Department Care Team (Late st Contact Info) Description 05/08/2024 11:00 AM EDT Imaging Radiology [facility] [facility] [address] [place] [address] 05/21/2024 1:00 PM EDT Imaging Radiology [address] [place] [address] 05/21/2024 3:25 PM EDT Office Visit Interventional Pain Center, [facility] [address] [place] [address] Lewis Hook DO [address] [place] [phone] 05/27/2024 9:00 AM EDT Telemedicine Orthopaedics [facility] [address] [place] [address] Bret Mckenzie PA-C [address] [place] [address] 07/30/2024 11:00 AM EDT Nurse Only Ancillary [address] [place] [address] [place], Nurse Annual [address] [place] [address] 08/04/2024 4:20 PM EST Office Visit [facility] [address] [place] [address] Linda Lopez DO [address] [place] [address] 04/19/2025 11:00 AM EDT Office Visit Dermatology [address] [place] [address] Maris Zeng PA-C [address] [place] [address] [place] [address] Pending Results Name Type Priority Associated Diagnoses Date /Time XR WRIST 3 OR MORE VIEWS Medical Imaging Routine 05/06/2024 10:18 AM EDT Scheduled Orders Name Type Priority Associated Diagnoses Orde r Schedule MRI WRIST LEFT WO CONTRAST Medical Imaging Routine FCR (flexor carpi radialis) tenosynovitis Left wrist injury, initial encounter Expected: 05/07/2024, Expires: 06/06/2025 Health Maintenance Due Date Last Done Comments [...] and wrist Left wrist injury, initial encounter documented in this encounter Care Teams Improvement Coordinator Relationship Specialty Start Date End Date Linda Lopez DO [address] [place] [address] PCP - General Family Medicine 12/27/15 documented as of this encounter
--- OUTSIDE RECORDS SUMMARY | 2024-07-02 04:09 | External Medical Summary | Summary of Care ---
Author Name Unknown Organization [facility] Address [address] [place] [address] Phone [phone] Care Team Providers Care Preschool Disability Teacher Name Role Phone Linda Lopez DO Primary Care Provider [phone] Reason for Visit * Reason Comments Acute Encounter Details Date Type Department Care Team (Late st Contact Info) Description 05/05/2024 8:20 AM EDT Office Visit Family Medicine [address] [phone] Tia Chung MD [address] [place] [address] [place] [address] Subacute cough*; Mild persistent asthma without complication; Exacerbation of asthma, unspecified asthma severity, unspecified whether persistent Allergies Active Allergy Reactions Criticality Noted Date Comments Alendronate Sodium Other (Please comment) Low 10/30/2014 Abdominal and jaw pain Rosuvastatin Calcium 06/24/2018 myalgias Diclofenac Resin Diflunisal Nausea Atorvastatin Other (Please comment) Low 10/30/2014 myalgias Naproxen Nausea Nsaids Orudis--rash documented as of this encounter (statuses as of 05/05/2024) Medications Medication Sig Dispensed Refills Start Date [...] Tablet before bedtime. 50 Tablet 05/05/2024 Active Amoxicillin-Pot Clavulanate 875-125 MG Oral Tablet (Augmentin) Take 1 Tablet by mouth in the morning and 1 Tablet before bedtime. Do all this for 7 days. 14 Tablet 01/11/2024 4 Discontinue d(Patient preference/ discontinua tion) predniSONE 20 MG Oral Tablet (Deltasone)Indicat ions:Bronchitis, complicated Take 2 Tablets by mouth in the morning for 5 days. 10 Tablet 01/21/2024 4 Discontinue d(Patient preference/ discontinua tion) predniSONE 10 MG Oral Tablet (Deltasone)Indicat ions:Mild intermittent asthma with exacerbation Take 5 tabs for 2 days, 4 tabs for 2 days, 3 tabs for 2 days, 2 tabs for 2 days 1 tab for 2 days 30 Tablet 04/21/2024 4 Discontinue d(Patient preference/ discontinua tion) Azithromycin 250 MG Oral Tablet (Zithromax)Indicat ions:Mild intermittent asthma with exacerbation Take 2 tabs by mouth on the first day, then 1 tab daily on days two through five 6 Tablet 04/21/2024 4 Discontinue d(Patient preference/ discontinua tion) documented as of this encounter (statuses as of 05/05/2024) Active Problems Problem Noted Date Diagnosed Date [...] as of this encounter (statuses as of 05/05/2024) Resolved Problems Problem Noted Date Diagnosed Date [...] as of this encounter (statuses as of 05/05/2024) Immunizations Name Administration Dates Next Due COVID-19 [...] Sign Reading Time Taken Comments Blood Pressure 132/78 05/05/2024 8:03 AM EDT Pulse 90 05/05/2024 8:03 AM EDT Temperature 36 C (96.8 F) 05/05/2024 8:03 AM EDT Respiratory Rate 18 05/05/2024 8:03 AM EDT Oxygen Saturation 95% 05/05/2024 8:03 AM EDT Inhaled Oxygen Concentration - - Weight 80.7 kg (178 lb) 05/05/2024 8:03 AM EDT Height 152.4 cm (5') 05/05/2024 8:03 AM EDT Body Mass Index 34.76 05/05/2024 8:03 AM EDT documented in this encounter Progress Notes * Tia Chung MD - 05/05/2024 8:18 AM EDT Subjective: HPI: Ivelisse Bonner is a 78 year old female with hx of hypothyroidism, HLD, HTN, GERD, DJD, depression, asthma seen for Per pt about 2 weeks ago pt started having cough, wheezing and SOB - was given prednisone and zpak - wheezing improved and SOB improved as well but still having - SOB with exertion, Cough, mild chest congestion -albuterol helps - denied any fever, or worsening leg swelling Patient Active Problem List Diagnosis Rosacea Gastroesophageal [...] 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 Do not cut, crush or chew. 90 Capsule 3 Ezetimibe 10 MG Oral Tablet (Zetia) TAKE 1 TABLET BY MOUTH EVERY DAY 90 Tablet 3 Omeprazole 40 MG Oral Capsule Delayed Release (PriLOSEC) Take 1 Capsule by mouth in the morning. 90Capsule 3 Meloxicam 15 MG Oral Tablet (Mobic) Take 1 Tablet by mouth daily as needed for Pain, Moderate or Pain, Severe. 30 Tablet 5 Loratadine 10 MG Oral Tablet (Claritin) TAKE [...] HOURS NEEDED FOR WHEEZING 54 g 1 Fluticasone Furoate-Vilanterol 200-25 MCG/ACT Inhalation Aerosol Powder Breath Activated (BREO ellipta) Inhale 1 Puff by mouth in the morning. 60 Blister Dosing Unit 5 Levothyroxine Sodium 50 MCG Oral Tablet (Levoxyl) [...] 1 Tablet before bedtime. 50 Tablet 0 No current facility-administered medications for this visit. Past Medical History: Diagnosis Date Asthma, severity [...] APPENDECTOMY W/OTHER PROCEDURE 1981 BREAST LESION,OTHER,EXCISION Left 2012 Benign COLONOSCOPY 05/05/12 normal- Dr. Shahid DIGITAL RECTAL EXAM,ANNUAL EGD, FLEXIBLE, DIAGNOSTIC 02/19/2019 normal bx/ESOPHAGOGASTRODUODENOSCOPY (EGD), FLEXIBLE, TRANSORAL, DIAGNOSTIC performed by Nickolas Tucker MD at ENDOSCOPY [facility] INJECT DX/THER SUBSTANCE INTERLAMINAR LUMBAR/SACRAL W IMAGE GUIDE 10/18/2023 INJECTION SPINE LUMBAR OR SACRAL performed by Lewis Hook DO at OR [facility] INJECT DX/THER SUBSTANCE INTERLAMINAR LUMBAR/SACRAL W IMAGE GUIDE 01/27/2024 INJECTION SPINE LUMBAR OR SACRAL performed by Lewis Hook DO at OR [facility] LAPAROSCOPY; CHOLECYSTECTOMY 10/02/10 Dr. Shahid MAMMOGRAM BREAST NEEDLE BIOPSY CORE BILATERAL 2012 normal - Dr. Lux REMOVAL OF HEEL SPUR 1999 right REMOVAL OF OVARY/OVIDUCT(S) 1982 bilateral REMOVE TONSILS & ADENOIDS, UNDER 12 5 TOTAL HYSTERECTOMY 1981 fibroids Review of patient's allergies indicates: Allergen Reactions Crestor [Rosuvastatin Calcium] myalgias Diclofenac Resin Diflunisal Nausea Naproxen Nausea Nsaids Orudis--rash Alendronate Sodium Other (Please comment) Abdominal and jaw pain Lipitor [Atorvastatin] Other (Please comment) myalgias Family History Problem Relation Name Age of Onset Other (lupus) Mother No Past Hx Father Cancer Brother throat, stomach, tobacco use Heart Disorder Brother Breast Cancer No significant family history Social History Tobacco Use Smoking status: Never Smokeless tobacco: Never Substance Use Topics Alcohol use: No Vaping/E-Cigarette Use Vaping/E-Cigarette Use Never User Vaping/E-Cigarette Substances Vaping/E-Cigarette Devices ROS: -Per HPI OBJECTIVE: BP 132/78 | Pulse 90 | Temp 36 C (96.8 F) | Resp 18 | Ht 1.524 m (5') | Wt 80.7 kg (178 lb) | SpO2 95% | BMI 34.76 kg/m | BSA 1.85 m PHYSICAL EXAM: Lungs: Good air entry b/l, no wheezing or rales ASSESSMENT/PLAN: Pt just used albuterol prior to coming to the clinic - due to continued wheezing will do prednisone - not suspecting sinusitis at this time - not suspecting PNA ----- will do guaifenesin If lack of improvement of symptoms then call the clinic Subacute cough (Primary) - predniSONE 10 MG Oral Tablet (Deltasone); Take 5 tabs for 2 days, 4 tabs for 2 days, 3 tabs for 2days, 2 tabs for 2 days 1 tab for 2 days - guaiFENesin ER 600 MG Oral Tablet Extended Release 12 Hour (Humibid LA); Take 1 Tablet by mouth in the morning and 1 Tablet before bedtime. Mild persistent asthma without complication - predniSONE 10 MG Oral Tablet (Deltasone); Take 5 tabs for 2 days, 4 tabs for 2 days, 3 tabs for 2days, 2 tabs for 2 days 1 tab for 2 days Exacerbation of asthma, unspecified asthma severity, unspecified whether persistent Tia Chnug MD [facility], [place] [id number] documented in this encounter Nursing Notes * Anette Calle RN - 05/05/2024 8:03 AM EDT Acute visit for asthma flare, was given Prednisone on 04/21/24, it did help but she still gets SOB/ and coughing when she walks Pulse Ox is 95 documented in this encounter Plan of Treatment Upcoming Encounters Date Type Department Care Team (Late st Contact Info) Description 05/08/2024 11:00 AM EDT [facility] [address] [place] [address] 05/21/2024 3:25 PM EDT Office Visit Interventional Pain Center, [facility] [address] [place] [address] [place], [address] [place] [phone] 07/30/2024 11:00 AM EDT Nurse Only Ancillary [address] [place] [address] [place], Nurse Annual Wellness [address] [place] [address] [place] [address] 08/04/2024 4:20 PM EST Office Visit [facility] [address] [place] [address] Linda Lopez, [address] [place] [address] 04/19/2025 11:00 AM EDT Office Visit Dermatology [address] [place] [address] Maris Zeng PA-C [address] [place] [address] [place] [address] Health Maintenance Due Date Last Done Comments [...] Visit Diagnoses Diagnosis Subacute cough- Primary Cough Mild persistent asthma without complication Unspecified asthma Exacerbation of asthma, unspecified asthma severity, unspecified whether persistent documented in this encounter Care Teams Preschool Disability Teacher Relationship Specialty Start Date End Date Linda Lopez DO [address] [facility] [place] [address] PCP - General Family Medicine 12/27/15 documented as of this encounter"
--- OUTSIDE RECORDS SUMMARY | 2024-07-02 04:09 | External Medical Summary | Summary of Care ---
Author Name Unknown Organization [facility] Address [address] [place] [address] Phone [phone] Care Team Providers Care Director Of Annual Giving Name Role Phone Linda Lopez DO Primary Care Provider [phone] Reason for Visit * Reason Onset Date Comments Advice 04/20/2024 advice Encounter Details Date Type Department Care Team (Late st Contact Info) Description 04/20/2024 Telephone Family Practice [facility] [address] [place] [address] Linda Lopez DO [address] [place] [address] Advice (advice) Allergies Active Allergy Reactions Criticality Noted Date Comments Alendronate Sodium Other (Please comment) Low 10/30/2014 Abdominal and jaw pain Rosuvastatin Calcium 06/24/2018 myalgias Diclofenac Resin Diflunisal Nausea Atorvastatin Other (Please comment) Low 10/30/2014 myalgias Naproxen Nausea Nsaids Orudis--rash documented as of this encounter (statuses as of 04/21/2024) Medications Medication Sig Dispensed Refills Start Date [...] Active predniSONE 10 MG Oral Tablet (Deltasone)Indicati ons:Mild intermittent asthma with exacerbation Take 5 tabs for 2 days, 4 tabs for 2 days, 3 tabs for 2 days, 2 tabs for 2 days 1 tab for 2 days 30 Tablet 04/21/2024 Active Azithromycin 250 MG Oral Tablet (Zithromax)Indicati ons:Mild intermittent asthma with exacerbation Take 2 tabs by mouth on the first day, then 1 tab daily on days two through five 6 Tablet 04/21/2024 04/26/2024 Active documented as of this encounter (statuses as of 04/21/2024) Active Problems Problem Noted Date Diagnosed Date [...] as of this encounter (statuses as of 04/21/2024) Resolved Problems Problem Noted Date Diagnosed Date [...] as of this encounter (statuses as of 04/21/2024) Immunizations Name Administration Dates Next Due COVID-19 mRNA, LNP-s, No Pre serve, 2-Dose Series (Paperless Post) 08/02/2021,12/20/2020,11/29/2020 Pneumococcal Conjugate Vacc, 13 Valent (Prevnar) [...] encounter Miscellaneous Notes * Telephone Encounter - Donte Nam RN - 04/21/2024 11:03 AM EDT Called patient and informed her of Dr. Lopez's previous message. She verbalized understanding of all information and is agreeable. Gave patient the number for the dedicated nurse call center [phone] to call if she is not improving and needs an appointment. * Telephone Encounter - Linda Lopez DO - 04/21/2024 10:45 AM EDT Please call patient Prednisone taper and rx for azithromycin sent to pharmacy Monitor O2 If not improving should be seen in the office, can double book over 40 min appt w/me tomorrow afternoon If severe SOB or O2 < 88% at rest should go to ER * Telephone Encounter - Donte Nam RN - 04/21/2024 10:23 AM EDT Please see previous message. Called patient. Patient states she can't get her Asthma under control.States she is having shortness of breath. Patient states her oxygen drops with steps and long distance walking. Patient states it went to 86% yesterday, and 83% this morning when she went to bring upa load of clothes. She states it went up to 94% when she sat down. Patient states she did nebulizer about 1.5 hours ago, and just did her flovent inhaler. Pharmacy confirmed. Please advise. * Telephone Encounter - Patsy Gonzalez OSA - 04/20/2024 7:57 AM EDT Reason for patient's call: pt is calling stating that pt was told to call the nurse if pt needs to bee seen for pt's breathing. Pt is stating that this has been going on for a couple of weeks. Please call and advise documented in this encounter Plan of Treatment Upcoming Encounters Date Type Department Care Team (Late st Contact Info) Description 05/08/2024 11:00 AM EDT Imaging Radiology [facility] 1st [facility] [address] [place] [address] 05/21/2024 3:25 PM EDT Office Visit Interventional Pain Center, [facility] [address] [place] [address] Lewis Hook DO [address] [place] [phone] 07/30/2024 11:00 AM EDT Nurse Only Ancillary [address] [place] [address] [place], Nurse Annual [address] [place] [address] 08/04/2024 4:20 PM EST Office Visit [facility] [address] [place] [address] Linda Lopez, [address] [place] [address] 04/19/2025 11:00 AM EDT Office Visit Dermatology [address] [place] [address] Maris Zeng PA-Conrado [address] [place] [address] [place] [address] Health Maintenance Due Date Last Done Comments COVID-19 Vaccine ( season) 2023 08/02/2021, 12/20/2020, 11/29/2020 *BISPHONATE OR OTHER ACCEPTABLE MEDICATION NEEDED FOR OSTEOPOROSIS (REFER TO SMARTSET #1146) 01/12/2024 *BASELINE EKG FOR HTN 04/12/2024 Influenza Vaccine (FLU shot) (#1) 2024 07/09/2023, 07/25/2022, 07/18/2021, Additional history exists TSH 07/09/2024 07/09/2023, 04/30, 07/18/2021, Additional history exists Depression Monitoring 07/29/2024 07/29/2023 GFR 01/20/2025 01/21/2024, [...] persistent asthma without complication- Primary Unspecified asthma Mild intermittent asthma with exacerbation Unspecified asthma, with exacerbation documented in this encounter Care Teams Director Of Annual Giving Relationship Specialty Start Date End Date Linda Lopez DO [address] [facility] [place] [address] PCP - General Family Medicine 12/27/15 documented as of this encounter
--- OUTSIDE RECORDS SUMMARY | 2024-07-02 04:09 | External Medical Summary | Summary of Care ---
Author Name Unknown Organization [facility] Address [address] [place] [address] Phone [phone] Care Team Providers Care Manager Hiv Name Role Phone Linda Lopez DO Primary Care Provider [phone] Reason for Visit * Reason Onset Date Comments Test Results 01/23/2024 Encounter Details Date Type Department Care Team (Late st Contact Info) Description 01/23/2024 Telephone Family Practice [facility] [address] [place] [address] Linda Lopez DO [address] [place] [id number] Test Results Allergies Active Allergy Reactions Criticality Noted Date Comments Alendronate Sodium Other (Please comment) Low 10/30/2014 Abdominal and jaw pain Rosuvastatin Calcium 06/24/2018 myalgias Diclofenac Resin Diflunisal Nausea Atorvastatin Other (Please comment) Low 10/30/2014 myalgias Naproxen Nausea Nsaids Orudis--rash documented as of this encounter (statuses as of 04/23/2024) Medications Medication Sig Dispensed Refills Start Date End Date Status Cholecalciferol (VITAMIN D) 1000 units Tablet Take 1 Tablet by mouth in the morning. Active Cyanocobalamin (VITAMIN B-12) 1000 MCG Tablet Take 1 Tablet by mouth in the morning. Active Doxycycline Hyclate 20 MG TabletIndications :Rosacea TAKE 1 TABLET BY MOUTH 2 TIMES DAILY WITH OR WITHOUT FOOD 60 Tab 3 0 Active Sulfacetamide Sodium, Acne, (KLARON) 10 % lotionIndications :Rosacea Apply to face 2x daily (before sunscreen in morning) 118 g 3 0 Active Fish Oil 500 MG Oral Capsule Take 1 Capsule by mouth in the morning. Active valACYclovir HCl 1 GM Oral Tablet (Valtrex)Indicati ons:Cold sore Take 2 Tablets by mouth in the morning and 2 Tablets before bedtime. for cold sores. 4 Tablet 11 3 Active Fluticasone Propionate 50 MCG/ACT Nasal Suspension (Flonase)Indicati ons:Acute frontal sinusitis, recurrence not specified SPRAY 2 SPRAYS INTO EACH NOSTRIL EVERY DAY 48 mL 3 3 Active amLODIPine Besylate 5 MG Oral Tablet (Norvasc)Indicati ons:Hypertension goal BP (blood pressure) < 150/90 TAKE 1 TABLET BY MOUTH EVERY DAY IN THE MORNING 90 Tablet 3 3 Active DULoxetine HCl 30 MG Oral Capsule Delayed Release Particles (Cymbalta)Indicat ions:Recurrent major depressive disorder, remission status unspecified (HCC) Take 1 Capsule by mouth in the morning. Do not cut, crush or chew. 90 Capsule 3 3 Active Ezetimibe 10 MG Oral Tablet (Zetia) TAKE 1 TABLET BY MOUTH EVERY DAY 90 Tablet 3 3 Active Omeprazole 40 MG Oral Capsule Delayed Release (PriLOSEC)Indicat ions:Gastroesopha geal reflux disease without esophagitis Take 1 Capsule by mouth in the morning. 90 Capsule 3 3 Active Meloxicam 15 MG Oral Tablet (Mobic) Take 1 Tablet by mouth daily as needed for Pain, Moderate or Pain, Severe. 30 Tablet 5 3 Active Loratadine 10 MG Oral Tablet (Claritin) TAKE 1 TABLET BY MOUTH EVERY DAY IN THE MORNING 90 Tablet 3 4 Active Furosemide 20 MG Oral Tablet (Lasix)Indication s:Swelling of both lower extremities Take 1 Tablet by mouth daily as needed (lower extremity swelling). 20 Tablet 1 4 Active Zinc 20 MG Oral Capsule Take by mouth. Active Albuterol Sulfate HFA 108 (90 Base) MCG/ACT Inhalation Aerosol SolutionIndicatio ns:Bronchitis, complicated TAKE 2 PUFFS BY MOUTH EVERY 4 HOURS NEEDED FOR WHEEZING 54 g 1 4 Active Fluticasone Furoate-Vilantero l 200-25 MCG/ACT Inhalation Aerosol Powder Breath Activated (BREO ellipta)Indicatio ns:Mild persistent asthma without complication Inhale 1 Puff by mouth in the morning. 60 Blister Dosing Unit 5 4 Active Levothyroxine Sodium 50 MCG Oral Tablet (Levoxyl)Indicati ons:Hypothyroidis m (acquired) TAKE 1 TABLET BY MOUTH DAILY AT LEAST 30 MIN PRIOR TO BREAKFAST OR OTHER MEDS 90 Tablet 1 3 02/27/20 24 Discontinued Fluticasone Propionate HFA 220 MCG/ACT Inhalation AerosolIndication s:Mild persistent asthma without complication Inhale 2 Puffs by mouth in the morning and 2 Puffs before bedtime. 12 g 3 4 01/23/20 24 Discontinued(For mulary/Cost) Potassium Chloride Pita ER 20 MEQ Oral Tablet Extended ReleaseIndication s:Swelling of both lower extremities Take 1 Tablet by mouth in the morning. On days patient takes lasix.. 60 Tablet 11 4 03/03/20 24 Discontinued(Ref ill) predniSONE 20 MG Oral Tablet (Deltasone)Indica tions:Bronchitis, complicated Take 2 Tablets by mouth in the morning for 5 days. 10 Tablet 4 01/26/20 24 documented as of this encounter (statuses as of 04/23/2024) Active Problems Problem Noted Date Diagnosed Date [...] as of this encounter (statuses as of 04/23/2024) Resolved Problems Problem Noted Date Diagnosed Date [...] as of this encounter (statuses as of 04/23/2024) Immunizations Name Administration Dates Next Due COVID-19 mRNA, LNP-s, No Pre serve, 2-Dose Series (ClaimSync) 08/02/2021,12/20/2020,11/29/2020 Pneumococcal Conjugate Vacc, 13 Valent (Prevnar) [...] encounter Miscellaneous Notes * Telephone Encounter - Ruth Bess LPN - 01/23/2024 2:46 PM EDT Patient(s) returned call. Informed of message. Verbalized understanding. * Telephone Encounter - Celena Alcala LPN - 01/23/2024 1:53 PM EDT Called pt and left a vm message to call the nurse line * Telephone Encounter - Linda Lopez DO - 01/23/2024 11:05 AM EDT Please call patient - her labs all looked good Did not suggest heart failure as cause of SOB Would recommend switching her flovent to a medication similar to advair, breo Rx sent - if this is too expensive let us know, we can find cheapest alternative covered by her insurance documented in this encounter Plan of Treatment Upcoming Encounters Date Type Department Care Team (Late st Contact Info) Description 05/08/2024 11:00 AM EDT Imaging Radiology [facility] 1st [facility] [address] [place] [address] 05/21/2024 3:25 PM EDT Office Visit Interventional Pain Center, [facility] [address] [place] [address] [place], [address] [place] [phone] 07/30/2024 11:00 AM EDT Nurse Only Ancillary [address] [place] [address] [place], Nurse Annual Wellness [address] [place] [address] [place] [address] 08/04/2024 4:20 PM EST Office Visit Family Practice [facility] [address] [place] [address] Linda Lopez DO [address] [place] [address] 04/19/2025 11:00 AM EDT Office Visit Dermatology [address] [place] [address] Maris Zeng PA-C [address] [place] [address] [place] [address] Health Maintenance Due Date Last Done Comments [...] persistent asthma without complication- Primary Unspecified asthma documented in this encounter Care Teams Manager Hiv Relationship Specialty Start Date End Date Linda Lopez DO [address] [place] [address] PCP - General Family Medicine 12/27/15 documented as of this encounter
--- OUTSIDE RECORDS SUMMARY | 2024-07-02 04:09 | External Medical Summary | Summary of Care ---
Author Name Unknown Organization [facility] Address [address] [place] [address] Phone [phone] Care Team Providers Care Stereotype Finisher Name Role Phone Linda Lopez DO Primary Care Provider [phone] Reason for Referral * Evaluate & Treat - Unlimited Visits (Within 10 days (routine)) - Authorized Specialty Diagnoses / Procedures Referred By Contac t Referred To Contact Pain Management / Pain Medicine Diagnoses Primary osteoarthritis of left knee Germaine Kuo MD [address] [place] [address] Referral ID Status Reason Start Date Expiration Date Visits Requested Visits Authorized [id number] Authorized Specialty Services Required 03/26/2024 999 999 Question Answer Referral Priority Within 10 days (routine) Where should this appointment be scheduled? [facility] Reason for referral? Interventional Pain Management - (Injection) What condition is the patient being referred for? Hip/Shoulder/Knee - eval for RFA, note patient folows with pain already for severe spinal stenosis What is the preferred location to have this test performed? [facility] Comments Patient Name: Ivelisse Bonner Date of : 1945 Department Phone Number: MRI or CT (if unable to have a MRI) is recommended if any of the following apply: 1. Patient has neck or back pain with radiation to extremities. A previous MRI will be accepted if symptoms unchanged since prior MRI. 2. Spinal surgery since last MRI. If yes, order a MRI with and without contrast. 3. Hx or ongoing cancer treatment. Patient will need spine x-ray (Ap/Lat) for axial neck or back pain if not done previously. Fax No. [facility] [phone] or contact front window cashier [phone] Fax No. [facility] [phone] or contact front window cashier [phone] Fax No. [facility] [phone] or contact front window cashier [phone] Reason for Visit * Reason Comments New Problem L leg Pain Encounter Details Date Type Department Care Team (Latest Contact Info) Description 03/26/2024 9:30 AM EDT Office Visit Orthopaedics [address] [address] Germaine Kuo MD [address] [place] [address] Osteoarthritis of spine with radiculopathy, lumbar region*; Spinal stenosis of lumbar region without neurogenic claudication; Primary osteoarthritis of left knee Allergies Active Allergy Reactions Criticality Noted Date Comments Alendronate Sodium Other (Please comment) Low 10/30/2014 Abdominal and jaw pain Rosuvastatin Calcium 06/24/2018 myalgias Diclofenac Resin Diflunisal Nausea Atorvastatin Other (Please comment) Low 10/30/2014 myalgias Naproxen Nausea Nsaids Orudis--rash documented as of this encounter (statuses as of 04/08/2024) Medications Medication Sig Dispensed Refills Start Date [...] takes lasix.. 60 Tablet 11 03/03/2024 Active Hospital, Clinic, or Other Facility Administered Medication Ordered Dose Route Frequency Start Date End Date Status lidocaine 1% 1 mL - triamcinolone acetonide 40 mg/mL 1 mL inj 2 mLIndications:Primary osteoarthritis of left knee 2 mL IJ ONCE 03/26/2024 03/26/2024 Discontinued lidocaine 1 % inj 100 mgIndications:Primary osteoarthritis of left knee 100 mg IX ONCE 04/08/2024 03/26/2024 Ended Triamcinolone Acetonide (Kenalog) 40 MG/ML inj 40 mgIndications:Primary osteoarthritis of left knee 40 mg IX ONCE 04/08/2024 03/26/2024 Ended documented as of this encounter (statuses as of 04/08/2024) Active Problems Problem Noted Date Diagnosed Date [...] as of this encounter (statuses as of 04/08/2024) Resolved Problems Problem Noted Date Diagnosed Date [...] as of this encounter (statuses as of 04/08/2024) Immunizations Name Administration Dates Next Due COVID-19 mRNA, LNP-s, No Pre serve, 2-Dose Series (Limbo) 08/02/2021,12/20/2020,11/29/2020 Pneumococcal Conjugate Vacc, 13 Valent (Prevnar) [...] Influenza, Split, I IV3, With Preserve, Inj 07/20/2014,05/31/2014,08/17/2003,12/0 12/200109/02/2003 Seasonal Influenza, Trivalen t, Adjuvanted, 65+ yrs [...] as of this encounter Progress Notes * Germaine Kuo MD - 03/26/2024 9:36 AM EDT Ivelisse Bonner [id number] Ivelisse Bonner is a 77 year old female who presents for f/u of Left knee pain to [facility] I saw her originally for the left knee pain on 01/09/2023 I saw her initially regarding the left hip pain on 03/07/2023 Most recent complete visit 01/02/2024 was for left knee pain, however, she has been seen since for procedure only visits Ivelisseantonio Bonner is here unaccompanied Quality: reviewed and agree with Nursing Notes for HPI elements History: History on 01/09/2023 - Patient presents today for new patient eval for ongoing left knee pain that has been present for a few months. NKi or falls to area. Has not tried any treatment Additional history 03/07/2023: Follow-up left knee: 01/09/2023 (8 weeks out) denies any pain except with activity steps are the worse New evaluation bilateral hip and lumbar spine: F/u B/L hip lumbar spine pain 01/07 today x 07/2023 Physical therapy of lower back started on 01/24/2023 x 2 a week, PT is helping with leg strength, level of pain has not improved Additional history 03/21/2023: F/u for 3rd injection Gelsyn left pain with activity, notes gelsyn is working Perform ultrasound-guided greater trochanteric bursa injection on the right Additional history 06/27/2023: Her left knee is doing well. Her right hip is doing well. Her lateral left hip hurts and she would like to have it injected. Regarding concern for lumbar spine pathology: At this time she is elected not to pursue those evaluations including MRI or either consultation. She would difficult time getting to the MRI in her plan currently is to continue having me treat her hip and if symptoms that we suspect her secondary to her our spine worsened she would then consider pursuing MRI of her back and pain management and orthopedic spine surgery consultations. Additional history 07/25/2023: She reconsider the MRI and requested MRI for lumbar spine which was ordered. It is described below. Additional history 01/02/2024: F/U for L knee pain -Pt c/o 03/09 pain today in L knee -Pt expecting to start Gelsyn series today in L knee -Pt unaccompanied today Since that visit: Reports viscosupplementation completed on 01/16/2024 helped substantially She also received JOHNATHON for L5/S1 radiculopathy on the left on 01/27/2024 through pain management. She reports that helped her sciatic type symptoms. However after doing prolonged riding lawnmower yesterday she noticed increased pain in her lateral lower leg. 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 Employer: [employer] Comment: [place] - retired Tobacco Use Smoking status: Never [...] Stability Do you currently live in a assisted or have no steady place to sleep [...] - for ages0-17 years): Not on file Physical Exam Constitutional: Generally well-nourished and in no acute distress Psychiatric: Mood and Affect normal Eyes: EOMI Respiratory: Normal respiratory effort with regular rate and rhythm Cardiovascular: No edema in the affected extremity(s) Limited knee evaluation on the left No erythema no effusion tender palpate greatest along the lateral joint range of motion 110/0/0 Radiology (I have personally reviewed the following films): 07/18/2023: MRI of the lumbar spine IMPRESSION 1. Multilevel, multifactorial degenerative changes of the lumbar spine with varying degrees of spinal canal and neural foraminal stenosis as described, most prominent at L4-L5. 2. Anterolisthesis of L4 on L5 that measures 7-8 mm. Severe spinal canal stenosis at L4-L5. 3. Additional findings as described above. 03/07/2023: Four view x-ray lumbar spine (ap, lateral, flex/ex) FINDINGS Minimal, stable chronic anterior height loss involving the T12 vertebral body. Grade 1-2 anterolisthesis L4 on L5, not significantly changed. No dynamic instability. Multilevel degenerative disc disease, greatest at T12-L1 with disc space narrowing, subchondral sclerosis and marginal osteophyte formation. Facet arthropathy and atherosclerotic disease also noted. IMPRESSION IMPRESSION 1. No acute findings. 2. Degenerative changes as above, mildly progressed. 12/26/2022: Three-view x-ray of the left hip FINDINGS Mild osteoarthritis of both hips. No fracture or aggressive bone lesion identified. Mild bilateral sacroiliac osteoarthritis. Multilevel intervertebral disc degeneration and facet osteoarthritis in the visualized lumbar spine. IMPRESSION IMPRESSION As above. 12/26/2022: Four view x-ray left knee FINDINGS No gross joint malalignment. Tricompartmental osteoarthritis, [id number] in the lateral compartment. No fracture, aggressive bone lesion, or abnormal periosteal reaction. No significant jointeffusion. IMPRESSION IMPRESSION As above. 07/19/2021: 3 view xr lumbar spine FINDINGS Five lumbar-type vertebral bodies. Grade 1 anterolisthesis of L4 on L5. There is also mild retrolisthesis of T12 on L1 and L1 on L2. No significant vertebral body height loss. Multilevel intervertebral disc degeneration, severe at T11-12, T12-L1, and L5-S1. Multilevel facet osteoarthritis, greatestnear the lumbosacral junction. No fracture or aggressive osseous lesion identified. Vascular calcifi cations. Surgical clips in the right upper abdomen. IMPRESSION IMPRESSION Degenerative findings as above Assessment and Plan: 1) left knee pain Secondary to DJD which is greatest laterally and moderate to severe Options discussed Intra-articular steroid injection performed on 01/09/2023 helped, however she still has pain on steps. Viscosupplementation started completed (03/21/2023) with Gelsyn. Helped her substantially. Desired to repeat. Reports viscosupplementation completed on 01/16/2024 helped substantially But has started to wear off. Intra-articular steroid injection performed today 03/26/2024 Unable to consider surgery due to life demands. She is taking care of her who has Parkinson's. Referred to pain management for evaluation for genicular nerve RFA Also x-rays ordered for her to get done after the visit today as it has been 15 months since she had knee x-rays 2) back hip and radicular leg pain Follows with pain management. Has severe spinal stenosis. She also received JOHNATHON for L5/S1 radiculopathy on the left on 01/27/2024 through pain management. She reports that helped her sciatic type symptoms. However after doing prolonged riding lawnmower yesterday she noticed increased pain in her lateral lower leg. - discuss that uncertain if the lateral lower leg pain related to her severe lateral joint arthritis, her L5/S1 radiculopathy as it would match that dermatome or overuse. Discussed possibility for, peroneal nerve entrapment. For now the patient will monitor symptoms given they occurred acutely after mowing and she had not moved all year. Patient will be following up with pain management for new evaluation of the knee but also suspect detect a component of her leg symptoms related to her lumbar spine pathology Physical therapy referral placed previously Also discussed Tylenol and Voltaren gel Procedure note (knee injection), Left: Time out: Prior to injection, a time out was called to confirm the administration of appropriate medicine, patient name, procedure and confirm to the best of our ability and knowledge the presence of any necessary risks and benefits. Patient verbalizes understanding. Sterile techinique applied. Skin sterilized with alcohol swab. Knee injected using 1.5 inch, 22 gauge needle. Injected with 1 ml lidocaine 1%, triamcinolone acetonide 40mg/ml 1 ml. Patient tolerated procedure with no significant bleeding or adverse reaction. Patient instructed to call or return to clinic for fever or warmth and redness at injection site for potential infection. Patient also advised as to potential for steroid flare reaction including increased pain and redness at injection site which should be treated with ice and resolve within 24 hours. nick Kuo MD Primary Care Sports Medicine Orthopaedics [address] [address] documented in this encounter Nursing Notes * Maci Brown LPN - 03/26/2024 9:26 AM EDT New problem Pt c/o L leg pain Pt stated pain started post gel injection series Pt c/o 04/08 pain today Pt may wish to see Rheumatology Pt is unaccompanied today Pt denies recent injury to L leg Kiah Gray LPN documented in this encounter Miscellaneous Notes * Addendum Note - Germaine Kuo MD - 04/08/2024 8:13 AM EDT Addended by: GERMAINE KUO on: 04/08/2024 08:13 AM Modules accepted: Orders * Addendum Note - Maci Brown LPN - 04/07/2024 1:16 PM EDTAddended by: MACI BROWN on: 04/07/2024 01:16 PM Modules accepted: Orders * Addendum Note - Maci Brown LPN - 03/26/2024 10:29 AM EDTAddended by: MACI BROWN on: 03/26/2024 10:29 AM Modules accepted: Orders * Addendum Note - Maci Brown LPN - 03/26/2024 10:11 AM EDTAddended by: MACI BROWN on: 03/26/2024 10:11 AM Modules accepted: Orders documented in this encounter Plan of Treatment Upcoming Encounters Date Type Department Care Team (Late st Contact Info) Description 04/18/2024 8:00 AM EDT Office Visit Family Practice [facility] [address] [facility] [place] [address] Mil[facility]rit[facility] [address] [facility] [address] 05/08/2024 11:00 AM EDT Imaging Radiology [facility] 1st Floor, [place] [address] [place] [address] 05/21/2024 3:25 PM EDT Office Visit Interventional Pain Center, [facility] [address] [place] [address] Lewis Hook, DO [address] [place] [address] 07/30/2024 11:00 AM EDT Nurse Only Ancillary [address] [place] [address] Claudeey, Nurse [address] [place] [address] 08/04/2024 4:20 PM EST Office Visit Family Practice [facility] [address] [place] [address] Linda Lopez, DO [address] [place] [address] 04/19/2025 11:00 AM EDT Office Visit Dermatology [address] [place] [address] Maris Zeng PA-C [address] [place] [address] [place] [address] Scheduled Referrals Name Type Priority Associated Diagnoses Orde r Schedule PAIN MEDICINE REFERRAL OP Referral Within 10 days (routine) Primary osteoarthritis of left knee Ordered: 03/26/2024 Health Maintenance Due Date Last Done Comments [...] Procedure Name Priority Date/Time Associated Diagnosis Comments XR KNEE 4 OR MORE VIEWS Routine 03/26/2024 10:02 AM EDT Primary osteoarthritis of left knee documented in this encounter Results * XR KNEE 4 OR MORE VIEWS (03/26/2024 10:02 AM EDT) Anatomical Region Laterality Modality Knee, Lower Extremity Computed R adiography 04/03/2024 9:27 AM EDT Impressions 04/03/2024 9:24 AM EDT IMPRESSION Advanced osteoarthritis. Narrative 04/03/2024 9:24 AM EDT EXAM XR KNEE 4 OR MORE VIEWS-03/26/2024 10:02 am HISTORY progressing chronic L knee pain COMPARISON Radiograph 12/26/2022 TECHNIQUE Four radiographs left knee. FINDINGS Knee joint effusion. Advanced tricompartment osteoarthritis. No fracture or dislocation. Procedure Note Wayne Sheffield MD - 07/05/2024 EXAM XR KNEE 4 OR MORE VIEWS-03/26/2024 10:02 am HISTORY progressing chronic L knee pain COMPARISON Radiograph 12/26/2022 TECHNIQUE Four radiographs left knee. FINDINGS Knee joint effusion. Advanced tricompartment osteoarthritis. No fractureor dislocation. IMPRESSION IMPRESSION Advanced osteoarthritis. Germaine Kuo MD RADIOLOGY ( [facility]) documented in this encounter Visit Diagnoses Diagnosis Osteoarthritis of spine with radiculopathy, lumbar region- Primary Spinal stenosis of lumbar region without neurogenic claudication Spinal stenosis, lumbar region, without neurogenic claudication Primary osteoarthritis of left knee Primary localized osteoarthrosis, lower leg documented in this encounter Administered Medications Inactive Administered Medications - up to 3 most recent administrations Medication Order MAR Action Action Date Dose Rate Site lidocaine 1 % inj 100 mg 100 mg (10 mL), Intra-Articular, ONCE, On Sat04/08/24 at 0845, For 1 dose Given 03/26/2024 10:02 AM EDT 100 mg Knee Left Triamcinolone Acetonide (Kenalog) 40 MG/ML inj 40 mg 40 mg, Intra-Articular, ONCE, On Sat04/08/24 at 0845, For 1 dose Given 03/26/2024 10:01 AM EDT 40 mg Knee Left documented in this encounter Care Teams Stereotype Finisher Relationship Specialty Start Date End Date Linda Lopez DO [address] [place] [address] PCP - General Family Medicine 12/27/15 documented as of this encounter
--- OUTSIDE RECORDS SUMMARY | 2024-07-02 04:09 | External Medical Summary | Summary of Care ---
Author Name Unknown Organization [facility] Address [address] [place] [address] Phone [phone] Care Team Providers Care Knockout Worker Name Role Phone Linda Lopez DO Primary Care Provider [phone] Reason for Referral * Precert (Within 10 days (routine)) - Pending Review Specialty Diagnoses / Procedures Referred By Contac t Referred To Contact Radiology Diagnoses FCR (flexor carpi radialis) tenosynovitis Left wrist injury, initial encounter Procedures MRI WRIST LEFT WO CONTRAST Bret Mckenzie PA-C [address] [place] [address] Referral ID Status Reason Start Date Expiration Date V isits Requested Visits Authorized [id number] Pending Review 05/07/2024 999 999 Reason for Visit * Reason Comments Follow Up Pot is here due to L writst pain. She went to steel pickler laundry and felt a "tear" in her wrist. Pt states the when she turns her hand over her wrist has the most pain in that position. Pt came In with an old brace for her R on her L to help assist. Encounter Details Date Type Department Care Team (Late st Contact Info) Description 05/06/2024 10:30 AM EDT Office Visit Orthopaedics [facility] [address] [place] [address] Bret Mckenzie PA-C [address] [place] [address] FCR (flexor carpi radialis) tenosynovitis*; Left wrist injury, initial encounter Allergies Active Allergy Reactions Criticality Noted Date Comments Alendronate Sodium Other (Please comment) Low 10/30/2014 Abdominal and jaw pain Rosuvastatin Calcium 06/24/2018 myalgias Diclofenac Resin Diflunisal Nausea Atorvastatin Other (Please comment) Low 10/30/2014 myalgias Naproxen Nausea Nsaids Orudis--rash documented as of this encounter (statuses as of 05/09/2024) Medications Medication Sig Dispensed Refills Start Date [...] as of this encounter (statuses as of 05/09/2024) Active Problems Problem Noted Date Diagnosed Date [...] as of this encounter (statuses as of 05/09/2024) Resolved Problems Problem Noted Date Diagnosed Date [...] as of this encounter (statuses as of 05/09/2024) Immunizations Name Administration Dates Next Due COVID-19 mRNA, LNP-s, No Pre serve, 2-Dose Series ([employer]oom) 08/02/2021,12/20/2020,11/29/2020 Pneumococcal Conjugate Vacc, 13 Valent (Prevnar) [...] Progress Notes * Bret Mckenzie PA-C - 05/06/2024 10:08 AM EDT Subjective Ivelisse Bonner is a 78 year old female. Chief Complaint Patient presents with Follow Up Pot is here due to L writst pain. She went to steel pickler laundry and felt a "tear" in her wrist. Pt states the when she turns her hand over her wrist has the most pain in that position. Pt came In with an old brace for her R on her L to help assist. HPI: Established patient reports an injury to the left wrist. Patient states she should picked up laundry basket followed by immediate pain left wrist. She points towards the radial volar aspect of the wrist. States it was not consistent with numbness and tingling that she was treated for in the past for right carpal tunnel. 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 Reports any type of active motion left wrist creates pain the patient presents today with a brace on the left wrist and hand. Denies numbness or tingling. Will further discuss x-rays today. PMH: Patient Active Problem List Diagnosis Rosacea Gastroesophageal [...] performed by Nickolas Tucker MD at ENDOSCOPY [facility] INJECT DX/THER SUBSTANCE INTERLAMINAR LUMBAR/SACRAL W IMAGE GUIDE 10/18/2023 INJECTION SPINE LUMBAR OR SACRAL performed by Lewis Hook DO at OR [facility] INJECT DX/THER SUBSTANCE INTERLAMINAR LUMBAR/SACRAL W IMAGE GUIDE 01/27/2024 INJECTION SPINE LUMBAR OR SACRAL performed by Lewis Hook DO at OR [facility] LAPAROSCOPY; CHOLECYSTECTOMY 10/02/10 Dr. Shahid MAMMOGRAM BREAST NEEDLE BIOPSY CORE BILATERAL 2012 normal - Dr. 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 complete review of systems negative General: alert and oriented x3 female, no acute distress, appears currently stated age, pleasant, well nourished Skin: Right upper extremity including wrist, hand, fingers and thumb does not reveal any erythema, ecchymosis, abrasion, laceration, skin breakdown otherwise Neurovascular: Right upper extremity reveals distal pulses +2, capillary refill is under 2 seconds,good sensation light touch, +5 chef german strength, axillary median ulnar radial nerve assess fully intact, negative Tinel's, Phalen's, Durkan's Musculoskeletal: Exam of the left wrist reveals tenderness palpating the flexor carpi radialis 2 cmproximal to the flexor crease. I believe I can palpate a defect in the tendon and this is also where she is most tender. Patient has weakness with wrist flexion, I believe mainly because of pain, as well as pain with attempting to touch her thumb to her little finger, essentially abducting the 1st metacarpal. X-rays of the patient's Left wrist reveal advanced degenerative changes of the 1st CMC joint. Appears to be widening at the scapholunate joint. No acute findings such as fracture dislocation subluxation. Unable to identify any type of obvious cystic change or masses in the bone. Personal interpretation and documentation regarding today's plain film radiographs performed by myself. ASSESSMENT/PLAN: There are no diagnoses linked to this encounter. Impression: Right wrist injury resulting in possible FCR involvement Plan: Today 's findings were discussed with the patient. They were educated regarding their diagnosis. Multiple treatment options discussed and agreed upon, including brace, physical therapy, MRI to rule out surgical FCR injury, ice, topical agents, behavior modification rest. Telephonic visit to discuss MRI results. The patient has no other questions or concerns. Pleased with today 's care. Callsooner if needed. This chart was completed in part utilizing [employer]amo (Proprietary) Speech Voice Recognition Software. Grammatical errors, random word insertions, prounoun errors, and incomplete sentences are an occasional consequence of this system due to software limitations, ambient noise, and hardware issues. Any formal questions or concerns about the content, text, or information contained within the body of this dictation should be directly addressed to the provider for clarification. Bret Mckenzie PA-C documented in this encounter Nursing Notes * Ravi Castañeda CMA - 05/06/2024 10:08 AM EDT Pot is here due to L writst pain. She went to steel pickler laundry and felt a "tear" in her wrist. Pt states the when she turns her hand over her wrist has the most pain in that position. Pt came In with an old brace for her R on her L to help assist. documented in this encounter Miscellaneous Notes * Addendum Note - Maci Brown LPN - 05/09/2024 10:58 AM EDTAddended by: MACI BROWN on: 05/09/2024 10:58 AM Modules accepted: Orders documented in this encounter Plan of Treatment Upcoming Encounters Date Type Department Care Team (Late st Contact Info) Description 05/12/2024 3:30 PM EDT Imaging Radiology [address] [place] [address] 05/21/2024 1:00 PM EDT Imaging Radiology [address] [place] [address] 05/21/2024 3:25 PM EDT Office Visit Interventional Pain Center, [facility] [address] [place] [address] Lewis Hook DO [address] [place] [phone] 05/27/2024 9:00 AM EDT Telemedicine Orthopaedics [facility] [address] [place] [address] Bret Mckenzie PA-C [address] [place] [address] 07/30/2024 11:00 AM EDT Nurse Only Ancillary [address] [place] [address] Claudeey, Nurse [address] [place] [address] 08/04/2024 4:20 PM EST Office Visit Family Practice [facility] [address] [place] [address] Linda Lopez DO [address] [place] [address] 04/19/2025 11:00 AM EDT Office Visit Dermatology [address] [place] [address] Maris Zeng PA-C [address] [place] [address] [place] [address] Pending Results Name Type Priority Associated Diagnoses [...] encounter documented in this encounter Care Teams Knockout Worker Relationship Specialty Start Date End Date Linda Lopez DO [address] [place] [address] PCP - General Family Medicine 12/27/15 documented as of this encounter
--- OUTSIDE RECORDS SUMMARY | 2024-07-02 04:09 | External Medical Summary | Summary of Care ---
Author Name Unknown Organization [facility] Address [address] [place] [address] Phone [phone] Care Team Providers Care Aircraft Engine Mechanic Name Role Phone Linda Lopez DO Primary Care Provider [phone] Reason for Visit * Reason Onset Date Comments Advice 04/20/2024 advice Encounter Details Date Type Department Care Team (Late st Contact Info) Description 04/20/2024 Telephone Family Practice [facility] [address] [place] [address] Linda Lopez DO [address] [place] [address] Advice (advice) Allergies Active Allergy Reactions Criticality Noted Date Comments Alendronate Sodium Other (Please comment) Low 10/30/2014 Abdominal and jaw pain Rosuvastatin Calcium 06/24/2018 myalgias Diclofenac Resin Diflunisal Nausea Atorvastatin Other (Please comment) Low 10/30/2014 myalgias Naproxen Nausea Nsaids Orudis--rash documented as of this encounter (statuses as of 05/04/2024) Medications Medication Sig Dispensed Refills Start Date [...] Active predniSONE 10 MG Oral Tablet (Deltasone)Indicat ions:Mild intermittent asthma with exacerbation Take 5 tabs for 2 days, 4 tabs for 2 days, 3 tabs for 2 days, 2 tabs for 2 days 1 tab for 2 days 30 Tablet 04/21/2024 Active Azithromycin 250 MG Oral Tablet (Zithromax)Indicat ions:Mild intermittent asthma with exacerbation Take 2 tabs by mouth on the first day, then 1 tab daily on days two through five 6 Tablet 04/21/2024 04/26/2024 documented as of this encounter (statuses as of 05/04/2024) Active Problems Problem Noted Date Diagnosed Date [...] as of this encounter (statuses as of 05/04/2024) Resolved Problems Problem Noted Date Diagnosed Date [...] as of this encounter (statuses as of 05/04/2024) Immunizations Name Administration Dates Next Due COVID-19 mRNA, LNP-s, No Pre serve, 2-Dose Series (KnowNow) 08/02/2021,12/20/2020,11/29/2020 Pneumococcal Conjugate Vacc, 13 Valent (Prevnar) [...] Telephone Encounter - Carolyne Dawson LPN - 05/04/2024 10:55 AM EDT Pt calling due to feeling out of breath spo2 running 95 to 98%Ra. She is using inhalers. [place] Schwarz 05/05 at 8:20. * Telephone Encounter - Donte Nam RN - 04/21/2024 11:03 AM EDT Called patient and informed her of Dr. Lopez's previous message. She verbalized understanding of all information and is agreeable. Gave patient the number for the dedicated nurse call center [phone] to call if she is not improving [...] Encounters Date Type Department Care Team (Late Contact Info) Description 05/05/2024 8:20 AM EDT Office Visit Family Medicine [address] [place] [phone] Tia Chung MD [address] [place] [address] [place] [address] 05/08/2024 11:00 AM EDT Imaging Radiology [facility] [address] [place] [address] 05/21/2024 3:25 PM EDT Office Visit Interventional Pain Center, [facility] [address] [place] [address] Lewis Hook, DO [address] [place] [phone] 07/30/2024 11:00 AM EDT Nurse Only Ancillary [address] [place] [address] [place], Nurse [facility] [address] [place] [address] [place] [address] 08/04/2024 4:20 PM EST Office Visit Family Practice [facility] [address] [place] [address] Linda Lopez DO [address] [place] [address] 04/19/2025 11:00 AM EDT Office Visit Dermatology [address] [place] [address] Maris Zeng PA-C [address] [place] [address] [place] [address] Health Maintenance Due Date Last Done Comments [...] exacerbation documented in this encounter Care Teams Aircraft Engine Mechanic Relationship Specialty Start Date End Date Linda Lopez DO [address] [place] [address] PCP - General Family Medicine 12/27/15 documented as of this encounter
--- OUTSIDE RECORDS SUMMARY | 2024-07-02 04:09 | External Medical Summary | Summary of Care ---
Author Name Unknown Organization [facility] Address [address] [place] [address] Phone [phone] Care Team Providers Care Associate Web Developer Name Role Phone Linda Lopez DO Primary Care Provider [phone] Reason for Referral * Evaluate & Treat - Unlimited Visits (Within 10 days (routine)) - Authorized Specialty Diagnoses / Procedures Referred By Contac t Referred To Contact Pain Management / Pain Medicine Diagnoses Primary osteoarthritis of left knee Germaine Kuo MD [address] [place] [address] Referral ID Status Reason Start Date Expiration Date Visits Requested Visits Authorized [id number] Authorized Specialty Services Required 03/26/2024 999 999 [...] location to have this test performed? [facility] II Comments Patient Name: Ivelisse Bonner Date [...] pain if not done previously. Fax No. [facility] [phone] or contact front office developer [phone] Fax No. [facility] [phone] or contact front office developer [phone] Fax No. [facility] [phone] or contact front office developer [phone] Reason for Visit * Reason Comments New Problem L leg Pain Encounter Details Date Type Department Care Team (Latest Contact Info) Description 03/26/2024 9:30 AM EDT Office Visit Orthopaedics [address] [phone] Germaine Kuo MD [address] [place] [address] Osteoarthritis of spine with radiculopathy, lumbar [...] mRNA, LNP-s, No Pre serve, 2-Dose Series ([email or web address]) 08/02/2021,12/20/2020,11/29/2020 Pneumococcal Conjugate Vacc, 13 Valent (Prevnar) [...] - 03/26/2024 9:36 AM EDT Ivelisse Bonner [id number] Ivelisse Bonner is a 77 year old female who presents for f/u of Left knee pain to [facility] Orthopaedics and Sports Medicine I saw her [...] level: Not on file Occupational History 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 Tricompartmental osteoarthritis, [id number] in the lateral compartment. No fracture, aggressive [...] Kuo MD Primary Care Sports Medicine Orthopaedics [address] [phone] documented in this encounter Nursing Notes * [...] 8:00 AM EDT Office Visit Family Practice [facility] [address] [facility] [place] [address] Milady Pritchett [facility] [address] 05/08/2024 11:00 AM EDT Imaging Radiology [facility] 1st Floor, [place] [address] [place] [address] 05/21/2024 3:25 PM EDT Office Visit Interventional Pain Center, [facility] [address] [place] [address] Lewis Hook, DO [address] [place] [phone] 07/30/2024 11:00 AM EDT Nurse Only Ancillary [address] [place] [address] Claudeey, Nurse [address] [place] [address] 08/04/2024 4:20 PM EST Office Visit Family Practice [facility] [address] [place] [address] Linda Lopez, DO [address] [place] [address] 04/19/2025 11:00 AM EDT Office Visit Dermatology [address] [place] [address] Maris Zeng PA-C [address] [place] [address] [place] [address] Scheduled Referrals Name Type Priority Associated Diagnoses [...] Advanced osteoarthritis. Germaine Kuo MD RADIOLOGY ( [facility]) documented in this encounter Visit Diagnoses Diagnosis [...] Left documented in this encounter Care Teams Associate Web Developer Relationship Specialty Start Date End Date Linda Lopez DO [address] [place] [address] PCP - General Family Medicine 12/27/15 documented as of this encounter
--- OUTSIDE RECORDS SUMMARY | 2024-07-02 04:09 | External Medical Summary | Summary of Care ---
Author Name Unknown Organization [facility] Address [address] [place] [address] Phone [phone] Care Team Providers Care Auto Collision Repair Instructor Name Role Phone Linda Lopez DO Primary Care Provider [phone] Reason for Referral * Evaluate & Treat - Unlimited Visits (Within 10 days (routine)) - Authorized Specialty Diagnoses / Procedures Referred By Contac t Referred To Contact Pain Management / Pain Medicine Diagnoses Primary osteoarthritis of left knee Germaine Kuo MD [address] [place] [address] Referral ID Status Reason Start Date Expiration Date Visits Requested Visits Authorized [id number] Authorized Specialty Services Required 03/26/2024 999 999 [...] location to have this test performed? [facility] Comments Patient Name: Ivelisse Bonner Date [...] pain if not done previously. Fax No. [facility] [phone] or contact credit front office developer [phone] Fax No. [facility] [phone] or contact credit front office developer [phone] Fax No. [facility] [phone] or contact credit front office developer [phone] Reason for Visit * Reason Comments New Problem L leg Pain Encounter Details Date Type Department Care Team (Latest Contact Info) Description 03/26/2024 9:30 AM EDT Office Visit Orthopaedics [address] [phone] Germaine Kuo MD [address] [place] [address] Osteoarthritis of spine with radiculopathy, lumbar [...] Frequency Start Date End Date Status lidocaine 1 % inj 100 mgIndications:Primary osteoarthritis of left knee 100 mg IX ONCE 04/08/2024 04/08/2024 Active Triamcinolone Acetonide (Kenalog) 40 MG/ML inj 40 mgIndications:Primary osteoarthritis of left knee 40 mg IX ONCE 04/08/2024 04/08/2024 Active lidocaine 1% 1 mL - triamcinolone acetonide 40 mg/mL 1 mL inj 2 mLIndications:Primary osteoarthritis of left knee 2 mL IJ ONCE 03/26/2024 03/26/2024 Discontinued documented as of this encounter (statuses [...] mRNA, LNP-s, No Pre serve, 2-Dose Series ([employer]) 08/02/2021,12/20/2020,11/29/2020 Pneumococcal Conjugate Vacc, 13 Valent (Prevnar) [...] - 03/26/2024 9:36 AM EDT Ivelisse Bonner [id number] Ivelisse Bonner is a 77 year old female who presents for f/u of Left knee pain to [facility] Orthopaedics and Sports Medicine I saw her [...] level: Not on file Occupational History 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 Tricompartmental osteoarthritis, [id number] in the lateral compartment. No fracture, aggressive [...] Kuo MD Primary Care Sports Medicine Orthopaedics [address] [phone] documented in this encounter Nursing Notes * [...] 8:00 AM EDT Office Visit Family Practice [facility] [address] [facility] [place] [address] Milady [facility]rit[facility]tt [facility] [address] 05/08/2024 11:00 AM EDT Imaging Radiology [facility] 1st Floor, [place] [address] [place] [address] 05/21/2024 3:25 PM EDT Office Visit Interventional Pain Center, [facility] [address] [place] [address] Lewis Hook, DO [address] [place] [address] 07/30/2024 11:00 AM EDT Nurse Only Ancillary [address] [place] [address] Claudee[place], Nurse [address] [place] [address] 08/04/2024 4:20 PM EST Office Visit Family Practice [facility] [address] [place] [address] Linda Lopez, DO [address] [place] [address] 04/19/2025 11:00 AM EDT Office Visit Dermatology [address] [place] [address] Maris Zeng PA-C [address] [place] [address] [place] [address] Scheduled Referrals Name Type Priority Associated Diagnoses [...] Advanced osteoarthritis. Germaine Kuo MD RADIOLOGY ( [facility]) documented in this encounter Visit Diagnoses Diagnosis Osteoarthritis of spine with radiculopathy, lumbar region- Primary Spinal stenosis of lumbar region without neurogenic claudication Spinal stenosis, lumbar region, without neurogenic claudication Primary osteoarthritis of left knee Primary localized osteoarthrosis, lower leg documented in this encounter Care Teams Auto Collision Repair Instructor Relationship Specialty Start Date End Date Linda Lopez DO [address] [place] [address] PCP - General Family Medicine 12/27/15 documented as of this encounter
--- OUTSIDE RECORDS SUMMARY | 2024-07-02 04:09 | External Medical Summary | Summary of Care ---
Author Name Unknown Organization [facility] Address [address] [place] [address] Phone [phone] Care Team Providers Care Christmas Bell Ringer Name Role Phone Linda Lopez DO Primary Care Provider [phone] Reason for Visit * Reason Comments Follow Up right CTS. Encounter Details Date Type Department Care Team (Late st Contact Info) Description 05/01/2022 11:15 AM EDT Office Visit Orthopaedics [facility] [address] [place] [address] Bret Mckenzie PA-C [address] [place] [address] Carpal tunnel syndrome of right wrist* Allergies Active Allergy Reactions Criticality Noted Date [...] Capsule by mouth in the morning. Active Probiotic Product (PROBIOTIC ACIDOPHILUS BIOBEADS) Capsule Take 1 Cap by mouth three times a day with meals. 07/09/20 23 Discontinued(Med ication List Clean Up) Albuterol Sulfate HFA 108 (90 Base) MCG/ACT Inhalation Aerosol SolutionIndicatio ns:Bronchitis, complicated TAKE 2 PUFFS BY MOUTH EVERY 4 HOURS NEEDED FOR WHEEZING 54 g 1 1 01/21/20 24 Discontinued(Ref ill) Zinc 50 MG Oral Capsule Take 1 Capsule by mouth in the morning. 01/08/20 24 Discontinued(Med ication List Clean Up) amLODIPine Besylate 2.5 MG Oral Tablet (Norvasc) Take 1 Tab by mouth daily. 90 Tab 3 1 07/23/20 22 Discontinued Levothyroxine Sodium 50 MCG Oral Tablet (Levoxyl)Indicati ons:Hypothyroidis m (acquired) TAKE 1 TABLET BY MOUTH DAILY AT LEAST 30 MIN PRIOR TO BREAKFAST OR OTHER MEDS 90 Tab 3 1 07/23/20 22 Discontinued Ezetimibe 10 MG Oral Tablet (Zetia) TAKE 1 TABLET BY MOUTH EVERY DAY 90 Tab 3 1 09/21/20 22 Discontinued Meloxicam 15 MG Oral Tablet TAKE 1 TABLET BY MOUTH DAILY FOR PAIN. 30 Tablet 11 1 09/21/20 22 Discontinued Flovent HFA 220 MCG/ACT Inhalation Aerosol (fluticasone)Katie cations:Mild persistent asthma without complication INHALE 2 PUFFS BY MOUTH TWICE A DAY 12 g 3 2 01/08/20 24 Discontinued(Ref ill) Fluticasone Propionate 50 MCG/ACT Nasal Suspension (Flonase)Indicati ons:Acute frontal sinusitis, recurrence not specified SPRAY 2 SPRAYS INTO EACH NOSTRIL EVERY DAY 48 mL 3 2 01/12/20 23 Discontinued(Ref ill) Escitalopram Oxalate 10 MG Oral Tablet (Lexapro)Indicati ons:Caregiver stress Take by mouth 1 Tablet in the morning. 30 Tablet 11 2 08/28/20 22 Discontinued(Med ication List Clean Up) Omeprazole 40 MG Oral Capsule Delayed Release (PriLOSEC)Indicat ions:Gastroesopha geal reflux disease without esophagitis TAKE 1 CAPSULE BY MOUTH EVERY DAY 90 Capsule 3 2 08/28/20 22 Discontinued Hospital, Clinic, or Other Facility Administered Medication Ordered Dose Route Frequency Start Date End Date Status lidocaine 1% 1 mL - betamethasone 6 mg/mL 1.5 mL inj 2.5 mL 2.5 mL IJ ONCE 05/01/2022 05/01/2022 Ended documented as of this encounter (statuses [...] mRNA, LNP-s, No Pre serve, 2-Dose Series (3VR) 08/02/2021,12/20/2020,11/29/2020 Pneumococcal Conjugate Vacc, 13 Valent (Prevnar) [...] Influenza, Split, I IV3, With Preserve, Inj 07/20/2014,05/31/2014,08/17/2003,12/12/200109/02/2003 Seasonal Influenza, Trivalen t, Adjuvanted, 65+ yrs [...] Progress Notes * Bret Mckenzie PA-C - 05/01/2022 10:36 AM EDTAssociated Order(s): Hand/Upper Extremity Injection/Arthrocentesis: R carpal tunnel Post-Procedure Diagnose(s): Carpal tunnel syndrome of right wrist Follows up for continued symptoms median nerve distribution right carpal tunnel. Reports her last injection did not provide much relief in terms of a lengthy period of time. She is willing to try 1 subsequent injection and if no improvement proceed with carpal tunnel release. She does wear cock-up wrist brace at night. Subtle relief. complete review of systems negative The changes on clinical finding from prior visit. Continued decreased sensation median nerve distribution distal aspects of the right thumb index middle finger. Positive Tinel's, Phalen's, Durkan's. Impression: Right carpal tunnel syndrome Plan: Today 's findings were discussed with the patient. They were educated regarding their diagnosis. Multiple treatment options discussed and agreed upon, including subsequent steroid injection forright carpal tunnel. Written consent obtained. Telephonic visit 3 weeks. If minimal relief will have them follow-up with our hand specialist. The patient has no other questions or concerns. Pleased with today 's care. Call sooner if needed. Hand/Upper Extremity Injection/Arthrocentesis: R carpal tunnel for carpal tunnel syndrome on 05/01/2022 10:38 AM Indications: diagnostic and therapeutic Details: 25 G needle, volar approach Medications: (Betamethasone lidocaine) No increased neurologic symptoms reported during today's injection, strict caution utilized to avoid injecting directly into the nerve. Hemostasis achieved Band-Aid applied. Procedure, treatment alternatives, risks and benefits explained, specific risks discussed. Consent was given by the patient. Immediately prior to procedure a time out was called to verify the correctpatient, procedure, equipment, application support lead and site/side marked as required. Patient was prepped and draped in the usual sterile fashion. This chart was completed in part utilizing [employer] Voice Recognition Software. Grammatical errors, random word insertions, prounoun errors, and incomplete sentences are an occasional consequence of this system due to software limitations, ambient noise, and hardware issues. Any formal questions or concerns about the content, text, or information contained within the body of this dictation should be directly addressed to the provider for clarification. documented in this encounter Nursing Notes * Eugenia Marlow LPN - 05/01/2022 10:00 AM EDT Right CTS Last injected 01/15/22. Eugenia Camp LPN documented in this encounter Plan of Treatment Upcoming Encounters Date Type Department Care Team (Late st Contact Info) Description 05/06/2024 10:30 AM EDT Office Visit Orthopaedics [facility] [address] [place] [address] Bret Mckenzie PA-C [address] [place] [address] Subjective 05/08/2024 11:00 AM EDT Imaging Radiology [facility] 1st [facility] [address] [place] [address] 05/21/2024 3:25 PM EDT Office Visit Interventional Pain Center, [facility] [address] [place] [address] Lewis Hook, DO [address] [place] [phone] 07/30/2024 11:00 AM EDT Nurse Only Ancillary [address] [place] [address] Juliaalley, Nurse Annual [address] [place] [address] 08/04/2024 4:20 PM EST Office Visit Family Practice [facility] [address] [place] [address] Linda Lopez, DO [address] [place] [address] 04/19/2025 11:00 AM EDT Office Visit Dermatology [address] [place] [address] Maris Zeng, JANAE [address] [place] [address] [place] [address] Health Maintenance Due Date Last Done Comments [...] Procedure Name Priority Date/Time Associated Diagnosis Comments IN INJECTION THERAPEUTIC CARPAL TUNNEL Routine 05/01/2022 10:38 AM EDT Carpal tunnel syndrome of right wrist documented in this encounter Results * IN INJECTION THERAPEUTIC CARPAL TUNNEL (05/01/2022 10:38 AM EDT) Narrative Bret Mckenzie PA-C - 05/01/2022 10:38 AM EDT Bret Mckenzie PA-C 05/06/2024 10:25 AM Hand/Upper Extremity Injection/Arthrocentesis: R carpal tunnel for carpal tunnel syndrome on 05/01/2022 10:38 AM Indications: diagnostic and therapeutic Details: 25 G needle, volar approach Medications: (Betamethasone lidocaine) No increased neurologic symptoms reported during today's injection, strict caution utilized to avoid injecting directly into the nerve. Hemostasis achieved Band-Aid applied. Procedure, treatment alternatives, risks and benefits explained, specific risks discussed. Consent was given by the patient. Immediately prior to procedure a time out was called to verify the correct patient, procedure, equipment, application support lead and site/side marked as required. Patient was prepped and draped in the usual sterile fashion. Bret Mckenzie PA-C PROCDOC FORM documented in this encounter Visit Diagnoses Diagnosis Carpal tunnel syndrome of right wrist- Primary Carpal tunnel syndrome documented in this encounter Administered Medications Inactive Administered Medications - up to 3 most recent administrations Medication Order MAR Action Action Date Dose Rate Site lidocaine 1% 1 mL - betamethasone 6 mg/mL 1.5 mL inj 2.5 mL 2.5 mL, Injection, ONCE, On Sat05/01/22 at 1115, For 1 dose, LIDOCAINE 1% 1 ML; BETAMETHASONE 6 MG/ML 1.5 ML TOTAL VOLUME = 2.5 ML SHAKE WELL and REFRIGERATE Given 05/01/2022 11:00 AM EDT 2.5 mL Wrist Right documented in this encounter Additional Health Concerns Infection Onset Date Last Indicated Resolved Time Influenza (seasonal) 09/25/2022 09/25/2022 023 12:19 AM EST documented as of this encounter Care Teams Christmas Bell Ringer Relationship Specialty Start Date End Date Linda Lopez DO [address] [place] [address] PCP - General Family Medicine 12/27/15 documented as of this encounter
--- OUTSIDE RECORDS SUMMARY | 2024-07-02 04:10 | External Medical Summary | Summary of Care ---
Author Name Unknown Organization [facility] Address [address] [place] [address] Phone [phone] Care Team Providers Care Metal Alloy Scientist Name Role Phone Linda Lopez DO Primary Care Provider [phone] Reason for Referral * Evaluate & Treat - Unlimited Visits (Within 10 days (routine)) - Authorized Specialty Diagnoses / Procedures Referred By Contac t Referred To Contact Pain Management / Pain Medicine Diagnoses Primary osteoarthritis of left knee Prabhu Kuo MD [address] [place] [address] Referral ID Status Reason Start Date Expiration Date Visits Requested Visits Authorized [id number] Authorized Specialty Services Required 03/26/2024 999 999 [...] location to have this test performed? [facility] II Comments Patient Name: Ivelisse Bonner Date [...] pain if not done previously. Fax No. [facility] [phone] or contact director of front office [phone] Fax No. [facility] [phone] or contact director of front office [phone] Fax No. [facility] [phone] or contact director of front office [phone] Reason for Visit * Reason Comments New Problem L leg Pain Encounter Details Date Type Department Care Team (Latest Contact Info) Description 03/26/2024 9:30 AM EDT Office Visit Orthopaedics [address] [phone] Prabhu Kuo MD [address] [place] [address] Osteoarthritis of spine with radiculopathy, lumbar [...] as of this encounter (statuses as of 03/26/2024) Medications Medication Sig Dispensed Refills Start Date [...] as of this encounter (statuses as of 03/26/2024) Active Problems Problem Noted Date Diagnosed Date [...] as of this encounter (statuses as of 03/26/2024) Resolved Problems Problem Noted Date Diagnosed Date [...] as of this encounter (statuses as of 03/26/2024) Immunizations Name Administration Dates Next Due COVID-19 mRNA, LNP-s, No Pre serve, 2-Dose Series (Bvents) 08/02/2021,12/20/2020,11/29/2020 Pneumococcal Conjugate Vacc, 13 Valent (Prevnar) [...] as of this encounter Progress Notes * rPabhu Kuo MD - 03/26/2024 9:36 AM EDT [place] [id number] Ivelisse Bonner is a 77 year old female who presents for f/u of Left knee pain to 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 Tricompartmental osteoarthritis, [id number] in the lateral compartment. No fracture, aggressive [...] Kuo MD Primary Care Sports Medicine Orthopaedics [address] [address] documented in this encounter Nursing Notes * Maci Brown LPN - 03/26/2024 9:26 AM EDT New problem Pt c/o L leg pain Pt stated pain started post gel injection series Pt c/o 7/10 pain today Pt may wish to see [...] Description 05/08/2024 11:00 AM EDT Imaging Radiology [facility] 1st [facility] [address] [place] [address] 05/21/2024 3:25 PM EDT Office Visit Interventional Pain Center, [facility] [address] [place] [address] Lewis Hook, DO [address] [place] [phone] 07/30/2024 11:00 AM EDT Nurse Only Ancillary [address] [place] [address] Tsering, Nurse [address] [place] [address] 08/04/2024 4:20 PM EST Office Visit Family Practice [facility] [address] [place] [address] Linda Lopez, DO [address] [place] [address] 04/19/2025 11:00 AM EDT Office Visit Dermatology [address] [place] [address] Maris Zeng PA-C [address] [place] [address] [place] [address] Pending Results Name Type Priority Associated Diagnoses Date /Time XR KNEE 4 OR MORE VIEWS Medical Imaging Routine Primary osteoarthritis of left knee 03/26/2024 10:02 AM EDT Scheduled Referrals Name Type Priority Associated Diagnoses Orde r Schedule PAIN MEDICINE REFERRAL OP Referral Within 10 days (routine) Primary osteoarthritis of left knee Ordered: 03/26/2024 Health Maintenance Due Date Last Done Comments COVID-19 Vaccine ( season) 2023 08/02/2021, 12/20/2020, 11/29/2020 *BISPHONATE OR OTHER ACCEPTABLE MEDICATION NEEDED FOR OSTEOPOROSIS (REFER TO SMARTSET #1146) 01/12/2024 TSH 07/09/2024 07/09/2023, 04/30, 07/18/2021, Additional history exists Depression Monitoring 07/29/2024 07/29/2023 GFR 01/20/2025 01/21/2024, 06/30, 12/26/2022, Additional history exists Albumin/Creatinine Ratio 07/09/2026 07/09/2023, 07/01 DTaP,Tdap,and Td Vaccines (3 - Td or Tdap) 04/19/2031 04/19/2021, 02/08/2011 Pneumococcal Vaccine: 65+ Years Completed 11/11/2014, 02/08/2011 Zoster Vaccines Completed 04/30/2019, 01/28, 09/10/2011 Influenza Vaccine (FLU shot) Completed 06/2023, 07/25/2022, 07/18/2021, Additional history exists GARDASIL-HPV IMMUNIZATION SERIES Aged Out No longer eligible based on patient's age to complete this topic Hepatitis B Aged Out No longer eligi ble based on patient's age to complete this topic MENINGOCOCCAL (MENACTRA/MENVEO) Aged Out No longer eligible based on patient's age to complete this topic documented as of this encounter Medical Devices Not on filedocumented as of this encounter Visit Diagnoses Diagnosis Osteoarthritis of spine with radiculopathy, lumbar region- Primary Spinal stenosis of lumbar region without neurogenic claudication Spinal stenosis, lumbar region, without neurogenic claudication Primary osteoarthritis of left knee Primary localized osteoarthrosis, lower leg documented in this encounter Care Teams Metal Alloy Scientist Relationship Specialty Start Date End Date Linda Lopez DO [address] [place] [address] PCP - General Family Medicine 12/27/15 documented as of this encounter
--- OUTSIDE RECORDS SUMMARY | 2024-07-02 04:10 | External Medical Summary | Summary of Care ---
Author Name Unknown Organization [facility] Address [address] [place] [address] Phone [phone] Care Team Providers Care Sponge Fisherman Name Role Phone Linda Lopez DO Primary Care Provider [phone] Reason for Referral * Evaluate & Treat - Unlimited Visits (Within 10 days (routine)) - Authorized Specialty Diagnoses / Procedures Referred By Contac t Referred To Contact Pain Management / Pain Medicine Diagnoses Primary osteoarthritis of left knee Prabhu Kuo MD [address] [place] [address] Referral ID Status Reason Start Date Expiration Date Visits Requested Visits Authorized [id number] Authorized Specialty Services Required 03/26/2024 999 999 [...] location to have this test performed? [facility] II Comments Patient Name: Ivelisse Bonner Date [...] pain if not done previously. Fax No. [facility] [phone] or contact front desk specialist [phone] Fax No. [facility] [phone] or contact front desk specialist [phone] Fax No. [facility] [phone] or contact front desk specialist [phone] Reason for Visit * Reason Comments New Problem L leg Pain Encounter Details Date Type Department Care Team (Latest Contact Info) Description 03/26/2024 9:30 AM EDT Office Visit Orthopaedics [address] [address] Prabhu Kuo MD [address] [place] [address] Osteoarthritis of spine with radiculopathy, lumbar [...] left knee 2 mL IJ ONCE 03/26/2024 03/26/20 24 Active documented as of this encounter (statuses [...] mRNA, LNP-s, No Pre serve, 2-Dose Series (Limk) 08/02/2021,12/20/2020,11/29/2020 Pneumococcal Conjugate Vacc, 13 Valent (Prevnar) [...] as of this encounter Progress Notes * Prabhu Kuo MD - 03/26/2024 9:36 AM EDT [place] [place] [id number] Ivelisse Bonner is a 77 year old female who presents for f/u of Left knee pain to [facility] Orthopa[facility]ics and Sports Medicine I saw her originally for the left knee pain on 01/09/2023 I saw her initially regarding the left hip pain on 03/07/2023 Most recent complete visit 01/02/2024 was for left knee pain, however, she has been seen since for procedure only visits Ivelisse Merrick Hollisw is here unaccompanied Quality: reviewed and [...] level: Not on file 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 Tricompartmental osteoarthritis, [id number]-[id number] in the lateral compartment. No fracture, aggressive [...] Kuo MD Primary Care Sports Medicine Orthopaedics [address] [address] documented in this encounter Nursing Notes * [...] Description 05/08/2024 11:00 AM EDT [facility] [address] [place] [address] 05/21/2024 3:25 PM EDT Office Visit Interventional Pain Center, [facility] [address] [place] [address] Lewis Hook, DO [address] [place] [phone] 07/30/2024 11:00 AM EDT Nurse Only Ancillary [address] [place] [address] Juliaalley, Nurse Annual [address] [place] [address] 08/04/2024 4:20 PM EST Office Visit Family Practice [facility] [address] [place] [address] Linda Lopez, DO [address] [place] [address] 04/19/2025 11:00 AM EDT Office Visit Dermatology [address] [place] [address] Maris Zeng PA-C [address] [place] [address] [place] [address] Pending Results Name Type Priority Associated Diagnoses [...] leg documented in this encounter Care Teams Sponge Fisherman Relationship Specialty Start Date End Date Linda Lopez DO [address] [place] [address] PCP - General Family Medicine 12/27/15 documented as of this encounter
--- OUTSIDE RECORDS SUMMARY | 2024-07-02 04:10 | External Medical Summary | Summary of Care ---
Author Name Unknown Organization [facility] Address [address] [place] [address] Phone [phone] Care Team Providers Care Bookmobile Clerk Name Role Phone Linda Lopez DO Primary Care Provider [phone] Reason for Referral * Evaluate & Treat - Unlimited Visits (Within 10 days (routine)) - Authorized Specialty Diagnoses / Procedures Referred By Contac t Referred To Contact Pain Management / Pain Medicine Diagnoses Primary osteoarthritis of left knee Prabhu Kuo MD [address] [place] [address] Referral ID Status Reason Start Date Expiration Date Visits Requested Visits Authorized [id number] Authorized Specialty Services Required 03/26/2024 999 999 [...] location to have this test performed? [facility] II Comments Patient Name: Ivelisse Bonner [...] pain if not done previously. Fax No. [facility] [phone] or contact front counter clerk [phone] Fax No. [facility] [phone] or contact front counter clerk [phone] Fax No. [facility] [phone] or contact front counter clerk [phone] Reason for Visit * Reason Comments New Problem L leg Pain Encounter Details Date Type Department Care Team (Latest Contact Info) Description 03/26/2024 9:30 AM EDT Office Visit Orthopaedics [address] [address] Prabhu Kuo MD [address] [place] [address] Osteoarthritis of spine with radiculopathy, lumbar [...] as of this encounter (statuses as of 04/07/2024) Medications Medication Sig Dispensed Refills Start Date [...] as of this encounter (statuses as of 04/07/2024) Active Problems Problem Noted Date Diagnosed Date [...] as of this encounter (statuses as of 04/07/2024) Resolved Problems Problem Noted Date Diagnosed Date [...] as of this encounter (statuses as of 04/07/2024) Immunizations Name Administration Dates Next Due COVID-19 mRNA, LNP-s, No Pre serve, 2-Dose Series (MobAppCreator) 08/02/2021,12/20/2020,11/29/2020 Pneumococcal Conjugate Vacc, 13 Valent (Prevnar) [...] - 03/26/2024 9:36 AM EDT Ivelisse Hollisw [id number] Ivelisse Bonner is a 77 year old female who presents for f/u of Left knee pain to [facility] Orthopaedics and Sports Medicine I saw [...] level: Not on file 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 Tricompartmental osteoarthritis, [id number] in the lateral compartment. No fracture, aggressive [...] Kuo MD Primary Care Sports Medicine Orthopaedics [address] [phone] documented in this encounter Nursing Notes * [...] 8:00 AM EDT Office Visit Family Practice [facility] [address] [facility] [place] [address] Milady Pritchett MD [address] [facility] [place] [address] 05/08/2024 11:00 AM EDT [facility] [address] [facility] [place] [address] 05/21/2024 3:25 PM EDT Office Visit Interventional Pain Center, [facility] [address] [facility] [place] [address] Lewis Hook DO [address] [place] [address] 07/30/2024 11:00 AM EDT Nurse Only Ancillary [address] [place] [address] Tsering, Nurse [facility] [address] [place] [address] [place] [address] 08/04/2024 4:20 PM EST Office Visit Family [facility] [address] [place] [address] Linda Lopez DO [address] [place] [address] 04/19/2025 11:00 AM EDT Office Visit Dermatology [address] [place] [address] Maris Zeng PA-C [address] [place] [address] [place] [address] Scheduled Referrals Name Type Priority Associated Diagnoses [...] dislocation. Procedure Note Wayne Sheffield MD - 04/03/2024 EXAM XR KNEE 4 OR MORE VIEWS-03/26/2024 10:02 am HISTORY progressing chronic L knee pain COMPARISON Radiograph 12/26/2022 TECHNIQUE Four radiographs left knee. FINDINGS Knee joint effusion. Advanced tricompartment osteoarthritis. No fractureor dislocation. IMPRESSION IMPRESSION Advanced osteoarthritis. Prabhu Kuo MD RADIOLOGY ( [facility]) documented in this encounter Visit Diagnoses Diagnosis Osteoarthritis of spine with radiculopathy, lumbar region- Primary Spinal stenosis of lumbar region without neurogenic claudication Spinal stenosis, lumbar region, without neurogenic claudication Primary osteoarthritis of left knee Primary localized osteoarthrosis, lower leg documented in this encounter Care Teams Bookmobile Clerk Relationship Specialty Start Date End Date Linda Lopez DO [address] [place] [address] PCP - General Family Medicine 12/27/15 documented as of this encounter
--- OUTSIDE RECORDS SUMMARY | 2024-07-02 04:10 | External Medical Summary | Summary of Care ---
Author Name Unknown Organization [facility] Address [address] [place] [address] Phone [phone] Care Team Providers Care Tourist Guide Name Role Phone Linda Lopez DO Primary Care Provider [phone] Reason for Referral * Evaluate & Treat - Unlimited Visits (Within 10 days (routine)) - Authorized Specialty Diagnoses / Procedures Referred By Contac t Referred To Contact Pain Management / Pain Medicine Diagnoses Primary osteoarthritis of left knee Prabhu Kuo MD [address] [place] [address] Referral ID Status Reason Start Date Expiration Date Visits Requested Visits Authorized [id number] Authorized Specialty Services Required 03/26/2024 999 999 [...] location to have this test performed? [facility] II Comments Patient Name: Ivelisse Bonner [...] pain if not done previously. Fax No. [facility] [phone] or contact front elevator operator [phone] Fax No. [facility] [phone] or contact front elevator operator [phone] Fax No. [facility] [phone] or contact front elevator operator [phone] Reason for Visit * Reason Comments New Problem L leg Pain Encounter Details Date Type Department Care Team (Latest Contact Info) Description 03/26/2024 9:30 AM EDT Office Visit Orthopaedics [address] [address] Prabhu Kuo MD [address] [place] [address] Osteoarthritis of spine with radiculopathy, lumbar [...] mRNA, LNP-s, No Pre serve, 2-Dose Series (CartRescuer) 08/02/2021,12/20/2020,11/29/2020 Pneumococcal Conjugate Vacc, 13 Valent (Prevnar) [...] - 03/26/2024 9:36 AM EDT Ivelisse Hollisw [id number] Ivelisse Bonner is a 77 year old female who presents for f/u of Left knee pain to [facility] Orthopa[facility]ics and Sports Medicine I saw her [...] level: Not on file Occupational History 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 Tricompartmental osteoarthritis, [id number] in the lateral compartment. No fracture, aggressive [...] with ice and resolve within 24 hours. inck Kuo MD Primary Care Sports Medicine Orthopaedics [address] [address] documented in this encounter Nursing Notes * [...] Description 05/08/2024 11:00 AM EDT Imaging [facility] [address] [place] [address] 05/21/2024 3:25 PM EDT Office Visit Interventional Pain Center, [facility] [address] [place] [address] [place], DO [address] [place] [address] 07/30/2024 11:00 AM EDT Nurse Only Ancillary [address] [place] [address] [place], Nurse Annual [address] [place] [address] 08/04/2024 4:20 PM EST Office Visit Family Practice [facility] [address] [place] [address] Linda Lopez, DO [address] [place] [address] 04/19/2025 11:00 AM EDT Office Visit Dermatology [address] [place] [address] Maris Zeng PA-C [address] [place] [address] [place] [address] Pending Results Name Type Priority Associated Diagnoses [...] leg documented in this encounter Care Teams Tourist Guide Relationship Specialty Start Date End Date Linda Lopez DO [address] [place] [address] PCP - General Family Medicine 12/27/15 documented as of this encounter
--- OUTSIDE RECORDS SUMMARY | 2024-07-02 04:10 | External Medical Summary | Summary of Care ---
Author Name Unknown Organization [facility] Address [address] [place] [address] Phone [phone] Care Team Providers Care Senior Procurement Specialist Name Role Phone Linda Lopez DO Primary Care Provider [phone] Reason for Referral * Evaluate & Treat - Unlimited Visits (Within 10 days (routine)) - Authorized Specialty Diagnoses / Procedures Referred By Contac t Referred To Contact Pain Management / Pain Medicine Diagnoses Primary osteoarthritis of left knee Prabhu Kuo MD [address] [place] [address] Referral ID Status Reason Start Date Expiration Date Visits Requested Visits Authorized [id number] Authorized Specialty Services Required 03/26/2024 999 999 [...] location to have this test performed? [facility] II Comments Patient Name: Ivelisse Bonner [...] pain if not done previously. Fax No. [facility] [phone] or contact waterfront director [phone] Fax No. [facility] [phone] or contact waterfront director [phone] Fax No. [facility] [phone] or contact waterfront director [phone] Reason for Visit * Reason Comments New Problem L leg Pain Encounter Details Date Type Department Care Team (Latest Contact Info) Description 03/26/2024 9:30 AM EDT Office Visit Orthopaedics [address] [address] Prabhu Kuo MD [address] [place] [address] Osteoarthritis of spine with radiculopathy, lumbar [...] mRNA, LNP-s, No Pre serve, 2-Dose Series (noodls) 08/02/2021,12/20/2020,11/29/2020 Pneumococcal Conjugate Vacc, 13 Valent (Prevnar) [...] - 03/26/2024 9:36 AM EDT Ivelisse Hollisw [id number] Ivelisse Bonner is a 77 year old female who presents for f/u of Left knee pain to [facility] Orthopaedics and Sports Medicine I saw her [...] level: Not on file Occupational History 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 Tricompartmental osteoarthritis, [id number]-[id number] in the lateral compartment. No fracture, aggressive [...] Kuo MD Primary Care Sports Medicine Orthopaedics [address] [address] documented in this encounter Nursing Notes * [...] Description 05/08/2024 11:00 AM EDT [facility] [address] [place] [address] 05/21/2024 3:25 PM EDT Office Visit Interventional Pain Center, [facility] [address] [place] [address] [place], DO [address] [place] [address] 07/30/2024 11:00 AM EDT Nurse Only Ancillary [address] [place] [address] [place]al[place], Nurse Annual [address] [place] [address] 08/04/2024 4:20 PM EST Office Visit Family Practice [facility] [address] [place] [address] Linda Lopez, DO [address] [place] [address] 04/19/2025 11:00 AM EDT Office Visit Dermatology [address] [place] [address] Maris Zeng PA-C [address] [place] [address] [place] [address] Pending Results Name Type Priority Associated Diagnoses [...] leg documented in this encounter Care Teams Senior Procurement Specialist Relationship Specialty Start Date End Date Linda Lopez DO [address] [place] [address] PCP - General Family Medicine 12/27/15 documented as of this encounter
--- OUTSIDE RECORDS SUMMARY | 2024-07-02 04:10 | External Medical Summary | Summary of Care ---
Author Name Unknown Organization [facility] Address [address] [place] [address] Phone [phone] Care Team Providers Care Lawn Sprinkler Installer Name Role Phone Linda Lopez DO Primary Care Provider [phone] Reason for Referral * Evaluate & Treat - Unlimited Visits (Within 10 days (routine)) - Authorized Specialty Diagnoses / Procedures Referred By Contac t Referred To Contact Pain Management / Pain Medicine Diagnoses Primary osteoarthritis of left knee Prabhu Kuo MD [address] [place] [address] Referral ID Status Reason Start Date Expiration Date Visits Requested Visits Authorized [id number] Authorized Specialty Services Required 03/26/2024 999 999 [...] location to have this test performed? [facility] II Comments Patient Name: Ivelisse Bonner [...] pain if not done previously. Fax No. [facility] [phone] or contact front office associate [phone] Fax No. [facility] [phone] or contact front office associate [phone] Fax No. [facility] [phone] or contact front office associate [phone] Reason for Visit * Reason Comments New Problem L leg Pain Encounter Details Date Type Department Care Team (Latest Contact Info) Description 03/26/2024 9:30 AM EDT Office Visit Orthopaedics [address] [address] Prabhu Kuo MD [address] [place] [address] Osteoarthritis of spine with radiculopathy, lumbar [...] mRNA, LNP-s, No Pre serve, 2-Dose Series ([employer]) 08/02/2021,12/20/2020,11/29/2020 Pneumococcal Conjugate Vacc, 13 Valent (Prevnar) [...] - 03/26/2024 9:36 AM EDT Ivelisse Hollisw [id number] Ivelisse Bonner is a 77 year old female who presents for f/u of Left knee pain to [facility] Orthopaedics and Sports Medicine I saw her [...] level: Not on file 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 Tricompartmental osteoarthritis, [id number] in the lateral compartment. No fracture, aggressive [...] Kuo MD Primary Care Sports Medicine Orthopaedics [address] [address] documented in this encounter Nursing Notes * [...] Description 05/08/2024 11:00 AM EDT Imaging Radiology [facility]st [facility] [address] [place] [address] 05/21/2024 3:25 PM EDT Office Visit Interventional Pain Center, [facility] [address] [place] [address] Lewis Hook, DO [address] [place] [phone] 07/30/2024 11:00 AM EDT Nurse Only Ancillary [address] [place] [address] [place], Nurse [address] [place] [address] 08/04/2024 4:20 PM EST Office Visit Family Practice [facility] [address] [place] [address] Linda Lopez, DO [address] [place] [address] 04/19/2025 11:00 AM EDT Office Visit Dermatology [address] [place] [address] Maris Zeng PA-C [address] [place] [address] [place] [address] Pending Results Name Type Priority Associated Diagnoses [...] leg documented in this encounter Care Teams Lawn Sprinkler Installer Relationship Specialty Start Date End Date Linda Lopez DO [address] [place] [address] PCP - General Family Medicine 12/27/15 documented as of this encounter
--- OUTSIDE RECORDS SUMMARY | 2024-07-02 04:11 | External Medical Summary ---
Author Name Unknown Address Unknown Organization [facility] [address] [place] [address] Laboratory Report Ordering Provider Test Date Status MOLLY DAWN 01/21/2024 11:48:14 Final Observation Date Value Abnormality Reference (Units ) Status WBC, Total 01/21/2024 11:48:14 9.21 4.00-10.8 0 (K/uL) Final RBC 01/21/2024 11:48:14 4.18 3.85-5.15 (M/uL) Final Hemoglobin 01/21/2024 11:48:14 13.2 12.0-15.3 (g/dL) Final HCT 01/21/2024 11:48:14 40.3 36.0-45.2 (%) Final MCV 01/21/2024 11:48:14 96.4 81.5-97.5 (fL) Final MCH 01/21/2024 11:48:14 31.6 27.0-34.0 (pg) Final MCHC 01/21/2024 11:48:14 32.8 32.0-36.0 (g/dL) Final RDW 01/21/2024 11:48:14 13.7 11.5-15.5 (%) Final Platelets 01/21/2024 11:48:14 342 140-400 (K /uL) Final MPV 01/21/2024 11:48:14 9.3 6.6-11.1 ( fL) Final Performing Location [facility] [address] [place] [address]
--- OUTSIDE RECORDS SUMMARY | 2024-07-02 04:11 | External Medical Summary | Summary of Care ---
Author Name Unknown Organization [facility] Address [address] [place] [address] Phone [phone] Care Team Providers Care Stonemason Supervisor Name Role Phone Linda Lopez DO Primary Care Provider [phone] Reason for Visit * Reason Comments Outpatient Testing Encounter Details Date Type Department Care Team (Late st Contact Info) Description 01/21/2024 11:50 AM EDT Laboratory [facility] [address] [facility] [address] [place] [address] SOB (shortness of breath) Allergies Active Allergy Reactions Criticality Noted Date Comments Alendronate Sodium Other (Please comment) Low 10/30/2014 Abdominal and jaw pain Rosuvastatin Calcium 06/24/2018 myalgias Diclofenac Resin Diflunisal Nausea Atorvastatin Other (Please comment) Low 10/30/2014 myalgias Naproxen Nausea Nsaids Orudis--rash documented as of this encounter (statuses as of 01/21/2024) Medications Medication Sig Dispensed Refills Start Date End Date Status Cholecalciferol (VITAMIN D) 1000 units Tablet Take 1 Tablet by mouth in the morning. 0 Active Cyanocobalamin (VITAMIN B-12) 1000 MCG Tablet Take 1 Tablet by mouth in the morning. 0 Active Doxycycline Hyclate 20 MG TabletIndications:R osacea TAKE 1 TABLET BY MOUTH 2 TIMES DAILY WITH OR WITHOUT FOOD 60 Tab 3 03/28/2020 Active Sulfacetamide Sodium, Acne, (KLARON) 10 % lotionIndications:R osacea Apply to face 2x daily (before sunscreen in morning) 118 g 3 03/28/2020 Active Fish Oil 500 MG Oral Capsule Take 1 Capsule by mouth in the morning. 0 Active valACYclovir HCl 1 GM Oral Tablet (Valtrex)Indication s:Cold sore Take 2 Tablets by mouth in the morning and 2 Tablets before bedtime. for cold sores. 4 Tablet 11 12/25/2022 Active Fluticasone Propionate 50 MCG/ACT Nasal Suspension (Flonase)Indication s:Acute frontal sinusitis, recurrence not specified SPRAY 2 SPRAYS INTO EACH NOSTRIL EVERY DAY 48 mL 3 01/13/2023 Active Levothyroxine Sodium 50 MCG Oral Tablet (Levoxyl)Indication s:Hypothyroidism (acquired) TAKE 1 TABLET BY MOUTH DAILY AT LEAST 30 MIN PRIOR TO BREAKFAST OR OTHER MEDS 90 Tablet 1 04/27/2023 Active amLODIPine Besylate 5 MG Oral Tablet [...] THE MORNING 90 Tablet 3 10/08/2023 Active Fluticasone Propionate HFA 220 MCG/ACT Inhalation AerosolIndications: Mild persistent asthma without complication Inhale 2 Puffs by mouth in the morning and 2 Puffs before bedtime. 12 g 3 01/08/2024 Active Furosemide 20 MG Oral Tablet (Lasix)Indications: Swelling of both lower extremities Take 1 Tablet by mouth daily as needed (lower extremity swelling). 20 Tablet 1 01/08/2024 Active Potassium Chloride Pita ER 20 MEQ Oral Tablet Extended ReleaseIndications: Swelling of both lower extremities Take 1 Tablet by mouth in the morning. On days patient takes lasix.. 60 Tablet 11 01/08/2024 Active Zinc 20 MG Oral Capsule Take by mouth. 0 Active Albuterol Sulfate HFA 108 (90 Base) MCG/ACT Inhalation Aerosol SolutionIndications :Bronchitis, complicated TAKE 2 PUFFS BY MOUTH EVERY 4 HOURS NEEDED FOR WHEEZING 54 g 1 01/21/2024 Active predniSONE 20 MG Oral Tablet (Deltasone)Indicati ons:Bronchitis, complicated Take 2 Tablets by mouth in the morning for 5 days. 10 Tablet 0 01/21/2024 01/26/2024 Active documented as of this encounter (statuses as of 01/21/2024) Active Problems Problem Noted Date Diagnosed Date [...] as of this encounter (statuses as of 01/21/2024) Resolved Problems Problem Noted Date Diagnosed Date [...] as of this encounter (statuses as of 01/21/2024) Immunizations Name Administration Dates Next Due COVID-19 mRNA, LNP-s, No Pre serve, 2-Dose Series (Th[employer]) 08/02/2021,12/20/2020,11/29/2020 Pneumococcal Conjugate Vacc, 13 Valent (Prevnar) [...] 07/24/2019 TDAP (age 10 and older)(Boostrix) 04/19/2021 TDAP (age 11 and older)(Adacel) 02/08/2011 Varicella Zoster Vaccine (Adult) 09/10/2011 Zoster [...] Upcoming Encounters Date Type Department Care Team (Latest Contact Info) Description 01/27/2024 1:45 PM EDT Hospital Encounter [facility], Operating Room [facility] [address] [place] [phone] Lewis Hook DO [address] [place] [phone] 01/27/2024 1:45 PM EDT - 01/27/2024 2:10 PM EDT Surgery OR [facility], Operating Room [facility] [address] [place] [phone] Lewis Hook DO [address] [place] [phone] INJECTION SPINE LUMBAR OR SACRAL 02/27/2024 3:30 PM EDT Telemedicine Orthopaedics [address] [address] Prabhu Kuo MD [address] [place] [address] 05/08/2024 11:00 AM EDT Imaging Radiology [address] [place] [address] 07/30/2024 11:00 AM EDT Nurse Only Ancillary [address] [place] [address] [place], Nurse Annual Wellness [address] [place] [address] [place] [address] 08/04/2024 4:20 PM EST Office Visit Family Practice [facility] [address] [place] [address] Linda Lopez DO [address] [place] [address] 04/19/2025 11:00 AM EDT Office Visit Dermatology [address] [place] [address] Maris Zeng PA-C [address] [place] [address] [place] [address] Pending Results Name Type Priority Associated Diagnoses Date /Time BNP, NT-PRO Lab Routine SOB (shortness of breath) 01/21/2024 11:48 AM EDT BASIC METABOLIC PANEL Lab Routine SOB (shortness of breath) 01/21/2024 11:48 AM EDT Scheduled Procedures Name Priority Associated Diagnoses Date/Ti me INJECTION SPINE LUMBAR OR SACRAL Lumbar radiculopathy 01/27/2024 1:45 PM EDT Health Maintenance Due Date Last Done Comments COVID-19 Vaccine ( season) 2023 08/02/2021, 12/20/2020, 11/29/2020 *BISPHONATE OR OTHER ACCEPTABLE MEDICATION NEEDED FOR OSTEOPOROSIS (REFER TO SMARTSET #1146) 01/12/2024 GFR 07/09/2024 07/09/2023, 11/29, 08/28/2022, Additional history exists TSH 07/09/2024 07/09/2023, 04/30, 07/18/2021, Additional history exists Albumin/Creatinine Ratio 07/09/2026 07/09/2023, [...] Procedure Name Priority Date/Time Associated Diagnosis Comments DIFFERENTIAL, AUTOMATED Routine 01/21/2024 11:48 AM EDT SOB (shortness of breath) CBC Routine 01/21/2024 11:48 AM EDT SOB (shortness of breath) CBC Routine 01/21/2024 11:48 AM EDT SOB (shortness of breath) documented in this encounter Results * DIFFERENTIAL, AUTOMATED (01/21/2024 11:48 AM EDT) WBC 9.21 4.00 - 10.80 K/uL 01/21/2024 11:57 AM EDT [facility] Neutrophils % 64.0 40.0 - 75.0 % 01/21/2024 11:57 AM EDT [facility] Lymphocytes % 21.5 18.0 - 42.0 % 01/21/2024 11:57 AM EDT [facility] Monocytes % 8.4 1.0 - 11.0 % 01/21/2024 11:57 AM EDT [facility] Eosinophils % 5.4 0.0 - 6.0 % 01/21/2024 11:57 AM EDT [facility] Basophils % 0.7 0.0 - 2.0 % 01/21/2024 11:57 AM EDT [facility] Absolute Neutrophils 5.90 1.80 - 7.70 K/uL 01/21/2024 11:57 AM EDT [facility] Absolute Lymphocytes 1.98 1.00 - 4.80 K/ul 01/21/2024 11:57 AM EDT [facility] Absolute Monocytes 0.77 0.00 - 1.10 K/uL 01/21/2024 11:57 AM EDT [facility] Absolute Eosinophils 0.50 0.00 - 0.70 K/uL 01/21/2024 11:57 AM EDT [facility] Absolute Basophils 0.06 0.00 - 0.20 K/uL 01/21/2024 11:57 AM EDT [facility] Blood Venous blood specimen / Unknown Venipuncture / Unknown 01/21/2024 11:48 AM EDT 01/21/2024 11:48 AM EDT Linda Lopez DO LAB BLOOD ORDERABLE S [facility] [place] [address] * CBC (01/21/2024 11:48 AM EDT) WBC 9.21 4.00 - 10.80 K/uL 01/21/2024 11:57 AM EDT [facility] RBC 4.18 3.85 - 5.15 M/uL 01/21/2024 11:57 AM EDT [facility] HGB 13.2 12.0 - 15.3 g/dL 01/21/2024 11:57 AM EDT [facility] HCT 40.3 36.0 - 45.2 % 01/21/2024 11:57 AM EDT [facility] MCV 96.4 81.5 - 97.5 fL 01/21/2024 11:57 AM EDT [facility] MCH 31.6 27.0 - 34.0 pg 01/21/2024 11:57 AM EDT [facility] MCHC 32.8 32.0 - 36.0 g/dL 01/21/2024 11:57 AM EDT [facility] RDW 13.7 11.5 - 15.5 % 01/21/2024 11:57 AM EDT [facility] PLT 342 140 - 400 K/uL 01/21/2024 11:57 AM EDT [facility] MPV 9.3 6.6 - 11.1 fL 01/21/2024 11:57 AM EDT [facility] Blood Venous blood specimen / Unknown Venipuncture / Unknown 01/21/2024 11:48 AM EDT 01/21/2024 11:48 AM EDT Linda Lopez DO LAB BLOOD ORDERABLE S [facility]ATORY [facility] [place] [address] documented in this encounter Visit Diagnoses Diagnosis SOB (shortness of breath) Shortness of breath Lumbar radiculopathy Thoracic or lumbosacral neuritis or radiculitis, unspecified documented in this encounter Care Teams Stonemason Supervisor Relationship Specialty Start Date End Date Linda Lopez DO [address] [place] [address] PCP - General Family Medicine 12/27/15 documented as of this encounter
--- OUTSIDE RECORDS SUMMARY | 2024-07-02 04:11 | External Medical Summary | Summary of Care ---
Author Name Unknown Organization [facility] Address [address] [place] [address] Phone [phone] Care Team Providers Care Office Technician Name Role Phone Linda Lopez DO Primary Care Provider [phone] Reason for Visit * Auth/Cert Specialty Diagnoses / Procedures Referred By Bi t Referred To Contact Diagnoses Lumbar radiculopathy Lumbar radiculopathy [M54.16] Procedures INJECT DX/THER SUBSTANCE INTERLAMINAR LUMBAR/SACRAL W IMAGE GUIDE INJECTION SPINE LUMBAR OR SACRAL Lewis Hook DO [address] [place] [address] [address] [address] [place] [phone] Referral ID Status Reason Start Date Expiration Date Visits Re quested Visits Authorized [id number] Encounter Details Date Type Department Care Team (Latest Contact Info) Description 01/27/2024 12:39 PM EDT - 01/27/2024 2:21 PM EDT Hospital Encounter [facility], Operating Room [facility] [address] [place] [address] Lewis Hook DO [address] [place] [address] Discharge Disposition: Home - Self Care Allergies Active Allergy Reactions Criticality Noted Date Comments Alendronate Sodium Other (Please comment) Low 10/30/2014 Abdominal and jaw pain Rosuvastatin Calcium 06/24/2018 myalgias Diclofenac Resin Diflunisal Nausea Atorvastatin Other (Please comment) Low 10/30/2014 myalgias Naproxen Nausea Nsaids Orudis--rash documented as of this encounter (statuses as of 01/28/2024) Medications Medication Sig Dispensed Refills Start Date [...] THE MORNING 90 Tablet 3 10/08/2023 Active Zinc 20 MG Oral Capsule Take [...] 60 Blister Dosing Unit 5 01/23/2024 Active documented as of this encounter (statuses as of 01/28/2024) Active Problems Problem Noted Date Diagnosed Date [...] as of this encounter (statuses as of 01/28/2024) Resolved Problems Problem Noted Date Diagnosed Date [...] as of this encounter (statuses as of 01/28/2024) Immunizations Name Administration Dates Next Due COVID-19 mRNA, LNP-s, No Pre serve, 2-Dose Series ([employer]) 08/02/2021,12/20/2020,11/29/2020 Pneumococcal Conjugate Vacc, 13 Valent (Prevnar) [...] Sign Reading Time Taken Comments Blood Pressure 168/105 01/27/2024 2:13 PM EDT Pulse 80 01/27/2024 2:13 PM EDT Temperature 36.7 C (98.1 F) 01/27/2024 2:13 PM ED T Respiratory Rate 18 01/27/2024 2:13 PM EDT Oxygen Saturation 97% 01/27/2024 2:13 PM EDT Inhaled Oxygen Concentration - - Weight - - Height - - Body Mass Index - - documented in this encounter Discharge Instructions * Discharge Instr - AVS* Lewis Hook DO - 01/27/2024 2:10 PM EDT [facility] [address] [place] [address] Discharge Date: 01/27/2024 [facility] at [phone] during business hours. For after-hours emergencies call 911. Your attending physician at the time of your discharge was: Lewis Hook DO [address] [place] [address] The information below provides you with the instructions and the list of medications you need to betaking following discharge from the hospital. If you have any questions, please ask before leaving. Please carry this letter with you when you see your doctor in the clinic. Diet: Resume your normal diet If you are diabetic, follow your blood sugars closely for next 2-3 days as they are likely to be elevated. If you are having difficulty controlling your blood sugars call your family doctor or the physician that treats your diabetes. Activity: Do not engage in strenuous activity today Resume your normal activities tomorrow Do not soak in water for 24 hours. No swimming, hot tub or bath but showering is allowed. Do not use heat on the injection site for 24 hours. If uncomfortable ice may be helpful. Some injections may make your arms or legs weak for a few hours. Be extremely careful when walking or changing positions that you do not fall. Have someone assist you for the next 6 hours. If weakness or numbness becomes progressive CALL IMMEDIATELY or GO TO THE NEAREST EMERGENCY ROOM Keep a diary of your pain until seen in the office to help us determine how effective the injectionwas Do not restart physical therapy or chiropractic manipulation until 48 hours after your injection Call : If weakness or numbness suddenly becomes worse or become progressive If the injection site becomes red, swollen, warm to the touch, begins to bleed or drain fluid, or is excessively painful. If you have any questions Medications: Resume all the medications you were taking prior to your injection. Resume your anticoagulants tomorrow unless otherwise instructed by your family physician, construction mgr or the anticoagulation clinic. Additional Instructions: None Driving: You may resume driving in 12-24 hours if no weakness is noted . Date you may return to work or school: N/A Follow Up: Please make a follow-up telephone appointment with our nursing staff in 4-6 weeks. documented in this encounter Progress Notes * Lewis Hook DO - 01/27/2024 2:11 PM EDT [facility] [place] [address] [facility] [phone] OUTPATIENT SURGERY DISCHARGE SUMMARY NOTE Name: Ivelisse Bonner Location: OR [facility]/OR Date: 01/27/2024 Time: 2:11 PM Surgery Date: 01/27/2024 Procedure: INJECTION SPINE LUMBAR OR SACRAL No laterality found for procedure #1 Surgeon: Lewis Hook DO Discharge Diagnosis: lumbar radicular pain After examination of this patient, I have determined she is ready for discharge to home when the patient meets criteria. Discharge instructions were given to the patient. Lewis Hook DO OR [facility], Operating Room [facility] [address] [facility] [address] [place] [address] documented in this encounter H&P Notes * Lewis Hook DO - 01/27/2024 1:48 PM EDT Interventional Pain H&P Subjective: History of Present Illness: Ivelisse Bonner is a 78 year old year-old female with a past medical history significant for lumbar radicular pain which has previously responded to LESI who is presenting for repeat L5/S1 JOHNATHON to improve her pain and function. her pain is essentially unchanged since our last office visit with her. ASA 3 AW nml Review of Systems: A focused 12-pt ROS were of reviewed with the patient including difficulty with sleep, snoring, aspiration history, dysphagia, stomach pain, nausea and vomiting, severe headaches, confusion, open skin lesions or wounds, chest pain, shortness of breath, excessive thirst, somnolence, dysuria, incomplete bladder emptying, easy bruising, recent clotting problems or bleeding, depression or rushed thoughts unless noted previously. Review of patient's allergies indicates: Allergen Reactions Crestor [Rosuvastatin Calcium] myalgias Diclofenac Resin Diflunisal Nausea Naproxen Nausea Nsaids Orudis--rash Alendronate Sodium Other (Please comment) Abdominal and jaw pain Lipitor [Atorvastatin] Other (Please comment) myalgias Medications, Past Medical History, Past Surgical History reviewed and documented in [facility]. See detailed report if needed. Pertinent Labs/Test Results: INR (no units) Date Value 01/03/2000 0.88 No results found for: "CREATININE" Hemoglobin A1C (%) Date Value 02/28/2021 5.0 No results found for: "AMPHETAMINE", "BARBITURATES", "BENZODIAZEPINES", "BUPRENORPHINE", "METHADONE", "OPIATES", "OXYCODONE", "PHENCYCLIDINE", "CANNABINOIDS", "TOX SCREEN", "URINE", "TOX SCREEN-SERUM", "TOX SCREEN, URINE" Imaging: I personally reviewed the imaging and my findings were . XR CHEST 2 VIEWS Narrative: EXAM XR CHEST 2 VIEWS-01/08/2024 3:09 pm HISTORY Dyspnea on exertion COMPARISON Chest radiograph 11/05/2018. TECHNIQUE PA and lateral views of the chest are examined. FINDINGS Slightly prominent reticular opacities are noted bilaterally, new from prior examination. There is no pleural effusion. The pulmonary vasculature and cardiomediastinal silhouette are within normal limits. No acute osseous finding. Impression: IMPRESSION Diffuse bilateral reticular airspace opacities. This is nonspecific but suggestive of an infectiousetiology. No discrete fissural thickening or pleural effusion to suggest edema. Objective Physical Exam: Vital Signs: BP 174/101 | Pulse 93 | Temp 36.7 C (98.1 F) (Tympanic) | Resp 20 | SpO2 96% Thereis no height or weight on file to calculate BMI. General: No apparent distress. Eyes: pupils equal and round, sclera white, pupils midsize. ENT: mucous membranes moist Resp: Non-labored breathing CV: Extremities warm and well-perfused. Psych: Oriented; affect warm, insight good. Skin: No rashes or lesions appreciated on exposed skin Neuromuscular Exam: Facet loading neg, SLR pos, TTT over lumbar spine Assessment: Ivelisse is a 78 year old year-old female with: Lumbar radicular pain Plan: The patient is undergoing L5/S1 JOHNATHON today to alleviate her pain and improve her function. The risks, benefits and alternatives to the procedure were reviewed at length and the patient was provided the opportunity to ask questions which were answered to their voiced understanding. Following this comprehensive discussion, the patient opted to proceed. The patient was consented to the procedure following this comprehensive conversation. Lewis HookDO [facility], Operating Room [facility] [address] [place] [address] documented in this encounter Nursing Notes * Maris Laureano RN - 01/27/2024 2:18 PM EDT Pt tolerated procedure well. Pt has been visited by Dr. Hook. Discharge instructions reviewed with pt and pt has verbalized understanding of these teachings. Pt BP elevated pre and post procedure, see flowsheet for details. Dr. Hook aware, pt denies vision changes, chest pain, or shortness of breath. Dr. Hook states pt is okay for discharge but explained to pt that if any of these symptoms shouldarise, she is to go to ER right away. Dr. Hook and senior mortgage underwriter also encouraged pt to notify pcp of high pressures. Pt has verbalized understanding of these teachings. Pt ready for discharge. * Mandy Rios RN - 01/27/2024 2:09 PM EDT Band aid applied to area. Patient transferred to PACU 11 via wheelchair * Mandy Rios RN - 01/27/2024 2:03 PM EDT Patient tolerating pain management injection well. documented in this encounter OR Notes * OR Surgeon - Lewis Hook DO - 01/27/2024 2:09 PM EDT INTERLAMINAR LUMBAR EPIDURAL STEROID INJECTION DATE: 01/27/2024 PHYSICIAN: Lewis Hook DO PREOPERATIVE DIAGNOSIS: Lumbar spondylosis with lumbar radiculopathy. POSTOPERATIVE DIAGNOSIS: Lumbar spondylosis with lumbar radiculopathy. PROCEDURE PERFORMED: L5/S1 interlaminar epidural steroid injection on the left side. Fluoroscopy for precise needle placement. ANESTHESIA: Local infiltration with 1% lidocaine. MONITORS: Automatic blood pressure cuff, pulse oximetry. There was no rehabilitation assistant, EBL or drains placed during this procedure. INDICATIONS: I had the pleasure of seeing Ivelisse Bonner ([id number]) in the pain management clinic at the [facility] today. Ivelisse Bonner is a 78 year old year-old female has a history of lumbar radiculopathy. she is here today for an interlaminar lumbar epidural steroid injection today. MEDICATIONS: No current facility-administered medications for this encounter. ALLERGIES: Review of patient's allergies indicates: Allergen Reactions Crestor [Rosuvastatin Calcium] myalgias Diclofenac Resin Diflunisal Nausea Naproxen Nausea Nsaids Orudis--rash Alendronate Sodium Other (Please comment) Abdominal and jaw pain Lipitor [Atorvastatin] Other (Please comment) myalgias REVIEW OF SYSTEMS: Negative for fever, chills, chest pain, SOB, bleeding abnormalities, nausea, vomiting, diarrhea, worsening edema, or new rashes. FOCUSED PHYSICAL EXAMINATION: The patient is awake, alert and oriented, and is in no acute distress. Vital signs are stable. The patient is afebrile. The rest of the PE is essentially unchanged from the patient's recent visit to our office. I explained the procedure to the patient including the risks, benefits and alternatives to the procedure. The risks discussed with the patient included but were not limited to: bleeding, infection, and damage to surrounding nerves, tissues, and organs, paralysis, increased pain, pain at the site ofinjection, allergic reaction, blood pressure instability, seizures, heart block, headaches, increase in blood sugar, worsening of glaucoma, blindness, manic episodes, mood instability, . Alternatives to the procedure were also explained and include: do nothing, surgery, medications, and physical therapy. The patient verbalized understanding and was willing to proceed. PROCEDURE IN DETAIL: An informed consent was obtained. The patient was taken to the procedure room,was positively identified by the staff and attending physician. The patient was positioned prone onthe procedure bed. Vital signs were monitored as above and remained stable throughout the procedure. The skin was prepped and draped in a standard sterile fashion. A surgical pause time-out was performed and agreed upon by the members of the team. Fluoroscopic view of the lumbar spine was obtained and the area of interest was identified. The skin and subcutaneous tissues were anesthetized using 1% lidocaine and 25-gauge 1-1/2 inch needle. After that, a 20-gauge, 3.5-inch epidural needle was advanced towards the L5/S1 interlaminar windowin the left paramedian position. AP, contralateral oblique and lateral views were used to assess appropriate needle position. Loss of resistance to air technique was utilized and was obtained at 7.5 cm from the skin. The needle's position was additionally verified by injecting radiopaque dye, whichshowed spread of the dye in the epidural space in AP and lateral views. After negative aspiration for CSF and blood, 80 mg of Kenalog diluted in 2 mL of 1% lidocaine was injected into the epidural space. The needle was withdrawn. The patient tolerated the procedure well. COMPLICATIONS: None. DISPOSITION: 1. Return to clinic in 1-2 months for follow-up evaluation, sooner as needed. 2. Resume activity as tolerated. 3. Patient can drive after 12-24 hours if no weakness noted. Lewis Hook DO OR [facility], Operating Room [facility] [address] [place] [phone] documented in this encounter Plan of Treatment Upcoming Encounters Date Type Department Care Team (Late st Contact Info) Description 02/25/2024 11:00 AM EDT Scheduled Telephone Interventional Pain Center, [facility] [address] [place] [address] Nurse Mike Phone Call Interventional Pain [facility] [address] [place] [address] 02/27/2024 3:30 PM EDT Telemedicine Orthopaedics [address] [place] [id number] Prabhu Kuo MD [address] [place] [address] 05/08/2024 11:00 AM EDT Imaging Radiology [address] [place] [address] 07/30/2024 11:00 AM EDT Nurse Only Ancillary [address] [place] [address] [place], Nurse Annual Wellness [address] [place] [address] [place] [address] 08/04/2024 4:20 PM EST Office Visit Family Practice [facility] [address] [place] [address] Linda Lopez DO [address] [place] [address] 04/19/2025 11:00 AM EDT Office Visit Dermatology [address] [place] [address] Maris Zeng PA-Conrado [address] [place] [address] [place] [address] Health Maintenance Due Date Last Done Comments COVID-19 Vaccine (2022- season) 2023 08/02/2021, 12/20/2020, 11/29/2020 *BISPHONATE OR OTHER ACCEPTABLE MEDICATION NEEDED FOR OSTEOPOROSIS (REFER TO SMARTSET #1146) 01/12/2024 *NEPHROLOGY REFERRAL DUE TO RESISTANT HTN 01/23/2024 TSH 07/09/2024 07/09/2023, 04/30, 07/18/2021, Additional history exists GFR 01/20/2025 01/21/2024, 06/30, 12/26/2022, Additional history [...] Procedure Name Priority Date/Time Associated Diagnosis Comments FLUORO INTERVENTIONAL PAIN PROCEDURE NONBILLABLE Routine 01/27/2024 2:15 PM EDT documented in this encounter Results * FLUORO INTERVENTIONAL PAIN PROCEDURE NONBILLABLE (01/27/2024 2:15 PM EDT) Narrative Scheduling, Silent - 01/27/2024 2:15 PM EDT This procedure will not be read by a Radiologist. Please see operative note. Lewis Scoutjaniya Hook DO RAD FLUOROSCOPY documented in this encounter Administered Medications Inactive Administered Medications - up to 3 most recent administrations Medication Order MAR Action Action Date Dose Rate Site Iohexol (Omnipaque 180) inj 1 mL 1 mL, Intravenous, ONCE, On Sat01/27/24 at 1400, For 1 dose Given 01/27/2024 2:04 PM EDT 3 mL lidocaine 1 % inj 20 mg 20 mg (2 mL), Subcutaneous, ONCE, On Sat01/27/24 at 1400, For 1 dose Given 01/27/2024 2:03 PM EDT 5 mL O ther-Specify Triamcinolone Acetonide (Kenalog) 40 MG/ML inj 40 mg 40 mg, Injection, ONCE, On Sat01/27/24 at 1400, For 1 dose Given 01/27/2024 2:07 PM EDT 80 mg documented in this encounter Active and Recently Administered Medications Times are shown in EDT. Scheduled Medication Order 01/25/2024 01/26/2024 01/27/2024 Iohexol (Omnipaque 180) inj 1 mL (COMPLETED) 1 mL, Intravenous, ONCE, On Sat01/27/24 at 1400, For 1 dose 1404 (Given - Provid er: Mandy Rios RN) lidocaine 1 % inj 20 mg (COMPLETED) 20 mg (2 mL), Subcutaneous, ONCE, On Sat01/27/24 at 1400, For 1 dose 1403 (Given - Provid er: Mandy Rios RN) Triamcinolone Acetonide (Kenalog) 40 MG/ML inj 40 mg (COMPLETED) 40 mg, Injection, ONCE, On Sat01/27/24 at 1400, For 1 dose 1407 (Given - Provid er: Mandy Rios RN) documented in this encounter Care Teams Office Technician Relationship Specialty Start Date End Date Linda Lopez DO [address] [place] [address] PCP - General Family Medicine 12/27/15 documented as of this encounter
--- OUTSIDE RECORDS SUMMARY | 2024-07-02 04:11 | External Medical Summary | Summary of Care ---
Author Name Unknown Organization [facility] Address [address] [place] [address] Phone [phone] Care Team Providers Care Quality Officer Name Role Phone Linda Lopez DO Primary Care Provider [phone] Reason for Visit * Reason Comments Short of Breath Still SOB after anti biotics Encounter Details Date Type Department Care Team (Late st Contact Info) Description 01/21/2024 11:20 AM EDT Office Visit Family Practice [facility] [address] [place] [address] Linda Lopez DO [address] [place] [address] SOB (shortness of breath)*; Bronchitis, complicated Allergies Active Allergy Reactions Criticality Noted Date Comments Alendronate Sodium Other (Please comment) Low 10/30/2014 Abdominal and jaw pain Rosuvastatin Calcium 06/24/2018 myalgias Diclofenac Resin Diflunisal Nausea Atorvastatin Other (Please comment) Low 10/30/2014 myalgias Naproxen Nausea Nsaids Orudis--rash documented as of this encounter (statuses as of 01/25/2024) Medications Medication Sig Dispensed Refills Start Date End Date Status Cholecalciferol (VITAMIN D) 1000 units Tablet Take 1 Tablet by mouth in the morning. 0 Active Cyanocobalamin (VITAMIN B-12) 1000 MCG Tablet Take 1 Tablet by mouth in the morning. 0 Active Doxycycline Hyclate 20 MG TabletIndications: Rosacea [...] 01/21/2024 Active predniSONE 20 MG Oral Tablet (Deltasone)Indicat ions:Bronchitis, complicated Take 2 Tablets by mouth in the morning for 5 days. 10 Tablet 0 01/21/2024 4 Active Albuterol Sulfate HFA 108 (90 Base) MCG/ACT Inhalation Aerosol SolutionIndication s:Bronchitis, complicated TAKE 2 PUFFS BY MOUTH EVERY 4 HOURS NEEDED FOR WHEEZING 54 g 1 10/10/2020 4 Discontinue d(Refill) Fluticasone Propionate HFA 220 MCG/ACT Inhalation AerosolIndications :Mild persistent asthma without complication Inhale 2 Puffs by mouth in the morning and 2 Puffs before bedtime. 12 g 3 01/08/2024 4 Discontinue d(Formulary /Cost) documented as of this encounter (statuses as of 01/25/2024) Active Problems Problem Noted Date Diagnosed Date [...] as of this encounter (statuses as of 01/25/2024) Resolved Problems Problem Noted Date Diagnosed Date [...] as of this encounter (statuses as of 01/25/2024) Immunizations Name Administration Dates Next Due COVID-19 mRNA, LNP-s, No Pre serve, 2-Dose Series ([employer]) 08/02/2021,12/20/2020,11/29/2020 Pneumococcal Conjugate Vacc, 13 Valent (Prevnar) [...] Sign Reading Time Taken Comments Blood Pressure 142/76 01/21/2024 11:16 AM EDT Pulse 80 01/21/2024 11:16 AM EDT Temperature 36.4 C (97.6 F) 01/21/2024 11:16 AM E DT Respiratory Rate 16 01/21/2024 11:16 AM EDT Oxygen Saturation 99% 01/21/2024 11:16 AM EDT Inhaled Oxygen Concentration - - Weight 81.6 kg (180 lb) 01/21/2024 11:16 AM EDT Height - - Body Mass Index 35.15 07/29/2023 11:09 AM EDT documented in this encounter Progress Notes * Linda Lopez, DO - 01/21/2024 11:29 AM EDT Subjective: Ivelisse Bonner is a 78 year old female. Chief Complaint Patient presents with Short of Breath Still SOB after antibiotics HPI: Pt presents for follow up today. Still having SOB when going up and down stairs or walking quickly, "huffing and puffing". Has basic cough from PND, worse in the AM. Using albuterol via nebulizer, this does seem to make her feel better for a while. Using flovent more regularly. Had tried advair years ago but it was too hard to use. 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 Chondrocalcinosis of knee M11.269 Slow transit constipation K59.01 Acquired hypothyroidism E03.9 Statin intolerance Z78.9 Hypertension goal BP (blood pressure) < 150/90 I10 Major depressive disorder, recurrent, unspecified (HCC) F33.9 Mild persistent asthma without complication J45.30 Fatigue R53.83 Chronic low back pain without sciatica M54.50, G89.29 Need for prophylactic vaccination and inoculation against influenza Z23 Urinary frequency R35.0 Age-related osteoporosis without current pathological fracture M81.0 Caregiver stress Z63.6 Moderate episode of recurrent major depressive disorder (HCC) F33.1 Current Outpatient Medications Medication Sig Dispense Refill [...] (before sunscreen in morning) 118 g 3 Albuterol Sulfate HFA 108 (90 Base) MCG/ACT Inhalation Aerosol Solution TAKE 2 PUFFS BY MOUTH EVERY4 HOURS NEEDED FOR WHEEZING 54 g 1 Fish Oil 500 MG Oral Capsule Take 1 Capsule by mouth in the morning. valACYclovir HCl 1 GM Oral Tablet (Valtrex) Take 2 Tablets by mouth in the morning and 2 Tablets before bedtime. for cold sores. 4 Tablet 11 Fluticasone Propionate 50 MCG/ACT Nasal Suspension (Flonase) SPRAY 2 SPRAYS INTO EACH NOSTRIL EVERYDAY 48 mL 3 Levothyroxine Sodium 50 MCG Oral Tablet (Levoxyl) TAKE 1 TABLET BY MOUTH DAILY AT LEAST 30 MIN PRIOR TO BREAKFAST OR OTHER MEDS 90 Tablet 1 amLODIPine Besylate 5 MG Oral Tablet (Norvasc) [...] DAY IN THE MORNING 90 Tablet 3 Fluticasone Propionate HFA 220 MCG/ACT Inhalation Aerosol Inhale 2 Puffs by mouth in the morning and 2 Puffs before bedtime. 12 g 3 Furosemide 20 MG Oral Tablet (Lasix) Take 1 Tablet by mouth daily as needed (lower extremity swelling). 20 Tablet 1 Potassium Chloride Pita ER 20 MEQ Oral Tablet Extended Release Take 1 Tablet by mouth in the morning. On days patient takes lasix.. 60 Tablet 11 Zinc 20 MG Oral Capsule Take by mouth. No current facility-administered medications for this visit. [...] APPENDECTOMY W/OTHER PROCEDURE 1982 BREAST LESION,OTHER,EXCISION Left 2012 Benign COLONOSCOPY 05/05/12 normal- Dr. Shahid DIGITAL RECTAL EXAM,ANNUAL EGD, FLEXIBLE, DIAGNOSTIC 02/19/2019 normal bx/ESOPHAGOGASTRODUODENOSCOPY (EGD), FLEXIBLE, TRANSORAL, DIAGNOSTIC performed by Nickolas Tucker MD at ENDOSCOPY [facility] INJECT DX/THER SUBSTANCE INTERLAMINAR LUMBAR/SACRAL W IMAGE GUIDE 10/18/2023 INJECTION SPINE LUMBAR OR SACRAL performed by Lewis Hook DO at OR [facility] LAPAROSCOPY; CHOLECYSTECTOMY 10/02/10 Dr. Shahid MAMMOGRAM BREAST [...] pain Lipitor [Atorvastatin] Other (Please comment) myalgias Objective: BP 142/76 (BP Site: Left Arm, BP Position: Sitting, BP Cuff Size: Large) | Pulse 80 | Temp 36.4 C (97.6 F) (Tympanic) | Resp 16 | Wt 81.6 kg (180 lb) | SpO2 99% | BMI 35.15 kg/m | BSA 1.86 m Review of Systems: As per HPI, all other ROS neg. Physical Exam: General: alert, healthy, and no distress Heart: regular rate & rhythm and no gallops Lungs: chest symmetric with normal AP diameter, no chest deformities noted, no chest wall tenderness, decreased breath sounds, no w/r/r Extremities: no joint deformities, effusion, or inflammation, no edema SOB (shortness of breath) (Primary) - BNP, NT-PRO; Future; Expected date: 01/21/2024 - CBC WITH WBC DIFFERENTIAL; Future; Expected date: 01/21/2024 - BASIC METABOLIC PANEL; Future; Expected date: 01/21/2024 Bronchitis, complicated - Albuterol Sulfate HFA 108 (90 Base) MCG/ACT Inhalation Aerosol Solution; TAKE 2 PUFFS BY MOUTH EVERY 4 HOURS NEEDED FOR WHEEZING - predniSONE 20 MG Oral Tablet (Deltasone); Take 2 Tablets by mouth in the morning for 5 days. May need to switch to LABA/ICS Follow up: as needed. Linda Lopez DO documented in this encounter Plan of Treatment Upcoming Encounters Date Type Department Care Team (Latest Contact Info) Description 01/27/2024 1:45 PM EDT Hospital Encounter [facility], Operating Room [facility] [address] [place] [phone] Lewis Hook DO [address] [place] [address] 01/27/2024 1:45 PM EDT - 01/27/2024 2:10 PM EDT Surgery OR [facility], Operating Room [facility] [address] [place] [phone] [place] DO [address] [place] [address] INJECTION SPINE LUMBAR OR SACRAL 02/27/2024 3:30 PM EDT Telemedicine Orthopaedics [address] [place] [phone] Prabhu Kuo MD [address] [place] [address] 05/08/2024 11:00 AM EDT Imaging Radiology [address] [place] [address] 07/30/2024 11:00 AM EDT Nurse Only Ancillary [address] [place] [address] [place], Nurse [address] [place] [address] 08/04/2024 4:20 PM EST Office Visit Family Practice [facility] [address] [place] [address] Linda Lopez DO [address] [place] [address] 04/19/2025 11:00 AM EDT Office Visit Dermatology [address] [place] [address] Maris Zeng PA-C [address] [place] [address] [place] [address] Scheduled Procedures Name Priority Associated Diagnoses Date/Ti [...] filedocumented as of this encounter Results * (ABNORMAL) BASIC METABOLIC PANEL (01/21/2024 11:48 AM EDT) BUN 22(H) 6 - 20 mg/dL 01/21/2024 2:01 PM EDT [facility] Creatinine 0.8 0.5 - 1.0 mg/dL 01/21/2024 2:01 PM EDT [facility] Estimated Glomerular Filtration Rate 72 >=60 mL/min 01/21/2024 2:01 PM EDT [facility] Comment:eGFR is calculated b ased on the CKD-EPI 2020 equation Sodium 139 135 - 146 mmol/L 01/21/2024 2:01 PM EDT [facility] Potassium 4.5 3.5 - 5.1 mmol/L 01/21/2024 2:01 PM EDT [facility] Chloride 102 98 - 107 mmol/L 01/21/2024 2:01 PM EDT [facility] CO2 25 22 - 32 mmol/L 01/21/2024 2:01 PM EDT [facility] Anion Gap 12 7 - 15 mmol/L 01/21/2024 2:01 PM EDT [facility] Glucose 89 70 - 120 mg/dL 01/21/2024 2:01 PM EDT [facility] Calcium 9.5 8.4 - 10.2 mg/dL 01/21/2024 2:01 PM EDT [facility] Blood Venous blood specimen / Unknown Venipuncture / Unknown 01/21/2024 11:48 AM EDT 01/21/2024 11:48 AM EDT Linda Lopez DO LAB BLOOD ORDERABLE S [facility] [address] [facility] [place] [address] * BNP, NT-PRO (01/21/2024 11:48 AM EDT) BNP, NT-Pro 236 <300 pg/mL 01/21/2024 9:46 PM EDT [facility] Blood Venous blood specimen / Unknown Venipuncture / Unknown 01/21/2024 11:48 AM EDT 01/21/2024 11:48 AM EDT Narrative [facility] - 01/21/2024 9:46 PM EDT Exclude Heart Failure: <300 pg/mL Diagnose Heart Failure: Age <50 yr: >450 pg/mL 50-75 yr: >900 pg/mL >75 yr: >1800 pg/mL GFR is 30-59 mL/min: >1200 pg/mL or Age-adjusted values GFR <30 mL/min: do not use, not reliable Prognostic threshold: 1000 pg/mL Linda Lopez DO LAB BLOOD ORDERABLE S [facility] [address] [facility] [place] [address] documented in this encounter Visit Diagnoses Diagnosis SOB (shortness of breath)- Primary Shortness of breath Bronchitis, complicated Bronchitis, not specified as acute or chronic Lumbar radiculopathy Thoracic or lumbosacral neuritis or radiculitis, unspecified documented in this encounter Care Teams Quality Officer Relationship Specialty Start Date End Date iLnda Lopez DO [address] [place] [address] PCP - General Family Medicine 12/27/15 documented as of this encounter
--- OUTSIDE RECORDS SUMMARY | 2024-07-02 04:11 | External Medical Summary ---
Author Name Unknown Address Unknown Organization K01:[facility]ATORY [facility] - [address] [place] [address] Laboratory Report Ordering Provider Test Date Status MOLLY DAWN 01/21/2024 11:48:14 Final Exclude Heart Failure: <300 pg/mL
Diagnose Heart Failure:
Age <50 yr: >450 pg/mL
50-75 yr: >900 pg/mL
>75 yr: >1800 pg/mL
GFR is 30-59 mL/min: >1200 pg/mL or Age- adjusted values
GFR <30 mL/min: do not use, not reliable

Prognostic threshold: 1000 pg/mL Observation Date Value Abnormality Reference (Units ) Status BNP, Pro-hormone 01/21/2024 11:48:14 236 <30 0 (pg/mL) Final Performing Location [facility] [place] - [address] [place] [address]
--- OUTSIDE RECORDS SUMMARY | 2024-07-02 04:11 | External Medical Summary | Summary of Care ---
Author Name Unknown Organization [facility] Address [address] [place] [address] Phone [phone] Care Team Providers Care Cpo Name Role Phone Linda Lopez DO Primary Care Provider [phone] Reason for Visit * Reason Onset Date Comments Follow Up 02/25/2024 Encounter Details Date Type Department Care Team (Late st Contact Info) Description 02/25/2024 11:00 AM EDT Scheduled Telephone [facility], [facility] [address] [place] [address] Mike Nurse Phone Call Interventional Pain [facility] [address] [place] [address] Allergies Active Allergy Reactions Criticality Noted Date Comments Alendronate Sodium Other (Please comment) Low 10/30/2014 Abdominal and jaw pain Rosuvastatin Calcium 06/24/2018 myalgias Diclofenac Resin Diflunisal Nausea Atorvastatin Other (Please comment) Low 10/30/2014 myalgias Naproxen Nausea Nsaids Orudis--rash documented as of this encounter (statuses as of 02/25/2024) Medications Medication Sig Dispensed Refills Start Date [...] as of this encounter (statuses as of 02/25/2024) Active Problems Problem Noted Date Diagnosed Date [...] as of this encounter (statuses as of 02/25/2024) Resolved Problems Problem Noted Date Diagnosed Date Resolved Date BMI 40.0-44.9, adult 09/26/2020/03/2 022 Major depressive disorder, s wilton episode, [...] as of this encounter (statuses as of 02/25/2024) Immunizations Name Administration Dates Next Due COVID-19 mRNA, LNP-s, No Pre serve, 2-Dose Series ([employer]) 08/02/2021,12/20/2020,11/29/2020 Pneumococcal Conjugate Vacc, 13 Valent (Prevnar) [...] encounter Miscellaneous Notes * Telephone Encounter - Amy Roth LPN - 02/25/2024 10:40 AM EDT Follow up call 1mon after L5/S1 interlaminar epidural steroid injection on the left side. 100% for the first 15 days but still 90-100% currently. Tolerable at this point. Will call as needed. Not using meloxicam currently. documented in this encounter Plan of Treatment Upcoming Encounters Date Type Department Care Team (Late st Contact Info) Description 02/27/2024 3:30 PM EDT Telemedicine Orthopaedics [address] [phone] Prabhu Kuo MD [address] [facility] [place] [address] 05/08/2024 11:00 AM EDT Imaging Radiology [address] [place] [address] 07/30/2024 11:00 AM EDT Nurse Only Ancillary [address] [place] [address] [place], Nurse Annual [facility]ness [address] [place] [address] [place] [address] 08/04/2024 4:20 PM EST Office Visit [facility] [address] [place] [address] Linda Lopez DO [address] [place] [address] 04/19/2025 11:00 AM EDT Office Visit Dermatology [address] [place] [address] Maris Zeng PA-C [address] [place] [address] [place] [address] Health Maintenance Due Date Last Done Comments [...] filedocumented as of this encounter Care Teams Cpo Relationship Specialty Start Date End Date Linda Lopez DO [address] [place] [address] PCP - General Family Medicine 12/27/15 documented as of this encounter
--- OUTSIDE RECORDS SUMMARY | 2024-07-02 04:11 | External Medical Summary | Summary of Care ---
Author Name Unknown Organization [facility] Address [address] [place] [address] Phone [phone] Care Team Providers Care Electrician Second Name Role Phone Linda Lopez DO Primary Care Provider [phone] Reason for Visit * Reason Comments Pain Encounter Details Date Type Department Care Team (Latest Contact Info) Description 02/27/2024 3:30 PM EDT Telemedicine Orthopaedics [address] [phone] Prabhu Kuo MD [address] [place] [address] Primary osteoarthritis of left knee* Allergies Active Allergy Reactions Criticality Noted Date Comments Alendronate Sodium Other (Please comment) Low 10/30/2014 Abdominal and jaw pain Rosuvastatin Calcium 06/24/2018 myalgias Diclofenac Resin Diflunisal Nausea Atorvastatin Other (Please comment) Low 10/30/2014 myalgias Naproxen Nausea Nsaids Orudis--rash documented as of this encounter (statuses as of 02/27/2024) Medications Medication Sig Dispensed Refills Start Date [...] OTHER MEDS 90 Tablet 1 02/27/2024 Active documented as of this encounter (statuses as of 02/27/2024) Active Problems Problem Noted Date Diagnosed Date [...] as of this encounter (statuses as of 02/27/2024) Resolved Problems Problem Noted Date Diagnosed Date [...] as of this encounter (statuses as of 02/27/2024) Immunizations Name Administration Dates Next Due COVID-19 mRNA, LNP-s, No Pre serve, 2-Dose Series ([employer]) 08/02/2021,12/20/2020,11/29/2020 Pneumococcal Conjugate Vacc, 13 Valent (Prevnar) [...] Progress Notes * Prabhu Kuo MD - 02/27/2024 2:59 PM EDT Ivelisse Bonner [id number] Ivelisse Bonner is a 77 year old female who presents for f/u of Left knee pain to [facility] I saw her originally for the left knee pain on 01/09/2023 I saw her initially regarding the left hip pain on 03/07/2023 Most recent complete visit 01/02/2024 was for left knee pain, however, she has been seen since for procedure only visits Ivelisse Bonner is here unaccompanied Quality: reviewed and [...] F/U for L knee pain -Pt c/o 6/10 pain today in L knee -Pt expecting [...] level: Not on file Occupational History 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: [employer] Comment: [employer] - retired Tobacco Use Smoking status: Never [...] Social Determinants of Health Financial Resource Strain: Not on file Food Insecurity: No Food Insecurity (07/29/2023) Hunger Vital Sign Worried About Running Out of Food in the Last Year: Never true Ran Out of Food in the Last Year: Never true Transportation Needs: Not on file Physical Activity: Not on file Stress: Not on file Social Connections: Not on file Intimate Partner Violence: Not on file Housing Stability: Not on file Radiology (I have personally reviewed the following [...] FINDINGS No gross joint malalignment. Tricompartmental osteoarthritis, [id number] in the lateral compartment. No fracture, aggressive [...] and she had not moved all year. Physical therapy referral placed previously Also discussed Tylenol and Voltaren gel After connecting to the patient via telephone, the patient was identified by name and date of . Patient was then informed that this was a telephone call only visit. The patient agreed to participate. Visit Disposition: Routine follow-up Total call duration was 5 minutes. nick Kuo MD Primary Care Sports Medicine Orthopaedics [address] [place] [address] documented in this encounter Plan of Treatment Upcoming Encounters Date Type Department Care Team (Late st Contact Info) Description 05/08/2024 11:00 AM EDT Imaging Radiology [address] [place] [address] 07/30/2024 11:00 AM EDT Nurse Only Ancillary [address] [place] [address] [place], Nurse [address] [place] [address] 08/04/2024 4:20 PM EST Office Visit Family Practice [facility] [address] [place] [address] Linda Lopez DO [address] [place] [address] 04/19/2025 11:00 AM EDT Office Visit Dermatology [place] [address] [place] [address] Maris Zeng PA-C [address] [place] [address] [place] [address] Health Maintenance Due Date Last Done Comments [...] knee- Primary Primary localized osteoarthrosis, lower leg documented in this encounter Care Teams Electrician Second Relationship Specialty Start Date End Date Linda Lopez DO [address] [facility] [place] [address] PCP - General Family Medicine 12/27/15 documented as of this encounter
--- OUTSIDE RECORDS SUMMARY | 2024-07-02 04:11 | External Medical Summary | Summary of Care ---
Author Name Unknown Organization [facility] Address [address] [place] [address] Phone [phone] Care Team Providers Care Architecture Faculty Member Name Role Phone Linda Lopez DO Primary Care Provider [phone] Reason for Visit * Reason Onset Date Comments Advice 01/18/2024 Encounter Details Date Type Department Care Team (Late st Contact Info) Description 01/18/2024 Telephone Family Practice [facility] [address] [place] [address] Linda Lopez DO [address] [place] [address] Advice Allergies Active Allergy Reactions Criticality Noted Date Comments Alendronate Sodium Other (Please comment) Low 10/30/2014 Abdominal and jaw pain Rosuvastatin Calcium 06/24/2018 myalgias Diclofenac Resin Diflunisal Nausea Atorvastatin Other (Please comment) Low 10/30/2014 myalgias Naproxen Nausea Nsaids Orudis--rash documented as of this encounter (statuses as of 01/20/2024) Medications Medication Sig Dispensed Refills Start Date [...] in morning) 118 g 3 03/28/2020 Active Albuterol Sulfate HFA 108 (90 Base) MCG/ACT Inhalation Aerosol SolutionIndications :Bronchitis, complicated TAKE 2 PUFFS BY MOUTH EVERY 4 HOURS NEEDED FOR WHEEZING 54 g 1 10/10/2020 Active Fish Oil 500 MG Oral Capsule [...] THE MORNING 90 Tablet 3 10/08/2023 Active Additional Information Patient not taking.Reported on 01/08/2024 Fluticasone Propionate HFA 220 MCG/ACT Inhalation AerosolIndications: [...] takes lasix.. 60 Tablet 11 01/08/2024 Active documented as of this encounter (statuses as of 01/20/2024) Active Problems Problem Noted Date Diagnosed Date [...] as of this encounter (statuses as of 01/20/2024) Resolved Problems Problem Noted Date Diagnosed Date [...] as of this encounter (statuses as of 01/20/2024) Immunizations Name Administration Dates Next Due COVID-19 mRNA, LNP-s, No Pre serve, 2-Dose Series ([employer]) 08/02/2021,12/20/2020,11/29/2020 Pneumococcal Conjugate Vacc, 13 Valent (Prevnar) [...] money to buy more. Never true 07/25/20 Within the past 12 months, t he [...] encounter Miscellaneous Notes * Telephone Encounter - Justina Woo OSA - 01/20/2024 10:49 AM EDT Appt scheduled with pt * Telephone Encounter - Linda Lopez DO - 01/20/2024 9:57 AM EDT She should be re-evaluated in the office Ideally acute today or tomorrow Can double book over 40min visit w/me tomorrow if nothing else available * Telephone Encounter - Celena Alcala LPN - 01/20/2024 8:42 AM EDT Pt states that she is still having shortness of breath from her illness and coughing after completion of antibiotic yesterday 01/17/2024 Do you want her to be seen again? Or did you want to send something else in for her? * Telephone Encounter - Rachel Serrano OSA - 01/18/2024 10:52 AM EDT 1. When were you seen for this problem? 01/08/24 2. What provider did you see for this problem? PCP 3. What medications are you presently taking? Amoxicillin-Pot Clavulanate 875- 125 MG 4. What is it that is no better? Please refer to Call Details. documented in this encounter Plan of Treatment Upcoming Encounters Date Type Department Care Team (Latest Contact Info) Description 01/21/2024 11:20 AM EDT Office Visit [facility] [address] [place] [address] Linda Lopez DO [address] [place] [address] 01/27/2024 1:45 PM EDT Hospital Encounter [facility], Operating Room [facility] [address] [place] [phone] [place], [address] [place] [phone] 01/27/2024 1:45 PM EDT - 01/27/2024 2:10 PM EDT Surgery OR [facility], Operating Room [facility] [address] [place] [phone] [place], [address] [place] [phone] INJECTION SPINE LUMBAR OR [facility] 02/27/2024 3:30 PM EDT Telemedicine Orthopaedics [address] [phone] Prabhu Kuo MD [address] [place] [address] 05/08/2024 11:00 AM EDT Imaging Radiology [address] [place] [address] 07/30/2024 11:00 AM EDT Nurse Only Ancillary [address] [place] [address] [place], Nurse Annual Wellness [address] [place] [address] [place] [address] 08/04/2024 4:20 PM EST Office Visit Family Practice [facility] [address] [place] [address] Linda Lopez DO [address] [place] [address] 04/19/2025 11:00 AM EDT Office Visit Dermatology [address] [place] [address] Maris Zeng PA-C [address] [place] [address] [place] [address] Scheduled Procedures Name Priority Associated Diagnoses Date/Ti [...] filedocumented as of this encounter Care Teams Architecture Faculty Member Relationship Specialty Start Date End Date Linda Lopez DO [address] [place] [address] PCP - General Family Medicine 12/27/15 documented as of this encounter
--- OUTSIDE RECORDS SUMMARY | 2024-07-02 04:11 | External Medical Summary | Summary of Care ---
Author Name Unknown Organization [facility] Address [address] [place] [address] Phone [phone] Care Team Providers Care Radiology Ct Technologist Name Role Phone Linda Lopez DO Primary Care Provider [phone] Reason for Visit * Reason Comments Follow Up Knee Pain L knee * Precert (Within 30 days (routine)) - Authorized Specialty Diagnoses / Procedures Referred By Contac t Referred To Contact Orthopedics Diagnoses Unilateral primary osteoarthritis, left knee Procedures [place] GEL-SYN INJECTION 0.1 MG Prabhu Kuo MD [address] [place], [place] [address] [address] Prabhu Kuo MD [address] [place] [address] Referral ID Status Reason Start Date Expiration Date V isits Requested Visits Authorized [id number] Authorized Precert 01/03/2024 09/29/2099 [id number] Encounter Details Date Type Department Care Team (Latest Contact Info) Description 01/16/2024 10:00 AM EDT Office Visit Orthopaedics [address] [address] Prabhu Kuo MD [address] [place] [address] Primary osteoarthritis of left knee* Allergies Active Allergy Reactions Criticality Noted Date Comments Alendronate Sodium Other (Please comment) Low 10/30/2014 Abdominal and jaw pain Rosuvastatin Calcium 06/24/2018 myalgias Diclofenac Resin Diflunisal Nausea Atorvastatin Other (Please comment) Low 10/30/2014 myalgias Naproxen Nausea Nsaids Orudis--rash documented as of this encounter (statuses as of 01/16/2024) Medications Medication Sig Dispensed Refills Start Date [...] takes lasix.. 60 Tablet 11 01/08/2024 Active Amoxicillin-Pot Clavulanate 875-125 MG Oral Tablet (Augmentin) Take 1 Tablet by mouth in the morning and 1 Tablet before bedtime. Do all this for 7 days. 14 Tablet 0 01/11/2024 01/18/2024 Active Hospital, Clinic, or Other Facility Administered Medication Ordered Dose Route Frequency Start Date End Date Status sodium hyaluronate (Gelsyn-3) 16.8 MG/2ML inj 16.8 mgIndications:Primary osteoarthritis of left knee 16.8 mg IX ONCE 01/16/2024 01/16/20 24 Ended documented as of this encounter (statuses as of 01/16/2024) Active Problems Problem Noted Date Diagnosed Date [...] as of this encounter (statuses as of 01/16/2024) Resolved Problems Problem Noted Date Diagnosed Date [...] as of this encounter (statuses as of 01/16/2024) Immunizations Name Administration Dates Next Due COVID-19 mRNA, LNP-s, No Pre serve, 2-Dose Series ([email or web address] 08/02/2021,12/20/2020,11/29/2020 Pneumococcal Conjugate Vacc, 13 Valent (Prevnar) [...] Influenza, Split, I IV3, With Preserve, Inj 07/20/2014,05/31/2014,08/17/2003,1212/200109/02/2003 Seasonal Influenza, Trivalen t, Adjuvanted, 65+ yrs [...] Progress Notes * Prabhu Kuo MD - 01/16/2024 9:54 AM EDT Diagnosis: OA left knee. The patient is here for the Third of a series of Gelsyn injections. There is no sign of infection in the injected knee. A timeout was called immediately prior to the procedure, to confirm the correct patient, procedure,and site. The site was marked by the physician prior to the procedure. Site was identified: knee: Left Procedure: Under sterile fashion, a 2 ml vial of Gelsyn was injected intra- articularly into the knee. Patient tolerated this well. Assessment: OA LEFT knee. Plan: Telephone f/u 6-8 weeks nick Kuo MD Primary Care Sports Medicine Orthopaedics [address] [address] documented in this encounter Nursing Notes * Maci Brown LPN - 01/16/2024 9:45 AM EDT F/U L knee -FIRST of series Gelsyn 01/02/24 -SECOND of series Gelsyn 01/09/24 -Viscosupplementation with Gelsyn series started 01/02/2024 -THIRD of a series Gelsyn today -Pt c/o 01/07 pain today -Pt is unaccompanied today -THIRD Gelsyn today L knee Kiah Gray LPN documented in this encounter Plan of Treatment Upcoming Encounters Date Type Department Care Team (Latest Contact Info) Description 02/27/2024 3:30 PM EDT Telemedicine Orthopaedics [address] [phone] [facility] [place] [address] 02/28/2024 10:05 AM EDT Hospital Encounter OR [facility], Operating Room [facility] [address] [place] [phone] Lewis Hook, DO [address] [place] [phone] 02/28/2024 10:05 AM EDT - 02/28/2024 10:30 AM EDT Surgery OR [facility], Operating Room [facility] [address] [place] [phone] Lewis Hook, DO [address] [place] [phone] INJECTION SPINE LUMBAR OR SACRAL 05/08/2024 11:00 AM EDT Imaging Radiology [address] [place] [address] 07/30/2024 11:00 AM EDT Nurse Only Ancillary [address] [place] [address] [place], Nurse Annual [address] [place] [address] 08/04/2024 4:20 PM EST Office Visit Family Practice [facility] [address] [place] [address] Linda Lopez, DO [address] [place] [address] 04/19/2025 11:00 AM EDT Office Visit Dermatology [address] [place] [address] Maris Zeng PA-C [address] [place] [address] [place] [address] Scheduled Procedures Name Priority Associated Diagnoses Date/Ti me INJECTION SPINE LUMBAR OR SACRAL Lumbar radiculopathy 02/28/2024 10:05 AM EDT Health Maintenance Due Date Last [...] knee- Primary Primary localized osteoarthrosis, lower leg Lumbar radiculopathy Thoracic or lumbosacral neuritis or radiculitis, unspecified documented in this encounter Administered Medications Inactive Administered Medications - up to 3 most recent administrations Medication Order MAR Action Action Date Dose Rate Site sodium hyaluronate (Gelsyn-3) 16.8 MG/2ML inj 16.8 mg 16.8 mg, Intra-Articular, ONCE, On Marilee 01/16/24 at 1030, For 1 dose Given 01/16/2024 9:58 AM EDT 16.8 mg K nee Left documented in this encounter Care Teams Radiology Ct Technologist Relationship Specialty Start Date End Date Linda Lopez DO [address] [place] [address] PCP - General Family Medicine 12/27/15 documented as of this encounter
--- OUTSIDE RECORDS SUMMARY | 2024-07-02 04:11 | External Medical Summary ---
Author Name Unknown Address Unknown Organization K0G[facility] [address] [place] [address] Laboratory Report Ordering Provider Test Date Status MOLLY DAWN 01/21/2024 11:48:14 Final Observation Date Value Abnormality Reference (Units ) Status BUN 01/21/2024 11:48:14 22 Above high normal 6-20 (mg/dL) Final Creatinine 01/21/2024 11:48:14 0.8 0.5-1.0 (mg/dL) Final Glomerular filtration rate/1.73 sq M.predicted [Volume Rate/Area] in Serum, Plasma or Blood by Creatinine-based formula (CKD-EPI) 01/21/2024 11:48:14 72 >=60 (mL/min) Final eGFR is calculated based on the CKD-EPI 2020 equation Sodium 01/21/2024 11:48:14 139 135-146 (m mol/L) Final Potassium 01/21/2024 11:48:14 4.5 3.5-5.1 (m mol/L) Final Cl 01/21/2024 11:48:14 102 98-107 (mm ol/L) Final CO2 01/21/2024 11:48:14 25 22-32 (mmo l/L) Final Anion gap 01/21/2024 11:48:14 12 7-15 (mmol /L) Final Glucose 01/21/2024 11:48:14 89 70-120 (mg /dL) Final Calcium 01/21/2024 11:48:14 9.5 8.4-10.2 ( mg/dL) Final Performing Location [facility] [address] [place] [address]
--- OUTSIDE RECORDS SUMMARY | 2024-07-02 04:11 | External Medical Summary | Summary of Care ---
Author Name Unknown Organization [facility] Address [address] [place] [address] Phone [phone] Care Team Providers Care Concrete Paver Name Role Phone Linda Lopez DO Primary Care Provider [phone] Reason for Visit * Reason Onset Date Comments Medication Refill 03/02/2024 Encounter Details Date Type Department Care Team (Late st Contact Info) Description 03/02/2024 Telephone Family Practice [facility] [address] [place] [address] Linda Lopez DO [address] [place] [address] Medication Refill Allergies Active Allergy Reactions Criticality Noted Date Comments Alendronate Sodium Other (Please comment) Low 10/30/2014 Abdominal and jaw pain Rosuvastatin Calcium 06/24/2018 myalgias Diclofenac Resin Diflunisal Nausea Atorvastatin Other (Please comment) Low 10/30/2014 myalgias Naproxen Nausea Nsaids Orudis--rash documented as of this encounter (statuses as of 03/03/2024) Medications Medication Sig Dispensed Refills Start Date [...] takes lasix.. 60 Tablet 11 03/03/2024 Active Potassium Chloride P[facility] ER 20 MEQ Oral Tablet Extended ReleaseIndications :Swelling of both lower extremities Take 1 Tablet by mouth in the morning. On days patient takes lasix.. 60 Tablet 11 01/08/2024 Discontinue d(Refill) documented as of this encounter (statuses as of 03/03/2024) Active Problems Problem Noted Date Diagnosed Date [...] as of this encounter (statuses as of 03/03/2024) Resolved Problems Problem Noted Date Diagnosed Date [...] as of this encounter (statuses as of 03/03/2024) Immunizations Name Administration Dates Next Due COVID-19 mRNA, LNP-s, No Pre serve, 2-Dose Series ([employer]) 08/02/2021,12/20/2020,11/29/2020 Pneumococcal Conjugate Vacc, 13 Valent (Prevnar) [...] encounter Miscellaneous Notes * Telephone Encounter - Linda Lopez DO - 03/03/2024 12:47 PM EDT Rx signed * Telephone Encounter - Gisel Castro OSA - 03/02/2024 5:43 PM EDT Refill is needed to be sent to [facility] for medication klor-con but I do not see that on activemed list documented in this encounter Plan of Treatment Upcoming Encounters Date Type Department Care Team (Late st Contact Info) Description 05/08/2024 11:00 AM EDT Imaging Radiology [facility] 1st [facility], [address] [place] [address] 07/30/2024 11:00 AM EDT Nurse Only Ancillary [address] [place] [address] [place], Nurse Annual [address] [place] [address] 08/04/2024 4:20 PM EST Office Visit [facility] [address] [place] [address] Linda Lopez DO [address] [place] [address] 04/19/2025 11:00 AM EDT Office Visit Dermatology [address] [place] [address] Maris Zeng PA-C [address] [place] [address] [place] [address] Health Maintenance Due Date Last Done Comments [...] as of this encounter Visit Diagnoses Diagnosis Swelling of both lower extremities documented in this encounter Care Teams Concrete Paver Relationship Specialty Start Date End Date Linda Lopez DO [address] [place] [address] PCP - General Family Medicine 12/27/15 documented as of this encounter
--- OUTSIDE RECORDS SUMMARY | 2024-07-02 04:11 | External Medical Summary | Summary of Care ---
Author Name Unknown Organization [facility] Address [address] [place] [address] Phone [phone] Care Team Providers Care Orthopedic Physician Name Role Phone Linda Lopez DO Primary Care Provider [phone] Reason for Visit * Reason Onset Date Comments Medication Refill 03/13/2024 Encounter Details Date Type Department Care Team (Late st Contact Info) Description 03/13/2024 Telephone Derm[address] [place] [address] Maris Zeng PA-C [address] [place] [address] [place] [address] Medication Refill Allergies Active Allergy Reactions Criticality Noted Date Comments Alendronate Sodium Other (Please comment) Low 10/30/2014 Abdominal and jaw pain Rosuvastatin Calcium 06/24/2018 myalgias Diclofenac Resin Diflunisal Nausea Atorvastatin Other (Please comment) Low 10/30/2014 myalgias Naproxen Nausea Nsaids Orudis--rash documented as of this encounter (statuses as of 03/13/2024) Medications Medication Sig Dispensed Refills Start Date [...] takes lasix.. 60 Tablet 11 03/03/2024 Active documented as of this encounter (statuses as of 03/13/2024) Active Problems Problem Noted Date Diagnosed Date [...] as of this encounter (statuses as of 03/13/2024) Resolved Problems Problem Noted Date Diagnosed Date Resolved Date BMI 40.0-44.9, adult 09/26/2020 0603/ 022 Major depressive disorder, s wilton episode, [...] as of this encounter (statuses as of 03/13/2024) Immunizations Name Administration Dates Next Due COVID-19 mRNA, LNP-s, No Pre serve, 2-Dose Series ([employer]) 08/02/2021,12/20/2020,11/29/2020 Pneumococcal Conjugate Vacc, 13 Valent (Prevnar) [...] encounter Miscellaneous Notes * Telephone Encounter - Monique Retana tombstone erector helper - 03/13/2024 9:45 AM EDT Patient calling for a refill on Sulfacetamide. This was last prescribed by Dermatology. Transfer to specialty refill line. Thank you, Monique Retana Census Enumerator [facility] 03/13/2024,9:46 AM documented in this encounter Plan of Treatment Upcoming Encounters Date Type Department Care Team (Late st Contact Info) Description 05/08/2024 11:00 AM EDT Imaging Radiology [facility] [address] [place] [address] 07/30/2024 11:00 AM EDT Nurse Only Ancillary Angie Jin [address] [place] [address] [place] [address] [place], Nurse [address] [place] [address] 08/04/2024 4:20 PM EST Office Visit Family Practice [address] [place] [address] Linda Lopez, DO [address] [place] [address] 04/19/2025 11:00 AM EDT Office Visit Dermatology [address] [place] [address] Maris Zeng PA-C [address] [place] [address] [place] [address] Health Maintenance Due Date Last Done Comments [...] filedocumented as of this encounter Care Teams Orthopedic Physician Relationship Specialty Start Date End Date Linda Lopez DO [address] [place] [address] PCP - General Family Medicine 12/27/15 documented as of this encounter
--- OUTSIDE RECORDS SUMMARY | 2024-07-02 04:11 | External Medical Summary | Summary of Care ---
Author Name Unknown Organization [facility] Address [address] [place] [address] Phone [phone] Care Team Providers Care Metal Caster Name Role Phone López Barnes DO Primary Care Provider [phone] Reason for Visit * Reason Comments eRx-Medication Refill Encounter Details Date Type Department Care Team (Late st Contact Info) Description 02/26/2024 Refill Family Practice [facility] [address] [place] [address] López Barnes DO [address] [place] [address] Hypothyroidism (acquired) Allergies Active Allergy Reactions Criticality [...] OTHER MEDS 90 Tablet 1 02/27/2024 Active Levothyroxine Sodium 50 MCG Oral Tablet (Levoxyl)Indicati ons:Hypothyroidis m (acquired) TAKE 1 TABLET BY MOUTH DAILY AT LEAST 30 MIN PRIOR TO BREAKFAST OR OTHER MEDS 90 Tablet 1 04/27/2023 4 Discontinued documented as of this encounter [...] mRNA, LNP-s, No Pre serve, 2-Dose Series ([employer]) 08/02/2021,12/20/2020,11/29/2020 Pneumococcal Conjugate Vacc, 13 Valent (Prevnar) [...] encounter Miscellaneous Notes * Telephone Encounter - Rachel Cartwright RP - 02/27/2024 8:04 AM EDTSigned Prescriptions: Disp Refills Levothyroxine Sodium 50 MCG Oral Tablet (L*90 Tab*1 Sig: TAKE 1 TABLET BY MOUTH DAILY AT LEAST 30 MIN PRIOR TO BREAKFAST OR OTHER MEDSAuthorizing Provider: LÓPEZ BARNES User: RACHEL CARTWRIGHT documented in this encounter Plan of Treatment Upcoming Encounters Date Type Department Care Team (Late st Contact Info) Description 02/27/2024 3:30 PM EDT Telemedicine Orthopaedics [address] [place] [address] Prabhu Kuo MD [address] [place] [address] Arrived 05/08/2024 11:00 AM EDT Imaging Radiology [address] [place] [address] 07/30/2024 11:00 AM EDT Nurse Only Ancillary [address] [place] [address] [place], Nurse Annual [address] [place] [address] 08/04/2024 4:20 PM EST Office Visit Family Practice [facility] [address] [place] [address] López Barnes DO [address] [place] [address] 04/19/2025 11:00 AM EDT Office Visit Dermatology [address] [place] [address] Maris Zeng PA-C [address] [place] [address] [place] [address] Health Maintenance Due Date Last Done Comments [...] Visit Diagnoses Diagnosis Hypothyroidism (acquired) Unspecified hypothyroidism documented in this encounter Care Teams Metal Caster Relationship Specialty Start Date End Date López Barnes DO [address] [place] [address] PCP - General Family Medicine 12/27/15 documented as of this encounter
--- OUTSIDE RECORDS SUMMARY | 2024-07-02 04:12 | External Medical Summary | Summary of Care ---
Author Name Unknown Organization [facility] Address [address] [place] [address] Phone [phone] Care Team Providers Care Tube Cleaning Operator Name Role Phone Linda Lopez DO Primary Care Provider [phone] Reason for Visit * Reason Comments Follow Up Knee Pain L knee * Precert (Within 30 days (routine)) - Authorized Specialty Diagnoses / Procedures Referred By Contac t Referred To Contact Orthopedics Diagnoses Unilateral primary osteoarthritis, left knee Procedures IN GEL-SYN INJECTION 0.1 MG Prabhu Kuo MD [address] [place], [place] [address] [address] Prabhu Kuo MD [address] [place] [address] Referral ID Status Reason Start Date Expiration Date V isits Requested Visits Authorized [id number] Authorized Precert 01/03/2024 09/29/2099 [id number] Encounter Details Date Type Department Care Team (Latest Contact Info) Description 01/16/2024 10:00 AM EDT Office Visit Orthopaedics [address] [phone] Prabhu Kuo MD [address] [place] [...] mRNA, LNP-s, No Pre serve, 2-Dose Series ([employer]) 08/02/2021,12/20/2020,11/29/2020 Pneumococcal Conjugate Vacc, 13 Valent [...] Kuo MD Primary Care Sports Medicine Orthopaedics [address] [address] documented in this encounter Nursing Notes * [...] Department Care Team (Latest Contact Info) Description 02/28/2024 10:05 AM EDT Hospital Encounter OR [facility], Operating Room [facility] [address] [place] [phone] Lewis Hook DO [address] [place] [address] 02/28/2024 10:05 AM EDT - 02/28/2024 10:30 AM EDT Surgery OR [facility], Operating Room [facility] [address] [place] [phone] Lewis Hook, DO [address] [place] [phone] INJECTION SPINE LUMBAR OR SACRAL 05/08/2024 11:00 AM EDT Imaging Radiology [address] [place] [address] 07/30/2024 11:00 AM EDT Nurse Only Ancillary [address] [place] [address] [place], Nurse Annual [address] [place] [address] 08/04/2024 4:20 PM EST Office Visit Family Practice [facility] [address] [place] [address] Linda Lopez, DO [address] [place] [address] 04/19/2025 11:00 AM EDT Office Visit Dermatology [address] [place] [address] Maris Zeng PA-C [address] [place] [address] [place] [address] Scheduled Procedures Name Priority Associated Diagnoses Date/Ti [...] Left documented in this encounter Care Teams Tube Cleaning Operator Relationship Specialty Start Date End Date Linda Lopez DO [address] [place] [address] PCP - General Family Medicine 12/27/15 documented as of this encounter
--- OUTSIDE RECORDS SUMMARY | 2024-07-02 04:12 | External Medical Summary | Summary of Care ---
Author Name Unknown Organization [facility] Address [address] [place] [address] Phone [phone] Care Team Providers Care Nip Wrapper Name Role Phone Linda Lopez DO Primary Care Provider [phone] Reason for Visit * Reason Comments Follow Up Knee Pain LEFT knee * Precert (Within 30 days (routine)) - Authorized Specialty Diagnoses / Procedures Referred By Contac t Referred To Contact Orthopedics Diagnoses Unilateral primary osteoarthritis, left knee Procedures [place] GEL-SYN INJECTION 0.1 MG Prabhu Kuo MD [address] [place] [address] [place] [address] Prabhu Kuo MD [address] [place] [address] Referral ID Status Reason Start Date Expiration Date V isits Requested Visits Authorized [id number] Authorized Precert 01/03/2024 09/29/2099 [id number] Encounter Details Date Type Department Care Team (Latest Contact Info) Description 01/09/2024 10:00 AM EDT Office Visit Orthopaedics [address] [address] Prabhu Kuo MD [address] [place] [address] Primary osteoarthritis of left knee* Allergies Active Allergy Reactions Criticality Noted Date Comments Alendronate Sodium Other (Please comment) Low 10/30/2014 Abdominal and jaw pain Rosuvastatin Calcium 06/24/2018 myalgias Diclofenac Resin Diflunisal Nausea Atorvastatin Other (Please comment) Low 10/30/2014 myalgias Naproxen Nausea Nsaids Orudis--rash documented as of this encounter (statuses as of 01/09/2024) Medications Medication Sig Dispensed Refills Start Date [...] takes lasix.. 60 Tablet 11 01/08/2024 Active Hospital, Clinic, or Other Facility Administered Medication Ordered Dose Route Frequency Start Date End Date Status sodium hyaluronate (Gelsyn-3) 16.8 MG/2ML inj 16.8 mgIndications:Primary osteoarthritis of left knee 16.8 mg IX ONCE 01/09/2024 01/09/20 24 Ended documented as of this encounter (statuses as of 01/09/2024) Active Problems Problem Noted Date Diagnosed Date [...] as of this encounter (statuses as of 01/09/2024) Resolved Problems Problem Noted Date Diagnosed Date [...] as of this encounter (statuses as of 01/09/2024) Immunizations Name Administration Dates Next Due COVID-19 mRNA, LNP-s, No Pre serve, 2-Dose Series ([employer]) 08/02/2021,12/20/2020,11/29/2020 Pneumococcal Conjugate Vacc, 13 Valent (Prevnar) [...] Progress Notes * Prabhu Kuo MD - 01/09/2024 10:00 AM EDT Diagnosis: OA left knee. The patient is here for the SECOND of a series of Gelsyn injections. There [...] this well. Assessment: OA LEFT knee. Plan: The patient will follow up in 1 Week for reinjection. nick Kuo MD Primary Care Sports Medicine Orthopaedics [address] [address] documented in this encounter Nursing Notes * Maci Brown LPN - 01/09/2024 9:59 AM EDT F/U L knee -Pt is unaccompanied today -SECOND of series Gelsyn 01/02/24 -Viscosupplementation with Gelsyn series started 01/02/2024 -L knee Gelsyn injection today Kiah Gray LPN documented in this encounter Plan of Treatment Upcoming Encounters Date Type Department Care Team (Latest Contact Info) Description 01/16/2024 10:00 AM EDT Office Visit Orthopaedics [address] [phone] Prabhu Kuo MD [address] [place] [address] 02/28/2024 10:05 AM EDT Hospital Encounter [facility], Operating Room [facility] [address] [place] [phone] Lewis Hook DO [address] [place] [phone] 02/28/2024 10:05 AM EDT - 02/28/2024 10:30 AM EDT Surgery OR [facility], Operating Room [facility] [address] [place] [phone] Lewis Hook, DO [address] [place] [phone] INJECTION SPINE LUMBAR OR SACRAL 05/08/2024 11:00 AM EDT Imaging Radiology [address] [place] [address] 07/30/2024 11:00 AM EDT Nurse Only Ancillary [address] [place] [address] [place], Nurse Annual [address] [place] [address] 08/04/2024 4:20 PM EST Office Visit Family Practice [facility] [address] [place] [address] Linda Lopez DO [address] [place] [address] 04/19/2025 11:00 AM EDT Office Visit Dermatology [address] [place] [address] KarriMaris lakhani PA-C [address] [place] [address] [place] [address] Scheduled Procedures Name Priority Associated Diagnoses Date/Ti me INJECTION SPINE LUMBAR OR SACRAL Lumbar radiculopathy 02/28/2024 10:05 AM EDT Health Maintenance Due Date Last Done Comments COVID-19 Vaccine ( season) 2023 08/02/2021, 12/20/2020, 11/29/2020 GFR 07/09/2024 07/09/2023, 11/29, 08/28/2022, Additional history [...] mg 16.8 mg, Intra-Articular, ONCE, On Marilee 01/09/24 at 1045, For 1 dose Given 01/09/2024 1:42 PM EDT 16.8 mg K nee Left documented in this encounter Care Teams Nip Wrapper Relationship Specialty Start Date End Date Linda Lopez DO [address] [place] [address] PCP - General Family Medicine 12/27/15 documented as of this encounter
--- OUTSIDE RECORDS SUMMARY | 2024-07-02 04:12 | External Medical Summary | Summary of Care ---
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 Name Role Phone Linda Lopez DO Primary Care Provider [phone] Reason for Visit * Reason Comments Re-Check 6 mo check, sinus in fection had antibiotics but L ear still feels blocked, some SOLORZANO, weight gain, bilat ankle swelling, skin tender when lightly scratched Encounter Details Date Type Department Care Team (Late st Contact Info) Description 01/08/2024 2:20 PM EDT Office Visit Family Practice [facility] [address] [place] [address] Linda Lopez, DO [address] [place] [address] SOLORZANO (dyspnea on exertion)*; Swelling of both lower extremities; Mild persistent asthma without complication; Age-related osteoporosis without current pathological fracture; Moderate episode of recurrent major depressive disorder (HCC); Recurrent major depressive disorder, remission status unspecified (HCC); Hypertension goal BP (blood pressure) < 150/90; Acquired hypothyroidism; Caregiver stress; Dyslipidemia, goal LDL below 160 Allergies Active Allergy Reactions Criticality Noted Date Comments Alendronate Sodium Other (Please comment) Low 10/30/2014 Abdominal and jaw pain Rosuvastatin Calcium 06/24/2018 myalgias Diclofenac Resin Diflunisal Nausea Atorvastatin Other (Please comment) Low 10/30/2014 myalgias Naproxen Nausea Nsaids Orudis--rash documented as of this encounter (statuses as of 01/08/2024) Medications Medication Sig Dispensed Refills Start Date [...] 01/08/2024 Fluticasone Propionate HFA 220 MCG/ACT Inhalation AerosolIndications :Mild persistent asthma without complication Inhale 2 Puffs by mouth in the morning and 2 Puffs before bedtime. 12 g 3 01/08/2024 Active Furosemide 20 MG Oral Tablet (Lasix)Indications :Swelling of both lower extremities Take 1 Tablet by mouth daily as needed (lower extremity swelling). 20 Tablet 1 01/08/2024 Active Potassium Chloride Piat ER 20 MEQ Oral Tablet Extended ReleaseIndications :Swelling of both lower extremities Take 1 Tablet by mouth in the morning. On days patient takes lasix.. 60 Tablet 11 01/08/2024 Active Zinc 50 MG Oral Capsule Take 1 Capsule by mouth in the morning. 0 4 Discontinue d(Medicatio n List Clean Up) Flovent HFA 220 MCG/ACT Inhalation Aerosol (fluticasone)Indic ations:Mild persistent asthma without complication INHALE 2 PUFFS BY MOUTH TWICE A DAY 12 g 3 10/23/2021 4 Discontinue d(Refill) Cinnamon 500 MG Oral Capsule Take 1 Capsule by mouth in the morning. 0 4 Discontinue d(Medicatio n List Clean Up) L-Tryptophan 500 MG Oral CapsuleIndications :Primary insomnia Take 1 Capsule by mouth every night at bedtime. 30 Capsule 5 07/09/2023 4 Discontinue d(Patient preference/ discontinua tion) methylPREDNISolone 4 MG Oral Tablet Therapy Pack (Medrol Dosepack) follow package directions 21 Tablet 1 07/25/2023 4 Discontinue d(Medicatio n List Clean Up) Calcium 600 +D High Potency 600-10 MG-MCG Oral Tablet (Calcium Carbonate-Vitamin D) Take by mouth. 0 4 Discontinue d(Medicatio n List Clean Up) Gabapentin 100 MG Oral Capsule (Neurontin) Take 2 capsules by mouth at night. 60 Capsule 2 08/08/2023 4 Discontinue d(Patient preference/ discontinua tion) Baclofen 10 MG Oral Tablet (Lioresal)Indicati ons:Chronic radicular lumbar pain Take 1 Tablet by mouth 2 times a day as needed for Muscle spasms. 30 Tablet 1 09/26/2023 4 Discontinue d(Patient preference/ discontinua tion) documented as of this encounter (statuses as of 01/08/2024) Active Problems Problem Noted Date Diagnosed Date [...] as of this encounter (statuses as of 01/08/2024) Resolved Problems Problem Noted Date Diagnosed Date [...] as of this encounter (statuses as of 01/08/2024) Immunizations Name Administration Dates Next Due COVID-19 mRNA, LNP-s, No Pre serve, 2-Dose Series ([employer]) 08/02/2021,12/20/2020,11/29/2020 Pneumococcal Conjugate Vacc, 13 Valent (Prevnar) [...] Sign Reading Time Taken Comments Blood Pressure 138/72 01/08/2024 2:17 PM EDT Pulse 85 01/08/2024 2:17 PM EDT Temperature 36.4 C (97.5 F) 01/08/2024 2:17 PM ED T Respiratory Rate 16 01/08/2024 2:17 PM EDT Oxygen Saturation 96% 01/08/2024 2:17 PM EDT Inhaled Oxygen Concentration - - Weight 81.2 kg (179 lb) 01/08/2024 2:17 PM EDT Height - - Body Mass Index 34.96 07/29/2023 11:09 AM EDT documented in this encounter Patient Instructions * Patient Instructions* Katie Virk RN - 01/08/2024 2:26 PM EDT Osteoporosis: Screening for Bone Loss The strength of bones is measured by their density (thickness). High bone density means bones are less likely to fracture. If you are at risk for bone loss, your healthcare provider may refer you forbone density testing. Bone Density Testing Bone density testing is safe, quick, easy, and painless. Testing can detect osteoporosis before a fracture happens. It can also predict the risk of future fractures. And testing can measure the response to treatment. There are two types of tests that you may have: Peripheral tests are used for screening. They measure density in the finger, wrist, knee, velazquez, or heel. A common peripheral test is the quantitative ultrasound (QUS). Central tests are used for diagnosis. They measure density in the hip or spine. The main centraltest is the dual energy x-ray absorptiometry (DXA). The DXA is the standard bone density test. Who Should Be Tested? All postmenopausal women under age 65, with one or more risk factors in addition to menopause. All women age 65 and older. Postmenopausal women with fractures. Women who are thinking about treatment for osteoporosis. Women who have been on hormone therapy for a long time. Men or women with certain medical conditions or who are taking certain medications (such as glucocorticoids or prednisone) for a long period. Common Testing Sites Any bone can fracture, but with osteoporosis some bones fracture more easily. These include bones in the spine, wrist, shoulder, and hip. Thats why bone density testing may be done at one or more of these sites. Understanding Your Results The results of your test may seem confusing at first. Dont be afraid to ask your provider to explain. Your bone mineral density (BMD) describes the thickness of the bone that was scanned. Your healthcare provider will compare your BMD with the BMD of young, healthy bone. The result is called a T-score. Bones remodel at different rates. So, a healthy T-score in the wrist doesnt mean the spine is also healthy. Thats why more than one site may be scanned. [id number] [place] [address]. All rights reserved. This information is not intended as a substitute for professional medical care. Always follow your healthcare professional's instructions documented in this encounter Progress Notes * Linda Lopez, - 01/08/2024 2:28 PM EDT Subjective: Ivelisse Bonner is a 78 year old female. Chief Complaint Patient presents with Re-Check 6 mo check, sinus infection had antibiotics but L ear still feels blocked, some SOLORZANO, weight gain, bilat ankle swelling, skin tender when lightly scratched HPI: Pt presents for follow up today. Tx for sinus infection a few weeks ago, still hears "bubbles" in the L ear when she chews. Other nasal congestion/sx have resolved. Ever since she had sinus infection she notices increased SOB, occurs when walking up steps, walkingfast. Feels like she's huffing, harder to catch her breath. She does note some increased swelling of both legs, L > R, worse by the end of the day. This also increased after her illness. Denies CP or palpitations. Also notes pain w/light touch of skin. This has been for years, she never really brought this up before. PHM: Patient Active Problem List Diagnosis Code [...] current pathological fracture M81.0 Caregiver stress Z63.6 Current Outpatient Medications Medication Sig Dispense Refill [...] 1 Capsule by mouth in the morning. Flovent HFA 220 MCG/ACT Inhalation Aerosol (fluticasone) INHALE 2 PUFFS BY MOUTH TWICE A DAY 12 g 3 valACYclovir HCl 1 GM Oral Tablet (Valtrex) [...] BY MOUTH EVERY DAY IN THE MORNING (Patient not taking: Reported on 01/08/2024) 90 Tablet 3 No current facility-administered medications for this visit. [...] performed by Nickolas Tucker MD at ENDOSCOPY [facility] INJECT DX/THER SUBSTANCE INTERLAMINAR LUMBAR/SACRAL W IMAGE GUIDE 10/18/2023 INJECTION SPINE LUMBAR OR SACRAL performed by Lewsi Hook DO at OR [facility] LAPAROSCOPY; CHOLECYSTECTOMY 10/02/10 Dr. Shahid MAMMOGRAM BREAST NEEDLE BIOPSY CORE BILATERAL 2013 normal - Dr. Lux REMOVAL OF HEEL SPUR 2000 right REMOVAL OF OVARY/OVIDUCT(S) 1982 bilateral REMOVE TONSILS & ADENOIDS, UNDER 12 1955 TOTAL HYSTERECTOMY 1982 fibroids Review of patient's allergies indicates: Allergen Reactions Crestor [Rosuvastatin Calcium] myalgias Diclofenac Resin Diflunisal Nausea Naproxen Nausea Nsaids Orudis--rash Alendronate Sodium Other (Please comment) Abdominal and jaw pain Lipitor [Atorvastatin] Other (Please comment) myalgias Objective: BP 138/72 (BP Site: Left Arm, BP Position: Sitting, BP Cuff Size: Regular) | Pulse 85 | Temp 36.4 C (97.5 F) (Tympanic) | Resp 16 | Wt 81.2 kg (179 lb) | SpO2 96% | BMI 34.96 kg/m | BSA 1.85 m Review of Systems: As per HPI, all other ROS neg. Physical Exam: General: alert, healthy, no distress, well nourished and well developed Head: Normocephalic, No masses, lesions, tenderness or abnormalities Ears: External ears normal, Canals clear, TM's Normal Nose: clear rhinorrhea, mucosal edema, mucosal erythema, sinus tenderness Oropharynx: no exudate, lips, buccal mucosa, and tongue normal, mucous membranes are moist, mild erythema and post nasal drip Neck: supple, small benign anterior cervical nodes bilaterally Heart: regular rate & rhythm, no murmurs and no gallops Lungs: slight dec air mov't b/l, clear to auscultation LE: 2+ pitting edema b/l LE SOLORZANO (dyspnea on exertion) (Primary) - XR CHEST 2 VIEWS May have some residual bronchospasm from illness v. Mild chf w/LE edema Check cxr, pt to resume inhaled steroid If not improving check labs, probnp, echo Swelling of both lower extremities - Furosemide 20 MG Oral Tablet (Lasix); Take 1 Tablet by mouth daily as needed (lower extremity swelling). - Potassium Chloride Pita ER 20 MEQ Oral Tablet Extended Release; Take 1 Tablet by mouth in the morning. On days patient takes lasix.. Mild persistent asthma without complication - Fluticasone Propionate HFA 220 MCG/ACT Inhalation Aerosol; Inhale 2 Puffs by mouth in the morningand 2 Puffs before bedtime. Age-related osteoporosis without current pathological fracture Unable to tolerate bisphosphonate Will dc dexa as will not change treatment decisions Cont calcium/vit d otc Moderate episode of recurrent major depressive disorder (HCC) Recurrent major depressive disorder, remission status unspecified (HCC) Stable, cont cymbalta Hypertension goal BP (blood pressure) < 150/90 Controlled Acquired hypothyroidism Caregiver stress Dyslipidemia, goal LDL below 160 Statin intolerance, cont zetia Follow up: in 6 month(s). Linda Lopez DO * Katie Virk RN - 01/08/2024 2:26 PM EDT Dexa scan ordered today. Provider aware. Katie Virk RN documented in this encounter Plan of Treatment Upcoming Encounters Date Type Department Care Team (Latest Contact Info) Description 01/09/2024 10:00 AM EDT Office Visit Orthopaedics [address] [phone] Prabhu Kuo MD [address] [place] [address] 01/16/2024 10:00 AM EDT Office Visit Orthopaedics [address] [phone] Prabhu Kuo MD [address] [place] [address] 02/28/2024 10:05 AM EDT Hospital Encounter [facility] Operating [facility] [address] [place] [phone] Lewis Hook DO [address] [place] [phone] 02/28/2024 10:05 AM EDT - 02/28/2024 10:30 AM EDT Surgery [facility], [facility] [address] [place] [phone] Lewis Hook, DO [address] [place] [phone] INJECTION SPINE LUMBAR OR SACRAL 05/08/2024 11:00 AM EDT Imaging Radiology [address] [place] [address] 07/30/2024 11:00 AM EDT Nurse Only Ancillary [address] [place] [address] [place], Nurse Annual [address] [place] [address] 08/04/2024 4:20 PM EST Office Visit Family Practice [facility] [address] [place] [address] Linda Lopez DO [address] [place] [address] 04/19/2025 11:00 AM EDT Office Visit Dermatology [address] [place] [address] [facility] [address] [place] [address] [place] [address] Pending Results Name Type Priority Associated Diagnoses Date /Time XR CHEST 2 VIEWS Medical Imaging Routine SOLORZANO (dyspnea on exertion) 01/08/2024 3:09 PM EDT Scheduled Procedures Name Priority Associated Diagnoses [...] as of this encounter Visit Diagnoses Diagnosis SOLORZANO (dyspnea on exertion)- Primary Other dyspnea and respiratory abnormality Swelling of both lower extremities Mild persistent asthma without complication Unspecified asthma Age-related osteoporosis without current pathological fracture Senile osteoporosis Moderate episode of recurrent major depressive disorder (HCC) Recurrent major depressive disorder, remission status unspecified (HCC) Hypertension goal BP (blood pressure) < 150/90 Acquired hypothyroidism Unspecified hypothyroidism Caregiver stress Other health problem within the family Dyslipidemia, goal LDL below 160 Other and unspecified hyperlipidemia Lumbar radiculopathy Thoracic or lumbosacral neuritis or radiculitis, unspecified documented in this encounter Care Teams Sewing Machine Maintenance Mechanic Relationship Specialty Start Date End Date Linda Lopez DO [address] [place] [address] PCP - General Family Medicine 12/27/15 documented as of this encounter
--- OUTSIDE RECORDS SUMMARY | 2024-07-02 04:12 | External Medical Summary | Summary of Care ---
Author Name Unknown Organization [facility] Address [address] [place] [address] Phone [phone] Care Team Providers Care Boatbuilder Supervisor Name Role Phone Linda Lopez DO Primary Care Provider [phone] Reason for Visit * Reason Onset Date Comments Test Results Imaging Study 01/11/2024 Encounter Details Date Type Department Care Team (Late st Contact Info) Description 01/11/2024 Telephone Family Practice [facility] [address] [place] [address] Linda Lopez DO [address] [place] [address] Test Results Imaging Study Allergies Active Allergy Reactions Criticality Noted Date Comments Alendronate Sodium Other (Please comment) Low 10/30/2014 Abdominal and jaw pain Rosuvastatin Calcium 06/24/2018 myalgias Diclofenac Resin Diflunisal Nausea Atorvastatin Other (Please comment) Low 10/30/2014 myalgias Naproxen Nausea Nsaids Orudis--rash documented as of this encounter (statuses as of 01/11/2024) Medications Medication Sig Dispensed Refills Start Date [...] days. 14 Tablet 0 01/11/2024 01/18/2024 Active documented as of this encounter (statuses as of 01/11/2024) Active Problems Problem Noted Date Diagnosed Date [...] as of this encounter (statuses as of 01/11/2024) Resolved Problems Problem Noted Date Diagnosed Date [...] as of this encounter (statuses as of 01/11/2024) Immunizations Name Administration Dates Next Due COVID-19 mRNA, LNP-s, No Pre serve, 2-Dose Series ([employer]) 08/02/2021,12/20/2020,11/29/2020 Pneumococcal Conjugate Vacc, 13 Valent (Prevnar) [...] encounter Miscellaneous Notes * Telephone Encounter - Celena Alcala LPN - 01/11/2024 12:12 PM EDT Called and spoke with pt. Relayed information to pt. Pt voiced understanding. * Telephone Encounter - Linda Lopez DO - 01/11/2024 9:14 AM EDT Please call patient Cxr showed some clouding that *could* be an infection I sent in a prescription for an antibiotic to be safe Please let us know if her symptoms (SOB) aren't improving documented in this encounter Plan of Treatment Upcoming Encounters Date Type Department Care Team (Latest Contact Info) Description 01/16/2024 10:00 AM EDT Office Visit Orthopaedics [address] [phone] Prabhu Kuo MD [address] [place] [address] 02/28/2024 10:05 AM EDT Hospital Encounter [facility], Operating Room [facility] [address] [place] [phone] Lewis Hook, DO [address] [place] [phone] 02/28/2024 10:05 AM EDT - 02/28/2024 10:30 AM EDT Surgery OR [facility], Operating Room [facility] [address] [place] [phone] Lewis Hook, DO [address] [place] [phone] INJECTION SPINE LUMBAR OR SACRAL 05/08/2024 11:00 AM EDT Imaging Radiology [address] [place] [address] 07/30/2024 11:00 AM EDT Nurse Only Ancillary [address] [place] [address] [place], Nurse Annual [address] [place] [address] 08/04/2024 4:20 PM EST Office Visit Family Practice [facility] [address] [place] [address] Linda Lopez DO [address] [place] [address] 04/19/2025 11:00 AM EDT Office Visit Dermatology [address] [place] [address] Maris Zeng PA-C [address] [place] [address] [place] [address] Scheduled Procedures Name Priority Associated Diagnoses Date/Ti [...] as of this encounter Visit Diagnoses Diagnosis Rosacea Lumbar radiculopathy Thoracic or lumbosacral neuritis or radiculitis, unspecified documented in this encounter Care Teams Boatbuilder Supervisor Relationship Specialty Start Date End Date Linda Lopez DO [address] [place] [address] PCP - General Family Medicine 12/27/15 documented as of this encounter
--- OUTSIDE RECORDS SUMMARY | 2024-07-02 04:12 | External Medical Summary | Summary of Care ---
Author Name Unknown Organization [facility] Address [address] [place] [address] Phone [phone] Care Team Providers Care Dosimetrist Name Role Phone Linda Lopez DO Primary Care Provider [phone] Reason for Visit * Reason Comments Follow Up Knee Pain LEFT knee * Precert (Within 30 days (routine)) - Authorized Specialty Diagnoses / Procedures Referred By Contac t Referred To Contact Orthopedics Diagnoses Unilateral primary osteoarthritis, left knee Procedures OK GEL-SYN INJECTION 0.1 MG Prabhu Kuo MD [address] [place] [address] [place] [address] Prabhu Kuo MD [address] [place] [address] Referral ID Status Reason Start Date Expiration Date V isits Requested Visits Authorized [id number] Authorized Precert 01/03/2024 09/29/2099 [id number] Encounter Details Date Type Department Care Team (Latest Contact Info) Description 01/09/2024 10:00 AM EDT Office Visit Orthopaedics [address] [phone] Prabhu Kuo MD [address] [place] [...] 16.8 mg IX ONCE 01/09/2024 01/09/20 24 Active documented as of this encounter [...] mRNA, LNP-s, No Pre serve, 2-Dose Series ([employer]) 08/02/2021,12/20/2020,11/29/2020 Pneumococcal Conjugate Vacc, 13 Valent (Prevnar) [...] Kuo MD Primary Care Sports Medicine Orthopaedics [address] [phone] documented in this encounter Nursing Notes * [...] 01/16/2024 10:00 AM EDT Office Visit Orthopaedics [address] [phone] Prabhu Kuo MD [address] [place] [address] 02/28/2024 10:05 AM EDT Hospital Encounter [facility] [address] [place] [phone] Lewis Hook DO [address] [place] [phone] 02/28/2024 10:05 AM EDT - 02/28/2024 10:30 AM EDT Surgery [facility] [address] [place] [phone] Lewis Hook, DO [address] [place] [phone] INJECTION SPINE LUMBAR OR SACRAL 05/08/2024 11:00 AM EDT Imaging Radiology [address] [place] [address] 07/30/2024 11:00 AM EDT Nurse Only Ancillary [address] [place] [address] [place], Nurse Annual [address] [place] [address] 08/04/2024 4:20 PM EST Office Visit Family Practice [facility] [address] [place] [address] Linda Lopez DO [address] [place] [address] 04/19/2025 11:00 AM EDT Office Visit Dermatology [address] [place] [address] Maris Zeng PA-C [address] [place] [address] [place] [address] Scheduled Procedures Name Priority Associated Diagnoses Date/Ti [...] unspecified documented in this encounter Care Teams Dosimetrist Relationship Specialty Start Date End Date Linda Lopez DO [address] [place] [address] PCP - General Family Medicine 12/27/15 documented as of this encounter
[2024-07-02] MEDS: LEVOTHYROXINE SODIUM 50 MCG TABLET PO SCH (06:05)
[2024-07-02 06:32] LABS: Hematocrit (blood only) 33.4 % (37.0-47.0); Hemoglobin 11.1 g/dl (12.0-16.0)
--- NOTE | 2024-07-02 08:52 | Gastroenterology Progress Note ---
Date of Service July 02, 2024 Assessment & Plan (1) Bright red rectal bleeding: Plan 78 year old female with history of COPD, HTN, vitamin D deficiency, vitamin B12 deficiency, depression, rosacea, hypothyroidism, chronic back pain admitted through the ED with report of painless rectal bleeding - onset 07/01/24. She endorses about 5-6 episodes of hematochezia since this AM. She has remained hemodynamically stable w/ BP 164/101, HGB 12.6 w/o BUN elevation. She denies previous episodes of nausea/vomiting/diarrhea or black stools. Suspect a diverticular hemorrhage vs other LGI bleeding. She tested positive for norovirus. Bleeding resolved w/ golytely prep. No plan for endoscopic evaluation. May advance diet as tolerated. Suspect her bleeding was related to a diverticular source of frequent stooling from Norovirus. - Continue conservative measure - Advance diet as tolerated - No indication for IV PPI therapy - Trend H&H - Monitor and document GI output - Transfuse PRN per primary team Thank you for allowing us to participate in the care of this patient. Please c all with any acute changes, questions or concerns. Please see addendum below with additional recommendation from my supervising physician. I spent a total of 30 minutes on the date of service in review of patient's record, and previously obtained information in person and appropriate medical visit, discussion and education of plan, with patient and/or caregiver, placing orders for tests/referral/procedures as medically necessary and documentation of pertinent clinical information in patient's medical records for their visit today. Admission and Anticipated Discharge Date Admission Date: July 01, 2024 Supervising Physician Co-Signing Physician Notes I examined the patient and reviewed patient's chart , laboratory data and imaging studies. I agree with with assessment and plan of care as suggested by advanced practice provider. bloody diarrhea has resolved. Positive for norovirus by PCR. Norovirus typically presents with nonbloody diarrhea. The patient will follow-up with GI for colonoscopy in the next few weeks. Subjective Pt was seen and evaluated, chart reviewed. Tolerated bowel preparation. She tells me bleeding resolved. This is also documented in nursing note [id number]. She also tested positive for norovirus. HGB 11.1 without BUN elevation. Review of Systems Review of Systems: All other findings negative except as noted in HPI. Physical Exam Constitutional: WD/WN, vitals as above Respiratory: normal respiratory effort Cardiovascular: Rate/Rhythm: regular rate Gastrointestinal (Abdomen): Inspection/Auscultation: normal bowel sounds Percussion/Palpation: abdomen soft Skin: no rashes, warm and dry Results & Data Results & Data Vital Signs (Past 12 Hours) Vital Signs Temp Pulse Pulse Resp BP BP Pulse Ox 07/02/24 07:54 36.6 C 93 H 17 134/81 07/02/24 04:49 36.4 C L 89 18 160/82 H 97 07/01/24 23:06 36.5 C 94 H 18 171/96 H 99 07/01/24 22:22 92 H 07/01/24 21:19 O2 Del Method 07/02/24 07:54 Room Air 07/02/24 04:49 Room Air 07/01/24 23:06 Room Air 07/01/24 22:22 07/01/24 21:19 Room Air Laboratory Results 07/02/24 07/02/24 07/01/24 Range/Units 05:18 02:01 21:00 WBC (4.8-10.8) K/ul RBC (4.20-5.40) M/uL Hgb 11.1 L 12.2 (12.0-16.0) g/dl Hct 33.4 L 36.7 L (37.0-47.0) % MCV (80.0-100.0) fL MCH (25.0-34.0) pg MCHC (32.0-36.0) g/dL RDW Std Deviation (36.4-46.3) fL RDW Coeff of Imani (11.5-14.5) % Plt Count (130-400) K/uL MPV (9.4-12.4) fL Immature Gran % (Auto) % Neut % (Auto) % Lymph % (Auto) % [place] % (Auto) % Eos % (Auto) % Baso % (Auto) % Neut # (Auto) (1.40-6.50) K/uL Lymph # (Auto) (1.20-3.40) K/uL [place] # (Auto) (0.11-0.59) K/uL Eos # (Auto) (0.00-0.50) K/uL Baso # (Auto) (0.00-0.20) K/uL Immature Gran # (Auto) (0.01-0.20) K/uL PT (9.0-12.0) Seconds INR (0.9-1.1) APTT (21-31) Seconds PTT Ratio Sodium (136-145) mmol/L Potassium (3.5-5.1) mmol/L Chloride (98-107) mmol/L Carbon Dioxide (21-32) mmol/L Anion Gap (3-11) BUN (6-23) mg/dl Creatinine (0.6-1.2) mg/dl Est Cr Clr Drug Dosing ml/min Est GFR ( Amer) ml/min Est GFR (Non-Af Amer) ml/min BUN/Creatinine Ratio (10-20) Glucose (70-99(Fasting)) mg/dl Calcium (8.6-10.3) mg/dl Total Bilirubin (0.2-1.0) mg/dl AST (13-39) U/L ALT (7-52) U/L Alkaline Phosphatase (34-104) U/L Total Protein (6.0-8.3) gm/dl Albumin (3.4-5.0) gm/dl Globulin (2.5-4.0) gm/dl Albumin/Globulin Ratio (0.9-2) POC Stool Occult Blood (Negative) Stl C. cayetanensis PCR Not Detected (NotDetected) Stool Rotavirus A PCR Not Detected (NotDetected) Stl Adenov F 40/41 PCR Not Detected (NotDetected) Stool Astrovirus (PCR) Not Detected (NotDetected) Stool Campylobacter PCR Not Detected (NotDetected) Stool Cryptosporidium PCR Not Detected (NotDetected) Stl E.coli Shiga Tox PCR Not Detected (NotDetected) Stl Enterotoxigenic E PCR Not Detected (NotDetected) Stool EPEC (PCR) Not Detected (NotDetected) Stool EAEC (PCR) Not Detected (NotDetected) Stl E. histolytica PCR Not Detected (NotDetected) Stool Giardia Lamblia PCR Not Detected (NotDetected) Stool Salmonella PCR Not Detected (NotDetected) Stool Sapovirus (PCR) Not Detected (NotDetected) Stl P. shigelloides PCR Not Detected (NotDetected) Stl Shigella/EIEC PCR Not Detected (NotDetected) St Y.enterocolitica PCR Not Detected (NotDetected) Stool Vibrio (PCR) Not Detected (NotDetected) Stl Vibrio cholerae PCR Not Detected (NotDetected) Stl Norovirus GI/GII PCR DETECTED A* (NotDetected) Blood Type Antibody Screen 07/01/24 07/01/24 07/01/24 Range/Units 20:19 14:19 09:14 WBC 9.09 (4.8-10.8) K/ul RBC 4.03 L (4.20-5.40) M/uL Hgb 12.3 11.7 L 12.6 (12.0-16.0) g/dl Hct 37.6 36.2 L 37.9 (37.0-47.0) % MCV 94.0 (80.0-100.0) fL MCH 31.3 (25.0-34.0) pg MCHC 33.2 (32.0-36.0) g/dL RDW Std Deviation 49.3 H (36.4-46.3) fL RDW Coeff of Imani 14.1 (11.5-14.5) % Plt Count 330 (130-400) K/uL MPV 9.3 L (9.4-12.4) fL Immature Gran % (Auto) 0.3 % Neut % (Auto) 65.3 % Lymph % (Auto) 20.7 % [place] % (Auto) 7.7 % Eos % (Auto) 5.1 % Baso % (Auto) 0.9 % Neut # (Auto) 5.94 (1.40-6.50) K/uL Lymph # (Auto) 1.88 (1.20-3.40) K/uL [place] # (Auto) 0.70 H (0.11-0.59) K/uL Eos # (Auto) 0.46 (0.00-0.50) K/uL Baso # (Auto) 0.08 (0.00-0.20) K/uL Immature Gran # (Auto) 0.03 (0.01-0.20) K/uL PT 10.0 (9.0-12.0) Seconds INR 0.9 (0.9-1.1) APTT 25 (21-31) Seconds PTT Ratio 0.9 Sodium 139 (136-145) mmol/L Potassium 4.4 (3.5-5.1) mmol/L Chloride 106 (98-107) mmol/L Carbon Dioxide 28 (21-32) mmol/L Anion Gap 5 (3-11) BUN 22 (6-23) mg/dl Creatinine 0.82 (0.6-1.2) mg/dl Est Cr Clr Drug Dosing 47.2 ml/min Est GFR ( Amer) 78.9 ml/min Est GFR (Non-Af Amer) 68.1 ml/min BUN/Creatinine Ratio 26.8 H (10-20) Glucose 94 (70-99(Fasting)) mg/dl Calcium 9.3 (8.6-10.3) mg/dl Total Bilirubin 0.7 (0.2-1.0) mg/dl AST 16 (13-39) U/L ALT 13 (7-52) U/L Alkaline Phosphatase 73 (34-104) U/L Total Protein 6.5 (6.0-8.3) gm/dl Albumin 3.9 (3.4-5.0) gm/dl Globulin 2.6 (2.5-4.0) gm/dl Albumin/Globulin Ratio 1.5 (0.9-2) POC Stool Occult Blood (Negative) Stl C. cayetanensis PCR (NotDetected) Stool Rotavirus A PCR (NotDetected) Stl Adenov F 40/41 PCR (NotDetected) Stool Astrovirus (PCR) (NotDetected) Stool Campylobacter PCR (NotDetected) Stool Cryptosporidium PCR (NotDetected) Stl E.coli Shiga Tox PCR (NotDetected) Stl Enterotoxigenic E PCR (NotDetected) Stool EPEC (PCR) (NotDetected) Stool EAEC (PCR) (NotDetected) Stl E. histolytica PCR (NotDetected) Stool Giardia Lamblia PCR (NotDetected) Stool Salmonella PCR (NotDetected) Stool Sapovirus (PCR) (NotDetected) Stl P. shigelloides PCR (NotDetected) Stl Shigella/EIEC PCR (NotDetected) St Y.enterocolitica PCR (NotDetected) Stool Vibrio (PCR) (NotDetected) Stl Vibrio cholerae PCR (NotDetected) Stl Norovirus GI/GII PCR (NotDetected) Blood Type AB Positive Antibody Screen NEGATIVE 07/01/24 Range/Units 09:10 WBC (4.8-10.8) K/ul RBC (4.20-5.40) M/uL Hgb (12.0-16.0) g/dl Hct (37.0-47.0) % MCV (80.0-100.0) fL MCH (25.0-34.0) pg MCHC (32.0-36.0) g/dL RDW Std Deviation (36.4-46.3) fL RDW Coeff of Imani (11.5-14.5) % Plt Count (130-400) K/uL MPV (9.4-12.4) fL Immature Gran % (Auto) % Neut % (Auto) % Lymph % (Auto) % [place] % (Auto) % Eos % (Auto) % Baso % (Auto) % Neut # (Auto) (1.40-6.50) K/uL Lymph # (Auto) (1.20-3.40) K/uL [place] # (Auto) (0.11-0.59) K/uL Eos # (Auto) (0.00-0.50) K/uL Baso # (Auto) (0.00-0.20) K/uL Immature Gran # (Auto) (0.01-0.20) K/uL PT (9.0-12.0) Seconds INR (0.9-1.1) APTT (21-31) Seconds PTT Ratio Sodium (136-145) mmol/L Potassium (3.5-5.1) mmol/L Chloride (98-107) mmol/L Carbon Dioxide (21-32) mmol/L Anion Gap (3-11) BUN (6-23) mg/dl Creatinine (0.6-1.2) mg/dl Est Cr Clr Drug Dosing ml/min Est GFR ( Amer) ml/min Est GFR (Non-Af Amer) ml/min BUN/Creatinine Ratio (10-20) Glucose (70-99(Fasting)) mg/dl Calcium (8.6-10.3) mg/dl Total Bilirubin (0.2-1.0) mg/dl AST (13-39) U/L ALT (7-52) U/L Alkaline Phosphatase (34-104) U/L Total Protein (6.0-8.3) gm/dl Albumin (3.4-5.0) gm/dl Globulin (2.5-4.0) gm/dl Albumin/Globulin Ratio (0.9-2) POC Stool Occult Blood Positive A (Negative) Stl C. cayetanensis PCR (NotDetected) Stool Rotavirus A PCR (NotDetected) Stl Adenov F 40/41 PCR (NotDetected) Stool Astrovirus (PCR) (NotDetected) Stool Campylobacter PCR (NotDetected) Stool Cryptosporidium PCR (NotDetected) Stl E.coli Shiga Tox PCR (NotDetected) Stl Enterotoxigenic E PCR (NotDetected) Stool EPEC (PCR) (NotDetected) Stool EAEC (PCR) (NotDetected) Stl E. histolytica PCR (NotDetected) Stool Giardia Lamblia PCR (NotDetected) Stool Salmonella PCR (NotDetected) Stool Sapovirus (PCR) (NotDetected) Stl P. shigelloides PCR (NotDetected) Stl Shigella/EIEC PCR (NotDetected) St Y.enterocolitica PCR (NotDetected) Stool Vibrio (PCR) (NotDetected) Stl Vibrio cholerae PCR (NotDetected) Stl Norovirus GI/GII PCR (NotDetected) Blood Type Antibody Screen PG Care Time/CCT Total # of Minutes Spent Total Time Spent with Patient: Total time spent is greater than 50% in coordination of care (as documented) at patient's floor/unit and/or counseling patient: Coding Level of Care Code 72267 SUB INP/OBS CARE 1/25MIN Diagnoses Bright red rectal bleeding K62.5
[2024-07-02] MEDS: EZETIMIBE 10 MG TAB PO SCH (09:04)
[2024-07-02] MEDS: FLUTICASONE/VILANTEROL 200/25MCG 14 PUFFS/INHALER INH SCH (09:05)
[2024-07-02] MEDS: DULoxetine HCL 30 MG CAP PO SCH (10:02)
[2024-07-02 10:47] VITALS: RESP 18; TEMP 98.4; O2SAT 96
--- NOTE | 2024-07-02 13:00 | Discharge Summary ---
Discharge Summary Date of Service July 02, 2024 Principal Dx & Hospital Course #1 = Principal Diagnosis (1) Diverticular hemorrhage: (2) Inflammation of intestine due to Norovirus: (3) Hypothyroidism: (4) HTN (hypertension): Plan Patient presented to the emergency room with bright red blood per rectum. Evaluation in the ED was unremarkable, however due to her symptoms was referred for further evaluation. Patient was admitted to the hospital. Given some IV fluids. Stool studies were sent. Tested positive for norovirus. GI consultation was obtained. They recommended a GoLytely prep. Patient tolerated the GoLytely. Her stools cleared of blood. She had no abdominal pain. Hemoglobin remained stable on multiple testing. Patient was evaluated again by GI in the morning. Due to the fact that her bleeding is stopped did not feel as though she needed any endoscopic evaluation.. Her diet was advanced. She had no further significant diarrhea or bleeding. Patient essentially had a brief diverticular bleed in the setting of irritation from norovirus infection. She has significantly improved and resolved from that. She be discharged home to follow-up with her outpatient providers. Notes For Next Care Provider Continue routine care Medication Changes From Visit None Admission HPI Per Admitting Provider The patient is a 78-year-old female with a past medical history of COPD, HTN, vitamin D deficiency, vitamin B12 deficiency, depression, rosacea, hypothyroidism, chronic back pain who presents to the ED 110//24 with concerns of bright red blood per rectum since this morning. Reports 5 episodes with blood clots. Denies any abdominal pain. Denies any recent sickness denies any fever/chills. Denies any nausea/vomiting. Denies any diarrhea aside from the bloody diarrhea this a.m. Patient had a colonoscopy in 2011 and reports this was negative. Patient does report being on meloxicam for lower back pain for least a year at this point. Reports being prescribed furosemide for lower extremity swelling but not taking this because it does not work. Reports being placed on prednisone for knee pain about a month ago. She was taking meloxicam and prednisone together at this time. She denies any recent travel.. Denies any GI issues in the past. She has only seen GI in the past for routine scopes. She otherwise denies taking NSAIDs aside from meloxicam on a routine basis. She takes Tylenol as needed for breakthrough pain. On exam, patient is awake alert and oriented x 3 pleasant. No apparent distress. She is hemodynamically stable. A/P CTA showed no active bleeding Report below: 1. Extensive colonic diverticulosis. No evidence for acute diverticulitis. No intraluminal contrast within the bowel to suggest active GI bleed by CT. 2. No bowel obstruction. 3. Moderate aortoiliac atherosclerotic plaque. Patent vessels. On arrival to the ED, labs are fairly unremarkable, vital signs are stable. Apparently, patient was hypoxic in the 80s on arrival. She is now on room air with an oxygen saturation of 98% with no shortness of breath on exam. Her hemoglobin is stable at 12.6, her heme stool was positive The patient will be admitted to telemetry for further monitoring Admission Exam Per Admitting Provider See H&P Discharge Exam Constitutional: Alert HEENT: Mucous membranes moist. Lungs: Clear to auscultation, decreased, no wheezes rales or rhonchi CV: S1-S2, regular Abdomen: Soft, nontender, nondistended Extremities: No significant edema Neuro: No focal deficits Psych: Cooperative, normal mood Updated Medication List Medication Instructions Recorded Confirmed Type albuterol sulfate 90 mcg/actuation 2 puff inhalation Q4H PRN Wheezing 07/01/24 07/01/24 History aerosol inhaler amlodipine 5 mg tablet 5 mg PO QAM 07/01/24 07/01/24 History cholecalciferol (vitamin D3) 25 25 mcg PO QAM 07/01/24 07/01/24 History mcg (1,000 unit) tablet (Vitamin D3) cyanocobalamin (vitamin B-12) 1,000 mcg PO QAM 07/01/24 07/01/24 History 1,000 mcg tablet (Vitamin B-12) doxycycline hyclate 20 mg tablet 20 mg PO BID 07/01/24 07/01/24 History duloxetine 30 mg capsule,delayed 30 mg PO QAM 07/01/24 07/01/24 History release ezetimibe 10 mg tablet 10 mg PO DAILY 07/01/24 07/01/24 History fluticasone furoate 200 1 inh inhalation QAM 07/01/24 07/01/24 History mcg-vilanterol 25 mcg/dose inhalation powder (Breo Ellipta) fluticasone propionate 50 2 spray intranasal DAILY 07/01/24 07/01/24 History mcg/actuation nasal spray,suspension furosemide 20 mg tablet 20 mg PO DAILY PRN Lower Extremity 07/01/24 07/01/24 History Swelling levothyroxine 50 mcg tablet 50 mcg PO DAILYBB 07/01/24 07/01/24 History loratadine 10 mg tablet 10 mg PO QAM 07/01/24 07/01/24 History meloxicam 15 mg tablet 15 mg PO DAILY PRN Pain 07/01/24 07/01/24 History omega-3 fatty acids 500 mg capsule 500 mg PO QAM 07/01/24 07/01/24 History omeprazole 40 mg capsule,delayed 40 mg PO QAM 07/01/24 07/01/24 History release potassium chloride 20 mEq 20 meq PO DAILY PRN If you take 07/01/24 07/01/24 History tablet,extended Lasix/Furosemide release(part/cryst) (Klor-Con M) sulfacetamide sodium 10 % topical 1 applic topical BID 07/01/24 07/01/24 History cream zinc 10 mg tablet 20 mg PO DAILY 07/01/24 07/01/24 History Hospital Stay Data Consultations 07/01/24 11:25 ED Decision to Admit Stat 07/01/24 13:43 Consult Gastroenterology Routine Procedures Performed Operation Date: 07/02/24 16:30 <No data on this case meets the specified criteria> Diagnostic Imagining Performed 07/01/24 09:08 CTA abdomen pelvis w con [CT angio abdomen pelvis w con] Stat Reviewed imaging, laboratory and diagnostic studies. Pertinent findings as below. Hemoglobin 11.1 stable Stool BioFire positive for norovirus Pending Results Patient Have Any Pending Studies at Discharge: No Discharge Instructions Given to Patient (Per Discharging Provider) Increase activities as tolerated Total Time Total Time Spent Total Time Spent (In Minutes): 35
[2024-07-02 14:04] VITALS: BP 160/82; PULSE 90
== END 2024-07-02 14:22 | disposition home or self-care (01) | DRG 378 ==
LOC: EDBD → ED 09:01 → MERGE 09:01 → SUATTDRO 11:31 → EDINP 11:31 → 2S 15:42